=== PATIENT | female | born 1960 | race Caucasian/White ===

== ENCOUNTER → 2017-09-11 13:29 | Outpatient (CLI) | payer OTHER, SELFPAY ==
--- NOTE | 2017-09-11 13:34 | CT_ITS ---
STUDY: CT ABDOMEN AND PELVIS WITH CONTRAST REASON FOR EXAM: Female, 56 years old. Severe pain. Rectal prolapse repair. RADIATION DOSAGE (If Supplied By Facility): CTDIvol = ( 16.75 ) mGy, DLP = ( 1289.47 ) mGycm TECHNIQUE: Transaxial images were obtained from the dome of the diaphragm to the symphysis pubis with oral contrast. 100 ml of Isovue 300 contrast was administered. Sagittal and coronal images were reconstructed. Individualized dose optimization techniques were used for this CT. COMPARISON: None. FINDINGS: Mild degree of increased markings at the lung bases slightly worse on the right side suggest overt bibasilar atelectasis. The visualized portions of the heart are within normal limits. Normal liver. The gallbladder is contracted. Normal spleen. Normal pancreas. Normal bilateral adrenal glands. Normal right kidney. Normal left kidney. Moderate sized hiatal hernia. Normal small intestine. There are multiple colonic diverticula consistent with diverticulosis. The patient is status post appendectomy. There is scattered atherosclerotic calcification of the abdominal aorta, without a demonstrated aneurysm. Normal inferior vena cava. Normal retroperitoneum. Normal urinary bladder. There is absence of the uterus consistent with a prior hysterectomy. There is a small umbilical hernia containing fat. Small bilateral benign-appearing inguinal lymph. Disc space narrowing in the degeneration at the L4-L5 level. CT/Abdomen/Pelvis WITH Contrast IMPRESSION: Mild increased markings at the lung bases suggestive of atelectasis. Small umbilical hernia. Electronically Signed: Yasamni Basurto MD at 15:32 EST Tel [phone], Service support ,
== END ==
PROVIDERS: Family Provider Family Medicine; PCP Family Medicine; Visit Provider Family Medicine
DX: K62.89 Other specified diseases of anus and rectum (principal); K42.9 Umbilical hernia without obstruction or gangrene; K44.9 Diaphragmatic hernia without obstruction or gangrene; K57.30 Diverticulosis of large intestine without perforation or abscess without bleeding; Z90.49 Acquired absence of other specified parts of digestive tract; Z90.710 Acquired absence of both cervix and uterus
CPT/HCPCS: 74177; Q9967

== ENCOUNTER → 2017-09-30 14:59 | Outpatient (CLI) | payer OTHER, SELFPAY ==
--- NOTE | 2017-09-30 15:03 | RAD_ITS ---
STUDY: X-RAY - SACRUM/COCCYX REASON FOR EXAM: Female, 56 years old. Pain TECHNIQUE: 4 view(s) of the sacrum and coccyx were obtained. COMPARISON: None. FINDINGS: Normal bilateral sacroiliac joints. Normal visualized sacral ala and fused sacral bodies. Normal sacrococcygeal junction with a normal angulation. Normal coccygeal segments. The presacral soft tissue structures are unremarkable. Lower lumbar facet disease. RAD/Sacrum-Coccyx min 2 Views IMPRESSION: No sacrococcygeal abnormalities are identified. Electronically Signed: Darryl Riggs MD at 7:42 EST Tel , Service support ,
--- NOTE | 2017-09-30 15:03 | RAD_ITS ---
STUDY: X-RAY - LUMBAR SPINE REASON FOR EXAM: Female, 56 years old. Pain TECHNIQUE: 3 view(s) of the lumbar spine were obtained. COMPARISON: None FINDINGS: Diffuse spondylosis with normal alignment. Lower lumbar facet disease. No compression deformities. Heights of disc spaces are maintained. Aortic calcifications. RAD/Lumbar Spine 2 or 3 Views IMPRESSION: Spondylosis and lower lumbar facet disease without evidence of disc space narrowing or compression deformity. Electronically Signed: Darryl Riggs MD at 7:30 EST Tel , Service support ,
== END ==
PROVIDERS: Family Provider Family Medicine; PCP Family Medicine; Visit Provider Anesthesiology Pain Medicine
DX: M47.896 Other spondylosis, lumbar region (principal)
CPT/HCPCS: 72100; 72220

== ENCOUNTER → 2018-02-26 09:55 | Outpatient (CLI) | payer OTHER, SELFPAY ==
[2018-02-26 12:07] LABS: Absolute Lymphocyte Count 1.67 X10^3/ul (0.83-4.51); Absolute Neutrophil Count 3.9 X10^3/uL (2.0-7.7); Basophil# 0.02 X10^3/uL; Basophil% 0.3 % (0-1); Eosinophil# 0.18 X10^3/uL; Eosinophils% 2.9 % (0-5); Lymphocyte # 1.67 X10^3/ul (4.0); Lymphocyte % 27.2 % (19-41); Mean Corp Hgb Conc 33.3 g/gl (32-36); Mean Corpuscular Volume 90.1 fL (81-99); Mean Platelet Vol. 10.4 fl (6.2-12.0); Monocyte# 0.37 X10^3/uL; Neutrophil % 63.4 % (47-70); POSITIVE COUNT NO; POSITIVE DIFFERENTIAL NO; POSITIVE MORPHOLOGY NO; Platelet Count 266 K/mm3 (150-450); RBC Distribution Width CV 12.9 % (11.6-14.6); RBC Distribution Width SD 42.4 fl (35.1-43.9); Red Blood Count 4.66 M/mm3 (4.2-5.4); White Blood Count 6.2 K/mm3 (4.4-11.0)
[2018-02-26 12:38] LABS: ALB/GLOB Ratio 1.2 RATIO (0.9-2.4); AST(SGOT) 19 U/L (15-37); Alanine Aminotransfer ALT/SGPT 30 U/L (13-56); Albumin, Serum 3.7 g/dL (3.2-5.0); Alkaline Phosphatase 91 U/L (45-117); Anion Gap 10 (5-15); BUN 16 mg/dL (7-18); BUN/Creat Ratio 14.5 RATIO (10-20); Calcium,Total 8.9 mg/dL (8.5-10.1); Chloride 109 mmol/L (98-107); Cholesterol 194 mg/dL (200); EST Glomerular Filtration Rate 54 mL/min (>60); Est Glom Filt Rate - Afr Amer 65 mL/min (>60); Globulin 3.2 g/dL (2.2-4.2); Glucose 104 mg/dL (74-106); High Density Lipoprotein 55 mg/dL; Potassium 4.2 mmol/L (3.5-5.1); Protein, Total 6.9 g/dL (6.4-8.2); Sodium Level 145 mmol/L (136-145); T4 Free Direct 0.95 ng/dL (0.76-1.46); Thyroid Stim Hormone (TSH) 1.99 uIU/mL (0.358-3.74); Triglycerides 136 mg/dL; Very Low Density Lipoprotein 27 mg/dL (5-40)
== END ==
PROVIDERS: Family Provider Family Medicine; PCP Family Medicine; Visit Provider Family Medicine
DX: E78.00 Pure hypercholesterolemia, unspecified (principal); F41.9 Anxiety disorder, unspecified; R79.89 Other specified abnormal findings of blood chemistry
CPT/HCPCS: 36415; 80053; 80061; 84439; 84443; 85025

== ENCOUNTER → 2018-10-03 11:37 | Outpatient (CLI) | payer OTHER, SELFPAY ==
--- NOTE | 2018-10-03 11:50 | RAD_ITS ---
STUDY: X-RAY - LUMBAR SPINE REASON FOR EXAM: Female, 58 years old. Low back pain. TECHNIQUE: 5 view(s) of the lumbar spine were obtained. COMPARISON: None FINDINGS: Normal lumbar lordosis. There is no substantial scoliosis. There is minimal retrolisthesis of L3 over L4. There is multilevel endplate spondylosis of the lumbar vertebrae. There is severe disc space narrowing of L3-L4 and to a lesser extent L4-L5. There is no demonstrated acute fracture. There is no demonstrated spondylolysis of the pars interarticulares. There is atherosclerotic calcification of the abdominal aorta without a demonstrated aneurysm. RAD/L/S Spine Min 4 Views IMPRESSION: Degenerative changes of the spine, as detailed above. Electronically Signed: Alonzo Pradhan MD at 11:49 EST Tel , Service support ,
== END ==
PROVIDERS: Family Provider Family Medicine; PCP Family Medicine
DX: M99.03 Segmental and somatic dysfunction of lumbar region (principal); M99.04 Segmental and somatic dysfunction of sacral region
CPT/HCPCS: 72110

== ENCOUNTER → 2019-03-18 11:23 | Outpatient (CLI) | payer OTHER, SELFPAY ==
[2017-02-07 20:54] VITALS: BMI 29.4
[2019-03-18 16:05] LABS: ALB/GLOB Ratio 1.1 RATIO (0.9-2.4); AST(SGOT) 17 U/L (15-37); Alanine Aminotransfer ALT/SGPT 25 U/L (13-56); Albumin, Serum 3.8 g/dL (3.2-5.0); Alkaline Phosphatase 108 U/L (45-117); Anion Gap 3 (5-15); BUN 19 mg/dL (7-18); BUN/Creat Ratio 19.7 RATIO (10-20); Calcium,Total 8.8 mg/dL (8.5-10.1); Chloride 110 mmol/L (98-107); Creatinine, Serum 0.96 mg/dL (0.55-1.02); EST Glomerular Filtration Rate 63 mL/min (>60); Est Glom Filt Rate - Afr Amer 76 mL/min (>60); Globulin 3.4 g/dL (2.2-4.2); Glucose 97 mg/dL (74-106); Potassium 4.3 mmol/L (3.5-5.1); Protein, Total 7.2 g/dL (6.4-8.2); Sodium Level 141 mmol/L (136-145); Thyroid Stim Hormone (TSH) 1.29 uIU/mL (0.358-3.74)
== END ==
PROVIDERS: Family Provider Family Medicine; PCP Family Medicine; Visit Provider Family Medicine
DX: E78.00 Pure hypercholesterolemia, unspecified (principal); F41.9 Anxiety disorder, unspecified
CPT/HCPCS: 36415; 80053; 84439; 84443

== ENCOUNTER → 2019-05-06 13:27 | Outpatient (CLI) | payer OTHER, SELFPAY ==
[2017-02-07 20:54] VITALS: BMI 29.4
--- NOTE | 2019-05-06 13:29 | RAD_ITS ---
STUDY: X-RAY - LUMBAR SPINE REASON FOR EXAM: Female, 58 years old. Chronic low back pain TECHNIQUE: 4 view(s) of the lumbar spine were obtained. COMPARISON: None FINDINGS: Normal lumbar lordosis. There is no substantial scoliosis. There is a normal alignment of the vertebrae. There is mild multilevel endplate spondylosis of the lumbar vertebrae. There is mild multi-level degenerative disc disease with multi-level disc space narrowing. There is no demonstrated fracture. There is atherosclerotic calcification of the abdominal aorta without a demonstrated aneurysm. RAD/L/S Spine Min 4 Views IMPRESSION: Degenerative changes of the spine, as detailed above. No acute or focal abnormality. Electronically Signed: Albert Gaytan MD at 18:54 EDT , Service support ,
== END ==
PROVIDERS: Family Provider Family Medicine; PCP Family Medicine; Referring Provider Family Medicine; Visit Provider Family Medicine
DX: M54.5 Low back pain (principal); M51.16 Intervertebral disc disorders with radiculopathy, lumbar region
CPT/HCPCS: 72110

== ENCOUNTER → 2019-08-07 10:31 | Outpatient (CLI) | payer SELFPAY ==
--- NOTE | 2019-08-07 10:39 | RAD_ITS ---
STUDY: X-RAY - LUMBAR SPINE REASON FOR EXAM: Female, 58 years old. LOW BACK PAIN TECHNIQUE: 4 view(s) of the lumbar spine were obtained. COMPARISON: 06 May 2019, 03 October 2018, 30 September 2014, 11 September 2017 FINDINGS: Normal lumbar lordosis. There is no substantial scoliosis. There is a normal alignment of the vertebrae. Normal vertebral bodies and endplates. Normal disc space heights. The spine is radiographically stable between flexion and extension. There are minor age appropriate changes. The soft tissue structures are unremarkable. Appearance is stable since prior RAD/Lumbar Spine 2 or 3 Views IMPRESSION: Unremarkable x-ray examination of the lumbar spine. Electronically Signed: Sher Fernandez, at 18:20 EST Tel , Service support ,
== END ==
PROVIDERS: Family Provider Family Medicine; PCP Family Medicine
DX: M48.02 Spinal stenosis, cervical region (principal)
CPT/HCPCS: 72100

== ENCOUNTER 2019-11-10 13:39 | Emergency (ER) | payer MEDICARE, SELFPAY ==
[2019-11-10 13:39] VITALS: BP 142/86; PULSE 70; RESP 16; TEMP 36.8; O2SAT 98; BMI 32.4
--- NOTE | 2019-11-10 14:13 | RAD_ITS ---
STUDY: X-RAY - RIGHT FOOT CLINICAL: Female, 59 years old. Lateral foot pain today after walking -- NKI TECHNIQUE: 3 view(s) of the foot. COMPARISON: None. FINDINGS: There is a small plantar calcaneal spur. Normal visualized subtalar, talonavicular, calcaneocuboid, tarsal and tarsometatarsal articulations. There is a nondisplaced spiral fracture of the shaft of the fifth metatarsal. Normal metatarsophalangeal joint of the great toe. Normal tibial and fibular sesamoid bones. Normal interphalangeal joint of the great toe. Normal phalanges of the great toe. Normal second through fifth metatarsophalangeal joints. Normal interphalangeal joints and phalanges of the lesser toes. Soft tissue swelling. RAD/Foot min 3 Views IMPRESSION: Nondisplaced spiral fracture of the fifth metatarsal with overlying soft tissue swelling. Electronically Signed: Yasmani Basurto, at 14:39 EDT , Service support ,
--- NOTE | 2019-11-10 14:14 | ED.VISSUMM ---
- ER Visit Summary Date of Service: 11/10/19 Chief Complaint: Right foot injury History of Present Illness: The patient is a 59 F who presents with a right foot injury that occurred today while she was walking up steps. Patient states she was walking with her grandson when she felt a pop in her right foot. Patient states this caused her to fall. Patient denies any head injury or loss of consciousness. Patient states the pain is worse over the right midfoot. Patient describes her pain as throbbing. Patient states the pain is worse with weightbearing and with dorsiflexion. Patient denies any paresthesias or weakness. Patient denies any other injuries. Patient states when she fell she developed an abrasion over her left lower leg. Patient is unsure of her last tetanus but thinks it is probably more than 10 years ago. Physical Examination: Vital signs are stable. Patient is afebrile. Patient is in no acute distress. Musculoskeletal exam reveals tenderness over the right midfoot and fifth metatarsal area. There is some mild edema. There is no ecchymosis. There is no bony crepitance or step-off. There is no obvious deformity noted. Range of motion was limited in all motions of the right ankle and foot secondary to pain. Pedal pulses are equal bilaterally. Sensation was intact to light touch in all digits bilaterally. Capillary refill was less than 2 seconds in all digits. There is no tenderness over the proximal fibula or medial or lateral malleoli. Test Results: X-rays of the right foot were obtained. There is a spiral oblique fracture of the right fifth metatarsal. This is nondisplaced. This was interpreted by the radiologist and myself. Emergency Department Course and Treatment: Patient was given an ice pack. Patient was given a dose of [place]. Case was discussed with Dr. Smith. He recommended placing the patient in a posterior splint and crutches. He recommended maintaining the patient is nonweightbearing. He will follow-up with the patient. Patient was given a prescription for [place]. Patient was instructed to continue ice and elevation. Patient understood and was agreeable with the plan. All questions were answered. Disposition: Discharge home Impression: 1. Acute fracture right fifth metatarsal This note was generated with [employer] software. It may contain incorrect words, spelling, and punctuation that were not noted in review of the chart prior to signing ED Disposition - Plan for ED Patient: Disposition: Home or Assisted Living Diagnosis: Fracture of fifth metatarsal bone of right foot Instructions: ED FOOT FRACTURE Prescriptions: Hydrocodone Bitart/Apap 5-325 [[place] 5MG-325MG] 1 tab PO Q6H PRN PRN 3 Days #10 tab PRN Reason: Pain Prescription Printed Referrals: Denis Colindres MD [Primary Care Provider] - Matias Smith DPM [STAFF PHYSICIAN] - 5-7 Days
[2019-11-10] MEDS: Diphth,Pertuss(Acell),Tet Vac 0.5 ML Vial IM (14:34)
[2019-11-10 15:21] VITALS: BP 135/95; PULSE 69; RESP 16; TEMP 36.8; O2SAT 98
[2019-11-10] MEDS: HYDROcodone Bitartrate/Apap 5/325 Tablet PO (16:40)
[2019-11-10 16:52] VITALS: PULSE 70; RESP 16; O2SAT 97
== END 2019-11-10 17:11 | disposition home or self-care (01) ==
PROVIDERS: Emergency Provider Emergency Medicine; PCP Family Medicine
DX: S92.354A Nondisplaced fracture of fifth metatarsal bone, right foot, initial encounter for closed fracture (principal); X58.XXXA Exposure to other specified factors, initial encounter; Y93.01 Activity, walking, marching and hiking; Y92.9 Unspecified place or not applicable; F41.9 Anxiety disorder, unspecified; Z87.891 Personal history of nicotine dependence
CPT/HCPCS: 29515; 73630; 90471; 90715; 99283

== ENCOUNTER → 2020-10-21 11:14 | Outpatient (CLI) | payer MEDICARE, SELFPAY ==
[2020-10-21 15:11] LABS: Basophil# 0.03 X10^3/uL; Basophil% 0.5 % (0-1); Eosinophil# 0.13 X10^3/uL; Eosinophils% 2.2 % (0-5); Hematocrit 41.5 % (37-47); Hemoglobin 13.2 g/dL (12.0-15.0); Lymphocyte % 24.1 % (19-41); Mean Corp Hgb Conc 31.8 g/dL (32-36); Mean Corpuscular Hgb 29.4 pg (27.0-32.0); Mean Corpuscular Volume 92.4 fL (81-99); Mean Platelet Vol. 10.5 fl (6.2-12.0); Monocyte# 0.28 X10^3/uL; Monocyte% 4.8 % (0-10); NRBC Flagged by Analyzer 0 % (0-5); Neutrophil # 3.96 X10^3/uL (2.7-7.7); Neutrophil % 68.2 % (47-70); Platelet Count 319 K/mm3 (150-450); RBC Distribution Width CV 12.5 % (11.6-14.6); RBC Distribution Width SD 42.9 fl (35.1-43.9); Red Blood Count 4.49 M/mm3 (4.2-5.4); White Blood Count 5.8 K/mm3 (4.4-11.0)
[2020-10-21 15:30] LABS: ALB/GLOB Ratio 1.2 RATIO (0.9-2.4); AST(SGOT) 18 U/L (15-37); Alanine Aminotransfer ALT/SGPT 30 U/L (13-56); Albumin, Serum 3.8 g/dL (3.2-5.0); Alkaline Phosphatase 102 U/L (45-117); Anion Gap 9 (5-15); BUN 21 mg/dL (7-18); Calcium,Total 9.1 mg/dL (8.5-10.1); Chloride 104 mmol/L (98-107); Creatinine, Serum 0.95 mg/dL (0.55-1.02); EST Glomerular Filtration Rate 63 mL/min (>60); Est Glom Filt Rate - Afr Amer 76 mL/min (>60); Globulin 3.3 g/dL (2.2-4.2); Glucose 112 mg/dL (74-106); Protein, Total 7.1 g/dL (6.4-8.2); Sodium Level 142 mmol/L (136-145); Thyroid Stim Hormone (TSH) 0.65 uIU/mL (0.358-3.74)
== END ==
PROVIDERS: PCP Family Medicine; Referring Provider Family Medicine; Visit Provider Family Medicine
DX: E78.00 Pure hypercholesterolemia, unspecified (principal); F41.9 Anxiety disorder, unspecified
CPT/HCPCS: 36415; 80053; 84443; 85025

== ENCOUNTER → 2020-11-15 11:35 | Outpatient (CLI) | payer MEDICARE, SELFPAY ==
--- NOTE | 2020-11-15 12:41 | CT_ITS ---
STUDY: CT CHEST WITHOUT CONTRAST- LOW DOSE SCREENING PROTOCOL REASON FOR EXAM: Female, 60 years old. Former smoker. 66 pack per year history. No current symptoms of lung cancer or pulmonary infection. Shared decision-making with referring PCP documented in patient''s record. RADIATION DOSAGE (If Supplied By Facility): CTDIvol = ( 3.02 ) mGy, DLP = ( 101.96 ) mGycm TECHNIQUE: Low dose screening CT examination performed from the base of the neck to the upper abdomen. Sagittal and coronal reformatted images performed. Sagittal and coronal MIP images provided. The measurements provided are average, rounded measurements per ACR guidelines. COMPARISON: None. FINDINGS: Mild emphysematous changes. Lingular linear scarring. 4 mm noncalcified nodule peripherally left lower lobe the lungs on image 166 and follow-up CT is recommended in 12 months document stability. No other noncalcified nodule or mass. There is no demonstrated pleural abnormality. Normal heart and pericardium. There are calcifications of the coronary arteries. Moderate sized hiatal hernia. Normal hilar regions. Normal unenhanced pulmonary arteries. Normal aorta arch and descending thoracic aorta. Normal osseous structures. There is no demonstrated abnormality of the visualized upper abdomen. CT/Low Dose CT Lung Screening IMPRESSION: 1. 4 mm noncalcified left lower lobe nodule and follow-up CT is recommended in 12 months document stability.. 2. Incidental findings include moderate hiatal hernia.. ASSESSMENT CATEGORY: LungRADS 2 - Benign Appearance or Behavior. Continue annual screening with LDCT in 12 months, per established ACR guidelines. Electronically Signed: Moshe Gray MD at 13:11 EDT Tel , Service support ,
== END ==
PROVIDERS: PCP Family Medicine; Referring Provider Nurse Practitioner Family; Visit Provider Nurse Practitioner Family
DX: Z12.2 Encounter for screening for malignant neoplasm of respiratory organs (principal); Z87.891 Personal history of nicotine dependence
CPT/HCPCS: 71271

== ENCOUNTER 2021-08-01 12:13 | Outpatient (CLI) | payer MEDICARE, SELFPAY ==
--- NOTE | 2021-08-01 12:17 | RAD_ITS ---
STUDY: X-RAY - LUMBAR SPINE REASON FOR EXAM: Female, 60 years old. PAIN TECHNIQUE: 5 view(s) of the lumbar spine were obtained. COMPARISON: 08/07/2019 FINDINGS: Normal lumbar lordosis. There is no substantial scoliosis. There is a normal alignment of the vertebrae. There is multilevel endplate spondylosis of the lumbar vertebrae. There is multi-level degenerative disc disease with multi-level disc space narrowing. Facet hypertrophy in the lower lumbar spine. The soft tissue structures are unremarkable. RAD/L/S Spine Min 4 Views IMPRESSION: Degenerative changes of the spine, as detailed above. MRI would be useful. Electronically Signed: Moshe Gray MD at 12:37 EST Tel , Service support ,
--- NOTE | 2021-08-01 12:18 | RAD_ITS ---
History: PAIN AP pelvis and right hip, 3 views: Findings: No fracture or subluxation. Joint spaces and soft tissues are normal. IMPRESSION: No acute abnormality. at 0947 Reported and signed by: Alvarez Coto MD Electronically Signed: Alvarez Coto MD at 9:46 EST Tel , Service support , RAD/HIP, UNI W/ Pelvis 2-3 Views
== END 2021-08-01 23:59 | disposition short-term general hospital (02) ==
PROVIDERS: PCP Family Medicine; Referring Provider Family Medicine; Visit Provider Family Medicine
DX: M47.816 Spondylosis without myelopathy or radiculopathy, lumbar region (principal); M51.36 Other intervertebral disc degeneration, lumbar region; M48.061 Spinal stenosis, lumbar region without neurogenic claudication; M25.551 Pain in right hip; R10.31 Right lower quadrant pain
CPT/HCPCS: 72110; 73502

== ENCOUNTER → 2021-11-28 | Outpatient (CLI) | payer MEDICARE, SELFPAY ==
--- NOTE | 2021-11-28 12:22 | CT_ITS ---
STUDY: LOW DOSE CT LUNG CANCER SCREENING REASON FOR EXAM: Female, 61 years old. Lung cancer screening -- 88 pk yr hx; former smoker; asymptomatic RADIATION DOSAGE (If Supplied By Facility): CTDIvol = ( 3.02 ) mGy, DLP = ( 91.76 ) mGycm TECHNIQUE: No contrast was administered. Low dose technique was utilized (average mAS-38 and kVp 120). 1.25 mm axial source images with a slice interval of 1.25-mm were reconstructed in lung windows. 2.5 mm axial source images with a slice interval of 2.5-mm were reconstructed in lung windows. 5.0 mm axial source images with a slice interval of 5.0-mm were reconstructed in soft tissue windows. COMPARISON: Comparison is made with prior study dated 11/15/2020. NODULES: Stable 4 mm noncalcified nodule in the peripheral lateral aspect of left lower lobe as seen on axial image #160. Emphysema: Hyperinflation. Emphysematous changes. Stable linear scarring in both upper lobes. Stable linear scarring in the lingular segment of the left upper Endobronchial lesion: None Aorta: Atherosclerotic plaque formation of the aortic arch. CORONARY ARTERIES: Coronary artery calcification Heart: Unremarkable Pulmonary artery: Unremarkable Mediastinal nodes: Small mediastinal lymph nodes. Other chest and abdominal findings: Moderate sized hiatal hernia. CT/Low Dose CT Lung Screening IMPRESSION: Lung-RADS category 2 - Continue annual screening with LDCT in 12 months. IMPORTANT NOTES FOR USE: ACR Lung-RADS Version 1.1 Assessment Categories Release Date: 2018 Category: Coded 0-4 bases on nodule(s) with highest degree of suspicion. Negative screen is defined as categories 1 and 2; a positive screen is defined as categories 3 and 4. Category 3 and 4A nodules that are unchanged on interval CT should be coded as category 2, and individuals returned to screening in 12 months. Category 4X: Category 3 or 4 nodules with additional imaging findings that increase the suspicion of lung cancer, such as spiculation, GGN that doubles in size in 1 year, enlarged lymph notes, etc. Category Modifiers: S (significant finding unrelated to lung cancer) Electronically Signed: Yasmani Basurto MD at 13:08 EDT ,
== END | disposition home or self-care (01) ==
LOC: CT 12:21
PROVIDERS: PCP Family Medicine; Referring Provider Nurse Practitioner Family; Visit Provider Nurse Practitioner Family
DX: Z12.2 Encounter for screening for malignant neoplasm of respiratory organs (principal); Z87.891 Personal history of nicotine dependence
CPT/HCPCS: 71271

== ENCOUNTER 2022-06-13 18:09 | Emergency (ER) | payer MEDICARE, SELFPAY ==
[2022-06-13 18:10] VITALS: BP 174/92; PULSE 85; RESP 16; TEMP 36.2; O2SAT 99; BMI 30.4
--- NOTE | 2022-06-13 19:07 | ED.VIS.LOWEX ---
HPI History of Present Illness Chief Complaint: Lower Extremity Injury Informant: patient Narrative Narrative: Patient states that she was walking. She stepped down and she got sudden pain along the medial aspect of her right foot. It started in the right great toe and radiated up the foot. After that it was sore to bear weight. She had the same thing happen once on her right foot and had 1/5 metatarsal fracture there. She does not have a history of gout. She felt perfectly fine until this happened. She is not getting any swelling. No chest pain no trouble breathing. This just happened within the last couple hours. Rest makes it better and weightbearing makes it worse PFSH PFS Medical History Anxiety Climacteric syndrome Encounter for screening for malignant neoplasm of lung in former smoker who quit in past 15 years with 30 pack year history or greater Former smoker History of tobacco use Hypercholesteremia IBS (irritable bowel syndrome) Insomnia Rectal prolapse Umbilical hernia Home Medications calcium carbonate 600 mg calcium (1,500 mg) tablet 1,200 mg PO DAILY 10/16/16 [History Last Taken Unknown] paroxetine HCl 40 mg tablet 40 mg PO DAILY 10/16/16 [History Last Taken Unknown] promethazine 25 mg tablet 50 mg PO Q8H PRN PRN Nausea 10/16/16 [History Last Taken Unknown] simvastatin 10 mg tablet 10 mg PO QHS 10/16/16 [History Last Taken Unknown] trazodone 50 mg tablet 50 mg PO QHS 10/16/16 [History Last Taken Unknown] Allergy/AdvReac Type Severity Reaction Status Date / Time No Known Allergies Allergy Verified 06/13/22 18:11 Family History Father Hypertension Mother Hypertension Surgical History H/O section H/O laminectomy H/O thumb surgery H/O total hysterectomy History of appendectomy History of carpal tunnel surgery History of tonsillectomy Social History Smoking Status: Former smoker quit date: 12/27/16 pack-years: 64 Tobacco: How many years used: 44 Electronic Cigarette Use: not used how long ago did patient quit smokin years second hand exposure: Yes quit status: quit date established ROS ROS ED Cardiovascular Cardiovascular: Denies chest pain or palpitations Respiratory/Chest Respiratory/Chest: Denies cough or dyspnea Gastrointestinal Gastrointestinal: Denies nausea or vomiting Musculoskeletal Musculoskeletal: Reports arthralgias and other Details: History of present illness peer ; Denies back pain Integumentary Denies abscess, Abrasions or rash Neurologic Neurologic: Denies paresthesias or weakness Endocrine Endocrinology: Denies polydipsia or polyuria Hematologic/Lymphatic Hematologic/Lymphatic: Denies easy bleeding or easy bruising Allergic/Immunologic Allergic/Immunologic ED: Denies urticaria EXAM Physical Exam Const Vital Signs: 06/13/22 18:10 Temperature 97.2 F L Temperature Source Temporal Pulse Rate 85 Respiratory Rate 16 Blood Pressure 174/92 H Blood Pressure Mean 119 Pulse Ox 99 Oxygen Delivery Method Room Air Positive well nourished and well developed General Appearance ED: well developed and NAD Resp normal respiratory effort Extremity normal to inspection Extremity Narrative: No visible swelling redness or rash. There is tenderness on the left foot involving the proximal aspect of the left great toe and up the midfoot and even slightly into the forefoot. No tenderness at the ankle or calcaneus. Achilles is intact by palpation and Dudley test. There is no edema. No cords. No distended veins. No calf pain. No asymmetry. Neuro no sensory deficits noted Motor Exam: strength 5/5 throughout Psych mental status grossly normal Skin no wounds MDM MDM MDM Narrative Medical decision making narrative: X-rays show no acute fracture. Ice rest elevation is appropriate. This may be a strain. If it still hurting in a couple weeks it may need repeat x-ray. Radiography Diagnostic Testing: Clinical Impression(s) from Imaging Studies Foot X-Ray 06/13/22 19:10 IMPRESSION: Negative left foot x-rays. Electronically Signed: Anselmo Estevez MD at 19:19 EST Reading Location ID and State: [facility] / [place] Tel , Service support , Three-view x-ray of the left foot looked at by me and read by radiology shows no acute fracture. Discharge Plan Triage Chief Complaint: Lower Extremity Injury ED Provider: Tahir Villanueva Dx/Rx/DC Orders Clinical Impression: Left foot pain Instructions: ED Foot Sprain Prescriptions: No Action trazodone 50 MG tablet 50 mg PO QHS simvastatin 10 MG tablet 10 mg PO QHS calcium carbonate 600 MG tablet 1,200 mg PO DAILY promethazine 25 MG tablet 50 mg PO Q8H PRN PRN (Reason: Nausea) paroxetine HCl 40 MG tablet 40 mg PO DAILY Label Comments: for 4 days Primary Care Provider: Denis Colindres Referrals: Denis Colindres MD [Primary Care Provider] - 1 Week if not improving Disposition Disposition: Home, Self Care
--- NOTE | 2022-06-13 19:10 | RAD_ITS ---
EXAM: XR LEFT FOOT COMPLETE, 3 OR MORE VIEWS CLINICAL INDICATION: pain TECHNIQUE: Frontal, lateral and oblique views of the left foot. This report was created using [employer] report generation technology. COMPARISON: None. FINDINGS: BONES/JOINTS: Unremarkable. No acute fracture. No subluxation. Normal alignment. Preservation of the joint space. No sclerotic or destructive changes observed. SOFT TISSUES: Unremarkable. No soft tissue swelling or gas. No radiopaque foreign body. RAD/Foot min 3 Views IMPRESSION: Negative left foot x-rays. Electronically Signed: Anselmo Estevez MD at 19:19 EST ,
== END 2022-06-13 20:24 | disposition home or self-care (01) ==
PROVIDERS: Emergency Provider Emergency Medicine; PCP Family Medicine; Visit Provider Emergency Medicine
DX: M79.672 Pain in left foot (principal); E78.00 Pure hypercholesterolemia, unspecified; M79.671 Pain in right foot; Z87.891 Personal history of nicotine dependence
CPT/HCPCS: 73630; 99282

== ENCOUNTER 2022-11-30 13:11 | Emergency (ER) | payer MEDICARE, SELFPAY ==
[2022-11-30 13:12] VITALS: BP 141/104; PULSE 115; RESP 18; TEMP 37.1; O2SAT 96; BMI 29.3
--- NOTE | 2022-11-30 13:56 | CT_ITS ---
STUDY: CT ABDOMEN AND PELVIS WITH CONTRAST REASON FOR EXAM: Female, 62 years old. Abdominal pain RADIATION DOSAGE (If Supplied By Facility): CTDIvol = ( 16.75 ) mGy, DLP = ( 995.99 ) mGycm TECHNIQUE: Transaxial images were obtained from the dome of the diaphragm to the symphysis pubis without oral contrast. IV 100mL Isovue-300 was administered. Sagittal and coronal images were reconstructed. Individualized dose optimization techniques were used for this CT. COMPARISON: Comparison is made with prior study of September 11, 2017. FINDINGS: Mild degree of increased markings at the lung bases. Coronary artery calcification. There is decreased attenuation of the liver consistent with steatosis. Normal gallbladder and extrahepatic biliary system. Normal spleen. Normal pancreas. Normal bilateral adrenal glands. 1.2 cm cyst in the right kidney. Normal left kidney. Moderate sized hiatal hernia. There is evidence of a dilated small bowel loops with air-fluid levels. There is thickening of the small bowel loops in the distal ileum. Increased markings are seen in the omental fat. Omental metastasis should be ruled out. Follow-up is recommended. There are multiple colonic diverticula consistent with diverticulosis. The patient is status post appendectomy. There is scattered atherosclerotic calcification of the abdominal aorta, without a demonstrated aneurysm. Normal inferior vena cava. Normal retroperitoneum. Normal urinary bladder. There is absence of the uterus consistent with a prior hysterectomy. There is a small umbilical hernia containing fat. There are degenerative changes of the visualized lumbar spine. CT/Abdomen/Pelvis W IV Cont ONLY IMPRESSION: Dilated small bowel loops down to the distal ileum where several ileal loops are thickened. There is also evidence of soft tissue density in the omental fat suggestive of possible omental metastasis. Follow-up is recommended. Sigmoid diverticulosis. Diffuse fatty infiltration of the liver. The patient is status post hysterectomy. Electronically Signed: Yasmani Basurto MD at 15:13 EDT ,
[2022-11-30] MEDS: Morphine 4 MG/ML Syringe IV (14:12)
[2022-11-30] MEDS: Ondansetron 4 MG/2 ML Vial IV (14:12)
[2022-11-30] MEDS: 0.9% Normal Saline 1,000 ML 1000 ML IV (14:12)
[2022-11-30 14:22] LABS: Absolute Lymphocyte Count 1.08 X10^3/uL (0.83-4.51); Absolute Neutrophil Count 7.5 X10^3/uL (2.0-7.7); Basophil# 0.03 X10^3/uL; Basophil% 0.3 % (0-1); Hematocrit 45.5 % (37-47); Hemoglobin 15.2 g/dL (12.0-15.0); Lymphocyte # 1.08 X10^3/ul (0.83-4.51); Lymphocyte % 12.1 % (19-41); Mean Corp Hgb Conc 33.4 g/dL (32-36); Mean Corpuscular Hgb 29.9 pg (27.0-32.0); Mean Corpuscular Volume 89.6 fL (81-99); Monocyte# 0.29 X10^3/uL; Monocyte% 3.3 % (0-10); NRBC Flagged by Analyzer 0 % (0-5); Neutrophil # 7.49 X10^3/uL (2.7-7.7); Platelet Count 364 K/mm3 (150-450); RBC Distribution Width CV 12.2 % (11.6-14.6); RBC Distribution Width SD 40.2 fl (35.1-43.9); Red Blood Count 5.08 M/mm3 (4.2-5.4); White Blood Count 8.9 K/mm3 (4.4-11.0)
--- NOTE | 2022-11-30 14:35 | EDS_ITS ---
HPI <CESAR Dennis - Last Filed: 11/30/22 16:00> History of Present Illness Chief Complaint: Abd Pain Narrative Narrative: Patient is a 62-year-old female with history of cholesterol, anxiety who presents to the emergency department with 1 month of worsening abdominal pain. 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 Patient does get regular colonoscopies. Patient states that for the last month she has increased pain every time that she eats, and sometimes at nighttime. Patient states the pain is diffuse throughout her entire abdomen. She states that she gets full quickly. She states that she has decreased bowel movement, decreased urinalysis secondary not eating and drinking. She denies any specific fevers or chills. PFSH <CESAR Dennis - Last Filed: 11/30/22 16:00> PFSH Medical History Anxiety Climacteric syndrome Encounter for screening for malignant neoplasm of lung in former smoker who quit in past 15 years with 30 pack year history or greater Former smoker History of tobacco use Hypercholesteremia IBS (irritable bowel syndrome) Insomnia Rectal prolapse Umbilical hernia Home Medications calcium carbonate 600 mg calcium (1,500 mg) tablet 1,200 mg PO DAILY 10/16/16 [History Last Taken Unknown] paroxetine HCl 40 mg tablet 40 mg PO DAILY 10/16/16 [History Last Taken Unknown] promethazine 25 mg tablet 50 mg PO Q8H PRN PRN Nausea 10/16/16 [History Last Taken Unknown] simvastatin 10 mg tablet 10 mg PO QHS 10/16/16 [History Last Taken Unknown] trazodone 50 mg tablet 50 mg PO QHS 10/16/16 [History Last Taken Unknown] Allergy/AdvReac Type Severity Reaction Status Date / Time No Known Allergies Allergy Verified 11/30/22 13:13 Family History Father Hypertension Mother Hypertension Surgical History H/O section H/O laminectomy H/O thumb surgery H/O total hysterectomy History of appendectomy History of carpal tunnel surgery History of tonsillectomy Social History Smoking Status: Former smoker quit date: 12/27/16 pack-years: 64 Tobacco: How many years used: 44 Electronic Cigarette Use: not used how long ago did patient quit smokin years second hand exposure: Yes quit status: quit date established ROS <CESAR Dennis - Last Filed: 11/30/22 16:00> ROS ED ROS Narrative Constitutional: Negative for fever, chills, weight loss, weakness Eyes: Negative for vision loss, vision change, double vision ENT: Negative for any sore throat, ear pain, congestion Cardiovascular: Negative for any chest pain, tightness, palpitations Respiratory: Negative for any cough, sputum production, hemoptysis, dyspnea, dyspnea on exertion, orthopnea Gastrointestinal: Negative for any vomiting, diarrhea, constipation, blood in stool, blood in vomit. Positive for vomiting, nausea : Negative for any urinary frequency, dysuria, retention, blood in urine Muscle skeletal: Negative for any muscle joint pain, stiffness, myalgias, arthralgias, neck pain, back pain Neurological: Negative for any headache, syncope, numbness or tingling, dizziness Skin: Negative for any rashes, lumps, itching, abrasions, lacerations Psychiatric: Negative for any depression, anxiety, stress, suicidal ideation, homicidal ideation Hematologic: Negative for any easy bruising, excessive bruising, easy bleeding Allergies: Negative for any eczema, hives, rash EXAM <CESAR Dennis - Last Filed: 11/30/22 16:00> Physical Exam Narrative Exam Narrative: Vital signs reviewed. HEET: Head normocephalic atraumatic, TMs clear bilaterally. Posterior pharynx is clear, moist mucous membranes. Nares clear bilaterally. Neck: Supple with no lymphadenopathy or tenderness. No signs of meningismus, negative jolt sign. Cardiac: Regular rate and rhythm no murmurs gallops or rubs, equal peripheral pulses bilaterally. Respiratory: Lungs clear to auscultation bilaterally. No chest tenderness. Abdomen: Soft, diffuse tenderness, pain throughout exam. Active bowel sounds in all quadrants, nondistended. No abdominal bruit or pulsatile masses. No hepatosplenomegaly Extremities: No peripheral edema, no signs of gross trauma or deformity. Active full range of motion of all extremities. Neuro: Cranial nerves II through XII intact, no focal neurological deficits. Skin: Clean dry and intact with no rash, purpura, petechiae, vesicles or pustules. Backs/flank: No CVA tenderness, no midline spinal tenderness, no deformity. Psych: Normal mood and affect. No SI, HI or acute psychosis. Const Vital Signs: 11/30/22 13:12 11/30/22 15:18 Temperature 98.7 F Temperature Source Temporal Pulse Rate 115 H Respiratory Rate 18 16 Blood Pressure 141/104 H Blood Pressure Mean 116 Pulse Ox 96 Oxygen Delivery Method Room Air Positive well nourished and well developed General Appearance ED: well developed <Dr. Ute Khan DO - Last Filed: 11/30/22 16:30> Physical Exam Const Vital Signs: 11/30/22 13:12 11/30/22 15:18 Temperature 98.7 F Temperature Source Temporal Pulse Rate 115 H Respiratory Rate 18 16 Blood Pressure 141/104 H Blood Pressure Mean 116 Pulse Ox 96 Oxygen Delivery Method Room Air MDM <CESAR Dennis - Last Filed: 11/30/22 16:00> MDM Lab Data Labs: Laboratory Results - last 24 hr 11/30/22 11/30/22 13:42 13:42 WBC 8.9 RBC 5.08 Hgb 15.2 H Hct 45.5 MCV 89.6 MCH 29.9 MCHC 33.4 RDW Std Deviation 40.2 RDW Coeff of Julian 12.2 Plt Count 364 MPV 10.0 Immature Gran % (Auto) 0.300 Neut % (Auto) 84.0 H Lymph % (Auto) 12.1 L [place] % (Auto) 3.3 Eos % (Auto) 0.0 Baso % (Auto) 0.3 Absolute Neuts (auto) 7.5 Absolute Lymphs (auto) 1.08 Nucleated RBC % 0 Sodium 139 Potassium 3.6 Chloride 107 Carbon Dioxide 24.0 Anion Gap 8 BUN 18 Creatinine 0.76 Estim Creat Clear Calc 64.58 Est GFR (MDRD) Af Amer 98 Est GFR (MDRD) Non-Af 81 BUN/Creatinine Ratio 23.6 H Glucose 124 H Calcium 9.2 Total Bilirubin 0.30 AST 14 L ALT 20 Alkaline Phosphatase 93 Total Protein 7.3 Albumin 3.7 Globulin 3.6 Albumin/Globulin Ratio 1.0 Lipase 29 Radiography Diagnostic Testing: Clinical Impression(s) from Imaging Studies Abdomen/Pelvis CT 11/30/22 13:56 IMPRESSION: Dilated small bowel loops down to the distal ileum where several ileal loops are thickened. There is also evidence of soft tissue density in the omental fat suggestive of possible omental metastasis. Follow-up is recommended. Sigmoid diverticulosis. Diffuse fatty infiltration of the liver. The patient is status post hysterectomy. Electronically Signed: Yasmani Basurto MD at 15:13 EDT , Treatment and Re-Evaluation :: All radiologic examinations were read, reviewed by the emergency department attending. From these reads, a plan of care will be put in place. Patient appears generally well, patient appears nontoxic, vital signs are stable. Patient presents to the emergency department for 1 month of generalized abdominal pain. Patient does have a history of IBS however she states the pain has been getting worse. Patient did receive basic laboratory values, patient CBC was unremarkable, chemistries were unremarkable. Patient did receive IV fluids, IV Zofran, IV morphine. On reassessment, the patient was feeling much more relaxed, felt decreased pain. Patient did receive a CT scan of the abdomen pelvis that showed dilated small bowel loops down in the distal ileum where several ileal loops are thickened. There is also evidence of soft tissue density in the omental fat suggesting a possible omental metastasis. Follow-up is recommended. Sigmoid diverticulosis, fatty liver. At this time, patient is still eating and drink, and having bowel movements, I do not believe the patient is obstructed. I did reach out to surgery, Dr. Miller, he states the patient does need to be followed up by GI. The patient last GI specialist was in [place] however her insurance changed. She will follow-up with Dr. Delcid, she is aware that she needs to follow-up for a endoscopy as well as a colonoscopy. She verbally understands this. We spoke that pain medicine at home will further complicate her constipation. We did recommend her use MiraLAX. I spoke with the patient the patient's , all questions were answered. Return precautions were given. Patient stable for discharge <Dr. Ute Khan, DO - Last Filed: 11/30/22 16:30> [facility] Narrative Medical decision making narrative: I have personally performed a face to face assessment of the patient and have reviewed the MANUEL Note. I performed a substantive portion of the visit including all aspects of the following. My gallegos findings include: History is patient is a 62-year-old female with history of IBS and tobacco use presenting with 1 month of worsening abdominal pain. She has no significant vomiting. She has had regular bowel movements but they have been hard and small. She is concerned about taking any type of laxative because she is worried that she might have a bowel movement and an opportune moment when she is out of the house. She previously seen GI and actually does not currently follow with GI as her insurance changed. On my exam patient seen in bed in no acute distress. Abdomen is soft and nontender. She previously been medicated with morphine and Zofran and states she was feeling better. Abdomen is nontender. She has hypoactive bowel sounds. No rebound tenderness or guarding. Heart regular rate and rhythm. No respiratory distress. Medical Decision Making Patient work-up included CBC, CMP and lipase is all largely normal. She does not have any urinary symptoms I do not think urinalysis is indicated at this time. CT of abdomen pelvis is obtained given her increased pain and it shows dilated small bowel loops down to the distal ileum most of her ileal loops are thickened. There is also evidence of soft tissue density in the omental fat suggestive of possible omental metastasis. CT is reviewed with surgery on- call, Dr. Daley, who feels that patient would benefit from outpatient GI follow-up and endoscopy. Does not think she would need to be admitted to the hospital. Given that she is tolerating p.o. and does not intractable pain I am in agreement. She has no signs of active infection. Patient is given referral to Dr. Delcid. She is informed of these findings and the importance of close outpatient follow-up. Patient has a prescription for Bentyl as well as nausea medicine at home for further symptom control. Patient encouraged to use [id number] MiraLAX or other laxative to help with her constipation. Given return precautions. Patient discharged home in stable condition. Other additions or changes: [None] Lab Data Attestation: I reviewed the patient's lab results. Labs: Laboratory Results - last 24 hr 11/30/22 11/30/22 13:42 13:42 WBC 8.9 RBC 5.08 Hgb 15.2 H Hct 45.5 MCV 89.6 MCH 29.9 MCHC 33.4 RDW Std Deviation 40.2 RDW Coeff of [place] 12.2 Plt Count 364 MPV 10.0 Immature Gran % (Auto) 0.300 Neut % (Auto) 84.0 H Lymph % (Auto) 12.1 L [place] % (Auto) 3.3 Eos % (Auto) 0.0 Baso % (Auto) 0.3 Absolute Neuts (auto) 7.5 Absolute Lymphs (auto) 1.08 Nucleated RBC % 0 Sodium 139 Potassium 3.6 Chloride 107 Carbon Dioxide 24.0 Anion Gap 8 BUN 18 Creatinine 0.76 Estim Creat Clear Calc 64.58 Est GFR (MDRD) Af Amer 98 Est GFR (MDRD) Non-Af 81 BUN/Creatinine Ratio 23.6 H Glucose 124 H Calcium 9.2 Total Bilirubin 0.30 AST 14 L ALT 20 Alkaline Phosphatase 93 Total Protein 7.3 Albumin 3.7 Globulin 3.6 Albumin/Globulin Ratio 1.0 Lipase 29 Radiography Diagnostic Testing: Clinical Impression(s) from Imaging Studies Abdomen/Pelvis CT 11/30/22 13:56 IMPRESSION: Dilated small bowel loops down to the distal ileum where several ileal loops are thickened. There is also evidence of soft tissue density in the omental fat suggestive of possible omental metastasis. Follow-up is recommended. Sigmoid diverticulosis. Diffuse fatty infiltration of the liver. The patient is status post hysterectomy. Electronically Signed: Yasmani Basurto MD at 15:13 EDT , Discharge Plan Triage Chief Complaint: Abd Pain ED Midlevel Provider: Mason Figueroa ED Provider: Ute Khan Dx/Rx/DC Orders Clinical Impression: History of IBS, Constipation, Abdominal pain Instructions: Abdominal Pain, Eating a High-Fiber Diet, ED Irritable Bowel Syndrome Prescriptions: No Action trazodone 50 MG tablet 50 mg PO QHS simvastatin 10 MG tablet 10 mg PO QHS calcium carbonate 600 MG tablet 1,200 mg PO DAILY promethazine 25 MG tablet 50 mg PO Q8H PRN PRN (Reason: Nausea) paroxetine HCl 40 MG tablet 40 mg PO DAILY Label Comments: for 4 days Primary Care Provider: Denis Colindres Referrals: Friend,DO Sulaiman [Med Staff - Active Staff] - Denis Colindres MD [Primary Care Provider] - Activity Restrictions/Additional Instructions: You need to follow-up specialist, he needed a endoscopy as well as a colonoscopy. He did have some abnormal findings on your abdominal CT. Please return here for worsening abdominal pain, fever, chills. Disposition Disposition: Home, Self Care Discharge Date/Time: 11/30/22 16:10
[2022-11-30 14:42] LABS: AST(SGOT) 14 U/L (15-37); Alanine Aminotransfer ALT/SGPT 20 U/L (13-56); Albumin, Serum 3.7 g/dL (3.2-5.0); Alkaline Phosphatase 93 U/L (45-117); Anion Gap 8 (5-15); BUN 18 mg/dL (7-18); BUN/Creat Ratio 23.6 RATIO (10-20); Calcium,Total 9.2 mg/dL (8.5-10.1); Chloride 107 mmol/L (98-107); Creatinine, Serum 0.76 mg/dL (0.55-1.02); EST Glomerular Filtration Rate 81 mL/min (>60); Est Glom Filt Rate - Afr Amer 98 mL/min (>60); Estimated Creatinine Clearance 64.58 ml/min; Globulin 3.6 g/dL (2.2-4.2); Glucose 124 mg/dL (74-106); Lipase 29 U/L (13-75); Potassium 3.6 mmol/L (3.5-5.1); Protein, Total 7.3 g/dL (6.4-8.2); Sodium Level 139 mmol/L (136-145)
[2022-11-30 15:18] VITALS: RESP 16
[2022-11-30 16:11] LABS: Bacteria 0 SEEN /hpf (None Seen); Mucous, Urine 0 SEEN /hpf (<or=2+); Red Blood Cells-Urine 0 SEEN /hpf (0-5); Squamous Epithelial Cells - UA 0 SEEN /hpf (5-10); White Blood Cells 0 SEEN /hpf (0-5)
[2022-11-30 16:29] LABS: Color, Urine Yellow (Yellow); Glucose, Dipstick Normal (Normal); Ketone-Dipstick 15 mg/dl (Negative); Leukocyte Esterase-Dipstick Negative /ul (Negative); Nitrite-Dipstick Negative (Negative); Occult Blood-Urine 25 /ul (Negative); Protein-Dipstick Negative (Negative); Urine Bilirubin Dipstick Negative (Negative); Urine Clarity Clear (Clear); Urine Urobilinogen Normal (Normal); Urine pH 6.5 (5.0 - 8.0)
== END 2022-11-30 16:10 | disposition home or self-care (01) ==
PROVIDERS: Nurse Practitioner; Emergency Provider Emergency Medicine; PCP Family Medicine; Visit Provider Emergency Medicine
DX: K59.00 Constipation, unspecified (principal); R10.9 Unspecified abdominal pain; Z87.891 Personal history of nicotine dependence
CPT/HCPCS: 74177; 80053; 81001; 83690; 85025; 96361; 96374; 96375; 99282; Q9967; J2405

== ENCOUNTER → 2022-12-04 | Outpatient (CLI) | payer MEDICARE, SELFPAY ==
[2022-12-04 11:31] LABS: Erythrocyte Sedimentation Rate 13 mm/hr (0-30)
[2022-12-04 11:35] LABS: Absolute Lymphocyte Count 1.56 X10^3/uL (0.83-4.51); Absolute Neutrophil Count 7.7 X10^3/uL (2.0-7.7); Basophil# 0.03 X10^3/uL; Basophil% 0.3 % (0-1); Eosinophil# 0.06 X10^3/uL; Eosinophils% 0.6 % (0-5); Hematocrit 46.4 % (37-47); Hemoglobin 15.1 g/dL (12.0-15.0); Lymphocyte # 1.56 X10^3/ul (0.83-4.51); Mean Corp Hgb Conc 32.5 g/dL (32-36); Mean Corpuscular Hgb 29.7 pg (27.0-32.0); Mean Corpuscular Volume 91.3 fL (81-99); Mean Platelet Vol. 10.4 fl (6.2-12.0); Monocyte# 0.42 X10^3/uL; Monocyte% 4.3 % (0-10); NRBC Flagged by Analyzer 0 % (0-5); Neutrophil # 7.66 X10^3/uL (2.7-7.7); Neutrophil % 78.5 % (47-70); Platelet Count 346 K/mm3 (150-450); RBC Distribution Width CV 12.5 % (11.6-14.6); RBC Distribution Width SD 41.7 fl (35.1-43.9); Red Blood Count 5.08 M/mm3 (4.2-5.4); White Blood Count 9.8 K/mm3 (4.4-11.0)
[2022-12-04 11:49] LABS: ALB/GLOB Ratio 1.2 RATIO (0.9-2.4); AST(SGOT) 17 U/L (15-37); Alanine Aminotransfer ALT/SGPT 19 U/L (13-56); Albumin, Serum 4.1 g/dL (3.2-5.0); Alkaline Phosphatase 96 U/L (45-117); Anion Gap 6 (5-15); BUN 12 mg/dL (7-18); BUN/Creat Ratio 14.1 RATIO (10-20); CRP < 2.90 mg/L (0.0-3.0); Calcium,Total 9.4 mg/dL (8.5-10.1); Chloride 106 mmol/L (98-107); Creatinine, Serum 0.85 mg/dL (0.55-1.02); EST Glomerular Filtration Rate 72 mL/min (>60); Est Glom Filt Rate - Afr Amer 87 mL/min (>60); Globulin 3.4 g/dL (2.2-4.2); Glucose 110 mg/dL (74-106); LDH 219 U/L (84-246); Potassium 3.8 mmol/L (3.5-5.1); Protein, Total 7.5 g/dL (6.4-8.2); Sodium Level 139 mmol/L (136-145)
== END | disposition home or self-care (01) ==
LOC: LAB 10:33
PROVIDERS: PCP Family Medicine; Referring Provider Nurse Practitioner Adult Health; Visit Provider Nurse Practitioner Adult Health
DX: C78.6 Secondary malignant neoplasm of retroperitoneum and peritoneum (principal); C80.1 Malignant (primary) neoplasm, unspecified; R10.9 Unspecified abdominal pain; Z87.891 Personal history of nicotine dependence
CPT/HCPCS: 36415; 80053; 82378; 82784; 82785; 83615; 84165; 85025; 85652; 86140; 86301; 86304; 86334

== ENCOUNTER → 2022-12-06 | Outpatient (CLI) | payer MEDICARE, SELFPAY ==
--- NOTE | 2022-12-06 09:14 | US_ITS ---
STUDY: ABDOMINAL ULTRASOUND REASON FOR EXAM: Female, 62 years old. Omental metastases -- eval for ascites TECHNIQUE: Transabdominal ultrasound was performed with real-time and static de luna scale imaging. TECHNICAL QUALITY: Adequate. COMPARISON: None. FINDINGS: Liver: The liver is enlarged and measures 19.2 cm. There is increased echogenicity consistent with fatty infiltration. The bile ducts are within normal limits. There is hepatic color flow. The direction of portal flow is hepatopetal. There is no demonstrated mass lesion. Portal vein measurement: Gallbladder: Normal distended gallbladder. The gallbladder wall measures 2 mm. There is a negative sonographic Mcbride''s sign. There is no pericholecystic fluid. There are no gallstones. Common Bile Duct (C.B.D.): The common bile duct measures 7 mm. Pancreas: Normal size of the head, body and tail of the pancreas. There is normal echogenicity of the pancreas. There is no demonstrated pancreatic mass or cyst. Spleen: Normal size of the spleen. The spleen measures 11.5 cm x 3.2 cm x 2.6 cm. Right Kidney: Normal size of the right kidney. The right kidney measures 10.5 cm x 5.1 cm x 4 cm. Normal renal cortex. The right cortex measures 1.0 cm. There is no demonstrated renal mass or cyst. There is no right hydronephrosis. Left Kidney: Normal size of the left kidney. The left kidney measures 9.5 cm x 4.9 cm x 5.7 cm. Normal renal cortex. The left cortex measures 1.6 cm. There is no demonstrated renal mass or cyst. There is no left hydronephrosis. Aorta: Unremarkable I.V.C.: The IVC is patent. Trace amount of ascites is seen. US/Abdomen Complete IMPRESSION: Hepatomegaly and diffuse fatty infiltration of the liver. Trace amount of ascites. Electronically Signed: Yasmani Basurto MD at 10:39 EDT ,
== END | disposition home or self-care (01) ==
LOC: US 09:12
PROVIDERS: PCP Nurse Practitioner Family; Referring Provider Nurse Practitioner Adult Health; Visit Provider Nurse Practitioner Adult Health
DX: C78.6 Secondary malignant neoplasm of retroperitoneum and peritoneum (principal); C80.1 Malignant (primary) neoplasm, unspecified; K76.0 Fatty (change of) liver, not elsewhere classified; R16.0 Hepatomegaly, not elsewhere classified; R18.8 Other ascites
CPT/HCPCS: 76700

== ENCOUNTER 2022-12-13 10:43 | Inpatient (IN) | payer MEDICARE, SELFPAY ==
[2022-12-13] VITALS (14 sets, daily range): BP systolic 124–171; BP diastolic 72–109; PULSE 72–114; RESP 16–20; TEMP 36.4–37.2; O2SAT 94–100; BMI 28.3; BMI 27.6
--- NOTE | 2022-12-13 | IMM_PTH ---
PATIENT: ROYCE SHERMAN LOC: MS3 U#:[id number] AGE/SX: 62/F ROOM: [facility] [place]13/[address]: Dr. Clyde Daley MD : 1960 BED: 1 DIS: 12/18/2022 SPEC #: [id number] RECD: 12/18/22 12:13 STATUS: MARIN REZohreh #: [id number] ANDREW: 12/13/22 00:[address]: Clyde Daley DEPT: IMMUNOHISTOCHEMISTRY RECD BY: Madhuri Aguilar ENTERED: 12/18/22 12:16 SP TYPE: IMMUNO OTHR DR: Jasmyn Whitten, WILLOW MACHINE OPERATOR-C Tissues: Right colon Procedures: Synapto (add) MSH2 (add) MLH-1 (add) MSH6 (add) Anti-PMS2 (add) CD56 (add) CHROMO (add) CK20 (add) CK7 (add) MORENO-2 (add) HER2 [place] (add) P53 (add) CDX2 (add) NSE (add) KI-67 (initial) PHYSICIAN & [address] [address] SPECIMEN INFORMATION: Tissue Source: Terminal ileum and right colon, segmental resection Clinical Info: Small bowel obstruction Specimen Number: [id number] #[id number] CPT code: 02505, 03108 x14 METHODOLOGY: Deparaffinized sections of prefer/formalin-fixed tissue or PAP/DQ stained slides are incubated with monoclonal/polyclonal antibodies/oligonucleotide probes. Localization is made via biotin free immunoperoxidase method. Appropriate controls are performed and reacted as expected. Results on target cell population are indicated in the following table: RESULTS: ANTIBODY / CLONE RESULT Block 11 Her-2neu (CB11) negative MORENO-2 (SP21) positive MLH-1 (M1) positive MSH2 (25D12) positive MSH6 (44) positive PMS2 (EUE0980) positive Ki-67 (30-9) positive, 50% P53 (DO-7) positive, >95% CD56 (123C3.D5) negative Chromo (LK2H10) negative Synapto (polyclonal) positive NSE Neuron Specific Enolase negative CK7 (OV-TL12/30) positive, focal CK20 (KS20.8) positive, focal CDX2 ([id number]) positive These tests were developed and their performance characteristics determined by [facility]. They may not have been cleared or approved by the U.S. Food and Drug Administration. The FDA has determined that such clearance or approval is not necessary. The above immunohistochemical/dualISH markers are ordered and reviewed by the Pathologist. 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 Result of Microsatellite Instability Study: Negative (no loss of mismatch protein; no microsatellite instability detected). AM:feli 12/20/2022
--- NOTE | 2022-12-13 11:16 | CT_ITS ---
STUDY: CT ABDOMEN AND PELVIS WITHOUT CONTRAST REASON FOR EXAM: Female, 62 years old. Abdominal pain. Nausea. RADIATION DOSAGE (If Supplied By Facility): CTDIvol = ( 11.31 ) mGy, DLP = ( 548.21 ) mGycm TECHNIQUE: Transaxial images were obtained from the dome of the diaphragm to the symphysis pubis without oral contrast, and without intravenous contrast. Sagittal and coronal images were reconstructed. Individualized dose optimization techniques were used for this CT. COMPARISON: Comparison is made with prior examination dated November 30, 2022. FINDINGS: The visualized lung bases are unremarkable. The visualized portions of the heart are within normal limits. Normal liver. Sludge and possible tiny gallstones are seen within a mildly distended gallbladder. Normal spleen. Normal pancreas. Normal bilateral adrenal glands. Normal right kidney. Normal left kidney. There is a moderate-sized hiatal hernia. Once again, there is evidence of a dilated small bowel loops with gas and fluid down to the region of the terminal ileum. Mild narrowing of the distal small bowel loops. Moderate amount of fecal material is seen in the colon. There are multiple colonic diverticula consistent with diverticulosis. The patient is status post appendectomy. Once again, soft tissue densities are seen within the mesenteric fat more prominent on the right side. Omental metastasis should be ruled out. There is diffuse atherosclerotic calcification of the abdominal aorta and its major visceral branches, without a demonstrated aneurysm. Normal inferior vena cava. Normal retroperitoneum. Normal urinary bladder. There is absence of the uterus consistent with a prior hysterectomy. There is a small umbilical hernia containing fat. There are diffuse degenerative changes of the visualized lumbar spine. CT/Abdomen/Pel W ORAL Cont Only IMPRESSION: Dilated small bowel loops down to the region of the terminal ileum with a focal thickening. Soft tissue densities are seen within the mesenteric fat suggestive of possible omental metastasis. Sigmoid diverticulosis. There has been essentially no change as compared to prior study. Electronically Signed: Yasmani Basurto MD at 13:49 EDT ,
--- NOTE | 2022-12-13 11:38 | EDS_ITS ---
HPI HPI - GI History of Present Illness Chief Complaint: Abd Pain Narrative Narrative: 62-year-old female presenting with abdominal pain. She was referred to the ER by Dr. Delcid who is about to do a colonoscopy on her today. Patient reporting increased pain. She states she did a bowel prep last night as well as a couple of Dulcolax and did not have any bowel movements. Dr. Delcid states that she has a history of peritoneal carcinomatosis which was diagnosed 12 to 13 days ago. He was going to do a colonoscopy to try to find a primary lesion as this looks to be a secondary lesion. Patient concerning that her pain is increasing over time and she is not having any bowel movements. No fevers or chills. She has nausea without vomiting PFSH PFSH Medical History Anxiety Back pain Bloated abdomen Climacteric syndrome Depression Distended abdomen Encounter for screening for malignant neoplasm of lung in former smoker who quit in past 15 years with 30 pack year history or greater Former smoker Heartburn History of hiatal hernia History of stress test History of tobacco use Hoarseness Hypercholesteremia IBS (irritable bowel syndrome) Insomnia Leg cramps Rectal prolapse Shortness of breath on exertion Umbilical hernia Wears dentures Home Medications calcium carbonate 600 mg calcium (1,500 mg) tablet 1,200 mg PO DAILY 10/16/16 [History Last Taken Unknown] paroxetine HCl 40 mg tablet 40 mg PO DAILY 10/16/16 [History Last Taken Unknown] promethazine 25 mg tablet 50 mg PO Q8H PRN PRN Nausea 10/16/16 [History Last Taken Unknown] simvastatin 10 mg tablet 10 mg PO QHS 10/16/16 [History Last Taken Unknown] trazodone 50 mg tablet 50 mg PO QHS 10/16/16 [History Last Taken Unknown] oxycodone-acetaminophen 5 mg-325 mg tablet (Percocet) 1 tab PO Q4H 12/10/22 [History Last Taken Unknown] Allergy/AdvReac Type Severity Reaction Status Date / Time No Known Allergies Allergy Verified 12/13/22 10:43 Family History Father Hypertension Mother Hypertension Surgical History H/O section H/O laminectomy H/O thumb surgery H/O total hysterectomy History of appendectomy History of carpal tunnel surgery History of esophagogastroduodenoscopy (EGD) History of tonsillectomy and adenoidectomy Hx of colonoscopy Social History Smoking Status: Former smoker quit date: 12/27/16 pack-years: 66 Tobacco: How many years used: 44 Electronic Cigarette Use: not used how long ago did patient quit smokin years second hand exposure: Yes quit status: quit date established ROS ROS ED Constitutional Constitutional ED: Denies chills, fever(s) or sweats Eyes Eyes: Denies blurry vision or change in vision ENT ENT ED: Denies ear pain or sore throat Cardiovascular Cardiovascular: Denies chest pain, palpitations or racing heartbeat Respiratory/Chest Respiratory/Chest: Denies cough, dyspnea or sputum Gastrointestinal Gastrointestinal: Reports abdominal pain, constipation and nausea; Denies diarrhea or vomiting Genitourinary Genitourinary ED: Denies dysuria, hematuria or urinary frequency Musculoskeletal Musculoskeletal: Denies arthralgias, myalgias or neck pain Integumentary Denies abscess, Abrasions or rash Neurologic Neurologic: Denies headache(s), paresthesias or weakness Psychiatric Psychiatric: Denies anxiety, depression, suicidal ideation or suicidal thoughts Endocrine Endocrinology: Denies polydipsia or polyuria EXAM Physical Exam Const Vital Signs: 12/13/22 10:44 12/13/22 12:43 Temperature 98.1 F Temperature Source Temporal Pulse Rate 73 Respiratory Rate 18 18 Blood Pressure 171/105 H Blood Pressure Mean 127 Pulse Ox 100 Positive well nourished General Appearance ED: Negative for pallor HEENT Reports moist mucous membranes Eyes PERRL and EOMs intact bilaterally General Eye ED: Negative for pale conjunctiva or scleral icterus Resp normal respiratory effort and clear to auscultation bilaterally Auscultation: Negative for rales, rhonchi or wheezes Cardio regular rate and regular rhythm GI Palpation: tender LLQ Neuro CN's II-XII intact bilaterally and moves all extremities Sensorium / Orientation: alert Motor Exam: strength 5/5 throughout Psych mental status grossly normal and thought process normal Skin no wounds General Skin Exam: Negative for jaundice or pallor MDM MDM MDM Narrative Medical decision making narrative: 62-year-old male with left lower quadrant abdominal pain. She has known diagnosis of malignancy which was presumed to be a secondary site. Colonoscopy was to be performed today however patient was unable to have a bowel movement after bowel prep and Dulcolax. She had an enema with Dr. Delcid and no bowel movement. Differential includes large bowel obstruction, small bowel obstruction, constipation, diverticulitis, bowel perforation, colitis. Patient given morphine 4 mg and Zofran 4 mg. Patient also given a liter of normal saline. CBC obtained to assess white blood cell count, hemoglobin, platelets, differential. BMP to assess renal function, electrolytes. LFTs to assess liver function, lipase to assess for pancreatitis, urinalysis to assess for UTI. We will obtain a CT of the abdomen pelvis with p.o. and IV contrast. CBC shows no leukocytosis. Hemoglobin monitor stable. Platelets are normal. Renal function electrolytes within normal limits. LFTs are also normal. Lipase negative. CT of the abdomen pelvis with p.o. and IV contrast interpreted by the radiologist as no significant interval change. Discussed with general surgery, and Dr. Daley regarding the patient. He reviewed the CT and felt she needed a diverting colostomy. Looks like she is obstructed. Patient is given another dose of morphine for pain. EKG will be obtained for medical clearance. Dr. Daley requested cefotetan 2 g preop. Impression: 1. Bowel obstruction 2. Omental neoplasm Lab Data Attestation: I reviewed the patient's lab results. Labs: Laboratory Results - last 24 hr 12/13/22 12/13/22 11:43 11:43 WBC 8.3 RBC 4.76 Hgb 14.1 Hct 43.5 MCV 91.4 MCH 29.6 MCHC 32.4 RDW Std Deviation 41.3 RDW Coeff of Julian 12.3 Plt Count 343 MPV 10.0 Immature Gran % (Auto) 0.400 Neut % (Auto) 79.5 H Lymph % (Auto) 12.8 L [place] % (Auto) 7.0 Eos % (Auto) 0.1 Baso % (Auto) 0.2 Absolute Neuts (auto) 6.6 Absolute Lymphs (auto) 1.06 Nucleated RBC % 0 Sodium 137 Potassium 4.0 Chloride 106 Carbon Dioxide 19.0 L Anion Gap 12 BUN 13 Creatinine 0.37 L Est GFR (MDRD) Af Amer 223 Est GFR (MDRD) Non-Af 185 BUN/Creatinine Ratio 34.8 H Glucose 76 Calcium 8.1 L Total Bilirubin 0.30 Direct Bilirubin 0.08 AST 8 L ALT 12 L Alkaline Phosphatase 61 Total Protein 4.6 L Albumin 2.3 L Globulin 2.3 Lipase 13 Radiography Diagnostic Testing: Clinical Impression(s) from Imaging Studies Abdomen CT 12/13/22 11:16 IMPRESSION: Dilated small bowel loops down to the region of the terminal ileum with a focal thickening. Soft tissue densities are seen within the mesenteric fat suggestive of possible omental metastasis. Sigmoid diverticulosis. There has been essentially no change as compared to prior study. Electronically Signed: Yasmani Basurto MD at 13:49 EDT , Discharge Plan Triage Chief Complaint: Abd Pain ED Provider: Fab Donis Dx/Rx/DC Orders Prescriptions: No Action trazodone 50 MG tablet 50 mg PO QHS simvastatin 10 MG tablet 10 mg PO QHS calcium carbonate 600 MG tablet 1,200 mg PO DAILY promethazine 25 MG tablet 50 mg PO Q8H PRN PRN (Reason: Nausea) paroxetine HCl 40 MG tablet 40 mg PO DAILY Label Comments: for 4 days oxycodone-acetaminophen [Percocet] 5-325 mg tablet 1 tab PO Q4H Primary Care Provider: Jasmyn Whitten Referrals: Jasmyn Whitten, SWAGING MACHINE OPERATOR-C [Primary Care Provider] -
[2022-12-13] MEDS: Ondansetron 4 MG/2 ML Vial IV ×2 (11:44→19:55)
[2022-12-13] MEDS: 0.9% Normal Saline 1,000 ML 999 ML IV (11:44)
[2022-12-13] MEDS: Morphine 4 MG/ML Syringe IV (11:44)
[2022-12-13 12:02] LABS: Absolute Lymphocyte Count 1.06 X10^3/uL (0.83-4.51); Absolute Neutrophil Count 6.6 X10^3/uL (2.0-7.7); Basophil# 0.02 X10^3/uL; Basophil% 0.2 % (0-1); Eosinophil# 0.01 X10^3/uL; Eosinophils% 0.1 % (0-5); Hematocrit 43.5 % (37-47); Hemoglobin 14.1 g/dL (12.0-15.0); Lymphocyte # 1.06 X10^3/ul (0.83-4.51); Lymphocyte % 12.8 % (19-41); Mean Corp Hgb Conc 32.4 g/dL (32-36); Mean Corpuscular Hgb 29.6 pg (27.0-32.0); Mean Corpuscular Volume 91.4 fL (81-99); Monocyte# 0.58 X10^3/uL; NRBC Flagged by Analyzer 0 % (0-5); Neutrophil # 6.55 X10^3/uL (2.7-7.7); Neutrophil % 79.5 % (47-70); Platelet Count 343 K/mm3 (150-450); RBC Distribution Width CV 12.3 % (11.6-14.6); RBC Distribution Width SD 41.3 fl (35.1-43.9); Red Blood Count 4.76 M/mm3 (4.2-5.4); White Blood Count 8.3 K/mm3 (4.4-11.0)
[2022-12-13 12:10] LABS: AST(SGOT) 8 U/L (15-37); Alanine Aminotransfer ALT/SGPT 12 U/L (13-56); Albumin, Serum 2.3 g/dL (3.2-5.0); Alkaline Phosphatase 61 U/L (45-117); Anion Gap 12 (5-15); BUN 13 mg/dL (7-18); BUN/Creat Ratio 34.8 RATIO (10-20); Bilirubin, Direct 0.08 mg/dL (0.00-0.30); Calcium,Total 8.1 mg/dL (8.5-10.1); Chloride 106 mmol/L (98-107); Creatinine, Serum 0.37 mg/dL (0.55-1.02); EST Glomerular Filtration Rate 185 mL/min (>60); Est Glom Filt Rate - Afr Amer 223 mL/min (>60); Globulin 2.3 g/dL (2.2-4.2); Glucose 76 mg/dL (74-106); Lipase 13 U/L (13-75); Protein, Total 4.6 g/dL (6.4-8.2); Sodium Level 137 mmol/L (136-145)
--- NOTE | 2022-12-13 14:22 | EKG12_ITS ---
Test Reason : POST OP Blood Pressure : / mmHG Vent. Rate : 101 BPM Atrial Rate : 101 BPM P-R Int : 136 ms QRS Dur : 070 ms QT Int : 326 ms P-R-T Axes : 057 015 047 degrees QTc Int : 422 ms Sinus tachycardia Otherwise normal ECG When compared with ECG of 13-DEC-2022 14:29, MANUAL COMPARISON REQUIRED, DATA IS UNCONFIRMED Confirmed by ANTHONY RAMIREZ, SHELIA ([id number]), writer editor BALJINDER LOWE ([id number]) on 12/17/2022 11:23:51 AM Referred By: RUMA Confirmed By:SHELIA CRUZ MD
--- NOTE | 2022-12-13 14:38 | HP.PCM.SX_ITS ---
HPI - General HPI Narrative ROYCE SHERMAN, is a 62 F who presents with abdominal pain and nausea. Patient has been having this for at least a month. She reports diffuse abdominal pain with no area that is worse than the others. She reports that she has had about a 30 pound weight loss over the last 2 months. She was post to have a colonoscopy today to evaluate for malignancy but she took her entire bowel prep and did not have any bowel movement. She came to the emergency room instead [facility] Medical History Anxiety Back pain Bloated abdomen Climacteric syndrome Depression Distended abdomen Encounter for screening for malignant neoplasm of lung in former smoker who quit in past 15 years with 30 pack year history or greater Former smoker Heartburn History of hiatal hernia History of stress test History of tobacco use Hoarseness Hypercholesteremia IBS (irritable bowel syndrome) Insomnia Leg cramps Rectal prolapse Shortness of breath on exertion Umbilical hernia Wears dentures Home Medications calcium carbonate 600 mg calcium (1,500 mg) tablet 1,200 mg PO DAILY 10/16/16 [History Last Taken Unknown] paroxetine HCl 40 mg tablet 40 mg PO DAILY 10/16/16 [History Last Taken Unknown] promethazine 25 mg tablet 50 mg PO Q8H PRN PRN Nausea 10/16/16 [History Last Taken Unknown] simvastatin 10 mg tablet 10 mg PO QHS 10/16/16 [History Last Taken Unknown] trazodone 50 mg tablet 50 mg PO QHS 10/16/16 [History Last Taken Unknown] oxycodone-acetaminophen 5 mg-325 mg tablet (Percocet) 1 tab PO Q4H 12/10/22 [History Last Taken Unknown] Allergy/AdvReac Type Severity Reaction Status Date / Time No Known Allergies Allergy Verified 12/13/22 10:43 Family History Father Hypertension Mother Hypertension Surgical History H/O section H/O laminectomy H/O thumb surgery H/O total hysterectomy History of appendectomy History of carpal tunnel surgery History of esophagogastroduodenoscopy (EGD) History of tonsillectomy and adenoidectomy Hx of colonoscopy Social History Smoking Status: Former smoker quit date: 12/27/16 pack-years: 66 Tobacco: How many years used: 44 Electronic Cigarette Use: not used how long ago did patient quit smokin years second hand exposure: Yes quit status: quit date established ROS Constitutional Constitutional: Reports anorexia; Denies chills, fatigue or fever(s) Eyes Eyes: Denies blurry vision ENT HEENT: Denies abnormal hearing Cardiovascular Cardiovascular: Denies chest pain Respiratory/Chest Respiratory/Chest: Denies cough or dyspnea Gastrointestinal Gastrointestinal: Reports abdominal pain and nausea; Denies diarrhea, dysphagia, hematemesis or melena Genitourinary Genitourinary: Denies change in urinary stream Musculoskeletal Musculoskeletal: Denies abnormal gait Integumentary Integumentary: Denies jaundice Neurologic Neurologic: Denies dizziness Psychiatric Psychiatric: Denies anxiety Endocrine Endocrinology: Denies flushing Vital Signs Vital Signs Vital Signs: 12/13/22 10:44 12/13/22 12:43 Temperature 98.1 F Temperature Source Temporal Pulse Rate 73 Respiratory Rate 18 18 Blood Pressure 171/105 H Blood Pressure Mean 127 Pulse Ox 100 Physical Exam Const alert and oriented x3 HEENT normocephalic Eyes PERRL Resp normal respiratory effort and normal air movement Cardio regular rate and regular rhythm GI soft to palpation Inspection: abdominal distention Palpation: tender Extremity normal to inspection Results Lab / Micro Data Result Diagrams: 12/13/22 11:43 12/13/22 11:43 Labs: Laboratory Results - last 24 hr 12/13/22 11:43: WBC 8.3, RBC 4.76, Hgb 14.1, Hct 43.5, MCV 91.4, MCH 29.6, MCHC 32.4, RDW Std Deviation 41.3, RDW Coeff of Julian 12.3, Plt Count 343, MPV 10.0, Immature Gran % (Auto) 0.400, Neut % (Auto) 79.5 H, Lymph % (Auto) 12.8 L, [place] % (Auto) 7.0, Eos % (Auto) 0.1, Baso % (Auto) 0.2, Absolute Neuts (auto) 6.6, Absolute Lymphs (auto) 1.06, Nucleated RBC % 0 12/13/22 11:43: Sodium 137, Potassium 4.0, Chloride 106, Carbon Dioxide 19.0 L, Anion Gap 12, BUN 13, Creatinine 0.37 L, Est GFR (MDRD) Af Amer 223, Est GFR (MDRD) Non-Af 185, BUN/Creatinine Ratio 34.8 H, Glucose 76, Calcium 8.1 L, Total Bilirubin 0.30, Direct Bilirubin 0.08, AST 8 L, ALT 12 L, Alkaline Phosphatase 61, Total Protein 4.6 L, Albumin 2.3 L, Globulin 2.3, Lipase [address] 12/13/22 11:16 IMPRESSION: Dilated small bowel loops down to the region of the terminal ileum with a focal thickening. Soft tissue densities are seen within the mesenteric fat suggestive of possible omental metastasis. Sigmoid diverticulosis. There has been essentially no change as compared to prior study. Electronically Signed: Yasmani Basurto MD at 13:49 EDT , Assessment & Plan Assessment/Plan (1) SBO (small bowel obstruction): PLAN: Patient presented with inability have a bowel movement after taking a bowel prep. She has been having issues for at least a month. She is been having early satiety and lack of p.o. intake due to nausea. She has CT scan which showed dilated small bowel with some thickening in the right lower quadrant. There is also questionable omental caking and carcinomatosis. Patient had her last colonoscopy about 7 years ago. She is never had an EGD. She does have chronic reflux and has a hiatal hernia. On the CT scan it appears that the patient has a partial small bowel obstruction with some things entering the colon. It appears identical to the CT scan that was done about 2 weeks ago. There is question of carcinomatosis. I also seem to see some thickening of the GE junction. I would like to take her surgery today. I explained that I would start by performing EGD to check the GE junction make sure there is not esophageal malignancy. Then I will transition to exploratory laparoscopy if possible to evaluate the small bowel. If this is not possible due to the dilation I will convert to open surgery. I discussed that if there is bowel was accessible I would try to biopsy versus resect but if it appears that there is carcinomatosis with omental caking and I am unable to resect this area I will perform a dive rting loop ileostomy. I discussed stoma placement with the patient in detail. Patient and her are in agreement. I discussed the risks of the procedure such as bleeding, infection, injury to other organs, inability to operate due to carcinomatosis, need for stoma. Patient understands all the risks and is willing to proceed. I discussed the case with Dr. Delcid as well who is supposed to do her colonoscopy today. Clyde Daley MD Pager: [facility] [address] [place] [address], [address] [place] [address] Office:
--- NOTE | 2022-12-13 15:00 | COL_PTH ---
PATIENT: ROYCE SHERMAN LOC: MS3 U#:[id number] AGE/SX: 62/F ROOM: [facility] [place] RE12/13/[address]: Dr. Clyde Daley MD : 1960 BED: 1 DIS: 12/18/2022 SPEC #: [id number] RECD: 12/13/22 17:00 STATUS: MARIN CHAMBERLAIN #: [id number] ANDREW: 12/13/22 15:[address]: Clyde Daley DEPT: SURGICAL PATHOLOGY RECD BY: Becca Cortez ENTERED: 12/14/22 07:12 SP TYPE: COLON OTHR DR: Jasmyn Whitten, GLUE MAKER-C Tissues: Colon, NOS Procedures: Surgery Specimen Level HEADER OPERATION: Exploratory laparoscopy PRE-OP DIAGNOSIS: Small bowel obstruction TISSUE SUBMITTED: Terminal ileum and right colon MICROSCOPIC DIAGNOSIS Terminal ileum and right colon, segmental resection: Invasive adenocarcinoma. See synoptic report below. AM:feli 12/18/2022 COMMENT COLON CANCER SUMMARY Procedure: Right hemicolectomy Tumor site: Right colon Tumor size: 4.0 x 2.0 x 1.0 cm Macroscopic tumor perforation: Not identified Histologic type: Adenocarcinoma with neuroendocrine features. Histologic grade: G2 (moderately differentiated) Tumor extension: Tumor invades subserosal fat and extends focally to serosal surface. Margins: Tumor extends to serosal surface, focally. Proximal and distal mucosal margins are free of carcinoma. Treatment effect: Unknown Lymphvascular invasion: Focally suspected Perineural invasion: Not identified Tumor deposits: Present (>15) Regional lymph nodes: 3 of 6 lymph nodes positive for metastatic carcinoma. Omentum: Multiple foci of metastatic carcinoma. Ancillary studies: See microsatellite instability study by IHC ([id number]) for complete details. Negative (no loss of mismatch protein; no microsatellite instability detected). Additional pathologic findings: None PATHOLOGIC STAGE: pT4 N1b M1a The above summary is in compliance with [employer] Path[employer] (CAP) Cancer Protocols Checklist and [place] [employer] Joint Committee on Cancer (AJCC), Staging Manual, 8th Ed. Case has been reviewed in consultation with Dr. Berry who concurs with the above diagnosis. IDC:[id number] MICROSCOPIC DESCRIPTION Slides are reviewed. GROSS DESCRIPTION Received in fixative is one container labeled with the patient's name and designated terminal ileum and right colon. The specimen consists of a 27.0 cm of bowel with attached fibrofatty tissue and attached omentum. The specimen consists of approximately 7.0 cm of small bowel and 50.0 cm of large bowel. An appendix is not identified. The attached omentum measures 20.0 x 7.0 cm. Serial sections reveal a firm, apple-core lesion in the cecum measuring 4.0 x 2.0 x 1.0 cm. The mass occupies 100% of the circumference of the bowel. The distal and mucosal margins are grossly unremarkable. The ileocecal valve is nondistinct and presumed to be occupied by the mass. An elongated fragment of welch mucosa measuring 5.0 x 2.0 x 1.0 cm is present free in the specimen container. The serosa in the area of the mass is inked. Serial sections of the mass reveal extension into bowel wall. The remainder of the small and large bowel mucosa is grossly unremarkable. Serial sections of the mass reveal extension into bowel wall. The omentum contains multiple firm, white-welch masses ranging in size from 0.6 to 7.0 cm. The attached pericolic fibrofatty tissue contains a number of firm, welch-white nodules. Target Worker sections are submitted in 15 cassettes as follows: 1 - mucosal margins of excision, 2 - fragments of?mucosal tissue free in container, 3 - uninvolved small and large bowel, 4-7 - mass, 8 - largest omental?mass, 9?&?10 - smaller omental masses, 11-14 - multiple lymph nodes in each cassette, 15??patient support representative section of one large lymph node. / AM:feli 12/17/2022 TC:0 CPT: 36428
[2022-12-13] MEDS: Lactated Ringers 1,000 ML 15 ML IV (15:08)
--- NOTE | 2022-12-13 17:19 | OP.PCM_ITS ---
Report of Operation Date of Procedure: 12/13/22 Pre-Operative Diagnosis: Small bowel obstruction Post-Operative Diagnosis: Metastatic right colon cancer with obstruction Surgery/Procedure Performed:: 1. EGD 2. Exploratory laparoscopy converted to open right palliative hemicolectomy Specimen's removed: Right colon and terminal ileum Description of Procedure: Patient was brought back to the operating room and general anesthesia was induced. Barbour catheter was placed. Next an EGD was performed. A well- lubricated endoscope was placed through the mouth and down into the esophagus and stomach. The distal esophagus appeared normal as did the stomach. There is no sign malignancy. Scope was removed. Next the abdomen was prepped and draped in usual sterile fashion. Midline incision was made superior to the umbilicus and deepened to the fascia which was elevated and incised and a port was placed in the abdomen was inflated to 15 mmHg. The abdomen is inspected. The small bowel was dilated. A suprapubic 5 mm port was placed as well as a right lower quadrant 5 mm port. Atraumatic grasper was used to grasp the bowel and followed to the distal ileum which was dilated all the way to the right colon. It appeared the patient had a very large mass in the right colon. Despite being very large it appeared to be not densely adherent to anything. Patient also had metastatic deposits in the peritoneum and other areas of the small bowel. The decision was made to perform a palliative right hemicolectomy for comfort instead of a loop ileostomy. The ports were removed and the midline incision was lengthened inferiorly. Wound protector was placed. The dilated small bowel was delivered through the incision and then the mass was encountered. Electrocautery was used to take it off the lateral abdominal sidewalls. Once it was mobilized was brought to the incision. The remainder of the right colon was mobilized. The distal small bowel was mobilized. Next using a KARLA stapler the ileum was divided just proximal to another metastatic deposit. Using the KARLA stapler the right colon was divided about 5 cm distal to the mass. LigaSure impact was used to take down the mesentery on both ends until the right colon pedicle was encountered. The right colon pedicle was clamped and then suture-ligated using 0 silk suture. There is good hemostasis. The specimen was sent. The abdomen was irrigated and suctioned dry and there was good hemostasis. Next the anastomosis was formed. A small corner of the staple line of the colon and small bowel were removed. Stapler was placed into the small bowel and into the colon and then the anastomosis was formed in a [id number] functional end-to-end fashion. The staple line was inspected and appeared to be hemostatic. The ends were grasped and a TX 60 stapler was used to close the enterostomy. There was good hemostasis. There is also good blood supply. 3-0 silk crotch suture was placed. The abdomen was once again irrigated and suctioned dry and the small bowel was run from the ligament of Treitz to the anastomosis. There were no further areas of obstruction but there were several deposits of cancer along the small bowel. These did not appear obstructing. Next gown and gloves were changed and wound protector was removed. The fascia was closed in a running fashion from the top and bottom using 0 PDS sutures meeting in the middle. Subcutaneous tissue was irrigated and dried and hemostasis was obtained using electrocautery. Local anesthetic was used on the skin. Incision was closed with skin elmer. The right lower quadrant incision was closed with a 4-0 Monocryl suture. Bandages were applied and the Barbour catheter was removed. Patient was awoken and taken to PACU in stable condition and will be admitted to the floor. Admit VTE Documentation VTE Mechan Device Prophylaxis: SCD's
[2022-12-13] MEDS: Ketorolac 15 MG/ML Vial IV (17:35)
[2022-12-13] MEDS: 0.9% Normal Saline 1,000 ML 100 ML IV (18:44)
[2022-12-13] MEDS: Morphine 2 MG/ML Syringe IV (19:55)
[2022-12-13] MEDS: Acetaminophen 325 MG Tablet 650 MG PO (19:56)
[2022-12-14 00:44] VITALS: BP 153/98; PULSE 114; RESP 22; TEMP 36.7; O2SAT 98
[2022-12-14] MEDS: Morphine 4 MG/ML Syringe IV ×4 (00:44→15:24)
[2022-12-14] MEDS: Ketorolac 15 MG/ML Vial IV ×3 (00:50→17:51)
[2022-12-14] MEDS: 0.9% Normal Saline 1,000 ML 100 ML IV ×2 (04:49→17:51)
[2022-12-14] MEDS: Acetaminophen 325 MG Tablet 650 MG PO (05:16)
[2022-12-14 05:21] VITALS: BP 151/99; PULSE 105; RESP 20; TEMP 36.8; O2SAT 94
[2022-12-14 06:17] LABS: Absolute Lymphocyte Count 1.01 X10^3/uL (0.83-4.51); Absolute Neutrophil Count 13.1 X10^3/uL (2.0-7.7); Basophil# 0.03 X10^3/uL; Basophil% 0.2 % (0-1); Hematocrit 47.8 % (37-47); Hemoglobin 15.7 g/dL (12.0-15.0); Lymphocyte # 1.01 X10^3/ul (0.83-4.51); Lymphocyte % 6.7 % (19-41); Mean Corp Hgb Conc 32.8 g/dL (32-36); Mean Corpuscular Hgb 29.8 pg (27.0-32.0); Mean Corpuscular Volume 90.9 fL (81-99); Mean Platelet Vol. 10.2 fl (6.2-12.0); Monocyte# 0.85 X10^3/uL; Monocyte% 5.7 % (0-10); NRBC Flagged by Analyzer 0 % (0-5); Neutrophil # 13.05 X10^3/uL (2.7-7.7); Neutrophil % 87.1 % (47-70); Platelet Count 411 K/mm3 (150-450); RBC Distribution Width CV 12.7 % (11.6-14.6); RBC Distribution Width SD 42.5 fl (35.1-43.9); Red Blood Count 5.26 M/mm3 (4.2-5.4)
[2022-12-14 06:46] LABS: Anion Gap 8 (5-15); BUN 23 mg/dL (7-18); BUN/Creat Ratio 23.5 RATIO (10-20); Calcium,Total 8.3 mg/dL (8.5-10.1); Chloride 110 mmol/L (98-107); Creatinine, Serum 0.98 mg/dL (0.55-1.02); EST Glomerular Filtration Rate 61 mL/min (>60); Est Glom Filt Rate - Afr Amer 74 mL/min (>60); Estimated Creatinine Clearance 52.19 ml/min; Glucose 112 mg/dL (74-106); Sodium Level 138 mmol/L (136-145)
--- NOTE | 2022-12-14 06:52 | EKG12_ITS ---
Test Reason : PRE OP Blood Pressure : / mmHG Vent. Rate : 089 BPM Atrial Rate : 089 BPM P-R Int : 148 ms QRS Dur : 072 ms QT Int : 364 ms P-R-T Axes : 047 000 015 degrees QTc Int : 442 ms Normal sinus rhythm Normal ECG Confirmed by ANTHONY RAMIREZ, SHELIA ([id number]), website/blog editor BALJINDER LOWE ([id number]) on 12/14/2022 8:49:00 AM Referred By: ALEXY Confirmed By:SHELIA CRUZ MD
--- NOTE | 2022-12-14 07:39 | PCM.PN.SRG ---
Subjective Subjective Patient seems to be doing well. She does not complain of any nausea. She has not passed anything from below. She is still having some lower abdominal pain. Objective Data Objective Data Vital Signs: Vital Signs Temp Pulse Resp BP Pulse Ox O2 Del Method O2 Flow Rate 98.2 F 105 H 20 H 151/99 H 94 Room Air 2 12/14/22 05:21 12/14/22 05:21 12/14/22 05:21 12/14/22 05:21 12/14/22 05:21 12/14/22 05:21 12/14/22 01:28 Oxygen Flow Rate (L/min) 2 Oxygen Delivery Method Room Air Weight: 166 lb Body Mass Index (BMI) 27.6 Intake & Output: Intake and Output for Last 24 Hours 12/12/22 12/13/22 12/14/22 23:59 23:59 23:59 Intake Total 5 / 2124 1025 / 1025 Output Total 130 / 130 Balance 1994 1025 / 1025 Lab / Micro Data Result Diagrams: 12/14/22 05:45 12/14/22 05:45 Labs: Laboratory Results - last 24 hr 12/13/22 11:43: WBC 8.3, RBC 4.76, Hgb 14.1, Hct 43.5, MCV 91.4, MCH 29.6, MCHC 32.4, RDW Std Deviation 41.3, RDW Coeff of Julian 12.3, Plt Count 343, MPV 10.0, Immature Gran % (Auto) 0.400, Neut % (Auto) 79.5 H, Lymph % (Auto) 12.8 L, [place] % (Auto) 7.0, Eos % (Auto) 0.1, Baso % (Auto) 0.2, Absolute Neuts (auto) 6.6, Absolute Lymphs (auto) 1.06, Nucleated RBC % 0 12/13/22 11:43: Sodium 137, Potassium 4.0, Chloride 106, Carbon Dioxide 19.0 L, Anion Gap 12, BUN 13, Creatinine 0.37 L, Est GFR (MDRD) Af Amer 223, Est GFR (MDRD) Non-Af 185, BUN/Creatinine Ratio 34.8 H, Glucose 76, Calcium 8.1 L, Total Bilirubin 0.30, Direct Bilirubin 0.08, AST 8 L, ALT 12 L, Alkaline Phosphatase 61, Total Protein 4.6 L, Albumin 2.3 L, Globulin 2.3, Lipase 13 12/14/22 05:45: WBC 15.0 H, RBC 5.26, Hgb 15.7 H, Hct 47.8 H, MCV 90.9, MCH 29.8, MCHC 32.8, RDW Std Deviation 42.5, RDW Coeff of Julian 12.7, Plt Count 411, MPV 10.2, Immature Gran % (Auto) 0.300, Neut % (Auto) 87.1 H, Lymph % (Auto) 6.7 L, [place] % (Auto) 5.7, Eos % (Auto) 0.0, Baso % (Auto) 0.2, Absolute Neuts (auto) 13.1 H, Absolute Lymphs (auto) 1.01, Nucleated RBC % 0 12/14/22 05:45: Sodium 138, Potassium 4.0, Chloride 110 H, Carbon Dioxide 20.0 L, Anion Gap 8, BUN 23 H, Creatinine 0.98, Estim Creat Clear Calc 52.19, Est GFR (MDRD) Af Amer 74, Est GFR (MDRD) Non-Af 61, BUN/Creatinine Ratio 23.5 H, Glucose 112 H, Calcium 8.3 L Radiography Diagnostic Testing: Radiology Impression Abdomen CT 12/13/22 11:16 IMPRESSION: Dilated small bowel loops down to the region of the terminal ileum with a focal thickening. Soft tissue densities are seen within the mesenteric fat suggestive of possible omental metastasis. Sigmoid diverticulosis. There has been essentially no change as compared to prior study. 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 Patient is not having bowel function yet. Encouraged walking and gum chewing. Patient is tachycardic this morning. Her hemoglobin and platelets also went up indicating that she is likely dehydrated. I am giving her fluid bolus and checking an EKG to make sure this is not A-fib. Clyde Daley MD Pager: [facility] [address] [place] [address], [address] [place] [address] Office:
[2022-12-14] MEDS: 0.9% Normal Saline 1,000 ML 999 ML IV (07:55)
[2022-12-14 08:00] VITALS: PULSE 110
[2022-12-14] MEDS: 0.9% Saline Lock 10 ML Syringe IV ×3 (08:04→13:10)
[2022-12-14 09:26] VITALS: BP 137/90; PULSE 101; RESP 17; TEMP 36.6; O2SAT 98
--- NOTE | 2022-12-14 10:45 | CASEMGMT ---
RN?CM?HELP DESK ANALYST?CM?to room to meet with patient for initial transition planning/care coordination?assessment.?RN?CM?introduced self and role at [facility].? Pt voices understanding and consents to?assessment?at this time.? Pt sitting up in chair in no distress at this time.? and dtr in room visiting and pt agreeable to them being present during assess. Pt is A/O at this time and answers all questions appropriately.?? Care providers, pharmacy, and demographics verified/updated at this time. PCP: Jasmyn Whitten Specialists: Dr Davis. Pt plans to see Dr Daniels/oncology soon. [facility] Insurance: [employer] Prescription Benefit:?yes Living Will/HPOA:? Pt does not currently have LW/HCPOA and interested in completing. SWBrionna, made aware. Pt made aware, if SW unavailable to meet w/her prior to d/c, that AD can be completed w/SW as an OP. LNOK: , [place]. Dtr Living Arrangements: Lives w/ and her mother lives w/them in ranch-style home w/3 steps to enter. Pt states does okay w/the stairs. Pt is indep w/ADL's and IADL's and manages her own medications. Transportation:?Pt states drives self and states no transportation concerns at this time.? also drives. DME: ?States has the following DME:?rails and shower chair (does not use) ?Pt states no need for further DME at this time.? HHC/SNF: No hx of either. No needs identified. Pt wishes to return home and states has no concerns with going home at time of discharge.? CM?to follow for any discharge planning/needs.? Pt and family voice no concerns/needs at this time.? Advised pt and family to ask for?CM?if any questions/concerns/needs arise.? They voice understanding. PLAN:??Home [place] BSN?RN?CM
--- NOTE | 2022-12-14 11:23 | NURSING ---
Went for a walk in the [place] this morning around 10am with Daughter. Sitting in the chair since then.
[2022-12-14] MEDS: Morphine 2 MG/ML Syringe IV ×2 (13:09→20:05)
--- NOTE | 2022-12-14 13:20 | CASEMGMT ---
Social Work Referral received for advance directives. SW met with pt and spouse. SW explained advance directives and assisted pt in completing documents. Pt completing both Living will and HCPOA naming her Colby. Copy placed on pt chart and original given to pt. SW spoke with pt regarding new cancer diagnosis. Emotional support provided. SW will remain available should further needs arise. ANIL Stanford
[2022-12-14 15:20] VITALS: BP 149/90; PULSE 111; RESP 16; TEMP 36.6; O2SAT 97
[2022-12-14 20:00] VITALS: BP 148/90; PULSE 98; RESP 16; TEMP 37.3; O2SAT 94
[2022-12-14] MEDS: Paroxetine 20 MG Tablet 40 MG PO (20:41)
[2022-12-15] MEDS: traZODone 50 MG Tablet PO (00:09)
[2022-12-15] MEDS: Morphine 2 MG/ML Syringe IV (00:09)
[2022-12-15 02:00] VITALS: BP 135/86; PULSE 101; RESP 16; TEMP 36.7; O2SAT 94
[2022-12-15] MEDS: 0.9% Normal Saline 1,000 ML 100 ML IV ×2 (03:43→16:14)
[2022-12-15] MEDS: Ketorolac 15 MG/ML Vial IV (03:45)
[2022-12-15 05:32] LABS: Absolute Lymphocyte Count 0.68 X10^3/uL (0.83-4.51); Absolute Neutrophil Count 10.1 X10^3/uL (2.0-7.7); Basophil# 0.02 X10^3/uL; Basophil% 0.2 % (0-1); Eosinophil# 0.02 X10^3/uL; Eosinophils% 0.2 % (0-5); Hematocrit 37.9 % (37-47); Hemoglobin 12.5 g/dL (12.0-15.0); Lymphocyte # 0.68 X10^3/ul (0.83-4.51); Lymphocyte % 5.8 % (19-41); Mean Corpuscular Volume 91.1 fL (81-99); Mean Platelet Vol. 10.5 fl (6.2-12.0); Monocyte# 0.88 X10^3/uL; Monocyte% 7.5 % (0-10); NRBC Flagged by Analyzer 0 % (0-5); Neutrophil # 10.12 X10^3/uL (2.7-7.7); Platelet Count 321 K/mm3 (150-450); RBC Distribution Width CV 12.7 % (11.6-14.6); RBC Distribution Width SD 42.7 fl (35.1-43.9); Red Blood Count 4.16 M/mm3 (4.2-5.4); White Blood Count 11.8 K/mm3 (4.4-11.0)
[2022-12-15 06:39] LABS: Anion Gap 7 (5-15); BUN 21 mg/dL (7-18); BUN/Creat Ratio 33.5 RATIO (10-20); Calcium,Total 8.5 mg/dL (8.5-10.1); Chloride 109 mmol/L (98-107); Creatinine, Serum 0.63 mg/dL (0.55-1.02); EST Glomerular Filtration Rate 102 mL/min (>60); Est Glom Filt Rate - Afr Amer 123 mL/min (>60); Estimated Creatinine Clearance 81.18 ml/min; Glucose 104 mg/dL (74-106); Potassium 3.7 mmol/L (3.5-5.1); Sodium Level 137 mmol/L (136-145)
[2022-12-15 08:00] VITALS: BP 148/91; PULSE 94; RESP 18; TEMP 37.1; O2SAT 94
[2022-12-15 08:03] VITALS: BP 148/91; PULSE 114; RESP 18; TEMP 37.1; O2SAT 97
[2022-12-15] MEDS: Morphine 4 MG/ML Syringe IV ×3 (08:11→19:49)
[2022-12-15] MEDS: 0.9% Saline Lock 10 ML Syringe IV ×2 (08:14→16:11)
--- NOTE | 2022-12-15 09:41 | PCM.PN.SRG ---
Subjective Subjective Patient seen and examined during AM rounds. Her only complaint this morning is for some mild postoperative discomfort which she rates as a 6 out of 10 and for the temperature in her room. She also regrets that she is unable to confirm return of bowel function, but is encouraged to report that she no longer has nausea and is experiencing a slight return of an appetite. She confirms that she walked 4 times in the hallways yesterday and sat out of bed in a chair. She also took a shower yesterday. Objective Data Objective Data Vital Signs: Vital Signs Temp Pulse Resp BP Pulse Ox O2 Del Method O2 Flow Rate 98.7 F 114 H 18 148/91 H 97 Room Air 2 12/15/22 08:03 12/15/22 08:03 12/15/22 08:03 12/15/22 08:03 12/15/22 08:03 12/15/22 08:03 12/14/22 01:28 Oxygen Flow Rate (L/min) 2 Oxygen Delivery Method Room Air Weight: 166 lb Body Mass Index (BMI) 27.6 Intake & Output: Intake and Output for Last 24 Hours 12/13/22 12/14/22 12/15/22 23:59 23:59 23:59 Intake Total 2125 / 2125 3175.00 / 3175.00 986.67 / 986.67 Output Total 130 / 130 Balance 1994 3175.00 / 3175.00 986.67 / 986.67 Medical Nutrition Assessment Dietitian: Malnutrition Criteria Met Start: 12/14/22 11:29 Freq: Status: Active Protocol: Document 12/14/22 11:29 DARION (Rec: 12/14/22 11:29 DARION [id number]) Nutrition Malnutrition Evidence of Malnutrition Exists Yes Malnutrition (severe): Acute Illness/Injury Evidenced By Suboptimal Energy Intake ( Severe),Weight Loss (Severe) Intake Problem Inadequate Oral Intake Etiology related altered GI dysfunction and inadequate energy intake Signs/Symptoms as evidenced by NPO status Status Active Problem Clinical Problem Acute Disease or Injury Related Malnutrition Etiology related to GI dysfunction and inadequate energy intake Signs/Symptoms as evidenced by pt with <50% po intake r/t abd pain/nausea and unintentional 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 Status Active Problem Recommendation Dietitian Recommendations/Changes As medically able, rec KATHY to Transitional diet w/ goal of liberal regular / decreased fiber diet Rec 120 ml ensure plus high protein tid w/ medpass for increased nutrition if consumed. Lab / Micro Data Result Diagrams: 12/15/22 04:20 12/15/22 04:20 Labs: Laboratory Results - last 24 hr 12/14/22 05:45: Carcinoembryonic Ag 17.0 H 12/15/22 04:20: WBC 11.8 H, RBC 4.16 L, Hgb 12.5, Hct 37.9, MCV 91.1, MCH 30.0, MCHC 33.0, RDW Std Deviation 42.7, RDW Coeff of Julian 12.7, Plt Count 321, MPV 10.5, Immature Gran % (Auto) 0.300, Neut % (Auto) 86.0 H, Lymph % (Auto) 5.8 L, [place] % (Auto) 7.5, Eos % (Auto) 0.2, Baso % (Auto) 0.2, Absolute Neuts (auto) 10.1 H, Absolute Lymphs (auto) 0.68 L, Nucleated RBC % 0 12/15/22 04:20: Sodium 137, Potassium 3.7, Chloride 109 H, Carbon Dioxide 21.0, Anion Gap 7, BUN 21 H, Creatinine 0.63, Estim Creat Clear Calc 81.18, Est GFR (MDRD) Af Amer 123, Est GFR (MDRD) Non-Af 102, BUN/Creatinine Ratio 33.5 H, Glucose 104, Calcium 8.5 Physical Exam Const oriented x3 and no apparent distress Resp normal respiratory effort GI GI Narrative: Distended, soft, appropriately tender to palpation. Dressing is taken down and patient has some mild, crusted serosanguineous drainage directly about the umbilicus, but nothing actively draining. There is no surrounding erythema to the wound. Assessment & Plan Assessment/Plan (1) SBO (small bowel obstruction): PLAN: Patient is postop day 2 from palliative right hemicolectomy for obstructing cecal mass. Patient is still not having bowel function yet. Patient has responded to encouragement for walking and gum chewing and appears motivated. Patient is remains mildly tachycardic this morning with low-grade temp reported yesterday. EKG checked yesterday found patient to be simply tachycardic with NSR. Her hemoglobin and platelets are both decreased today?as is her white blood cell count. This is likely reflecting expanded intravascular volume with IV fluids as she is rehydrated. ? Patient encouraged to continue frequent ambulation and gum chewing. Have to hold on a diet given no signs of bowel function return as yet and patient's persistent abdominal distention ? Continue IV fluid support ? Patient okay to shower again today ? AM labs already ordered ? We will plan to reassess this afternoon
[2022-12-15] MEDS: Paroxetine 20 MG Tablet 40 MG PO (10:09)
[2022-12-15] MEDS: Acetaminophen 325 MG Tablet 650 MG PO ×2 (13:27→22:00)
[2022-12-15 14:00] VITALS: BP 141/100; PULSE 100; RESP 18; TEMP 37.1; O2SAT 95
[2022-12-15 15:20] VITALS: BP 141/100; PULSE 100; RESP 18; TEMP 37.1; O2SAT 95
[2022-12-15 19:50] VITALS: BP 162/100; PULSE 102; RESP 16; TEMP 36.4; O2SAT 94
[2022-12-16] MEDS: traZODone 50 MG Tablet PO ×2 (00:19→21:01)
[2022-12-16 00:27] VITALS: BP 166/104; PULSE 103; RESP 16; TEMP 37; O2SAT 96
[2022-12-16] MEDS: 0.9% Normal Saline 1,000 ML 100 ML IV ×2 (01:54→11:55)
[2022-12-16] MEDS: Morphine 2 MG/ML Syringe IV ×7 (04:07→23:53)
[2022-12-16 04:41] VITALS: BP 152/90; PULSE 105; RESP 16; TEMP 36.4; O2SAT 92
[2022-12-16 06:17] LABS: Absolute Lymphocyte Count 0.49 X10^3/uL (0.83-4.51); Absolute Neutrophil Count 9.3 X10^3/uL (2.0-7.7); Basophil# 0.01 X10^3/uL; Basophil% 0.1 % (0-1); Hematocrit 35.5 % (37-47); Hemoglobin 11.5 g/dL (12.0-15.0); Lymphocyte # 0.49 X10^3/ul (0.83-4.51); Lymphocyte % 4.7 % (19-41); Mean Corp Hgb Conc 32.4 g/dL (32-36); Mean Corpuscular Volume 89.4 fL (81-99); Mean Platelet Vol. 10.3 fl (6.2-12.0); Monocyte# 0.55 X10^3/uL; Monocyte% 5.2 % (0-10); NRBC Flagged by Analyzer 0 % (0-5); Neutrophil # 9.29 X10^3/uL (2.7-7.7); Neutrophil % 88.6 % (47-70); POSITIVE DIFFERENTIAL YES; Platelet Count 300 K/mm3 (150-450); RBC Distribution Width CV 12.8 % (11.6-14.6); RBC Distribution Width SD 41.9 fl (35.1-43.9); Red Blood Count 3.97 M/mm3 (4.2-5.4); White Blood Count 10.5 K/mm3 (4.4-11.0)
[2022-12-16 06:20] LABS: Differential Indicated SCAN CRITERIA MET
[2022-12-16 06:44] LABS: Anion Gap 8 (5-15); BUN 12 mg/dL (7-18); Calcium,Total 8.3 mg/dL (8.5-10.1); Chloride 109 mmol/L (98-107); Creatinine, Serum 0.43 mg/dL (0.55-1.02); EST Glomerular Filtration Rate 158 mL/min (>60); Est Glom Filt Rate - Afr Amer 191 mL/min (>60); Estimated Creatinine Clearance 118.93 ml/min; Glucose 96 mg/dL (74-106); Potassium 3.3 mmol/L (3.5-5.1); Sodium Level 138 mmol/L (136-145)
[2022-12-16 09:01] VITALS: BP 148/95; PULSE 99; RESP 18; TEMP 36.8; O2SAT 93
[2022-12-16] MEDS: Paroxetine 20 MG Tablet 40 MG PO (09:06)
--- NOTE | 2022-12-16 09:27 | PN.SURG_ITS ---
Subjective Subjective Patient seen and examined during AM rounds. She reports an uneventful overnight course. She reports no further experience of nausea beyond her bout with it yesterday afternoon. She states that she feels gas moving within her abdomen and is therefore optimistic for return of bowel function, but unfortunately brandon es any flatus as of yet. She states she intends to begin walking once her arrives to the hospital this morning. Objective Data Objective Data Vital Signs: Vital Signs Temp Pulse Resp BP Pulse Ox O2 Del Method O2 Flow Rate 98.3 F 99 18 148/95 H 93 Room Air 2 12/16/22 09:01 12/16/22 09:01 12/16/22 09:01 12/16/22 09:01 12/16/22 09:01 12/16/22 09:13 12/14/22 01:28 Oxygen Flow Rate (L/min) 2 Oxygen Delivery Method Room Air Weight: 166 lb Body Mass Index (BMI) 27.6 Intake & Output: Intake and Output for Last 24 Hours 12/14/22 12/15/22 12/16/22 23:59 23:59 23:59 Intake Total 3175.00 / 3175.00 2210.00 / 2210.00 966.67 / 966.67 Balance 3175.00 / 3175.00 2210.00 / 2210.00 966.67 / 966.67 Medical Nutrition Assessment Dietitian: Malnutrition Criteria Met Start: 12/14/22 11:29 Freq: Status: Active Protocol: Document 12/14/22 11:29 DARION (Rec: 12/14/22 11:29 DARION [id number]) Nutrition Malnutrition Evidence of Malnutrition Exists Yes Malnutrition (severe): Acute Illness/Injury Evidenced By Suboptimal Energy Intake ( Severe),Weight Loss (Severe) Intake Problem Inadequate Oral Intake Etiology related altered GI dysfunction and inadequate energy intake Signs/Symptoms as evidenced by NPO status Status Active Problem Clinical Problem Acute Disease or Injury Related Malnutrition Etiology related to GI dysfunction and inadequate energy intake Signs/Symptoms as evidenced by pt with <50% po intake r/t abd pain/nausea and 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 Status Active Problem Recommendation Dietitian Recommendations/Changes As medically able, rec KATHY to Transitional diet w/ goal of liberal regular / decreased fiber diet Rec 120 ml ensure plus high protein tid w/ medpass for increased nutrition if consumed. Lab / Micro Data Result Diagrams: 12/16/22 05:20 12/16/22 05:20 Labs: Laboratory Results - last 24 hr 12/16/22 05:20: WBC 10.5, RBC 3.97 L, Hgb 11.5 L, Hct 35.5 L, MCV 89.4, MCH 29.0, MCHC 32.4, RDW Std Deviation 41.9, RDW Coeff of Julian 12.8, Plt Count 300, MPV 10.3, Immature Gran % (Auto) 0.400, Neut % (Auto) 88.6 H, Lymph % (Auto) 4.7 L, [place] % (Auto) 5.2, Eos % (Auto) 1.0, Baso % (Auto) 0.1, Absolute Neuts (auto) 9.3 H, Absolute Lymphs (auto) 0.49 L, Nucleated RBC % 0 12/16/22 05:20: Sodium 138, Potassium 3.3 L, Chloride 109 H, Carbon Dioxide 21.0, Anion Gap 8, BUN 12, Creatinine 0.43 L, Estim Creat Clear Calc 118.93, Est GFR (MDRD) Af Amer 191, Est GFR (MDRD) Non-Af 158, BUN/Creatinine Ratio 28.0 H, Glucose 96, Calcium 8.3 L Physical Exam Const oriented x3 and no apparent distress Resp normal respiratory effort GI GI Narrative: Mild to moderately distended, laparotomy wound well approximated without erythema or drainage. Patient with decreased tenderness to palpation x4 quadrants. 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 Patient is still not having bowel function yet. Patient has responded to encouragement for walking and gum chewing and appears motivated. Patient with improved tachycardia. Her hemoglobin and platelets are both modestly decreased today?as is her white blood cell count Brenzys which is now within normal limits). This is likely reflecting expanded intravascular volume with IV fluids as she is rehydrated. ? Patient once again encouraged to continue frequent ambulation and gum chewing. Have to hold on a diet given no signs of bowel function return as yet and patient's persistent abdominal distention ? Continue IV fluid support ? Potassium replacement ordered via intravenous route ? Labs ordered to reassess electrolytes next a.m. ? We will plan to reassess this afternoon Charges/Coding Visit Charges Inpatient E&M: 02404 Subs Hosp L2
[2022-12-16] MEDS: Potassium Chloride 10mEq/100mL 10 MEQ/100 ML IV.SOLN. 100 MEQ IV BOLUS ×3 (10:40→16:26)
[2022-12-16] MEDS: Acetaminophen 325 MG Tablet 650 MG PO (15:01)
[2022-12-16 15:03] VITALS: BP 136/92; PULSE 100; RESP 18; TEMP 36.9; O2SAT 93
[2022-12-16] MEDS: 0.9% Saline Lock 10 ML Syringe IV ×2 (16:26→19:23)
[2022-12-16 20:54] VITALS: BP 161/96; PULSE 99; RESP 18; TEMP 37.2; O2SAT 96
[2022-12-17] VITALS (9 sets, daily range): BP systolic 152–169; BP diastolic 94–102; PULSE 94–106; RESP 17–24; TEMP 36.6–37; O2SAT 88–94
[2022-12-17] MEDS: 0.9% Normal Saline 1,000 ML 100 ML IV (02:15)
[2022-12-17] MEDS: Morphine 2 MG/ML Syringe IV ×3 (02:23→17:07)
[2022-12-17 06:57] LABS: Anion Gap 10 (5-15); BUN 9 mg/dL (7-18); BUN/Creat Ratio 22.4 RATIO (10-20); Calcium,Total 8.4 mg/dL (8.5-10.1); Chloride 109 mmol/L (98-107); EST Glomerular Filtration Rate 170 mL/min (>60); Est Glom Filt Rate - Afr Amer 206 mL/min (>60); Estimated Creatinine Clearance 127.85 ml/min; Glucose 83 mg/dL (74-106); Magnesium 1.7 mg/dL (1.6-2.6); Phosphorus 2.5 mg/dL (2.5-4.9); Potassium 3.4 mmol/L (3.5-5.1); Sodium Level 138 mmol/L (136-145)
[2022-12-17] MEDS: Potassium Chloride 10mEq/100mL 10 MEQ/100 ML IV.SOLN. 100 MEQ IV BOLUS ×2 (08:17→10:44)
--- NOTE | 2022-12-17 08:46 | PCM.PN.SRG ---
Subjective Subjective Patient had bowel movement early this morning and reports it was quite large. She denies any nausea or abdominal pain. Objective Data Objective Data Vital Signs: Vital Signs Temp Pulse Resp BP Pulse Ox O2 Del Method O2 Flow Rate 98.3 F 94 19 H 154/96 H 92 Room Air 2 12/17/22 08:31 12/17/22 08:31 12/17/22 08:31 12/17/22 08:31 12/17/22 08:31 12/17/22 08:31 12/14/22 01:28 Oxygen Flow Rate (L/min) 2 Oxygen Delivery Method Room Air Weight: 166 lb Body Mass Index (BMI) 27.6 Intake & Output: Intake and Output for Last 24 Hours 12/15/22 12/16/22 12/17/22 23:59 23:59 23:59 Intake Total 2210.00 / 2210.00 2773.34 / 2873.34 932.5 / 932.5 Balance 2210.00 / 2210.00 2773.34 / 2873.34 932.5 / 932.5 Medical Nutrition Assessment Dietitian: Malnutrition Criteria Met Start: 12/14/22 11:29 Freq: Status: Active Protocol: Document 12/14/22 11:29 SLA (Rec: 12/14/22 11:29 [facility] [id number]) Nutrition Malnutrition Evidence of Malnutrition Exists Yes Malnutrition (severe): Acute Illness/Injury Evidenced By Suboptimal Energy Intake ( Severe),Weight Loss (Severe) Intake Problem Inadequate Oral Intake Etiology related altered GI dysfunction and inadequate energy intake Signs/Symptoms as evidenced by NPO status Status Active Problem Clinical Problem Acute Disease or Injury Related Malnutrition Etiology related to GI dysfunction and inadequate energy intake Signs/Symptoms as evidenced by pt with <50% po intake r/t abd pain/nausea and 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 Lab / Micro Data Result Diagrams: 12/16/22 05:20 12/17/22 05:28 Labs: Laboratory Results - last 24 hr 12/17/22 05:28: Sodium 138, Potassium 3.4 L, Chloride 109 H, Carbon Dioxide 19.0 L, Anion Gap 10, BUN 9, Creatinine 0.40 L, Estim Creat Clear Calc 127.85, Est GFR (MDRD) Af Amer 206, Est GFR (MDRD) Non-Af 170, BUN/Creatinine Ratio 22.4 H, Glucose 83, Calcium 8.4 L, Phosphorus 2.5, Magnesium 1.7 Physical Exam Const oriented x3 Resp normal respiratory effort GI soft to palpation and non-tender Inspection: abdominal distention Assessment & Plan Assessment/Plan (1) SBO (small bowel obstruction): PLAN: The patient had a bowel movement overnight. She still seems a little distended but she has normal active bowel sounds. I will start clear liquids today. If she is tolerating clears and doing well this afternoon I may advance her today but she is still having some distention. Her magnesium was lower limits of normal and her potassium was low and I replacing both. Continue observation and I stopped her IV fluids. Clyde Daley MD Pager: [facility] [place] [facility] [address] [place] [address], [address] [place] [address] Office:
[2022-12-17] MEDS: Enoxaparin 40 MG/0.4 ML Syringe SC (11:48)
[2022-12-17] MEDS: Paroxetine 20 MG Tablet 40 MG PO (11:55)
--- NOTE | 2022-12-17 14:28 | NURSING ---
Pt laying in bed. Vitals obtained. 02 at 88% on RA at rest but pt has not been oob yet today. spo2 2L NC and now spo2 is 95%. Pt is getting up and ambulating as she has not yet thus far today.
--- NOTE | 2022-12-17 15:09 | CASEMGMT ---
RN CM into pt room, pt sitting up in chair. Pt up indep in room. Pt currently denies any homegoing needs. RN CM to continue to follow.
[2022-12-17] MEDS: 0.9% Saline Lock 10 ML Syringe IV ×2 (17:07→18:21)
[2022-12-17] MEDS: hydrALAZINE 20 MG/ML Vial 10 MG IV (18:21)
[2022-12-17] MEDS: oxyCODONE 5 MG Tablet PO (21:50)
[2022-12-17] MEDS: traZODone 50 MG Tablet PO (23:32)
[2022-12-18 04:00] VITALS: O2SAT 92
[2022-12-18 06:37] VITALS: BP 147/86; PULSE 101; RESP 18; TEMP 36.8; O2SAT 92
[2022-12-18 08:30] VITALS: O2SAT 93
[2022-12-18] MEDS: oxyCODONE 5 MG Tablet PO (08:41)
[2022-12-18] MEDS: Paroxetine 20 MG Tablet 40 MG PO (08:41)
[2022-12-18] MEDS: Enoxaparin 40 MG/0.4 ML Syringe SC (08:41)
--- NOTE | 2022-12-18 09:23 | DS.PCM_ITS ---
Providers Date of Admission: 12/13/22 Primary Care Physician: Jasmyn Whitten NP-C Reason For Visit: BOWEL OBSTRUCTION Diagnosis Discharge Diagnosis (1) SBO (small bowel obstruction): Status: Acute Code(s): K56.609 - Unspecified intestinal obstruction, unspecified as to partial versus complete obstruction Plan: The patient had a bowel movement overnight. She still seems a little distended but she has normal active bowel sounds. I will start clear liquids today. If she is tolerating clears and doing well this afternoon I may advance her today but she is still having some distention. Her magnesium was lower limits of normal and her potassium was low and I replacing both. Continue observation and I stopped her IV fluids. Clyde Daley MD Pager: [facility] [address] [place] [address], [address] [place] [phone] Office: Medications at Discharge Home Medications calcium carbonate 600 mg calcium (1,500 mg) tablet 1,200 mg PO DAILY Check with primary doctor 10/16/16 paroxetine HCl 40 mg tablet 40 mg PO DAILY Check with primary doctor 10/16/16 promethazine 25 mg tablet 50 mg PO Q8H PRN PRN Nausea 10/16/16 simvastatin 10 mg tablet 10 mg PO QHS Check with primary doctor 10/16/16 trazodone 50 mg tablet 50 mg PO QHS Check with primary doctor 10/16/16 Elderberry 15 ml DAILY Check with primary doctor 12/14/22 ascorbic acid (vitamin C) 1,000 mg tablet (Vitamin C) 1,000 mg PO DAILY Check with primary doctor 12/14/22 calcium carbonate 333 mg-magnesium oxide 133 mg-zinc gluc 5 mg tablet 1 tab PO DAILY Check with primary doctor 12/14/22 cholecalciferol (vitamin D3) 125 mcg (5,000 unit) tablet (Vitamin D3) 20,000 unit PO DAILY Check with primary doctor 12/14/22 multivitamin 1 tab PO DAILY Check with primary doctor 12/14/22 omega-3 fatty acids-vitamin E 1,000 mg capsule 1 cap PO DAILY Check with primary doctor 12/14/22 acetaminophen 325 mg tablet 650 mg PO Q4H PRN PRN PAIN 1-10/FEVER #0 tabs 12/18/22 ibuprofen 600 mg tablet 600 mg PO Q6H PRN PRN Pain 1-10 Or Fever #0 tabs 12/18/22 oxycodone 5 mg tablet 5 - 10 mg PO Q4H PRN PRN Pain Score 4-10 5 days #20 tabs 12/18/22 Hospital Course Summary of Care Provided Hospital Course: Patient was admitted after having unsuccessful bowel prep. CT scan revealed a large mass in the right colon causing bowel obstruction. She was taken for palliative right hemicolectomy for resection of this and reanastomosis. Patient tolerated the procedure well and was admitted to the floor postoperatively. It took her a few days before she started to have bowel function but when she did she was slowly advanced and once tolerating a diet she was discharged home. Physical Exam Const oriented x3 Resp normal respiratory effort Cardio regular rate and regular rhythm GI soft to palpation and non-tender Medical Records Data Medical Nutrition Assessment Dietitian: Malnutrition Criteria Met Start: 12/14/22 11:29 Freq: Status: Active Protocol: Document 12/17/22 11:00 [facility] (Rec: 12/17/22 11:00 [facility] [id number]) Nutrition Malnutrition Evidence of Malnutrition Exists Yes Malnutrition (severe): Acute Illness/Injury Evidenced By Suboptimal Energy Intake ( Severe),Weight Loss (Severe) Intake Problem Inadequate Oral Intake Etiology related altered GI dysfunction and inadequate energy intake Signs/Symptoms as evidenced by NPO / clear liquids status since adm Status Active Problem Clinical Problem Acute Disease or Injury Related Malnutrition Etiology related to GI dysfunction and inadequate energy intake Signs/Symptoms as evidenced by pt with <50% po intake r/t abd pain/nausea and 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 When diet advanced to solids rec d/c ensure clear at meals and provide 120 ml ensure plus high protein tid w/ medpass for increased nutrition if consumed. Weight / BMI Weight Weight: 166 lb Body Mass Index (BMI) 27.6 ABG / Lab / Microbiology Data Result Diagrams: 12/16/22 05:20 12/17/22 05:28 D/C Instructions Discharge Diet: Light diet - advance as tolerated Discharge Activity: Return to Normal Activity, May Drive (after done taking narcotics) and May Shower Lifting Restrictions: 15 lbs for 4 weeks Call your doctor if your incision/area has: Continuous Slow Oozing, Sudden Increased Bleeding, Increased Pain/ Swelling, Increased Redness, Foul Smelling Discharge and Swelling at the incision site Call your doctor if you observe: Fever of 101 or Higher Cleanse incision/area with: Soap & Water Please Follow Up With: Clyde Daley MD When: Please call to schedule 1 week follow up appointment. [phone] Meaningful Use Info Meaningful Use Diagnoses (Choose all that apply): None applicable Discharge Plan Admission Admit Date/Time: 12/13/22 17:14 Attending Provider: Clyde Daley Primary Care Provider: Jasmyn Whitten Discharge Orders/Prescriptions Prescriptions: New acetaminophen 325 mg Tablet 650 mg PO Q4H PRN PRN (Reason: PAIN 1-10/FEVER) Qty: 0 0RF ibuprofen 600 mg Tablet 600 mg PO Q6H PRN PRN (Reason: Pain 1-10 Or Fever) Qty: 0 0RF oxycodone 5 mg Tablet 5 - 10 mg PO Q4H PRN PRN (Reason: Pain Score 4-10) 5 Days Qty: 20 0RF Continued trazodone 50 MG tablet 50 mg PO QHS simvastatin 10 MG tablet 10 mg PO QHS calcium carbonate 600 MG tablet 1,200 mg PO DAILY promethazine 25 MG tablet 50 mg PO Q8H PRN PRN (Reason: Nausea) paroxetine HCl 40 MG tablet 40 mg PO DAILY Label Comments: for 4 days omega-3 fatty acids-vitamin E 1,000 mg Capsule 1 cap PO DAILY multivitamin Tablet 1 tab PO DAILY ascorbic acid (vitamin C) [Vitamin C] 1,000 mg Tablet 1,000 mg PO DAILY Elderberry 4,250 mg 15 ml DAILY cholecalciferol (vitamin D3) [Vitamin D3] 125 mcg (5,000 unit) Tablet 20,000 unit PO DAILY calcium carb-mag ox-zinc gluc 333-133-5 mg Tablet 1 tab PO DAILY Discontinued oxycodone-acetaminophen [Percocet] 5-325 mg tablet 1 tab PO Q4H Referrals / Follow Up: Jasmyn Whitten, MELODYC [Primary Care Provider] - Disposition Disposition (needs filled in before D/C Order can be placed): Home, Self Care
--- NOTE | 2022-12-18 10:28 | PHA.DC.MC ---
Pharmacy Service has performed discharge medication reconciliation and counseling for this patient. 1. ACETAMINOPHEN 650MG PO Q6H PRN PAIN 2. IBUPROFEN 600MG PO Q6H PRN PAIN 3. OXYCODONE 5-10MG PO Q4H PRN PAIN The patient's discharge medication list was reviewed for discrepancies and discrepancies were resolved. Home Medications calcium carbonate 600 mg calcium (1,500 mg) tablet 1,200 mg PO DAILY Check with primary doctor 10/16/16 paroxetine HCl 40 mg tablet 40 mg PO DAILY Check with primary doctor 10/16/16 promethazine 25 mg tablet 50 mg PO Q8H PRN PRN Nausea 10/16/16 simvastatin 10 mg tablet 10 mg PO QHS Check with primary doctor 10/16/16 trazodone 50 mg tablet 50 mg PO QHS Check with primary doctor 10/16/16 Elderberry 15 ml DAILY Check with primary doctor 12/14/22 ascorbic acid (vitamin C) 1,000 mg tablet (Vitamin C) 1,000 mg PO DAILY Check with primary doctor 12/14/22 calcium carbonate 333 mg-magnesium oxide 133 mg-zinc gluc 5 mg tablet 1 tab PO DAILY Check with primary doctor 12/14/22 cholecalciferol (vitamin D3) 125 mcg (5,000 unit) tablet (Vitamin D3) 20,000 unit PO DAILY Check with primary doctor 12/14/22 multivitamin 1 tab PO DAILY Check with primary doctor 12/14/22 omega-3 fatty acids-vitamin E 1,000 mg capsule 1 cap PO DAILY Check with primary doctor 12/14/22 acetaminophen 325 mg tablet 650 mg PO Q4H PRN PRN PAIN 1-10/FEVER #0 tabs 12/18/22 ibuprofen 600 mg tablet 600 mg PO Q6H PRN PRN Pain 1-10 Or Fever #0 tabs 12/18/22 oxycodone 5 mg tablet 5 - 10 mg PO Q4H PRN PRN Pain Score 4-10 5 days #20 tabs 12/18/22 The patient was counseled on the following discharge medications and changes in medications for homegoing were reviewed. The Reason for Use, instructions for use, and potential side effects were reviewed for all new medications. The patient's questions regarding all of their medications were answered. The patient was able to verbally demonstrate an understanding of their discharge medications.
[2022-12-18 10:30] VITALS: BP 148/91; PULSE 107; RESP 18; TEMP 36.9; O2SAT 93
--- NOTE | 2022-12-27 15:23 | PN ---
Accompanied Dr. Johns into new patient consultation. Pt came with her and 3 daughters. Gave my card, [place], [facility] nutrition and [employer] [facility]
--- NOTE | 2022-12-31 11:24 | PN ---
Working on daughters' FMLAs. Will need to wait for physician to return from vacation to sign.
== END 2022-12-18 11:30 | disposition home or self-care (01) | DRG 329 ==
LOC: ED 14:36 → SDC 14:36 → AC 14:37 → MS3 18:14 → SDC 12-14 10:18 → MS3 12-14 10:18
PROVIDERS: Surgery; Admitting Provider Surgery; Emergency Provider Student in an Organized Health Care Education/Training Program; PCP Nurse Practitioner Family; Visit Provider Surgery
PROC: 0DTF0ZZ Resection of Right Large Intestine, Open Approach (ICD-10-PCS; CPT 49320; principal; 2022-12-13 14:45)
PROC: 0DJ08ZZ Inspection of Upper Intestinal Tract, Via Natural or Artificial Opening Endoscopic (ICD-10-PCS; CPT 43235; principal; 2022-12-13 14:50)
DX: C18.9 Malignant neoplasm of colon, unspecified (principal); E43 Unspecified severe protein-calorie malnutrition; C77.2 Secondary and unspecified malignant neoplasm of intra-abdominal lymph nodes; K44.9 Diaphragmatic hernia without obstruction or gangrene; E78.00 Pure hypercholesterolemia, unspecified; E83.42 Hypomagnesemia; E87.6 Hypokalemia; F41.9 Anxiety disorder, unspecified; Z51.5 Encounter for palliative care; F32.A Depression, unspecified; Z53.31 Laparoscopic surgical procedure converted to open procedure; Z90.49 Acquired absence of other specified parts of digestive tract; Z68.27 Body mass index [BMI] 27.0-27.9, adult; Z79.899 Other long term (current) drug therapy; Z87.891 Personal history of nicotine dependence
CPT/HCPCS: 36415; 74176; 80048; 80076; 82378; 83690; 83735; 84100; 85025; 88307; 88309; 88341; 88342; 93005; 94668; 97802; 99252; 99283; J7030; J7050; J7120; A4216; G0463; J2405

== ENCOUNTER 2022-12-23 11:35 | Emergency (ER) | payer MEDICARE, SELFPAY ==
[2022-12-23 11:36] VITALS: BP 143/98; PULSE 95; RESP 18; TEMP 36.7; O2SAT 96; BMI 28.1
--- NOTE | 2022-12-23 12:05 | CT_ITS ---
STUDY: CT ABDOMEN AND PELVIS WITH CONTRAST REASON FOR EXAM: Female, 62 years old. Postop diarrhea RADIATION DOSAGE (If Supplied By Facility): CTDIvol = ( 26.39 ) mGy, DLP = ( 1031.82 ) mGycm TECHNIQUE: Transaxial images were obtained from the dome of the diaphragm to the symphysis pubis without oral contrast. IV 100mL Isovue-300 was administered. Sagittal and coronal images were reconstructed. Individualized dose optimization techniques were used for this CT. COMPARISON: 12/13/2022 FINDINGS: Lung bases show bilateral pleural effusions with bibasilar atelectasis. There is also a prominent retrocardiac hiatal hernia. Heart size is normal. No coronary artery calcifications. Liver is unremarkable, no discrete lesion is identified but there is evidence of ascites around the periphery of the liver spleen, down both paracolic gutters and into the pelvis. Normal gallbladder and extrahepatic biliary system. Normal spleen. Normal pancreas. Normal bilateral adrenal glands. No obstructive uropathy, or suspicious solid renal lesion, there is a simple right renal cyst. No specific follow-up needed. Since the previous study, patient has undergone intra-abdominal surgery. There are abnormal appearing bowel loops throughout the abdomen and pelvis both small and large with submucosal thickening, as well as associated fluid and induration of the mesenteric fat. Findings consistent with postoperative ileus. Colonic diverticula noted without CT evidence of acute diverticulitis though with the postoperative fluid and induration of the mesenteric fat and acute diverticulitis could be present and overlooked. Evidence of previous appendectomy There is diffuse atherosclerotic calcification of the abdominal aorta, without a demonstrated aneurysm. Normal inferior vena cava. Normal retroperitoneum. Normal urinary bladder. There is absence of the uterus consistent with a prior hysterectomy. Normal abdominal wall. There are diffuse degenerative changes of the visualized lumbar spine, and pelvis. CT/Abdomen/Pelvis W IV Cont ONLY IMPRESSION: Multiple abnormal appearing bowel loops throughout the abdomen and pelvis after surgery. The bowel loops show diffuse submucosal thickening with associated free fluid and induration of the mesenteric fat. Findings consistent with postoperative ileus. No obstruction is identified. Colonic diverticulosis, particularly in the sigmoid colon, without leak free fluid and induration of the mesenteric fat and acute diverticulitis cannot be excluded. There is no demonstrated perforation or abscess. No suspicious solid organ abnormality Degenerative bony changes Electronically Signed: Richard Gandhi MD at 13:56 EDT ,
--- NOTE | 2022-12-23 12:06 | EDS_ITS ---
HPI <SY Winter - Last Filed: 12/23/22 15:24> History of Present Illness Chief Complaint: Wound Check Narrative Narrative: Patient had surgery on 12/13/[address] Daley for palliative right hemicolectomy for obstructing cecal mass. She has known malignancy. Since surgery she has had diarrhea but it is increasing in frequency to 9 times a day over the last couple days. Stool is brown and watery with some formed pieces. No foul odor. She has been eating with no nausea or vomiting and no fever or chills. The surgical incision became red over the last couple days but there is no drainage from the site. She talked to the on-call surgeon today who sent her here. PFS <SY Winter - Last Filed: 12/23/22 15:24> COUNT INCLUDES THE [facility] Medical History Anxiety Back pain Bloated abdomen Climacteric syndrome Depression Distended abdomen Encounter for screening for malignant neoplasm of lung in former smoker who quit in past 15 years with 30 pack year history or greater Former smoker Heartburn History of hiatal hernia History of stress test History of tobacco use Hoarseness Hypercholesteremia IBS (irritable bowel syndrome) Insomnia Leg cramps Rectal prolapse Shortness of breath on exertion Umbilical hernia Wears dentures Home Medications calcium carbonate 600 mg calcium (1,500 mg) tablet 1,200 mg PO DAILY Check with primary doctor 10/16/16 [History Last Taken 11/30/22] paroxetine HCl 40 mg tablet 40 mg PO DAILY Check with primary doctor 10/16/16 [History Last Taken 12/12/22] promethazine 25 mg tablet 50 mg PO Q8H PRN PRN Nausea 10/16/16 [History Last Taken 12/12/22] simvastatin 10 mg tablet 10 mg PO QHS Check with primary doctor 10/16/16 [History Last Taken 12/12/22] trazodone 50 mg tablet 50 mg PO QHS Check with primary doctor 10/16/16 [History Last Taken 12/12/22] Elderberry 15 ml DAILY Check with primary doctor 12/14/22 [History Last Taken 12/07/22] ascorbic acid (vitamin C) 1,000 mg tablet (Vitamin C) 1,000 mg PO DAILY Check with primary doctor 12/14/22 [History Last Taken 11/30/22] calcium carbonate 333 mg-magnesium oxide 133 mg-zinc gluc 5 mg tablet 1 tab PO DAILY Check with primary doctor 12/14/22 [History Last Taken Unknown] cholecalciferol (vitamin D3) 125 mcg (5,000 unit) tablet (Vitamin D3) 20,000 unit PO DAILY Check with primary doctor 12/14/22 [History Last Taken 11/30/22] multivitamin 1 tab PO DAILY Check with primary doctor 12/14/22 [History Last Taken 11/30/22] omega-3 fatty acids-vitamin E 1,000 mg capsule 1 cap PO DAILY Check with primary doctor 12/14/22 [History Last Taken 11/30/22] acetaminophen 325 mg tablet 650 mg PO Q4H PRN PRN PAIN 1-10/FEVER #0 tabs 12/18/22 [Rx Last Taken Unknown] ibuprofen 600 mg tablet 600 mg PO Q6H PRN PRN Pain 1-10 Or Fever #0 tabs 12/18/22 [Rx Last Taken Unknown] oxycodone 5 mg tablet 5 - 10 mg PO Q4H PRN PRN Pain Score 4-10 5 days #20 tabs 12/18/22 [Rx Last Taken Unknown] cephalexin 500 mg capsule 500 mg PO Q6 5 days #20 CAPSULES 12/23/22 [Rx Last Taken Unknown] potassium chloride 40 mEq/15 mL oral liquid 40 meq (15 mL) PO DAILY 2 days #30 mL 12/23/22 [Rx Last Taken Unknown] sulfamethoxazole 400 mg-trimethoprim 80 mg tablet (Bactrim) 1 tab PO BID 5 days #10 tabs 12/23/22 [Rx Last Taken Unknown] Allergy/AdvReac Type Severity Reaction Status Date / Time No Known Allergies Allergy Verified 12/13/22 10:43 Family History Father Hypertension Mother Hypertension Surgical History H/O section H/O laminectomy H/O thumb surgery H/O total hysterectomy History of appendectomy History of carpal tunnel surgery History of esophagogastroduodenoscopy (EGD) History of tonsillectomy and adenoidectomy Hx of colonoscopy Social History Smoking Status: Current some day smoker tobacco type: cigarettes Tobacco: How many years used: 44 Electronic Cigarette Use: not used how long ago did patient quit smokin years second hand exposure: Yes quit status: quit date established ROS <SY Winter - Last Filed: 12/23/22 15:24> ROS ED ROS Narrative Constitutional: Negative for fever, chills, malaise. CVS: Negative for palpitations, chest pain, syncope. Respiratory: Negative for shortness of breath. GI: Positive for abdominal pain, diarrhea. Negative for nausea, vomiting, constipation, melena, hematochezia. : Negative for dysuria, hematuria or frequency. EXAM <SY Winter - Last Filed: 12/23/22 15:24> Physical Exam Narrative Exam Narrative: CONST: Patient sitting in no acute distress. EYES: Normal inspection. NECK: Normal inspection. RESP: No respiratory distress, CTAB. CVS: Regular rate and rhythm, no murmur, no gallop. ABD: Soft with slight tenderness, no guarding or rebound. Normal bowel sounds x4. Large midline incision was stapled with erythema, induration and warmth especially at the inferior portion. No dehiscence, no drainage. SKIN: Color normal, no rash, warm, dry, intact. EXTREMITIES: Normal appearance, no pedal edema. NEURO: Oriented x4. PSYCH: Normal affect. Const Vital Signs: 12/23/22 11:36 12/23/22 12:43 12/23/22 13:47 Temperature 98.1 F 98 F Temperature Source Temporal Oral Pulse Rate 95 91 Respiratory Rate 18 25 H Blood Pressure 143/98 H 158/90 H Blood Pressure Mean 113 112 Pulse Ox 96 90 Oxygen Delivery Method Room Air Room Air Room Air 12/23/22 14:35 Temperature Temperature Source Pulse Rate 81 Respiratory Rate 18 Blood Pressure 146/87 H Blood Pressure Mean 106 Pulse Ox 93 Oxygen Delivery Method Room Air <Dr. Michael Caldwell MD - Last Filed: 12/23/22 15:26> Physical Exam Const Vital Signs: 12/23/22 11:36 12/23/22 12:43 12/23/22 13:47 Temperature 98.1 F 98 F Temperature Source Temporal Oral Pulse Rate 95 91 Respiratory Rate 18 25 H Blood Pressure 143/98 H 158/90 H Blood Pressure Mean 113 112 Pulse Ox 96 90 Oxygen Delivery Method Room Air Room Air Room Air 12/23/22 14:35 Temperature Temperature Source Pulse Rate 81 Respiratory Rate 18 Blood Pressure 146/87 H Blood Pressure Mean 106 Pulse Ox 93 Oxygen Delivery Method Room Air [facility] <SY Winter - Last Filed: 12/23/22 15:24> [facility] Narrative Medical decision making narrative: History gathered from: Patient and spouse Patient is about a week and a half postop from right hemicolectomy for obstructing cecal mass with known malignancy. She is having diarrhea and now some redness over the surgical incision site. She appears well and nontoxic and is afebrile with unremarkable vital signs. Blood work was obtained and shows white count of 12.5. She also has potassium of 2.8, normal magnesium. She was given IV and oral potassium replacement. CT shows multiple abnormal appearing bowel loops with diffuse submucosal thickening and induration of the mesenteric fat. Report thought this was postoperative ileus but patient's presentation is not consistent with this. I discussed these findings with Dr. Alli adame who said this diffuse thickening is likely diffuse metastatic cancer is that was seen in the operative photos. She saw a tiny fluid collection under the 2 st aples above her umbilicus so I remove this. There was less than 1 cc of serous drainage which I cultured. She was started on Bactrim and Keflex for the superficial cellulitis of the abdominal wall incision. I also prescribed 2 additional days of potassium and recommended Imodium for symptomatic treatment of her diarrhea. She is scheduled to see her surgeon in 2 days and was discharged in stable condition Consults: General surgery Differential: Surgical wound cellulitis, intra-abdominal abscess, diverticulitis, bowel obstruction I have personally performed a face to face assessment of the patient and have reviewed the MANUEL Note. I performed a substantive portion of the visit including all aspects of the following. My gallegso findings include: History is remarkable for recent surgery due to bowel obstruction. Was sent in because of wound infection and 9 watery slimy loose watery stools. 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 Does not smell like pseudomembranous enterocolitis, C. difficile. Patient denies fever or chills. She denies drainage from the wound. Exam is there is erythema, warmth and induration that is approximately 2 cm from the margins of the inferior portion of the incision site. There is no fluctuance. Unable to express any material. CT was obtained to assess the wound infection as well as her reported diarrhea. Also will obtain CBC to assess white count differential and H&H. BMP to assess for hypokalemia since she is reporting 9 loose stools a day as well as renal function. Stool was ordered for C. difficile and enteric pathogen's. Medical Decision Making appropriate labs and CT to evaluate patient's presentation and contact surgeon on-call, Dr. Whitaker. She did call prior to patient's presentation and requested CT to evaluate the wound infection. Other additions or changes: [None] Lab Data Labs: Laboratory Results - last 24 hr 12/23/22 12/23/22 12/23/22 12:23 12:23 12:23 WBC 12.5 H RBC 4.04 L Hgb 11.9 L Hct 36.0 L MCV 89.1 MCH 29.5 MCHC 33.1 RDW Std Deviation 44.4 H RDW Coeff of Julian 13.5 Plt Count 559 H MPV 9.2 Immature Gran % (Auto) 1.100 H Neut % (Auto) 86.9 H Lymph % (Auto) 7.5 L Sierra % (Auto) 4.2 Eos % (Auto) 0.1 Baso % (Auto) 0.2 Absolute Neuts (auto) 10.9 H Absolute Lymphs (auto) 0.94 Nucleated RBC % 0 PT 13.6 INR 1.0 APTT 32.4 Sodium 140 Potassium 2.8 L Chloride 104 Carbon Dioxide 30.0 Anion Gap 6 BUN 15 Creatinine 0.50 L Estim Creat Clear Calc 102.28 Est GFR (MDRD) Af Amer 159 Est GFR (MDRD) Non-Af 131 BUN/Creatinine Ratio 29.9 H Glucose 112 H Lactic Acid Calcium 8.6 Magnesium Total Bilirubin 0.30 AST 14 L ALT 24 Alkaline Phosphatase 100 Total Protein 5.7 L Albumin 2.1 L Globulin 3.6 Albumin/Globulin Ratio 0.6 L 12/23/22 12/23/22 12:23 12:23 WBC RBC Hgb Hct MCV MCH MCHC RDW Std Deviation RDW Coeff of Julian Plt Count MPV Immature Gran % (Auto) Neut % (Auto) Lymph % (Auto) Sierra % (Auto) Eos % (Auto) Baso % (Auto) Absolute Neuts (auto) Absolute Lymphs (auto) Nucleated RBC % PT INR APTT Sodium Potassium Chloride Carbon Dioxide Anion Gap BUN Creatinine Estim Creat Clear Calc Est GFR (MDRD) Af Amer Est GFR (MDRD) Non-Af BUN/Creatinine Ratio Glucose Lactic Acid 0.8 Calcium Magnesium 1.8 Total Bilirubin AST ALT Alkaline Phosphatase Total Protein Albumin Globulin Albumin/Globulin Ratio Radiography Diagnostic Testing: Clinical Impression(s) from Imaging Studies Abdomen/Pelvis CT 12/23/22 12:05 IMPRESSION: Multiple abnormal appearing bowel loops throughout the abdomen and pelvis after surgery. The bowel loops show diffuse submucosal thickening with associated free fluid and induration of the mesenteric fat. Findings consistent with postoperative ileus. No obstruction is identified. Colonic diverticulosis, particularly in the sigmoid colon, without leak free fluid and induration of the mesenteric fat and acute diverticulitis cannot be excluded. There is no demonstrated perforation or abscess. No suspicious solid organ abnormality Degenerative bony changes Electronically Signed: Richard Gandhi MD at 13:56 EDT , <Dr. Michael Caldwell MD - Last Filed: 12/23/22 15:26> MDM MDM Narrative Medical decision making narrative: I have personally performed a face to face assessment of the patient and have reviewed the MANUEL Note. I performed a substantive portion of the visit including all aspects of the following. My gallegos findings include: History is remarkable for recent surgery due to bowel obstruction. Was sent in because of wound infection and 9 watery slimy loose watery stools. 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 Does not smell like pseudomembranous enterocolitis, C. difficile. Patient denies fever or chills. She denies drainage from the wound. Exam is there is erythema, warmth and induration that is approximately 2 cm from the margins of the inferior portion of the incision site. There is no fluctuance. Unable to express any material. CT was obtained to assess the wound infection as well as her reported diarrhea. Also will obtain CBC to assess white count differential and H&H. BMP to assess for hypokalemia since she is reporting 9 loose stools a day as well as renal function. Stool was ordered for C. difficile and enteric pathogen's. Medical Decision Making appropriate labs and CT to evaluate patient's presentation and contact surgeon on-call, Dr. Whitaker. She did call prior to patient's presentation and requested CT to evaluate the wound infection. Other additions or changes: [None] Lab Data Attestation: I reviewed the patient's lab results. Lab results narrative: His right CBC is remarkable for an elevated white count with mild anemia. White count is elevated from prior CBC. Coags normal. Competence metabolic panel reveals hypokalemia due to the diarrhea. Renal function is normal with a GFR of 131. Labs: Laboratory Results - last 24 hr 12/23/22 12/23/22 12/23/22 12:23 12:23 12:23 WBC 12.5 H RBC 4.04 L Hgb 11.9 L Hct 36.0 L MCV 89.1 MCH 29.5 MCHC 33.1 RDW Std Deviation 44.4 H RDW Coeff of Julian 13.5 Plt Count 559 H MPV 9.2 Immature Gran % (Auto) 1.100 H Neut % (Auto) 86.9 H Lymph % (Auto) 7.5 L Sierra % (Auto) 4.2 Eos % (Auto) 0.1 Baso % (Auto) 0.2 Absolute Neuts (auto) 10.9 H Absolute Lymphs (auto) 0.94 Nucleated RBC % 0 PT 13.6 INR 1.0 APTT 32.4 Sodium 140 Potassium 2.8 L Chloride 104 Carbon Dioxide 30.0 Anion Gap 6 BUN 15 Creatinine 0.50 L Estim Creat Clear Calc 102.28 Est GFR (MDRD) Af Amer 159 Est GFR (MDRD) Non-Af 131 BUN/Creatinine Ratio 29.9 H Glucose 112 H Lactic Acid Calcium 8.6 Magnesium Total Bilirubin 0.30 AST 14 L ALT 24 Alkaline Phosphatase 100 Total Protein 5.7 L Albumin 2.1 L Globulin 3.6 Albumin/Globulin Ratio 0.6 L 12/23/22 12/23/22 12:23 12:23 WBC RBC Hgb Hct MCV MCH MCHC RDW Std Deviation RDW Coeff of Julian Plt Count MPV Immature Gran % (Auto) Neut % (Auto) Lymph % (Auto) Sierra % (Auto) Eos % (Auto) Baso % (Auto) Absolute Neuts (auto) Absolute Lymphs (auto) Nucleated RBC % PT INR APTT Sodium Potassium Chloride Carbon Dioxide Anion Gap BUN Creatinine Estim Creat Clear Calc Est GFR (MDRD) Af Amer Est GFR (MDRD) Non-Af BUN/Creatinine Ratio Glucose Lactic Acid 0.8 Calcium Magnesium 1.8 Total Bilirubin AST ALT Alkaline Phosphatase Total Protein Albumin Globulin Albumin/Globulin Ratio Radiography Diagnostic Testing: Clinical Impression(s) from Imaging Studies Abdomen/Pelvis CT 12/23/22 12:05 IMPRESSION: Multiple abnormal appearing bowel loops throughout the abdomen and pelvis after surgery. The bowel loops show diffuse submucosal thickening with associated free fluid and induration of the mesenteric fat. Findings consistent with postoperative ileus. No obstruction is identified. Colonic diverticulosis, particularly in the sigmoid colon, without leak free fluid and induration of the mesenteric fat and acute diverticulitis cannot be excluded. There is no demonstrated perforation or abscess. No suspicious solid organ abnormality Degenerative bony changes Electronically Signed: Richard Gandhi MD at 13:56 EDT Reading Location ID and State: [facility] / [place] , Service support , [place] report was read. There is confusion since he is reading postoperative ileus however patient is having diarrhea. There is multiple loops that appear abnormal with diffuse submucosal thickening associated with free fluid and induration of the mesenteric fat. Dr. Whitaker who is on-call for general surgery was paged to inform her of physical findings and CAT scan report. 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 Instructions: ED Hypokalemia, ED Wound Infection after surgery Prescriptions: New potassium chloride 40 mEq/15 mL liquid 40 meq PO DAILY 2 Days Qty: 30 0RF cephalexin 500 mg capsule 500 mg PO Q6 5 Days Qty: 20 0RF sulfamethoxazole-trimethoprim [Bactrim] 400-80 mg tablet 1 tab PO BID 5 Days Qty: 10 0RF No Action trazodone 50 MG tablet 50 mg PO QHS simvastatin 10 MG tablet 10 mg PO QHS calcium carbonate 600 MG tablet 1,200 mg PO DAILY promethazine 25 MG tablet 50 mg PO Q8H PRN PRN (Reason: Nausea) paroxetine HCl 40 MG tablet 40 mg PO DAILY Label Comments: for 4 days omega-3 fatty acids-vitamin E 1,000 mg Capsule 1 cap PO DAILY multivitamin Tablet 1 tab PO DAILY ascorbic acid (vitamin C) [Vitamin C] 1,000 mg Tablet 1,000 mg PO DAILY Elderberry 4,250 mg 15 ml DAILY cholecalciferol (vitamin D3) [Vitamin D3] 125 mcg (5,000 unit) Tablet 20,000 unit PO DAILY calcium carb-mag ox-zinc gluc 333-133-5 mg Tablet 1 tab PO DAILY acetaminophen 325 mg Tablet 650 mg PO Q4H PRN PRN (Reason: PAIN 1-10/FEVER) Qty: 0 0RF ibuprofen 600 mg Tablet 600 mg PO Q6H PRN PRN (Reason: Pain 1-10 Or Fever) Qty: 0 0RF oxycodone 5 mg Tablet 5 - 10 mg PO Q4H PRN PRN (Reason: Pain Score 4-10) 5 Days Qty: 20 0RF Primary Care Provider: Jasmyn Whitten Referrals: Clyde Daley MD [Med Staff - Active Staff] - Jasmyn Whitten, [employer] [Primary Care Provider] - Activity Restrictions/Additional Instructions: Take the antibiotics for cellulitis which is the skin infection around the surgical site. Also prescribed 2 more days of potassium. Make sure you drink plenty of fluids as you are losing fluids with diarrhea. Follow-up with the surgeon on Saturday. Disposition Disposition: Home, Self Care
[2022-12-23] MEDS: 0.9% Normal Saline 1,000 ML 999 ML IV (12:24)
[2022-12-23] MEDS: Morphine 4 MG/ML Syringe IV (12:25)
[2022-12-23] MEDS: Ondansetron 4 MG/2 ML Vial IV (12:25)
[2022-12-23 12:33] LABS: Absolute Lymphocyte Count 0.94 X10^3/uL (0.83-4.51); Absolute Neutrophil Count 10.9 X10^3/uL (2.0-7.7); Basophil# 0.03 X10^3/uL; Basophil% 0.2 % (0-1); Eosinophil# 0.01 X10^3/uL; Eosinophils% 0.1 % (0-5); Hemoglobin 11.9 g/dL (12.0-15.0); Lymphocyte # 0.94 X10^3/ul (0.83-4.51); Lymphocyte % 7.5 % (19-41); Mean Corp Hgb Conc 33.1 g/dL (32-36); Mean Corpuscular Hgb 29.5 pg (27.0-32.0); Mean Corpuscular Volume 89.1 fL (81-99); Mean Platelet Vol. 9.2 fl (6.2-12.0); Monocyte# 0.53 X10^3/uL; Monocyte% 4.2 % (0-10); NRBC Flagged by Analyzer 0 % (0-5); Neutrophil # 10.88 X10^3/uL (2.7-7.7); Neutrophil % 86.9 % (47-70); Platelet Count 559 K/mm3 (150-450); RBC Distribution Width CV 13.5 % (11.6-14.6); RBC Distribution Width SD 44.4 fl (35.1-43.9); Red Blood Count 4.04 M/mm3 (4.2-5.4); White Blood Count 12.5 K/mm3 (4.4-11.0)
[2022-12-23 12:40] LABS: Prothrombin Time (Protime)PT. 13.6 SECONDS (11.7-14.9)
[2022-12-23 12:41] LABS: Partial Thromboplast Time 32.4 Seconds (24.1-36.2)
[2022-12-23 12:48] LABS: ALB/GLOB Ratio 0.6 RATIO (0.9-2.4); AST(SGOT) 14 U/L (15-37); Alanine Aminotransfer ALT/SGPT 24 U/L (13-56); Albumin, Serum 2.1 g/dL (3.2-5.0); Alkaline Phosphatase 100 U/L (45-117); Anion Gap 6 (5-15); BUN 15 mg/dL (7-18); BUN/Creat Ratio 29.9 RATIO (10-20); Calcium,Total 8.6 mg/dL (8.5-10.1); Chloride 104 mmol/L (98-107); EST Glomerular Filtration Rate 131 mL/min (>60); Est Glom Filt Rate - Afr Amer 159 mL/min (>60); Estimated Creatinine Clearance 102.28 ml/min; Globulin 3.6 g/dL (2.2-4.2); Glucose 112 mg/dL (74-106); Potassium 2.8 mmol/L (3.5-5.1); Protein, Total 5.7 g/dL (6.4-8.2); Sodium Level 140 mmol/L (136-145)
[2022-12-23 12:57] LABS: Lactic Acid 0.8 mmol/L (0.4-1.9)
[2022-12-23 13:10] LABS: Magnesium 1.8 mg/dL (1.6-2.6)
[2022-12-23 13:47] VITALS: BP 158/90; PULSE 91; RESP 25; TEMP 36.6; O2SAT 90
[2022-12-23] MEDS: Potassium Chloride 10mEq/100mL 10 MEQ/100 ML IV.SOLN. 100 MEQ IV BOLUS ×2 (13:51→14:47)
[2022-12-23] MEDS: Potassium Chloride Oral Soln 20 MEQ/15 ML UDC 40 MEQ PO (14:31)
[2022-12-23 14:35] VITALS: BP 146/87; PULSE 81; RESP 18; O2SAT 93
[2022-12-23] MEDS: Smz/Tmp Ds Tablet 1 TABLET PO (14:50)
[2022-12-23] MEDS: Cephalexin 250 MG Capsule 500 MG PO (14:50)
== END 2022-12-23 15:56 | disposition home or self-care (01) ==
PROVIDERS: Physician Assistant; Emergency Provider Emergency Medicine; PCP Nurse Practitioner Family; Visit Provider Emergency Medicine
DX: T81.49XA Infection following a procedure, other surgical site, initial encounter (principal); C77.2 Secondary and unspecified malignant neoplasm of intra-abdominal lymph nodes; C18.9 Malignant neoplasm of colon, unspecified; L03.311 Cellulitis of abdominal wall; E87.6 Hypokalemia; R19.7 Diarrhea, unspecified; F17.210 Nicotine dependence, cigarettes, uncomplicated; R10.9 Unspecified abdominal pain; X58.XXXA Exposure to other specified factors, initial encounter
CPT/HCPCS: 74177; 80053; 83605; 83735; 85025; 85610; 85730; 87040; 87070; 87205; 96361; 96365; 96366; 96375; 99285; J7030; Q9967; A4216; J2405

== ENCOUNTER → 2022-12-25 | Outpatient (CLI) | payer MEDICARE, SELFPAY ==
--- NOTE | 2022-12-25 15:05 | CT_ITS ---
INDICATION: post op infection at suture site, packing in place. Removed colon cancer 12/13/22. adenocarcinoma. Prior appy, hyster EXAMINATION: CT ABDOMEN AND PELVIS WITH CONTRAST - CT Abdomen And Pelvis W/ Contrast Injection TECHNIQUE: Helically acquired images were obtained of the abdomen and pelvis following IV contrast. A radiation dose optimization technique was used for this scan. IV Contrast dosage and agent: 100 cc Isovue-300 Oral contrast: Yes. COMPARISON: 12/23/2022 FINDINGS: LOWER CHEST: Small bibasilar pleural effusions with adjacent atelectasis. Stable hiatal hernia. LIVER: Heterogenous enhancement right lobe posteriorly not previously identified. GALLBLADDER AND BILIARY TREE: No calcified gallstones. No gallbladder distension or wall edema. No intra- or extrahepatic biliary ductal dilation. PANCREAS: No focal cystic or solid mass. SPLEEN: Normal size without focal cystic or solid mass. ADRENAL GLANDS: No nodules. KIDNEYS AND URETERS: No hydronephrosis. PERITONEUM: Decreasing scattered ascites. No free air. BOWEL: Persistent postoperative ileus with contrast passing through small bowel into the large bowel. Stable surgical changes at the right colon. LYMPH NODES: No enlarged mesenteric or retroperitoneal lymph nodes. VESSELS: Aorta is non-dilated. URINARY BLADDER: Unremarkable. REPRODUCTIVE ORGANS: Uterus absent. ABDOMINAL WALL: Interval removal of skin elmer with dehiscence of the midline abdominal wound. No fluid collections identified. BONES: No acute or aggressive abnormality. CT/Abdomen/Pelvis WITH Contrast IMPRESSION: Postoperative abdomen status post opening of the midline incision, no wound collection is identified. Persistent postoperative ileus. Partial resolution of scattered ascites. Small bibasilar pleural effusions. Heterogenous enhancement right lobe liver not previously identified. Findings cannot be further characterized on single phase study. Short-term follow-up advised. Electronically Signed: Andreas Casey MD at 17:38 EDT ,
== END | disposition home or self-care (01) ==
PROVIDERS: PCP Nurse Practitioner Family; Referring Provider Surgery; Visit Provider Surgery
DX: T81.49XA Infection following a procedure, other surgical site, initial encounter (principal); X58.XXXA Exposure to other specified factors, initial encounter
CPT/HCPCS: 74177; 87070; 87075; 87077; 87186; 87205; Q9967

== ENCOUNTER 2022-12-31 13:54 | Outpatient (RCR) | payer MEDICARE, SELFPAY | END 2023-01-25 23:59 | LOC: NS 13:54 | PROVIDERS: PCP Nurse Practitioner Family; Visit Provider Internal Medicine Hematology & Oncology | DX: Z00.00 Encounter for general adult medical examination without abnormal findings ==

== ENCOUNTER 2023-01-22 09:09 | Day surgery (SDC) | payer MEDICARE, SELFPAY ==
[2023-01-22] VITALS (7 sets, daily range): BP systolic 124–175; BP diastolic 77–92; PULSE 67–84; RESP 15–16; TEMP 36.7–36.8; O2SAT 92–99; BMI 26.6
[2023-01-22] MEDS: Lactated Ringers 1,000 ML 15 ML IV (09:49)
--- NOTE | 2023-01-22 10:06 | PCM.HP.STD ---
HPI - General HPI Narrative ROYCE SHERMAN, is a 62 F who presents for port placement. Patient had right hemicolectomy for an obstructing mass in the hepatic flexure. She did have a subsequent wound infection treated with wound VAC. There is no sign of infection now. [facility] Medical History (Updated 01/22/23 @ 10:[address] Clyde Daley MD) Anxiety Back pain Bloated abdomen Cancer Climacteric syndrome Depression Distended abdomen Encounter for management of wound VAC Encounter for screening for malignant neoplasm of lung in former smoker who quit in past 15 years with 30 pack year history or greater Former smoker Heartburn History of hiatal hernia History of stress test History of tobacco use Hoarseness Hypercholesteremia IBS (irritable bowel syndrome) Insomnia Leg cramps Malignant neoplasm of colon metastatic to peritoneum Primary malignant neuroendocrine neoplasm of ascending colon Rectal prolapse Umbilical hernia Wears dentures Home Medications calcium carbonate 600 mg calcium (1,500 mg) tablet 1,200 mg PO DAILY Check with primary doctor 10/16/16 [History Last Taken 11/30/22] paroxetine HCl 40 mg tablet 40 mg PO DAILY Check with primary doctor 10/16/16 [History Last Taken 01/22/23 07:45] promethazine 25 mg tablet 50 mg PO Q8H PRN PRN Nausea 10/16/16 [History Last Taken 12/12/22] simvastatin 10 mg tablet 10 mg PO QHS Check with primary doctor 10/16/16 [History Last Taken 12/12/22] trazodone 50 mg tablet 50 mg PO QHS Check with primary doctor 10/16/16 [History Last Taken 12/12/22] ascorbic acid (vitamin C) 1,000 mg tablet (Vitamin C) 1,000 mg PO DAILY Check with primary doctor 12/14/22 [History Last Taken 11/30/22] cholecalciferol (vitamin D3) 125 mcg (5,000 unit) tablet (Vitamin D3) 20,000 unit PO DAILY Check with primary doctor 12/14/22 [History Last Taken 11/30/22] multivitamin 1 tab PO DAILY Check with primary doctor 12/14/22 [History Last Taken 11/30/22] omega-3 fatty acids-vitamin E 1,000 mg capsule 1 cap PO DAILY Check with primary doctor 12/14/22 [History Last Taken 11/30/22] acetaminophen 325 mg tablet 650 mg PO Q4H PRN PRN PAIN 1-10/FEVER #0 tabs 12/18/22 [Rx Last Taken Unknown] ibuprofen 600 mg tablet 600 mg PO Q6H PRN PRN Pain 1-10 Or Fever #0 tabs 12/18/22 [Rx Last Taken Unknown] oxycodone 5 mg tablet 5 - 10 mg PO Q4H PRN PRN Pain Score 4-10 5 days #20 tabs 12/18/22 [Rx Last Taken Unknown] omeprazole magnesium 20 mg tablet,delayed release (Prilosec OTC) 20 mg PO DAILY 01/15/23 [History Last Taken 01/22/23 07:45] Allergy/AdvReac Type Severity Reaction Status Date / Time No Known Allergies Allergy Verified 01/22/23 09:42 Family History Father Hypertension Mother Hypertension Grandfather Diabetes Surgical History (Updated 01/15/23 @ 11:36 by Lori Ervin) H/O section H/O laminectomy H/O thumb surgery H/O total hysterectomy History of appendectomy History of carpal tunnel surgery History of esophagogastroduodenoscopy (EGD) History of hemicolectomy (~11/2022) History of tonsillectomy and adenoidectomy Hx of colonoscopy Social History Smoking Status: Current some day smoker tobacco type: cigarettes Tobacco: How many years used: 44 Electronic Cigarette Use: not used how long ago did patient quit smokin years second hand exposure: Yes quit status: quit date established ROS Review of Systems ROS Unobtainable: Denies due to endotracheal tube Constitutional Constitutional: Denies anorexia or fatigue Eyes Eyes: Denies blurry vision ENT HEENT: Denies abnormal hearing Cardiovascular Cardiovascular: Denies chest pain Respiratory/Chest Respiratory/Chest: Denies cough Gastrointestinal Gastrointestinal: Denies abdominal pain Genitourinary Genitourinary: Denies change in urinary stream Musculoskeletal Musculoskeletal: Denies abnormal gait Integumentary Integumentary: Denies jaundice Vital Signs Vital Signs Vital Signs: 01/22/23 09:44 01/22/23 09:44 Temperature 98.2 F Temperature Source Temporal Pulse Rate 67 Respiratory Rate 16 Respiratory Pattern Normal Blood Pressure 175/92 H Blood Pressure Mean 119 Blood Pressure Source Monitor Blood Pressure Position Sitting Blood Pressure Location Right Arm Pulse Ox 99 Oxygen Delivery Method Room Air Weight Weight: 159 lb 13.362 oz Body Mass Index (BMI) 26.6 Physical Exam Const alert and oriented x3 HEENT normocephalic Eyes PERRL Resp normal respiratory effort and normal air movement Cardio regular rate and regular rhythm GI soft to palpation, non-tender and non-distended Extremity normal to inspection Assessment & Plan Assessment/Plan (1) Encounter for adjustment and management of vascular access device: PLAN: The patient is here for right chest port placement. I discussed port placement with the patient detail including the risks of bleeding, infection, pneumothorax. Patient understands the risks and is willing to proceed. Clyde Daley MD Pager: [facility] [address] [place] [address], [address] [place] [phone] Office:
[2023-01-22 10:36] LABS: Potassium 3.9 mmol/L (3.5-5.1)
[2023-01-22] MEDS: Cefazolin 2 GM in 0.9% Normal Saline 100 ML IV (11:18)
[2023-01-22] MEDS: Lidocaine 1% /Epi 1:100 (20ml) 20 ML Vial (11:33)
[2023-01-22] MEDS: Bupivacaine Mpf 0.5% 30 ML VIAL (11:33)
--- NOTE | 2023-01-22 11:56 | PCM.OPRPT ---
Report of Operation Date of Procedure: 01/22/23 Pre-Operative Diagnosis: Colon cancer, need for vascular access for chemotherapy Post-Operative Diagnosis: Same Surgery/Procedure Performed:: Ultrasound and fluoroscopy guided right chest port placement utilizing right IJ Description of Procedure: After obtaining informed consent patient was brought back to the operating room MAC anesthesia was induced and the right chest and neck were prepped in normal sterile fashion. Ultrasound was used to evaluate both IJs and the right IJ was selected. Next, using a needle, the right IJ was accessed and a guidewire was passed on into the superior vena cava under fluoroscopy guidance. A small incision was made over the puncture site and the dilator introducer was placed over the guidewire. Next this was capped and the pocket was made for the port. 1% lidocaine with epinephrine was injected in the proposed port site. An incision was made with scalpel. Electrocautery was used to make a pocket under the skin and subcutaneous tissue. Hemostasis was obtained. Next, the catheter was tunneled up to the neck incision site and placed through the introducer. The peel-away introducer was removed and the position of the catheter was confirmed on fluoroscopy. Next, the catheter was trimmed and attached to the port with the locking device. Interrupted 2-0 Vicryl sutures were used to anchor the port to the chest wall and then the port was placed inside the pocket. The pocket was then flushed with saline and the port irrigated with saline. There was good blood return and the port flushed easily. Next, heparin was injected into the port. The skin was closed with subcutaneous interrupted 3-0 Vicryl sutures. A single 3-0 Vicryl sutures placed under the skin at the neck incision site. Steri-Strips were placed as well as op sites. Patient tolerated procedure well, was taken to PACU in stable condition. Chest x-ray will be obtained. Grafts/Implants Used: 8 [place] PowerPort Admit VTE Documentation VTE Mechan Device Prophylaxis: SCD's
--- NOTE | 2023-01-22 11:59 | DCINST_ITS ---
Discharge Instructions Procedure Port-A-Cath Diet Discharge Diet: Light diet - advance as tolerated (Pain medication may cause nausea. You should typically eat light foods as you take your pain medication.) Activity Discharge Activity: Return to Normal Activity and May Shower (with your bandage in place in 1-2 days after surgery. DO NOT SHOWER WHEN YOUR PORT IS ACCESSED.) Dressing / Incision Call your doctor if your incision/area has: Continuous Slow Oozing, Sudden Increased Bleeding, Increased Pain/ Swelling, Increased Redness and Foul Smelling Discharge Call your doctor if you observe: Fever of 101 or Higher Remove Dressing in: 2 days Cleanse incision/area with: Soap & Water Follow Up Care Please Follow Up With: Clyde Daley MD When: as needed [phone] Test Results: Test results from this visit will be discussed in further detail at your follow- up appointment, if applicable. Discharge Plan Admission Attending Provider: Clyde Daley Primary Care Provider: Jasmyn Whitten Discharge Orders/Prescriptions Prescriptions: No Action trazodone 50 MG tablet 50 mg PO QHS simvastatin 10 MG tablet 10 mg PO QHS calcium carbonate 600 MG tablet 1,200 mg PO DAILY promethazine 25 MG tablet 50 mg PO Q8H PRN PRN (Reason: Nausea) paroxetine HCl 40 MG tablet 40 mg PO DAILY Label Comments: for 4 days omega-3 fatty acids-vitamin E 1,000 mg Capsule 1 cap PO DAILY multivitamin Tablet 1 tab PO DAILY ascorbic acid (vitamin C) [Vitamin C] 1,000 mg Tablet 1,000 mg PO DAILY cholecalciferol (vitamin D3) [Vitamin D3] 125 mcg (5,000 unit) Tablet 20,000 unit PO DAILY acetaminophen 325 mg Tablet 650 mg PO Q4H PRN PRN (Reason: PAIN 1-10/FEVER) Qty: 0 0RF ibuprofen 600 mg Tablet 600 mg PO Q6H PRN PRN (Reason: Pain 1-10 Or Fever) Qty: 0 0RF oxycodone 5 mg Tablet 5 - 10 mg PO Q4H PRN PRN (Reason: Pain Score 4-10) 5 Days Qty: 20 0RF omeprazole magnesium [Prilosec OTC] 20 mg Tablet,Delayed Release (Dr/Ec) 20 mg PO DAILY Referrals / Follow Up: Jasmyn Whitten NP-C [Primary Care Provider] - Disposition Disposition (needs filled in before D/C Order can be placed): Home, Self Care
--- NOTE | 2023-01-22 12:11 | RAD_ITS ---
INDICATION: line placement -- in pacu EXAMINATION/TECHNIQUE: X-RAY - XR Chest 1 View COMPARISON: 11/29/2016. FINDINGS: LINES/DEVICES: New right-sided Port-A-Cath with its tip in the distal superior vena cava. LUNGS: Normal markings in the left lower lung unchanged prior exam likely due to scarring. Retrocardiac opacity could reflect hiatal hernia. No evidence of pleural effusions. MEDIASTINUM AND CARDIOVASCULAR STRUCTURES: Cardiac silhouette not enlarged. Central airways and mediastinal contour are unremarkable. BONES AND SOFT TISSUES: No demonstrated acute osseous changes. RAD/CXR for Line Placement IMPRESSION: 1. Status post Port-A-Cath placement. 2. Otherwise no evidence of acute cardiopulmonary disease. 3. Probable hiatal hernia. Electronically Signed: Alonzo Pradhan MD at 12:32 EDT ,
== END 2023-01-22 12:47 | disposition home or self-care (01) ==
LOC: SDC 09:14 → AC 09:18
PROVIDERS: Anesthesiology; PCP Nurse Practitioner Family; Referring Provider Surgery; Visit Provider Surgery
PROC: (CPT 36561; principal; 2023-01-22 10:45)
DX: Z45.2 Encounter for adjustment and management of vascular access device (principal); C78.6 Secondary malignant neoplasm of retroperitoneum and peritoneum; C7A.8 Other malignant neuroendocrine tumors; E78.00 Pure hypercholesterolemia, unspecified; F32.A Depression, unspecified; F41.9 Anxiety disorder, unspecified; Z90.49 Acquired absence of other specified parts of digestive tract; Z79.899 Other long term (current) drug therapy; Z87.891 Personal history of nicotine dependence
CPT/HCPCS: 36561; 71045; 77001; 84132; J7120; C1788; J2405

== ENCOUNTER → 2023-02-05 | Outpatient (CLI) | payer MEDICARE, SELFPAY ==
--- NOTE | 2023-02-05 07:01 | CT_ITS ---
INDICATION: COLON CANCER, PRIOR COLON RESECTION COMPARISON: Abdominal CT 12/25/[address] 11/15/2020. A radiation dose optimization technique was used for this scan. FINDINGS: Contrast enhanced serial CT axial images through the chest, abdomen, and pelvis with coronal and sagittal reformatted series. IV Contrast dosage and agent: 100mL Isovue-370 IV. Radiation CTDIvol 16.28 Radiation DLP 1405.26 MEDIASTINUM: No pulmonary artery filling defects. New right epiphrenic 9 mm lymph node. Increased size of 8 mm thick epicardial lymph node. Mediastinum is otherwise unremarkable. AORTA/GREAT VESSELS: Right chest port catheter tip terminates within the superior vena cava. No acute thoracoabdominal aortic abnormality. Major abdominal ostia are patent. LUNG PARENCHYMA: No acute pulmonary parenchymal abnormality. 5 mm left lower lobe subpleural pulmonary nodule on axial image 177 of series 2, stable from 2020. PLEURA: No pleural effusion. No pneumothorax. PANCREAS: No peripancreatic fat stranding. BOWEL/MESENTERY: No dilated bowel loops. Multiple clustered anterior left abdominal mesenteric soft tissue nodules with scattered small pockets of ascites, consistent with peritoneal carcinomatosis, most notably on axial images 39, 47, 56, 59, and 70 of series 3. No free air. Colonic diverticulosis without definite focus of diverticulitis. Pericecal suture line. GALLBLADDER: No pericholecystic fat stranding. LIVER/STOMACH: Large hiatal hernia containing the entire proximal stomach without volvulus formation at this time. Anterior right hepatic lobe 10 mm superficial hypoattenuating lesion. URINARY COLLECTING SYSTEM/ KIDNEYS: No evidence of urinary collecting system obstruction. No significant renal parenchymal abnormality. BONES: Unremarkable for age. CT/CT Chest, Abd, Pel w/Contrast IMPRESSION: Peritoneal carcinomatosis which appears to have progressed from previous examination of 2 months prior. Large hiatal hernia containing the entire proximal stomach without volvulus formation at this time. Electronically Signed: Clyde Mota MD at 5:45 EDT ,
[2023-02-05] MEDS: 0.9% Saline Lock 10 ML Syringe IV (07:25)
== END | disposition home or self-care (01) ==
LOC: CT 07:00
PROVIDERS: PCP Nurse Practitioner Family; Referring Provider Internal Medicine Hematology & Oncology; Visit Provider Internal Medicine Hematology & Oncology
DX: C77.2 Secondary and unspecified malignant neoplasm of intra-abdominal lymph nodes (principal); C18.9 Malignant neoplasm of colon, unspecified
CPT/HCPCS: 71260; 74177; Q9967; A4216

== ENCOUNTER 2023-03-14 15:31 | Emergency (ER) | payer MEDICARE, SELFPAY ==
[2023-03-14 15:33] VITALS: BP 145/100; PULSE 98; RESP 20; TEMP 36.2; O2SAT 100; BMI 25.6
--- NOTE | 2023-03-14 15:52 | CT_ITS ---
STUDY: CT ABDOMEN AND PELVIS WITH CONTRAST REASON FOR EXAM: Female, 62 years old. bowel obstruction -- IV PO Contrast RADIATION DOSAGE (If Supplied By Facility): CTDIvol = ( 15.63 ) mGy, DLP = ( 967.34 ) mGycm TECHNIQUE: Transaxial images were obtained from the dome of the diaphragm to the symphysis pubis without oral contrast. Oral and amp;amp; IV Gastrografin and amp;amp; 100mL Isovue-300 was administered. Sagittal and coronal images were reconstructed. Individualized dose optimization techniques were used for this CT. COMPARISON: 02/05/2023. FINDINGS: The visualized lung bases are unremarkable. The visualized portions of the heart are within normal limits. In the liver, several subtle areas of low-attenuation are seen which could represent metastatic disease, as example, there is a 1.3 cm low-attenuation mass in the anterior segment of the right hepatic lobe and possible 2.3 cm low-attenuation mass cephalad to the fissure for the ligamentum mucosum. Normal gallbladder and extrahepatic biliary system. Normal spleen. Normal pancreas. Normal bilateral adrenal glands. Normal right kidney. Normal left kidney. Again seen is a moderately large hiatal hernia containing the fundus of the stomach. Marked distention of the entire large bowel and many loops of small bowel, filled with fecal material and fluid consistent with probable obstruction. There is marked narrowing of the rectosigmoid for length of approximately 5 cm. Colonoscopy is indicated. Probable mesenteric edema surrounding the distended bowel loops. Mild ascites in all quadrants. There is diffuse atherosclerotic calcification of the abdominal aorta, without a demonstrated aneurysm. Normal inferior vena cava. Normal retroperitoneum. Normal urinary bladder. There is absence of the uterus consistent with a prior hysterectomy. Normal abdominal wall. There are diffuse degenerative changes of the visualized lumbar spine. CT/Abdomen/Pelvis WITH Contrast IMPRESSION: Markedly abnormal appearance of the GI tract most consistent with obstruction likely from an area of narrowing in the rectosigmoid. Colonoscopy recommended. Mild ascites. Possible liver metastases. Electronically Signed: Albert Gaytan MD at 18:04 EDT ,
--- NOTE | 2023-03-14 15:53 | EX.ED.DYSGE1 ---
HPI History of Present Illness Chief Complaint: Constipation Informant: patient Onset/Context/Timing Onset: Days Narrative Narrative: Patient presents with 4 days of constipation. She has a history of colon cancer and had a hemicolectomy performed in November. She is on chemotherapy every 21 days and her last treatment was on Saturday the . Patient states she only passing very small if any gas. She states her abdominal pain has been increasing recently and had to increase her Percocet from 5 mg to 10 mg. Patient is concerned that she had progression of her cancer causing a bowel obstruction. She denies fever or chills. [facility] Medical History Anxiety Back pain Bloated abdomen Cancer Climacteric syndrome Depression Distended abdomen Encounter for chemotherapy management Encounter for education Encounter for management of wound VAC Encounter for screening for malignant neoplasm of lung in former smoker who quit in past 15 years with 30 pack year history or greater Former smoker Heartburn History of hiatal hernia History of stress test History of tobacco use Hoarseness Hypercholesteremia IBS (irritable bowel syndrome) Insomnia Leg cramps Malignant neoplasm of colon metastatic to peritoneum Port-A-Cath in place Primary malignant neuroendocrine neoplasm of ascending colon Rectal prolapse Umbilical hernia Wears dentures Home Medications calcium carbonate 600 mg calcium (1,500 mg) tablet 1,200 mg PO DAILY Check with primary doctor 10/16/16 [History Last Taken 11/30/22] paroxetine HCl 40 mg tablet 40 mg PO DAILY Check with primary doctor 10/16/16 [History Last Taken 01/22/23 07:45] promethazine 25 mg tablet 50 mg PO Q8H PRN PRN Nausea 10/16/16 [History Last Taken 12/12/22] simvastatin 10 mg tablet 10 mg PO QHS Check with primary doctor 10/16/16 [History Last Taken 12/12/22] trazodone 50 mg tablet 50 mg PO QHS Check with primary doctor 10/16/16 [History Last Taken 12/12/22] cholecalciferol (vitamin D3) 125 mcg (5,000 unit) tablet (Vitamin D3) 20,000 unit PO DAILY Check with primary doctor 12/14/22 [History Last Taken 11/30/22] multivitamin 1 tab PO DAILY Check with primary doctor 12/14/22 [History Last Taken 11/30/22] omega-3 fatty acids-vitamin E 1,000 mg capsule 1 cap PO DAILY Check with primary doctor 12/14/22 [History Last Taken 11/30/22] acetaminophen 325 mg tablet 650 mg (2 x 325 mg) PO Q4H PRN PRN PAIN 1-10/FEVER #0 tabs 12/18/22 [Rx Last Taken Unknown] ibuprofen 600 mg tablet 600 mg PO Q6H PRN PRN Pain 1-10 Or Fever #0 tabs 12/18/22 [Rx Last Taken Unknown] oxycodone 5 mg tablet 5 - 10 mg (1 - 2 x 5 mg) PO Q4H PRN PRN Pain Score 4-10 5 days #20 tabs 12/18/22 [Rx Last Taken Unknown] omeprazole magnesium 20 mg tablet,delayed release (Prilosec OTC) 20 mg PO DAILY 01/15/23 [History Last Taken 01/22/23 07:45] lidocaine-prilocaine 2.5 %-2.5 % topical cream 1 applic topical ONCE PRN port access 30 days #30 grams 01/31/23 [Rx Last Taken Unknown] ondansetron 8 mg disintegrating tablet 8 mg PO Q8H PRN nausea and vomiting #30 tabs 01/31/23 [Rx Last Taken Unknown] prochlorperazine maleate 10 mg tablet 10 mg PO Q6H PRN nausea and vomiting #30 tabs 01/31/23 [Rx Last Taken Unknown] Allergy/AdvReac Type Severity Reaction Status Date / Time No Known Allergies Allergy Verified 03/14/23 15:33 Family History Father Hypertension Mother Hypertension Grandfather Diabetes Surgical History H/O section H/O laminectomy H/O thumb surgery H/O total hysterectomy History of appendectomy History of carpal tunnel surgery History of esophagogastroduodenoscopy (EGD) History of hemicolectomy (~11/2022) History of tonsillectomy and adenoidectomy Hx of colonoscopy Social History Smoking Status: Former smoker quit date: 12/27/16 pack-years: 66 Tobacco: How many years used: 44 Electronic Cigarette Use: not used how long ago did patient quit smokin years second hand exposure: Yes quit status: quit date established ROS ROS ED Constitutional Constitutional ED: Denies chills or fever(s) Eyes Eyes: Denies change in vision or discharge from eye(s) ENT ENT ED: Denies discharge from eye(s), rhinorrhea or sore throat Cardiovascular Cardiovascular: Denies chest pain or palpitations Respiratory/Chest Respiratory/Chest: Denies cough or dyspnea Gastrointestinal Gastrointestinal: Reports abdominal pain, constipation and nausea Genitourinary Genitourinary ED: Denies dysuria Musculoskeletal Musculoskeletal: Denies back pain or extremity pain Integumentary Denies Abrasions or rash Neurologic Neurologic: Denies headache(s) or weakness Psychiatric Psychiatric: Denies anxiety or depression Allergic/Immunologic Allergic/Immunologic ED: Denies lip swelling or urticaria EXAM Physical Exam Const Vital Signs: 03/14/23 15:33 03/14/23 17:13 03/14/23 18:01 Temperature 97.2 F L Temperature Source Temporal Pulse Rate 98 89 93 Respiratory Rate 20 H 16 16 Blood Pressure 145/100 H 154/95 H 163/91 H Blood Pressure Mean 115 114 115 Pulse Ox 100 94 96 Oxygen Delivery Method Room Air Room Air Room Air Positive well nourished and well developed General Appearance ED: well developed HEENT Reports normocephalic and head/scalp atraumatic Eyes PERRL and EOMs intact bilaterally Neck supple Chest Wall inspection of chest normal and palpation of chest normal Resp normal respiratory effort and clear to auscultation bilaterally Cardio regular rate and regular rhythm GI GI Narrative: Abdomen is soft but distended with very rare bowel sounds. Palpation: soft Extremity normal to inspection Neuro oriented x3 and no sensory deficits noted Sensorium / Orientation: alert Motor Exam: strength 5/5 throughout Psych Mood & Affect: tearful Skin no rashes or lesions noted MDM MDM MDM Narrative Medical decision making narrative: Patient given morphine and Zofran for pain. Labwork obtained to evaluate for leukocytosis, anemia, and electrolyte derangement. CT scan of the abdomen and pelvis obtained to evaluate for bowel obstruction. Lab Data Attestation: I reviewed the patient's lab results. Labs: Laboratory Results - last 24 hr 03/14/23 16:12 WBC 10.9 RBC 3.70 L Hgb 10.6 L Hct 34.1 L MCV 92.2 MCH 28.6 MCHC 31.1 L RDW Std Deviation 44.2 H RDW Coeff of Julian 13.2 Plt Count 347 MPV 9.6 Immature Gran % (Auto) 0.700 Neut % (Auto) 77.2 H Lymph % (Auto) 9.2 L Sibley % (Auto) 12.7 H Eos % (Auto) 0.0 Baso % (Auto) 0.2 Absolute Neuts (auto) 8.4 H Absolute Lymphs (auto) 1.01 Nucleated RBC % 0 Toxic Granulation RARE Platelet Estimate ADEQUATE RBC Morphology N CHROM Anisocytosis RARE Macrocytosis RARE Sodium 140 Potassium 3.9 Chloride 104 Carbon Dioxide 30.0 Anion Gap 6 BUN 10 Creatinine 0.60 Estim Creat Clear Calc 85.24 Est GFR (MDRD) Af Amer 129 Est GFR (MDRD) Non-Af 107 BUN/Creatinine Ratio 16.6 Glucose 101 Calcium 9.2 Total Bilirubin 0.20 Direct Bilirubin 0.06 AST 15 ALT 34 Alkaline Phosphatase 237 H Total Protein 6.7 Albumin 3.2 Globulin 3.5 Radiography Diagnostic Testing: Clinical Impression(s) from Imaging Studies Abdomen/Pelvis CT 03/14/23 15:52 IMPRESSION: Markedly abnormal appearance of the GI tract most consistent with obstruction likely from an area of narrowing in the rectosigmoid. Colonoscopy recommended. Mild ascites. Possible liver metastases. Electronically Signed: Albert Gaytan MD at 18:04 EDT Reading Location ID and State: [address] [place] [address] , Service support , Treatment and Re-Evaluation :: Patient did require a small dose of Dilaudid for additional pain. CBC reveals normal white count at 10.9 with a hemoglobin of 10.6. Chemistry studies are unremarkable. LFTs significantly for an alk phos of 237. CT scan with p.o. and IV contrast revealed markedly abnormal appearance of the GI tract consistent with obstruction likely from an area of narrowing in the rectosigmoid. Colonoscopy is recommended. I spoke Dr. Thomas, covering call for the [facility]. She reviewed the images and spoke with him. Patient does have a large stool ball distal to this area of narrowing. In light of this initial plan was to admit the patient for enemas. When I went back to speak with the patient and , she states that she has been in the bathroom 4 times passing stool and has passed quite a bit of stool. She is feeling improved. I spoke with Dr. Daley again and he advises that as long as she is feeling improved he will be happy to see her in the office on Saturday and schedule an outpatient colonoscopy. Patient would prefer this MRI was going back to see her she actually was in the bathroom again passing more stool. Patient is given close return instructions and is comfortable with the plan. Discharge Plan Triage Chief Complaint: Constipation ED Provider: Mary Simons Dx/Rx/DC Orders Clinical Impression: Constipation Instructions: ED Constipation (Adult) Prescriptions: No Action prochlorperazine maleate 10 mg tablet 10 mg PO Q6H PRN (Reason: nausea and vomiting) Qty: 30 2RF ondansetron 8 mg tablet,disintegrating 8 mg PO Q8H PRN (Reason: nausea and vomiting) Qty: 30 2RF lidocaine-prilocaine 2.5-2.5 % cream 1 applic topical ONCE PRN (Reason: port access) 30 Days Qty: 30 2RF trazodone 50 MG tablet 50 mg PO QHS simvastatin 10 MG tablet 10 mg PO QHS calcium carbonate 600 MG tablet 1,200 mg PO DAILY promethazine 25 MG tablet 50 mg PO Q8H PRN PRN (Reason: Nausea) paroxetine HCl 40 MG tablet 40 mg PO DAILY Patient Comments: for 4 days omega-3 fatty acids-vitamin E 1,000 mg Capsule 1 cap PO DAILY multivitamin Tablet 1 tab PO DAILY cholecalciferol (vitamin D3) [Vitamin D3] 125 mcg (5,000 unit) Tablet 20,000 unit PO DAILY acetaminophen 325 mg Tablet 650 mg PO Q4H PRN PRN (Reason: PAIN 1-10/FEVER) Qty: 0 0RF ibuprofen 600 mg Tablet 600 mg PO Q6H PRN PRN (Reason: Pain 1-10 Or Fever) Qty: 0 0RF oxycodone 5 mg Tablet 5 - 10 mg PO Q4H PRN PRN (Reason: Pain Score 4-10) 5 Days Qty: 20 0RF omeprazole magnesium [Prilosec OTC] 20 mg Tablet,Delayed Release (Dr/Ec) 20 mg PO DAILY Primary Care Provider: Jasmyn Whitten Referrals: Clyde Daley MD [Med Staff - Active Staff] - 3-5 Days Jasmyn Whitten, LEOBARDO-C [Primary Care Provider] - Activity Restrictions/Additional Instructions: Please go Dr. Daley's office tomorrow. He would like to see you in the office on Saturday to schedule an outpatient colonoscopy.
[2023-03-14] MEDS: 0.9% Normal Saline 1,000 ML 150 ML IV (16:03)
[2023-03-14] MEDS: Ondansetron 4 MG/2 ML Vial IV (16:04)
[2023-03-14] MEDS: Morphine 4 MG/ML Syringe IV (16:04)
[2023-03-14 16:20] LABS: Absolute Lymphocyte Count 1.01 X10^3/uL (0.83-4.51); Absolute Neutrophil Count 8.4 X10^3/uL (2.0-7.7); Basophil# 0.02 X10^3/uL; Basophil% 0.2 % (0-1); Hematocrit 34.1 % (37-47); Hemoglobin 10.6 g/dL (12.0-15.0); Lymphocyte # 1.01 X10^3/ul (0.83-4.51); Lymphocyte % 9.2 % (19-41); Mean Corp Hgb Conc 31.1 g/dL (32-36); Mean Corpuscular Hgb 28.6 pg (27.0-32.0); Mean Corpuscular Volume 92.2 fL (81-99); Mean Platelet Vol. 9.6 fl (6.2-12.0); Monocyte# 1.39 X10^3/uL; Monocyte% 12.7 % (0-10); NRBC Flagged by Analyzer 0 % (0-5); Neutrophil # 8.43 X10^3/uL (2.7-7.7); Neutrophil % 77.2 % (47-70); POSITIVE MORPHOLOGY YES; Platelet Count 347 K/mm3 (150-450); RBC Distribution Width CV 13.2 % (11.6-14.6); RBC Distribution Width SD 44.2 fl (35.1-43.9); White Blood Count 10.9 K/mm3 (4.4-11.0)
[2023-03-14 16:36] LABS: AST(SGOT) 15 U/L (15-37); Alanine Aminotransfer ALT/SGPT 34 U/L (13-56); Albumin, Serum 3.2 g/dL (3.2-5.0); Alkaline Phosphatase 237 U/L (45-117); Anion Gap 6 (5-15); BUN 10 mg/dL (7-18); BUN/Creat Ratio 16.6 RATIO (10-20); Bilirubin, Direct 0.06 mg/dL (0.00-0.30); Calcium,Total 9.2 mg/dL (8.5-10.1); Chloride 104 mmol/L (98-107); EST Glomerular Filtration Rate 107 mL/min (>60); Est Glom Filt Rate - Afr Amer 129 mL/min (>60); Estimated Creatinine Clearance 85.24 ml/min; Globulin 3.5 g/dL (2.2-4.2); Glucose 101 mg/dL (74-106); Potassium 3.9 mmol/L (3.5-5.1); Protein, Total 6.7 g/dL (6.4-8.2); Sodium Level 140 mmol/L (136-145)
[2023-03-14 17:09] LABS: Differential Indicated SCAN CRITERIA MET
[2023-03-14 17:13] VITALS: BP 154/95; PULSE 89; RESP 16; O2SAT 94
[2023-03-14] MEDS: HYDROmorphone 0.5 MG/0.5 ML SYRINGE IV (17:16)
[2023-03-14 17:19] LABS: Anisocytosis RARE; Macrocytosis RARE; Platelet Estimate ADEQUATE (ADEQ); Red Cell Morphology N CHROM NORMAL (NORM C&C); Toxic Granulation RARE
[2023-03-14 18:01] VITALS: BP 163/91; PULSE 93; RESP 16; O2SAT 96
--- NOTE | 2023-03-14 18:44 | CM.ED ---
Social Work SW met with patient and introduced self and role as [facility] SW. Patient agreeable to speak with SW with her present. SW inquired about completion of advanced directives. Patient states they were done at [facility] in November. SW reviewed patient's chart and located copy of Living Will and HCPOA. Patient's identified HCPOAs are her , Colby, and alternates are her daughters Lizette Urbina, Anca Gleason and Emma FarmerTonya SANABRIA updated patient documents are on file. Alejandra Mckeon MSW, AMANDO
[2023-03-14 20:21] VITALS: BP 154/90; PULSE 87; RESP 18; O2SAT 95
== END 2023-03-14 20:37 | disposition home or self-care (01) ==
PROVIDERS: Emergency Provider Emergency Medicine; PCP Nurse Practitioner Family; Visit Provider Emergency Medicine
DX: K59.00 Constipation, unspecified (principal); C78.6 Secondary malignant neoplasm of retroperitoneum and peritoneum; C7A.022 Malignant carcinoid tumor of the ascending colon; E78.00 Pure hypercholesterolemia, unspecified; Z90.49 Acquired absence of other specified parts of digestive tract; Z79.899 Other long term (current) drug therapy; Z87.891 Personal history of nicotine dependence
CPT/HCPCS: 36591; 74177; 80048; 80076; 85025; 96374; 96375; 99282; J7030; Q9967; A4216; J2405

== ENCOUNTER 2023-04-10 09:41 | Inpatient (IN) | payer MEDICARE, SELFPAY ==
[2023-04-10] VITALS (9 sets, daily range): BP systolic 130–154; BP diastolic 86–108; PULSE 98–114; RESP 16–18; TEMP 36–36.7; O2SAT 93–99; BMI 25.9; BMI 24.7
--- NOTE | 2023-04-10 09:52 | EDS_ITS ---
HPI History of Present Illness Chief Complaint: Nausea/Vomiting Informant: patient, spouse/S.O. and family Narrative Narrative: Patient presents with nausea vomiting. This patient is diagnosed with metastatic colon cancer in November of this year. She then had a palliative right hemicolectomy by Dr. Daley. She has been getting chemotherapy since. No radiation. Her third chemotherapy was on 26 March. She has been having problems with nausea and vomiting ever since the third chemo but not with the others. She had IV fluids as an outpatient yesterday. But overnight she kept vomiting. She now feels as though she is vomiting stool because of the taste in the smell. She has never done this before. She also states that the abdomen has gotten distended since yesterday. She does have pain but that is not her biggest issue. Pain is more along the ri ght side of the abdomen. Not moving her bowels. Her urine seems overall normal to her. No fevers. [facility] Medical History (Updated 04/10/23 @ 12:[address] Tahir Villanueva MD) Anxiety Back pain Climacteric syndrome Dehydration Depression Encounter for chemotherapy management Encounter for management of wound VAC Former smoker Heartburn History of hiatal hernia History of stress test History of tobacco use Hoarseness Hypercholesteremia IBS (irritable bowel syndrome) Insomnia Leg cramps Malignant neoplasm of colon metastatic to peritoneum Oral candidiasis Port-A-Cath in place Primary malignant neuroendocrine neoplasm of ascending colon Rectal prolapse Umbilical hernia Wears dentures Home Medications calcium carbonate 600 mg calcium (1,500 mg) tablet 1,200 mg PO DAILY SUPPLEMENT 10/16/16 [History Last Taken 04/09/23] paroxetine HCl 40 mg tablet 40 mg PO DAILY DEPRESSION 10/16/16 [History Last Taken 04/09/23] promethazine 25 mg tablet 50 mg PO Q8H PRN NAUSEA 10/16/16 [History Last Taken 04/09/23] simvastatin 10 mg tablet 10 mg PO QHS CHOLESTEROL 10/16/16 [History Last Taken 04/09/23] trazodone 50 mg tablet 50 - 100 mg PO QHS INSOMNIA 10/16/16 [History Last Taken 04/09/23] cholecalciferol (vitamin D3) 125 mcg (5,000 unit) tablet (Vitamin D3) 10,000 unit PO DAILY SUPPLEMENT 12/14/22 [History Last Taken 04/09/23] multivitamin 1 tab PO DAILY HEALTH MAINTENANCE 12/14/22 [History Last Taken 04/09/23] omeprazole magnesium 20 mg tablet,delayed release (Prilosec OTC) 20 mg PO DAILY ACID REFLUX 01/15/23 [History Last Taken 04/09/23] lidocaine-prilocaine 2.5 %-2.5 % topical cream 1 applic topical ONCE PRN PORT ACCESS 30 days #30 grams 01/31/23 [Rx Last Taken Unknown] morphine 60 mg tablet,extended release 60 mg PO Q12H PAIN 04/09/23 [History Last Taken 04/09/23] naloxone 4 mg/actuation nasal spray 1 spray intranasal Q3M PRN OPIOID OVERDOSE 04/10/23 [History Last Taken Unknown] nystatin 100,000 unit/mL oral suspension 5 ml PO Q6H FUNGAL INFECTION 04/10/23 [History Last Taken 04/09/23] olanzapine 5 mg tablet 5 mg PO QHS NAUSEA 04/10/23 [History Last Taken 04/09/23] omega-3 fatty acids 1,000 mg capsule 1,000 mg PO DAILY SUPPLEMENT 04/10/23 [History Last Taken 04/09/23] oxycodone-acetaminophen 10 mg-325 mg tablet 1 tab PO Q4H PRN BREAKTROUGH PAIN 04/10/23 [History Last Taken 04/09/23] sennosides 8.6 mg tablet (Natural Senna Laxative) 8.6 mg PO BID CONSTIPATION 04/10/23 [History Last Taken 04/09/23] Allergy/AdvReac Type Severity Reaction Status Date / Time No Known Allergies Allergy Verified 04/09/23 11:14 Family History Father Hypertension Mother Hypertension Grandfather Diabetes Surgical History H/O section H/O laminectomy H/O thumb surgery H/O total hysterectomy History of appendectomy History of carpal tunnel surgery History of esophagogastroduodenoscopy (EGD) History of hemicolectomy (~11/2022) History of tonsillectomy and adenoidectomy Hx of colonoscopy Social History Smoking Status: Former smoker quit date: 12/27/16 pack-years: 66 Tobacco: How many years used: 44 Electronic Cigarette Use: not used how long ago did patient quit smokin years second hand exposure: Yes quit status: quit date established ROS ROS ED ROS Narrative A complete review of systems was performed and is negative except as documented in the history of present illness. Some specific details below. Constitutional: No recent fevers or chills. She has had progressive weight loss since November. EYE: No visual complaints or pain. ENT: No difficulty swallowing. No swelling. No pain. She is able to swallow but then food or liquid comes back up shortly afterwards. No blood. CV: No chest pain or palpitations. Respiratory: No dyspnea. No hemoptysis. No difficulty taking breaths. GI: Please see history of present illness. There have been notable changes over the last 24 hours. : No frequency dysuria or hematuria. Musculoskeletal: No recent trauma. No pains. Skin: No rash. Nondiaphoretic. Neuro: No weakness or numbness. Endocrine: No polyuria or polydipsia. EXAM Physical Exam Narrative Exam Narrative: CONSTITUTIONAL: Patient is nontoxic in appearance. The patient does look tired. She is a good informant. HEENT: No notable trauma. Mucous membranes do appear dry. EYES: No conjunctival injection. No proptosis. CARDIOVASCULAR: Mildly tachycardic rate. Regular rhythm. No notable murmur. No JVD. RESPIRATORY: No respiratory distress. Breathing is unlabored. No wheezes. No rhonchi. No rales. No pain with a deep breath. GASTROINTESTINAL: Her abdomen does clearly look distended. Bowel sounds are increased throughout. Mild tenderness mostly toward the right side and the little bit more at the lower abdomen. No guarding. No rebound. No palpable mass. No bruit. GENITOURINARY: No tenderness over the bladder. No CVA tenderness. MUSCULOSKELETAL: Atraumatic. No peripheral edema. No cord. No tenderness along the deep venous system. No asymmetry. NEUROLOGICAL: Patient is alert and appropriate. No focal deficit noted. SKIN: No noted rashes. No diaphoresis. PSYCHIATRIC: Patient is calm. Mood is appropriate. Const Vital Signs: 04/10/23 09:41 04/10/23 10:22 04/10/23 12:00 Temperature 96.8 F L 97.8 F 97.8 F Temperature Source Temporal Oral Oral Pulse Rate 114 H 108 H 101 H Respiratory Rate 16 18 16 Blood Pressure 145/97 H 151/96 H 134/90 H Blood Pressure Mean 113 114 104 Pulse Ox 94 93 99 Oxygen Delivery Method Room Air Room Air Room Air MDM MDM MDM Narrative Medical decision making narrative: Patient CBC is elevated at 24,000 but she has no fevers. Abdomen is not markedly tender and there is no rebound. Hemoglobin is minimally low. Platel ets are normal. Patient's electrolytes showed mild bicarb but she has chronic lung disease. Creatinine is preserved. Mildly high BUN to creatinine ratio though. She is given IV fluids here for this moderate dehydration. Liver function test show elevation of alkaline phos 56. Patient's lipase is normal. My independent her potation of her CT of the abdomen does look like an obstruction with significantly distended small bowel. No reading Quintero they do note involvement all the way up through stomach and esophagus with transition point near the anastomosis. I discussed the case with Dr. Thomas. She is familiar with the patient. NG had already been ordered. She also requested enema as this patient has had problems with significant chronic constipation that may be contributing to her symptoms quite a bit. I then discussed case with hospitalist and the patient will be admitted Lab Data Attestation: I reviewed the patient's lab results. Labs: Laboratory Results - last 24 hr 04/10/23 10:28 WBC 24.0 H RBC 3.88 L Hgb 11.6 L Hct 35.5 L MCV 91.5 MCH 29.9 MCHC 32.7 RDW Std Deviation 51.3 H RDW Coeff of Julian 17.0 H Plt Count 259 MPV 9.9 Immature Gran % (Auto) 0.800 Neut % (Auto) 92.9 H Lymph % (Auto) 2.8 L Billings % (Auto) 3.0 Eos % (Auto) 0.0 Baso % (Auto) 0.5 Absolute Neuts (auto) 22.3 H Absolute Lymphs (auto) 0.66 L Nucleated RBC % 0 Differential Comment COMMENT Sodium 133 L Potassium 3.7 Chloride 91 L Carbon Dioxide 35.0 H Anion Gap 7 BUN 27 H Creatinine 0.89 Estim Creat Clear Calc 55.14 Est GFR (MDRD) Af Amer 82 Est GFR (MDRD) Non-Af 68 BUN/Creatinine Ratio 30.3 H Glucose 120 H Calcium 9.3 Total Bilirubin 0.40 AST 10 L ALT 18 Alkaline Phosphatase 262 H Total Protein 6.6 Albumin 3.0 L Globulin 3.6 Albumin/Globulin Ratio 0.8 L Lipase < 10 L Radiography Diagnostic Testing: Clinical Impression(s) from Imaging Studies Abdomen/Pelvis CT 04/10/23 10:02 IMPRESSION: Marked degree of fluid distention of the esophagus, stomach and small bowel loops down to an anastomotic site in the right lower quadrant. Fecal material is seen throughout the colon. Electronically Signed: Yasmani Basurto MD at 11:21 EDT , Management Discussion w/another healthcare provider: Hospitalist and [employer] Discharge Plan Triage Chief Complaint: Nausea/Vomiting ED Provider: Tahir Villanueva Dx/Rx/DC Orders Clinical Impression: Colon cancer, Bowel obstruction, Nausea & vomiting, Dehydration Prescriptions: No Action lidocaine-prilocaine 2.5-2.5 % cream 1 applic topical ONCE PRN (Reason: PORT ACCESS) 30 Days Qty: 30 2RF morphine 60 mg tablet extended release 60 mg PO Q12H trazodone 50 MG tablet 50 - 100 mg PO QHS simvastatin 10 MG tablet 10 mg PO QHS calcium carbonate 600 MG tablet 1,200 mg PO DAILY promethazine 25 MG tablet 50 mg PO Q8H PRN (Reason: NAUSEA ) paroxetine HCl 40 MG tablet 40 mg PO DAILY multivitamin Tablet 1 tab PO DAILY cholecalciferol (vitamin D3) [Vitamin D3] 125 mcg (5,000 unit) Tablet 10,000 unit PO DAILY omeprazole magnesium [Prilosec OTC] 20 mg Tablet,Delayed Release (Dr/Ec) 20 mg PO DAILY nystatin 100,000 unit/mL suspension 5 ml PO Q6H oxycodone-acetaminophen 10-325 mg tablet 1 tab PO Q4H PRN (Reason: BREAKTROUGH PAIN ) naloxone 4 mg/actuation spray,non-aerosol 1 spray INTRANASAL Q3M PRN (Reason: OPIOID OVERDOSE ) olanzapine 5 mg tablet 5 mg PO QHS sennosides [Natural Senna Laxative] 8.6 mg tablet 8.6 mg PO BID omega-3 fatty acids 1,000 mg capsule 1,000 mg PO DAILY Primary Care Provider: Jasmyn Whitten Referrals: Jasmyn Whitten, [employer] STAND ATTENDANT-C [Primary Care Provider] - Disposition Disposition: Acute Care Hospital [facility]
--- NOTE | 2023-04-10 10:02 | CT_ITS ---
STUDY: CT ABDOMEN AND PELVIS WITH CONTRAST REASON FOR EXAM: Female, 62 years old. 16 day history of nausea and vomiting. Bowel obstruction. RADIATION DOSAGE (If Supplied By Facility): CTDIvol = ( 11.51 ) mGy, DLP = ( 873.20 ) mGycm TECHNIQUE: Transaxial images were obtained from the dome of the diaphragm to the symphysis pubis without oral contrast. IV 100mL Isovue-300 was administered. Sagittal and coronal images were reconstructed. Individualized dose optimization techniques were used for this CT. COMPARISON: Comparison is made with prior study dated March 14, 2023. FINDINGS: A Port-A-Cath is seen with the tip in the superior vena cava. The visualized lung bases are unremarkable. Fluid is seen within a distended esophagus. Marked degree of fluid distention of the stomach. Coronary artery calcification. Hepatomegaly. Subtle decreased attenuation in the inferior aspect of the right lobe of the liver. Normal gallbladder and extrahepatic biliary system. Normal spleen. Normal pancreas. Normal bilateral adrenal glands. Normal right kidney. Normal left kidney. Marked degree of fluid distended stomach. Marked degree of fluid distention of the small bowel loops. The transition point is in the region of the terminal ileum. Anastomotic site is seen at that level. Moderate amount of fecal material is seen in the left hemicolon and rectum. Normal colon. The appendix is visualized and appears normal. There is diffuse atherosclerotic calcification of the abdominal aorta, without a demonstrated aneurysm. Normal inferior vena cava. Normal retroperitoneum. Normal urinary bladder. There is absence of the uterus consistent with a prior hysterectomy. Normal abdominal wall. There are degenerative changes of the visualized lumbar spine. CT/Abdomen/Pelvis W IV Cont ONLY IMPRESSION: Marked degree of fluid distention of the esophagus, stomach and small bowel loops down to an anastomotic site in the right lower quadrant. Fecal material is seen throughout the colon. Electronically Signed: Yasmani Basurto MD at 11:21 EDT ,
[2023-04-10] MEDS: Morphine 4 MG/ML Syringe IV (10:26)
[2023-04-10] MEDS: Ondansetron 4 MG/2 ML Vial IV ×2 (10:26→15:59)
[2023-04-10] MEDS: 0.9% Normal Saline (1000mL) 1,000 ML 1000 ML IV (10:26)
[2023-04-10 10:37] LABS: Absolute Lymphocyte Count 0.66 X10^3/uL (0.83-4.51); Absolute Neutrophil Count 22.3 X10^3/uL (2.0-7.7); Basophil# 0.13 X10^3/uL; Basophil% 0.5 % (0-1); Hematocrit 35.5 % (37-47); Hemoglobin 11.6 g/dL (12.0-15.0); Lymphocyte # 0.66 X10^3/ul (0.83-4.51); Lymphocyte % 2.8 % (19-41); Mean Corp Hgb Conc 32.7 g/dL (32-36); Mean Corpuscular Hgb 29.9 pg (27.0-32.0); Mean Corpuscular Volume 91.5 fL (81-99); Mean Platelet Vol. 9.9 fl (6.2-12.0); Monocyte# 0.71 X10^3/uL; NRBC Flagged by Analyzer 0 % (0-5); Neutrophil % 92.9 % (47-70); POSITIVE DIFFERENTIAL YES; Platelet Count 259 K/mm3 (150-450); RBC Distribution Width SD 51.3 fl (35.1-43.9); Red Blood Count 3.88 M/mm3 (4.2-5.4)
[2023-04-10 10:38] LABS: Differential Indicated SCAN CRITERIA MET
[2023-04-10 10:48] LABS: ALB/GLOB Ratio 0.8 RATIO (0.9-2.4); AST(SGOT) 10 U/L (15-37); Alanine Aminotransfer ALT/SGPT 18 U/L (13-56); Alkaline Phosphatase 262 U/L (45-117); Anion Gap 7 (5-15); BUN 27 mg/dL (7-18); BUN/Creat Ratio 30.3 RATIO (10-20); Calcium,Total 9.3 mg/dL (8.5-10.1); Chloride 91 mmol/L (98-107); Creatinine, Serum 0.89 mg/dL (0.55-1.02); EST Glomerular Filtration Rate 68 mL/min (>60); Est Glom Filt Rate - Afr Amer 82 mL/min (>60); Estimated Creatinine Clearance 55.14 ml/min; Globulin 3.6 g/dL (2.2-4.2); Glucose 120 mg/dL (74-106); Lipase < 10 U/L (13-75); Potassium 3.7 mmol/L (3.5-5.1); Protein, Total 6.6 g/dL (6.4-8.2); Sodium Level 133 mmol/L (136-145)
--- NOTE | 2023-04-10 12:26 | CON.PCM.SX_ITS ---
Assessment & Plan Assessment/Plan (1) Nausea & vomiting: (2) Bowel obstruction: (3) Constipation: (4) Primary malignant neuroendocrine neoplasm of ascending colon: (5) Leukocytosis: PLAN: Plan Patient is seen NG placed in the ER. We will continue NG to low intermittent wall suction, n.p.o./IV fluids. Once patient has been decompressed well we will likely do small bowel follow-through to make sure there is no issue at the anastomotic site. We will also plan to give patient multiple enemas when she ge ts to the floor due to her constipation. Patient admitted to medicine. Continue to monitor white blood cell count unsure if could be related to chemotherapy as no obvious signs of infection on CT ab domen pelvis also check a UA. Amanda Thomas M.D. Pager: [phone] [facility] [address] [place] [address], Outpatient [facility], [address] [place] [id number] Office: [phone] HPI Consult Data Date of Consult: 04/10/23 HPI Narrative HPI Narrative: ROYCE SHERMAN, is a 62 F who presents to the ER due to an nausea vomiting abdominal pain/distention currently on chemotherapy for colon cancer. Patient states she has been having bowel movements daily even multiple times a day. However for over the last week she has not been eating much as she feels very full. Patient is also had nausea and vomiting 9 times overnight. Patient currently on chemotherapy on her fourth round which was started 03/26/2023. Patient is scheduled to have 6 rounds. Patient denies any dysuria currently or chest pain. CT abdomen pelvis does show a dilated stomach with air-fluid level in her hiatal hernia as well as dilated small bowel up to the anastomosis of the right colon and then stool throughout the colon. [facility] Medical History (Updated 04/10/23 @ 12:[address] 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 Oral candidiasis Port-A-Cath in place Primary malignant neuroendocrine neoplasm of ascending colon Rectal prolapse Umbilical hernia Wears dentures Home Medications calcium carbonate 600 mg calcium (1,500 mg) tablet 1,200 mg PO DAILY SUPPLEMENT 10/16/16 [History Last Taken 04/09/23] paroxetine HCl 40 mg tablet 40 mg PO DAILY DEPRESSION 10/16/16 [History Last Taken 04/09/23] promethazine 25 mg tablet 50 mg PO Q8H PRN NAUSEA 10/16/16 [History Last Taken 04/09/23] simvastatin 10 mg tablet 10 mg PO QHS CHOLESTEROL 10/16/16 [History Last Taken 04/09/23] trazodone 50 mg tablet 50 - 100 mg PO QHS INSOMNIA 10/16/16 [History Last Taken 04/09/23] cholecalciferol (vitamin D3) 125 mcg (5,000 unit) tablet (Vitamin D3) 10,000 unit PO DAILY SUPPLEMENT 12/14/22 [History Last Taken 04/09/23] multivitamin 1 tab PO DAILY HEALTH MAINTENANCE 12/14/22 [History Last Taken 04/09/23] omeprazole magnesium 20 mg tablet,delayed release (Prilosec OTC) 20 mg PO DAILY ACID REFLUX 01/15/23 [History Last Taken 04/09/23] lidocaine-prilocaine 2.5 %-2.5 % topical cream 1 applic topical ONCE PRN PORT ACCESS 30 days #30 grams 01/31/23 [Rx Last Taken Unknown] morphine 60 mg tablet,extended release 60 mg PO Q12H PAIN 04/09/23 [History Last Taken 04/09/23] naloxone 4 mg/actuation nasal spray 1 spray intranasal Q3M PRN OPIOID OVERDOSE 04/10/23 [History Last Taken Unknown] nystatin 100,000 unit/mL oral suspension 5 ml PO Q6H FUNGAL INFECTION 04/10/23 [History Last Taken 04/09/23] olanzapine 5 mg tablet 5 mg PO QHS NAUSEA 04/10/23 [History Last Taken 04/09/23] omega-3 fatty acids 1,000 mg capsule 1,000 mg PO DAILY SUPPLEMENT 04/10/23 [History Last Taken 04/09/23] oxycodone-acetaminophen 10 mg-325 mg tablet 1 tab PO Q4H PRN BREAKTROUGH PAIN 04/10/23 [History Last Taken 04/09/23] sennosides 8.6 mg tablet (Natural Senna Laxative) 8.6 mg PO BID CONSTIPATION 04/10/23 [History Last Taken 04/09/23] Allergy/AdvReac Type Severity Reaction Status Date / Time No Known Allergies Allergy Verified 04/09/23 11:14 Family History Father Hypertension Mother Hypertension Grandfather Diabetes Surgical History H/O section H/O laminectomy H/O thumb surgery H/O total hysterectomy History of appendectomy History of carpal tunnel surgery History of esophagogastroduodenoscopy (EGD) History of hemicolectomy (~11/2022) History of tonsillectomy and adenoidectomy Hx of colonoscopy Social History Smoking Status: Former smoker quit date: 12/27/16 pack-years: 66 Tobacco: How many years used: 44 Electronic Cigarette Use: not used how long ago did patient quit smokin years second hand exposure: Yes quit status: quit date established ROS Constitutional Constitutional: Denies anorexia or chills ENT HEENT: Denies dizziness Cardiovascular Cardiovascular: Denies chest pain Respiratory/Chest Respiratory/Chest: Denies shortness of breath at rest Gastrointestinal Gastrointestinal: Reports abdominal pain, bloating, nausea and vomiting; Denies constipation, diarrhea, heartburn, hematemesis or melena Genitourinary Genitourinary: Denies burning urination Musculoskeletal Musculoskeletal: Denies joint pain Integumentary Integumentary: Denies rash Neurologic Neurologic: Denies focal weakness Psychiatric Psychiatric: Reports anxiety Endocrine Endocrinology: Denies palpitations Hematologic/Lymphatic Hematologic/Lymphatic: Denies easy bleeding or easy bruising Physical Exam Const alert and oriented x3 General Appearance: ill appearing HEENT normocephalic Resp normal respiratory effort Cardio regular rate GI GI Narrative: Firm due to the distention Inspection: abdominal distention Palpation: tender other (Diffuse no peritoneal signs); Negative for guarding Extremity no clubbing, cyanosis or edema Neuro CN's II-XII intact bilaterally Psych mental status grossly normal Lab / Micro Data 04/10/23 10:28 04/10/23 10:28 Labs: Laboratory Results - last 24 hr 04/10/23 10:28: WBC 24.0 H, RBC 3.88 L, Hgb 11.6 L, Hct 35.5 L, MCV 91.5, MCH 29.9, MCHC 32.7, RDW Std Deviation 51.3 H, RDW Coeff of [place] 17.0 H, Plt Count 259, MPV 9.9, Immature Gran % (Auto) 0.800, Neut % (Auto) 92.9 H, Lymph % (Auto) 2.8 L, [place] % (Auto) 3.0, Eos % (Auto) 0.0, Baso % (Auto) 0.5, Absolute Neuts (auto) 22.3 H, Absolute Lymphs (auto) 0.66 L, Nucleated RBC % 0, Differential Comment COMMENT, Sodium 133 L, Potassium 3.7, Chloride 91 L, Carbon Dioxide 35.0 H, Anion Gap 7, BUN 27 H, Creatinine 0.89, Estim Creat Clear Calc 55.14, Est GFR (MDRD) Af Amer 82, Est GFR (MDRD) Non-Af 68, BUN/Creatinine Ratio 30.3 H, Glucose 120 H, Calcium 9.3, Total Bilirubin 0.40, AST 10 L, ALT 18, Alkaline Phosphatase 262 H, Total Protein 6.6, Albumin 3.0 L, Globulin 3.6, Albumin /Globulin Ratio 0.8 L, Lipase < 10 L Radiology Impression Abdomen/Pelvis CT 04/10/23 10:02 IMPRESSION: Marked degree of fluid distention of the esophagus, stomach and small bowel loops down to an anastomotic site in the right lower quadrant. Fecal material is seen throughout the colon. Electronically Signed: Yasmani Basurto MD at 11:21 EDT ,
--- NOTE | 2023-04-10 12:51 | ED.RN ---
Patient refusing straight cath urine. Up to bathroom to try voiding.
[2023-04-10 13:26] LABS: Bacteria 0 SEEN /hpf (None Seen); Mucous, Urine 0 SEEN /hpf (<or=2+); Red Blood Cells-Urine 0 SEEN /hpf (0-5); Squamous Epithelial Cells - UA 0 SEEN /hpf (5-10); White Blood Cells 0 SEEN /hpf (0-5)
--- NOTE | 2023-04-10 13:26 | RAD_ITS ---
STUDY: X-RAY - ABDOMEN/PELVIS REASON FOR EXAM: Female, 62 years old. NG Insertion TECHNIQUE: Single AP view of the abdomen / pelvis. COMPARISON: None. FINDINGS: The tip of the nasogastric tube is in the distal portion of the stomach. Hiatal hernia. RAD/Abdomen Single View (Portable) IMPRESSION: The tip of the nasogastric tube is in the distal portion of the stomach. Electronically Signed: Yasmani Basurto MD at 13:54 EDT ,
[2023-04-10 13:30] LABS: Color, Urine Yellow (Yellow); Glucose, Dipstick Normal (Normal); Ketone-Dipstick 50 mg/dl (Negative); Leukocyte Esterase-Dipstick Negative /ul (Negative); Nitrite-Dipstick Negative (Negative); Occult Blood-Urine 10 /ul (Negative); Protein-Dipstick 30 mg/dl (Negative); Specific Gravity, Urine 1.015 (1.002-1.030); Urine Bilirubin Dipstick 1 mg/dL (Negative); Urine Clarity Clear (Clear); Urine Urobilinogen Normal (Normal); Urine pH 6.5 (5.0 - 8.0)
--- NOTE | 2023-04-10 14:04 | HP.PCM.HOS_ITS ---
HPI - General General Date of Admission: 04/10/23 Date of Service: 04/10/23 Chief Complaint: Abdominal pain, N/V HPI Narrative ROYCE SHERMAN, is a 62 F who presentsWith a couple week history of abdominal pain, nausea vomiting and decreased appetite. Patient states that she has had a few small bowel movements but just progressively getting worse. Presented to the emergency room where she was found to have small bowel obstruction down to the anastomotic site in the right lower quadrant. General surgery was contacted to the emergency room and NG tube was placed. Surgery was concerned that this could be related with constipation and recommended aggressive bowel regimen. Since the NG tube was replaced, patient had 2 canisters of bilious fluid removed. 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 Oral candidiasis Port-A-Cath in place Primary malignant neuroendocrine neoplasm of ascending colon Rectal prolapse Umbilical hernia Wears dentures Home Medications calcium carbonate 600 mg calcium (1,500 mg) tablet 1,200 mg PO DAILY SUPPLEMENT 10/16/16 [History Last Taken 04/09/23] paroxetine HCl 40 mg tablet 40 mg PO DAILY DEPRESSION 10/16/16 [History Last Taken 04/09/23] promethazine 25 mg tablet 50 mg PO Q8H PRN NAUSEA 10/16/16 [History Last Taken 04/09/23] simvastatin 10 mg tablet 10 mg PO QHS CHOLESTEROL 10/16/16 [History Last Taken 04/09/23] trazodone 50 mg tablet 50 - 100 mg PO QHS INSOMNIA 10/16/16 [History Last Taken 04/09/23] cholecalciferol (vitamin D3) 125 mcg (5,000 unit) tablet (Vitamin D3) 10,000 unit PO DAILY SUPPLEMENT 12/14/22 [History Last Taken 04/09/23] multivitamin 1 tab PO DAILY HEALTH MAINTENANCE 12/14/22 [History Last Taken 04/09/23] omeprazole magnesium 20 mg tablet,delayed release (Prilosec OTC) 20 mg PO DAILY ACID REFLUX 01/15/23 [History Last Taken 04/09/23] lidocaine-prilocaine 2.5 %-2.5 % topical cream 1 applic topical ONCE PRN PORT ACCESS 30 days #30 grams 01/31/23 [Rx Last Taken Unknown] morphine 60 mg tablet,extended release 60 mg PO Q12H PAIN 04/09/23 [History Last Taken 04/09/23] naloxone 4 mg/actuation nasal spray 1 spray intranasal Q3M PRN OPIOID OVERDOSE 04/10/23 [History Last Taken Unknown] nystatin 100,000 unit/mL oral suspension 5 ml PO Q6H FUNGAL INFECTION 04/10/23 [History Last Taken 04/09/23] olanzapine 5 mg tablet 5 mg PO QHS NAUSEA 04/10/23 [History Last Taken 04/09/23] omega-3 fatty acids 1,000 mg capsule 1,000 mg PO DAILY SUPPLEMENT 04/10/23 [History Last Taken 04/09/23] oxycodone-acetaminophen 10 mg-325 mg tablet 1 tab PO Q4H PRN BREAKTROUGH PAIN 04/10/23 [History Last Taken 04/09/23] sennosides 8.6 mg tablet (Natural Senna Laxative) 8.6 mg PO BID CONSTIPATION 04/10/23 [History Last Taken 04/09/23] Allergy/AdvReac Type Severity Reaction Status Date / Time No Known Allergies Allergy Verified 04/09/23 11:14 Family History (Updated 04/10/23 @ 14:[address] Tino Alanis DO) Father Hypertension Mother Hypertension Grandfather Diabetes Surgical History H/O section H/O laminectomy H/O thumb surgery H/O total hysterectomy History of appendectomy History of carpal tunnel surgery History of esophagogastroduodenoscopy (EGD) History of hemicolectomy (~11/2022) History of tonsillectomy and adenoidectomy Hx of colonoscopy Social History Smoking Status: Former smoker quit date: 12/27/16 pack-years: 66 Tobacco: How many years used: 44 Electronic Cigarette Use: not used how long ago did patient quit smokin years second hand exposure: Yes quit status: quit date established ROS ROS Narrative No appetites. No fever or chills. All review of systems were negative except as mentioned above in the history of present illness and the other review of systems. Vital Signs Vital Signs Vital Signs: 04/10/23 09:41 04/10/23 10:22 04/10/23 12:00 Temperature 36.0 C L 36.6 C 36.6 C Temperature Source Temporal Oral Oral Pulse Rate 114 H 108 H 101 H Respiratory Rate 16 18 16 Blood Pressure 145/97 H 151/96 H 134/90 H Blood Pressure Mean 113 114 104 Pulse Ox 94 93 99 Oxygen Delivery Method Room Air Room Air Room Air 04/10/23 12:33 04/10/23 13:24 04/10/23 13:24 Temperature 36.6 C 36.6 C Temperature Source Oral Oral Pulse Rate 98 113 H 113 H Respiratory Rate 18 18 16 Blood Pressure 130/88 H 154/108 H 154/108 H Blood Pressure Mean 102 123 123 Pulse Ox 99 98 99 Oxygen Delivery Method Room Air Room Air Room Air Weight Weight: 68.6 kg Body Mass Index (BMI) 25.9 Physical Exam Const alert Constitutional Narrative: NG tube in place with copious green fluid aspirating. HEENT normocephalic and head/scalp atraumatic HEENT Narrative: Alopecia Eyes Eyes Narrative: No icterus Resp normal respiratory effort, no retractions, no use of accessory muscles and clear to auscultation bilaterally Cardio regular rate, regular rhythm, S1 normal heart sound and S2 normal heart sound GI GI Narrative: Hypoactive bowel sounds. Distended. Mildly tender diffusely. Extremity normal to inspection and no clubbing, cyanosis or edema Neuro oriented x3 Sensorium / Orientation: awake and alert Results Lab / Micro Data Attestation: I reviewed the patient's lab results. 04/10/23 10:28 04/10/23 10:28 Labs: Laboratory Results - last 24 hr 04/10/23 10:28: WBC 24.0 H, RBC 3.88 L, Hgb 11.6 L, Hct 35.5 L, MCV 91.5, MCH 29.9, MCHC 32.7, RDW Std Deviation 51.3 H, RDW Coeff of Julian 17.0 H, Plt Count 259, MPV 9.9, Immature Gran % (Auto) 0.800, Neut % (Auto) 92.9 H, Lymph % (Auto) 2.8 L, [place] % (Auto) 3.0, Eos % (Auto) 0.0, Baso % (Auto) 0.5, Absolute Neuts ( auto) 22.3 H, Absolute Lymphs (auto) 0.66 L, Nucleated RBC % 0, Differential Comment COMMENT, Sodium 133 L, Potassium 3.7, Chloride 91 L, Carbon Dioxide 35.0 H, Anion Gap 7, BUN 27 H, Creatinine 0.89, Estim Creat Clear Calc 55.14, Est GFR (MDRD) Af Amer 82, Est GFR (MDRD) Non-Af 68, BUN/Creatinine Ratio 30.3 H, Glucose 120 H, Calcium 9.3, Total Bilirubin 0.40, AST 10 L, ALT 18, Alkaline [place] sphatase 262 H, Total Protein 6.6, Albumin 3.0 L, Globulin 3.6, Albumin/Globulin Ratio 0.8 L, Lipase < 10 L 04/10/23 13:21: Urine Color Yellow, Urine Clarity Clear, Urine pH 6.5, Ur Specific [place] 1.015, Urine Protein 30 H, Urine Glucose (UA) Normal, Urine Ket ones 50 H, Urine Occult Blood 10 H, Urine Nitrite Negative, Urine Bilirubin 1 H, Urine Urobilinogen Normal, Ur Leukocyte Esterase Negative, Urine RBC 0 SEEN, Urine WBC 0 SEEN, Ur Squamous Epith Cells 0 SEEN, Urine Bacteria 0 SEEN, Urine Mucus 0 SEEN Radiology Impression Abdomen/Pelvis CT 04/10/23 10:02 IMPRESSION: Marked degree of fluid distention of the esophagus, stomach and small bowel loops down to an anastomotic site in the right lower quadrant. Fecal material is seen throughout the colon. Electronically Signed: Yasmani Basurto MD at 11:21 EDT , KUB X-Ray 04/10/23 13:26 IMPRESSION: The tip of the nasogastric tube is in the distal portion of the stomach. Electronically Signed: Yasmani Basurto MD at 13:54 EDT , Assessment & Plan Assessment/Plan (1) SBO (small bowel obstruction): PLAN: Noted marked distention of her abdomen down to the anastomotic site. Etiology is small bowel obstruction versus ileus versus constipation. NG tube has been placed and the patient is feeling much better since has been placed. General surgery on consultation and plan right now is to get the patient enemas and have the patient have a small bowel follow-through Supportive management with pain control and antiemetics. N.p.o. and patient will have IV fluids. If no resolution in the coming days, may need to consider starting TPN. Patient already has a port in place (2) Leukocytosis: QUALIFIERS: Leukocytosis type: unspecified Qualified Code(s): D72.829 - Elevated white blood cell count, unspecified PLAN: May be reactive with her bowel issues Monitor for now. 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 Patient has peritoneal and omental carcinomatosis and possible liver metastasis. Patient underwent a palliative colon resection on December 13. Patient received systemic chemotherapy with carboplatin, etoposide and atezolizumab in January. Patient had a follow-up CAT scan on the with oncology. * Hyperlipidemia: Hold statin * Depression: Currently NPO. Paroxetine currently on hold. VTE prophylaxis with SCDs. Holding off on chemical prophylaxis in case patient would require any surgery. Charges/Coding Visit Charges Inpatient E&M: 60455 Init Hosp L3
[2023-04-10] MEDS: 0.9% Normal Saline (1000mL) 1,000 ML 150 ML IV ×2 (15:57→23:35)
[2023-04-10] MEDS: 0.9% Saline Lock 10 ML Syringe IV ×2 (15:58→23:29)
[2023-04-10] MEDS: Ketorolac 30 MG/ML Syringe 15 MG IV ×2 (15:59→23:27)
[2023-04-11 02:09] VITALS: BP 138/86; PULSE 101; RESP 18; TEMP 36.7; O2SAT 96
[2023-04-11 03:00] VITALS: BP 132/86; PULSE 96; RESP 17; TEMP 36.7; O2SAT 95
--- NOTE | 2023-04-11 05:55 | RAD_ITS ---
STUDY: X-RAY - ABDOMEN/PELVIS REASON FOR EXAM: Female, 62 years old. sbo TECHNIQUE: Single AP view of the abdomen / pelvis. COMPARISON: Comparison is made with prior study dated April 10, 2023. FINDINGS: The tip of the nasogastric tube is in the second portion of the duodenum. Proximal small bowel dilatation. RAD/Abdomen Single View (Portable) IMPRESSION: The tip of the nasogastric tube is in the second portion of the duodenum. Electronically Signed: Yasmani Basurto MD at 9:42 EDT ,
[2023-04-11] MEDS: 0.9% Normal Saline (1000mL) 1,000 ML 150 ML IV ×3 (07:54→22:08)
--- NOTE | 2023-04-11 07:54 | NURSING ---
NG tube pulled back 15cm per Dr. Daley verbal order. Repeat KUB ordered also. Pt tolerated well.
[2023-04-11 08:10] LABS: Absolute Lymphocyte Count 1.28 X10^3/uL (0.83-4.51); Absolute Neutrophil Count 17.4 X10^3/uL (2.0-7.7); Basophil# 0.05 X10^3/uL; Basophil% 0.3 % (0-1); Hematocrit 31.5 % (37-47); Lymphocyte # 1.28 X10^3/ul (0.83-4.51); Lymphocyte % 6.5 % (19-41); Mean Corp Hgb Conc 31.7 g/dL (32-36); Mean Corpuscular Hgb 29.6 pg (27.0-32.0); Mean Corpuscular Volume 93.2 fL (81-99); Mean Platelet Vol. 9.9 fl (6.2-12.0); Monocyte# 0.69 X10^3/uL; Monocyte% 3.5 % (0-10); NRBC Flagged by Analyzer 0 % (0-5); Neutrophil # 17.39 X10^3/uL (2.7-7.7); Neutrophil % 88.3 % (47-70); Platelet Count 280 K/mm3 (150-450); Red Blood Count 3.38 M/mm3 (4.2-5.4); White Blood Count 19.7 K/mm3 (4.4-11.0)
--- NOTE | 2023-04-11 08:13 | PN.HOSP_ITS ---
Reason for Visit Reason for Visit: Diagnoses Other malignant neuroendocrine tumors (04/10/23) Elevated white blood cell count, unspecified (04/10/23) Unspecified intestinal obstruction, unspecified as to partial versus complete obstruction (04/10/23) Constipation, unspecified (04/10/23) Nausea with vomiting, unspecified (04/10/23) Subjective Subjective Abdomen feeling better. Some flatus. No BMs despite enemas. Feeling very anxious, requesting her Paxil and trazodone be restarted. Objective Data Objective Data Vital Signs: Vital Signs Temp Pulse Resp BP Pulse Ox O2 Del Method 36.7 C 96 17 132/86 H 95 Room Air 04/11/23 03:00 04/11/23 03:00 04/11/23 03:00 04/11/23 03:00 04/11/23 03:00 04/11/23 08:12 Oxygen Delivery Method Room Air Weight: 65.3 kg Body Mass Index (BMI) 24.7 Intake & Output: Intake and Output for Last 24 Hours 04/09/23 04/10/23 04/11/23 23:59 23:59 23:59 Intake Total 1999 / 1999 1000 / 1000 Output Total 3200 / 4200 1160 / 1160 Balance -1200 / -2200 -160 / -160 Lab / Micro Data 04/11/23 07:55 04/11/23 07:55 Labs: Laboratory Results - last 24 hr 04/10/23 10:28: WBC 24.0 H, RBC 3.88 L, Hgb 11.6 L, Hct 35.5 L, MCV 91.5, MCH 29.9, MCHC 32.7, RDW Std Deviation 51.3 H, RDW Coeff of Julian 17.0 H, Plt Count 259, MPV 9.9, Immature Gran % (Auto) 0.800, Neut % (Auto) 92.9 H, Lymph % (Auto) 2.8 L, [place] % (Auto) 3.0, Eos % (Auto) 0.0, Baso % (Auto) 0.5, Absolute Neuts (auto) 22.3 H, Absolute Lymphs (auto) 0.66 L, Nucleated RBC % 0, Differential Comment COMMENT, Sodium 133 L, Potassium 3.7, Chloride 91 L, Carbon Dioxide 35.0 H, Anion Gap 7, BUN 27 H, Creatinine 0.89, Estim Creat Clear Calc 55.14, Est GFR (MDRD) Af Amer 82, Est GFR (MDRD) Non-Af 68, BUN/Creatinine Ratio 30.3 H, Gluc ose 120 H, Calcium 9.3, Total Bilirubin 0.40, AST 10 L, ALT 18, Alkaline Phosphatase 262 H, Total Protein 6.6, Albumin 3.0 L, Globulin 3.6, Albumin/Globulin Ratio 0.8 L, Lipase < 10 L 04/10/23 13:21: Urine Color Yellow, Urine Clarity Clear, Urine pH 6.5, Ur Specific [place] 1.015, Urine Protein 30 H, Urine Glucose (UA) Normal, Urine Ketones 50 H, Urine Occult Blood 10 H, Urine Nitrite Negative, Urine Bilirubin 1 H, Urine Urobilinogen Normal, Ur Leukocyte Esterase Negative, Urine RBC 0 SEEN, Urine WBC 0 SEEN, Ur Squamous Epith Cells 0 SEEN, Urine Bacteria 0 SEEN, Urine Mucus 0 SEEN 04/11/23 07:55: WBC 19.7 H, RBC 3.38 L, Hgb 10.0 L, Hct 31.5 L, MCV 93.2, MCH 29.6, MCHC 31.7 L, RDW Std Deviation 53.0 H, RDW Coeff of Julian 17.0 H, Plt Count 280, MPV 9.9, Immature Gran % (Auto) 1.400 H, Neut % (Auto) 88.3 H, Lymph % (Auto) 6.5 L, [place] % (Auto) 3.5, Eos % (Auto) 0.0, Baso % (Auto) 0.3, Absolute Neuts (auto) 17.4 H, Absolute Lymphs (auto) 1.28, Nucleated RBC % 0 Radiography Diagnostic Testing: Radiology Impression Abdomen/Pelvis CT 04/10/23 10:02 IMPRESSION: Marked degree of fluid distention of the esophagus, stomach and small bowel loops down to an anastomotic site in the right lower quadrant. Fecal material is seen throughout the colon. Electronically Signed: Yasmani Basurto MD at 11:21 EDT , KUB X-Ray 04/10/23 13:26 IMPRESSION: The tip of the nasogastric tube is in the distal portion of the stomach. Electronically Signed: Yasmani Basurto MD at 13:54 EDT , Physical Exam Const alert and no apparent distress Resp normal respiratory effort, no retractions and no use of accessory muscles Cardio regular rate, regular rhythm and S1 normal heart sound GI GI Narrative: still distended, but softer. hypoactive BS. green bilious drainage in canister. Extremity normal to inspection Psych Mood & Affect: anxious Assessment & Plan Assessment/Plan (1) SBO (small bowel obstruction): PLAN: Noted marked distention of her abdomen down to the anastomotic site. Etiology is small bowel obstruction versus ileus versus constipation. NG tube has been placed and the patient is feeling much better since has been placed. Supportive management with pain control and antiemetics. N.p.o. and patient will have IV fluids. If no resolution in the coming days, may need to consider starting TPN. Patient already has a port in place Surgery following and feeling that this is an ileus. (2) Leukocytosis: QUALIFIERS: Leukocytosis type: unspecified Qualified Code(s): D72.829 - Elevated white blood cell count, unspecified PLAN: May be reactive with her bowel issues Monitor for now. 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 Patient has peritoneal and omental carcinomatosis and possible liver metastasis. Patient underwent a palliative colon resection on December 13. Patient received systemic chemotherapy with carboplatin, etoposide and atezolizumab in January. Patient had a follow-up CAT scan on the with oncology. * Hyperlipidemia: Hold statin * Depression: Currently NPO. Paroxetine and trazodone to be resumed, suction to be turned off during administration. VTE prophylaxis with SCDs. Holding off on chemical prophylaxis in case patient would require any surgery. Charges/Coding Visit Charges Inpatient E&M: 76519 Subs Hosp L2
[2023-04-11 08:42] LABS: Anion Gap 6 (5-15); BUN 26 mg/dL (7-18); BUN/Creat Ratio 41.1 RATIO (10-20); Calcium,Total 7.7 mg/dL (8.5-10.1); Chloride 104 mmol/L (98-107); Creatinine, Serum 0.63 mg/dL (0.55-1.02); EST Glomerular Filtration Rate 101 mL/min (>60); Est Glom Filt Rate - Afr Amer 122 mL/min (>60); Glucose 75 mg/dL (74-106); Potassium 3.6 mmol/L (3.5-5.1); Sodium Level 139 mmol/L (136-145)
--- NOTE | 2023-04-11 09:03 | RAD_ITS ---
STUDY: X-RAY - ABDOMEN/PELVIS REASON FOR EXAM: Female, 62 years old. NG tube placement after pulling out 15cm TECHNIQUE: Single AP view of the abdomen / pelvis. COMPARISON: Comparison is made with prior study dated April 11, 2023 at 5:11 AM. FINDINGS: The tip of the nasogastric tube is in the distal portion of the stomach RAD/Abdomen Single View (Portable) IMPRESSION: The tip of the nasogastric tube is in the distal portion of the stomach. Electronically Signed: Yasmani Basurto MD at 9:41 EDT ,
--- NOTE | 2023-04-11 09:41 | PN.SURG_ITS ---
Subjective Subjective Patient reports she is passing flatus but not having any bowel movements. She says she is less distended than yesterday. She is not having severe pain just her normal soreness in her abdomen Objective Data Objective Data Vital Signs: Vital Signs Temp Pulse Resp BP Pulse Ox O2 Del Method 98.1 F 96 17 132/86 H 95 Room Air 04/11/23 03:00 04/11/23 03:00 04/11/23 03:00 04/11/23 03:00 04/11/23 03:00 04/11/23 08:12 Oxygen Delivery Method Room Air Weight: 143 lb 15.39 oz Body Mass Index (BMI) 24.7 Intake & Output: Intake and Output for Last 24 Hours 04/09/23 04/10/23 04/11/23 23:59 23:59 23:59 Intake Total 1999 / 1999 1000 / 1000 Output Total 3200 / 4200 1160 / 1160 Balance -1200 / -2200 -160 / -160 Lab / Micro Data 04/11/23 07:55 04/11/23 07:55 Labs: Laboratory Results - last 24 hr 04/10/23 10:28: WBC 24.0 H, RBC 3.88 L, Hgb 11.6 L, Hct 35.5 L, MCV 91.5, MCH 29.9, MCHC 32.7, RDW Std Deviation 51.3 H, RDW Coeff of Julian 17.0 H, Plt Count 259, MPV 9.9, Immature Gran % (Auto) 0.800, Neut % (Auto) 92.9 H, Lymph % (Auto) 2.8 L, [place] % (Auto) 3.0, Eos % (Auto) 0.0, Baso % (Auto) 0.5, Absolute Neuts (auto) 22.3 H, Absolute Lymphs (auto) 0.66 L, Nucleated RBC % 0, Differential Comment COMMENT, Sodium 133 L, Potassium 3.7, Chloride 91 L, Carbon Dioxide 35.0 H, Anion Gap 7, BUN 27 H, Creatinine 0.89, Estim Creat Clear Calc 55.14, Est GFR (MDRD) Af Amer 82, Est GFR (MDRD) Non-Af 68, BUN/Creatinine Ratio 30.3 H, Glucose 120 H, Calcium 9.3, Total Bilirubin 0.40, AST 10 L, ALT 18, Alkaline Phosphatase 262 H, Total Protein 6.6, Albumin 3.0 L, Globulin 3.6, Albumin/Globulin Ratio 0.8 L, Lipase < 10 L 04/10/23 13:21: Urine Color Yellow, Urine Clarity Clear, Urine pH 6.5, Ur Specific [place] 1.015, Urine Protein 30 H, Urine Glucose (UA) Normal, Urine Ketones 50 H, Urine Occult Blood 10 H, Urine Nitrite Negative, Urine Bilirubin 1 H, Urine Urobilinogen Normal, Ur Leukocyte Esterase Negative, Urine RBC 0 SEEN, Urine WBC 0 SEEN, Ur Squamous Epith Cells 0 SEEN, Urine Bacteria 0 SEEN, Urine Mucus 0 SEEN 04/11/23 07:55: WBC 19.7 H, RBC 3.38 L, Hgb 10.0 L, Hct 31.5 L, MCV 93.2, MCH 29.6, MCHC 31.7 L, RDW Std Deviation 53.0 H, RDW Coeff of Julian 17.0 H, Plt Count 280, MPV 9.9, Immature Gran % (Auto) 1.400 H, Neut % (Auto) 88.3 H, Lymph % (Auto) 6.5 L, [place] % (Auto) 3.5, Eos % (Auto) 0.0, Baso % (Auto) 0.3, Absolute Neuts (auto) 17.4 H, Absolute Lymphs (auto) 1.28, Nucleated RBC % 0, Sodium 139, Potassium 3.6, Chloride 104, Carbon Dioxide 29.0, Anion Gap 6, BUN 26 H, Creatinine 0.63, Estim Creat Clear Calc 77.90, Est GFR (MDRD) Af Amer 122, Est GFR (MDRD) Non-Af 101, BUN/Creatinine Ratio 41.1 H, Glucose 75, Calcium 7.7 L Radiography Diagnostic Testing: Radiology Impression Abdomen/Pelvis CT 04/10/23 10:02 IMPRESSION: Marked degree of fluid distention of the esophagus, stomach and small bowel loops down to an anastomotic site in the right lower quadrant. Fecal material is seen throughout the colon. Electronically Signed: Yasmani Basurto MD at 11:21 EDT , KUB X-Ray 09/13/23 13:26 IMPRESSION: The tip of the nasogastric tube is in the distal portion of the stomach. Electronically Signed: Yasmani Basurto MD at 13:54 EDT , Physical Exam Const oriented x3 Resp normal respiratory effort GI Inspection: abdominal distention Palpation: tender Assessment & Plan Assessment/Plan (1) Ileus: PLAN: The patient is having what appears to be an ileus. She has had copious stool reaching her colon so I do not believe there is an obstruction at the anastomosis. She has dilated small bowel and colon. NG is putting out a lot but it is in her duodenum. I am having them pull the NG back into her stomach. Continue to monitor output amounts and color. Continue IV fluids. White count continues to be markedly elevated. Unsure if this is due to chemotherapy or infection. I am checking blood cultures. The patient reports no burning with urination and her UA was normal. The patient reports no coughing or shortness of breath. Clyde Daley MD Pager: [facility] [address] [place] [address], [address] [place] [address] Office:
[2023-04-11 09:50] VITALS: BP 123/81; PULSE 92; RESP 17; TEMP 36.4; O2SAT 95
[2023-04-11] MEDS: Ketorolac 30 MG/ML Syringe 15 MG IV ×2 (09:56→17:42)
--- NOTE | 2023-04-11 10:03 | NURSING ---
NG tube pulled back 10cm Per Dr. Thuy golden.
[2023-04-11] MEDS: 0.9% Saline Lock 10 ML Syringe IV (11:35)
[2023-04-11] MEDS: BENZOCAINE/MENTHOL 1 LOZENGE MUCOUS MEM ×4 (11:38→23:38)
--- NOTE | 2023-04-11 13:30 | CASEMGMT ---
AARON ABURTO Face to Face with patient for initial transition planning/care coordination assessment. RN CM introduced self and role at [facility]. Patient lying in bed, alert and oriented, family at bedside. Patient willing to participate in assessment and is able to answer all questions appropriately. Care providers, pharmacy, and demographics verified. Patient wishes to discharge home, denies need for home health at this time. Patient states she has no further needs or concerns at this time. CM to follow for discharge planning needs that may arise. PCP: [facility]: [facility] Preferred Pharmacy: [facility] Insurance: [facility] Prescription Benefit: yes Living Will/HPOA: yes, Colby Benson LNOK: Living Arrangements: Patient lives with in a single story home with 3 steps and railing to enter the home. Patient states she is independent at home. Transportation: DME/HHC: Patient has shower chair, raised toilet, cane, grab bars, walker at home. No previous HHC or SNF. [facility] Disposition Plan: Patient to discharge home with family support and follow-up plans in place. Meggan CASILLAS, RN, CM
--- NOTE | 2023-04-11 14:03 | CHAPLAIN ---
Type of Pastoral Visit _x__ Initial Visit ___ Follow-up Visit ___ On-call Visit ___ General Patient Visit ___ Spiritual Assessment ___ Family Conference ___ Bereavement ___ Rapid Response ___ Code Blue ___ Other (describe below) Pastoral Care Referral From _x__ Patient ___ Family ___ Nurse ___ Physician ___ Hospital Account Manager ___ Barrel Raiser ___ Other (describe below) Sacrament/Intervention _x__ Active listening ___ Anointing ___ Islam ___ Bereavement ___ Communion _x__ Kelsi exploration ___ _x__ Life review _x__ Prayer ___ Reconciliation ___ Sacrament of Sick _x__ Supportive presence ___ Wedding ___ Other (describe below) Pastoral Comments patient is alone stating that spouse just left to go get something to eat for now; pt is asked to describe her situation and she begins with the diagnosis and current situation; pt is tearful saying my family says I'm to be strong and I'm trying but sometimes I just can't be; from this discussion on how to respond to family, what helps in coping, and validation of feelings continues; pt addresses how she joslyn which includes her kelsi in God and turning it over to him; pt welcomes prayer and spiritual care; pt also highly values time with family and neighbors who are so helpful; pt concerns include a new lifestyle that prohibits much activity that she normally would enjoy; pt states I was so discouraged and praying for God's help when you came in and it was just the right time
[2023-04-11] MEDS: Paroxetine 20 MG Tablet 40 MG PO (14:42)
[2023-04-11 16:09] VITALS: BP 126/80; PULSE 92; RESP 16; TEMP 36.6; O2SAT 98
[2023-04-11 22:04] VITALS: BP 122/80; PULSE 97; RESP 15; TEMP 36.6; O2SAT 94
[2023-04-11] MEDS: traZODone 50 MG Tablet PO (22:23)
[2023-04-11 23:20] VITALS: BP 128/81
[2023-04-11] MEDS: Morphine 2 MG/ML Syringe IV (23:26)
[2023-04-12 04:30] VITALS: BP 126/83; PULSE 97; RESP 15; TEMP 36.8; O2SAT 94
[2023-04-12] MEDS: 0.9% Normal Saline (1000mL) 1,000 ML 150 ML IV ×3 (04:51→18:09)
[2023-04-12] MEDS: Ketorolac 30 MG/ML Syringe 15 MG IV ×3 (04:52→21:41)
[2023-04-12 05:36] LABS: Absolute Lymphocyte Count 1.48 X10^3/uL (0.83-4.51); Absolute Neutrophil Count 20.7 X10^3/uL (2.0-7.7); Basophil# 0.05 X10^3/uL; Basophil% 0.2 % (0-1); Differential Indicated SCAN CRITERIA MET; Hematocrit 31.6 % (37-47); Hemoglobin 10.1 g/dL (12.0-15.0); Lymphocyte # 1.48 X10^3/ul (0.83-4.51); Lymphocyte % 6.3 % (19-41); Mean Corpuscular Hgb 29.6 pg (27.0-32.0); Mean Corpuscular Volume 92.7 fL (81-99); Mean Platelet Vol. 9.4 fl (6.2-12.0); Monocyte# 0.81 X10^3/uL; Monocyte% 3.5 % (0-10); NRBC Flagged by Analyzer 0 % (0-5); Neutrophil # 20.72 X10^3/uL (2.7-7.7); Neutrophil % 88.5 % (47-70); POSITIVE DIFFERENTIAL YES; Platelet Count 357 K/mm3 (150-450); RBC Distribution Width CV 17.2 % (11.6-14.6); RBC Distribution Width SD 53.7 fl (35.1-43.9); Red Blood Count 3.41 M/mm3 (4.2-5.4); White Blood Count 23.4 K/mm3 (4.4-11.0)
[2023-04-12 05:50] LABS: Anion Gap 7 (5-15); BUN 20 mg/dL (7-18); BUN/Creat Ratio 35.8 RATIO (10-20); Calcium,Total 7.4 mg/dL (8.5-10.1); Chloride 105 mmol/L (98-107); Creatinine, Serum 0.56 mg/dL (0.55-1.02); EST Glomerular Filtration Rate 116 mL/min (>60); Est Glom Filt Rate - Afr Amer 140 mL/min (>60); Estimated Creatinine Clearance 87.64 ml/min; Glucose 84 mg/dL (74-106); Sodium Level 144 mmol/L (136-145)
[2023-04-12 06:22] LABS: Differential Comment SCANNED
[2023-04-12 06:36] VITALS: BP 119/78
[2023-04-12] MEDS: Morphine 2 MG/ML Syringe IV (06:37)
--- NOTE | 2023-04-12 08:28 | PN.HOSP_ITS ---
Reason for Visit Reason for Visit: Diagnoses Other malignant neuroendocrine tumors (04/10/23) Elevated white blood cell count, unspecified (04/10/23) Unspecified intestinal obstruction, unspecified as to partial versus complete obstruction (04/10/23) Ileus, unspecified (04/10/23) Constipation, unspecified (04/10/23) Nausea with vomiting, unspecified (04/10/23) Subjective Subjective NGT removed and thus far tolerating clear liquid diet. +BM. Objective Data Objective Data Vital Signs: Vital Signs Temp Pulse Resp BP Pulse Ox O2 Del Method 36.8 C 97 15 119/78 94 Room Air 04/12/23 04:30 04/12/23 04:30 04/12/23 04:30 04/12/23 06:36 04/12/23 04:30 04/12/23 04:30 Oxygen Delivery Method Room Air Weight: 65.3 kg Body Mass Index (BMI) 24.7 Intake & Output: Intake and Output for Last 24 Hours 04/10/23 04/11/23 04/12/23 23:59 23:59 23:59 Intake Total 1999 / 1999 3190 / 3190 1000 / 1000 Output Total 3200 / 4200 4061 / 4061 999 / 999 Balance -1200 / -2200 -871 / -871 Medical Nutrition Assessment Dietitian: Malnutrition Criteria Met Start: 04/11/23 10:26 Freq: Status: Active Protocol: Document 04/11/23 10:26 LO (Rec: 04/11/23 10:26 LO Desktop) Nutrition Malnutrition Evidence of Malnutrition Exists Yes Malnutrition (severe): Chronic Evidenced By Suboptimal Energy Intake ( Severe),Weight Loss (Severe) Clinical Problem Chronic Disease or Condition Related Malnutrition Etiology severe related to colon cancer Signs/Symptoms as evidenced by <75% intake of estimated energy needs for >1 month, 22lbs (13.2%) weight loss in 4 months, and moderate fat/muscle loss to temporal, orbital, and clavicle regions Status Active Problem Recommendation Dietitian Recommendations/Changes ADAT to Regular diet when medically able to optimize oral intakes. Recommend [place] Instant Breakfast TID with meals when diet advances. Lab / Micro Data 04/12/23 05:30 04/12/23 05:30 Labs: Laboratory Results - last 24 hr 04/11/23 07:55: Sodium 139, Potassium 3.6, Chloride 104, Carbon Dioxide 29.0, Anion Gap 6, BUN 26 H, Creatinine 0.63, Estim Creat Clear Calc 77.90, Est GFR (MDRD) Af Amer 122, Est GFR (MDRD) Non-Af 101, BUN/Creatinine Ratio 41.1 H, Glucose 75, Calcium 7.7 L 04/12/23 05:30: WBC 23.4 H, RBC 3.41 L, Hgb 10.1 L, Hct 31.6 L, MCV 92.7, MCH 29.6, MCHC 32.0, RDW Std Deviation 53.7 H, RDW Coeff of Julian 17.2 H, Plt Count 357, MPV 9.4, Immature Gran % (Auto) 1.500 H, Neut % (Auto) 88.5 H, Lymph % (Auto) 6.3 L, [place] % (Auto) 3.5, Eos % (Auto) 0.0, Baso % (Auto) 0.2, Absolute Neuts (auto) 20.7 H, Absolute Lymphs (auto) 1.48, Nucleated RBC % 0, Differential Comment SCANNED, Sodium 144, Potassium 3.0 L, Chloride 105, Carbon Dioxide 32.0, Anion Gap 7, BUN 20 H, Creatinine 0.56, Estim Creat Clear Calc 87.64, Est GFR (MDRD) Af Amer 140, Est GFR (MDRD) Non-Af 116, BUN/Creatinine Ratio 35.8 H, Glucose 84, Calcium 7.4 L Micro: Microbiology 04/10/23 13:27 Urine, Clean Catch Urine Culture - Preliminary Mixed Gram Pos & Gram Neg Org Radiography Diagnostic Testing: Radiology Impression KUB X-Ray 04/11/23 05:55 IMPRESSION: The tip of the nasogastric tube is in the second portion of the duodenum. Electronically Signed: Yasmani Basurto MD at 9:42 EDT , KUB X-Ray 04/11/23 09:03 IMPRESSION: The tip of the nasogastric tube is in the distal portion of the stomach. Electronically Signed: Yasmani Basurto MD at 9:41 EDT , Physical Exam Const alert and no apparent distress HEENT head/scalp atraumatic Resp normal respiratory effort, no retractions, no use of accessory muscles and clear to auscultation bilaterally Cardio regular rate, regular rhythm, S1 normal heart sound and S2 normal heart sound GI GI Narrative: distended. soft. Auscultation: hypoactive bowel sounds Assessment & Plan Assessment/Plan (1) SBO (small bowel obstruction): PLAN: Noted marked distention of her abdomen down to the anastomotic site. Etiology is small bowel obstruction versus ileus versus constipation. NG tube has been placed and the patient is feeling much better since has been placed. Supportive management with pain control and antiemetics. N.p.o. and patient will have IV fluids. If no resolution in the coming days, may need to consider starting TPN. Patient already has a port in place Surgery following and feeling that this is an ileus. (2) Bacteremia: PLAN: Prelim gram stain showing GPC in clusters from her port. Unclear if true infection. Follow up cultures. Explained to patient and family possibiliites could be contaminant to true line infection. If port infected, it may need to be removed. Vancomycin. (3) Hypokalemia: PLAN: Likely due to gastric losses. 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 Patient has peritoneal and omental carcinomatosis and possible liver metastasis. Patient underwent a palliative colon resection on December 13. Patient received systemic chemotherapy with carboplatin, etoposide and atezolizumab in January. Patient had a follow-up CAT scan on the with oncology. * Hyperlipidemia: Hold statin * Depression: Currently NPO. Paroxetine and trazodone to be resumed, suction to be turned off during administration. VTE prophylaxis with SCDs. Holding off on chemical prophylaxis in case patient would require any surgery. Charges/Coding Visit Charges Inpatient E&M: 26756 Subs Hosp L2
[2023-04-12 08:49] LABS: Magnesium 2.1 mg/dL (1.6-2.6)
--- NOTE | 2023-04-12 08:52 | PN.SURG_ITS ---
Subjective Subjective Patient had 3 large bowel movements overnight and is passing gas. She feels her abdomen is returned normal size and she is having her baseline normal low abdominal pain with no acute increase in pain. She denies any nausea. Objective Data Objective Data Vital Signs: Vital Signs Temp Pulse Resp BP Pulse Ox O2 Del Method 98.2 F 97 15 119/78 94 Room Air 04/12/23 04:30 04/12/23 04:30 04/12/23 04:30 04/12/23 06:36 04/12/23 04:30 04/12/23 04:30 Oxygen Delivery Method Room Air Weight: 143 lb 15.39 oz Body Mass Index (BMI) 24.7 Intake & Output: Intake and Output for Last 24 Hours 04/10/23 04/11/23 04/12/23 23:59 23:59 23:59 Intake Total 1999 / 1999 3190 / 3190 1000 / 1000 Output Total 3200 / 4200 4061 / 4061 999 / 999 Balance -1200 / -2200 -871 / -871 Medical Nutrition Assessment Dietitian: Malnutrition Criteria Met Start: 04/11/23 10:26 Freq: Status: Active Protocol: Document 04/11/23 10:26 LO (Rec: 04/11/23 10:26 LO Desktop) Nutrition Malnutrition Evidence of Malnutrition Exists Yes Malnutrition (severe): Chronic Evidenced By Suboptimal Energy Intake ( Severe),Weight Loss (Severe) Clinical Problem Chronic Disease or Condition Related Malnutrition Etiology severe related to colon cancer Signs/Symptoms as evidenced by <75% intake of estimated energy needs for >1 month, 22lbs (13.2%) weight loss in 4 months, and moderate fat/muscle loss to temporal, orbital, and clavicle regions Status Active Problem Recommendation Dietitian Recommendations/Changes ADAT to Regular diet when medically able to optimize oral intakes. Recommend [place] Instant Breakfast TID with meals when diet advances. Lab / Micro Data 04/12/23 05:30 04/12/23 05:30 Labs: Laboratory Results - last 24 hr 04/12/23 05:30: WBC 23.4 H, RBC 3.41 L, Hgb 10.1 L, Hct 31.6 L, MCV 92.7, MCH 29.6, MCHC 32.0, RDW Std Deviation 53.7 H, RDW Coeff of Julian 17.2 H, Plt Count 357, MPV 9.4, Immature Gran % (Auto) 1.500 H, Neut % (Auto) 88.5 H, Lymph % (Auto) 6.3 L, [place] % (Auto) 3.5, Eos % (Auto) 0.0, Baso % (Auto) 0.2, Absolute Neuts (auto) 20.7 H, Absolute Lymphs (auto) 1.48, Nucleated RBC % 0, Differential Comment SCANNED, Sodium 144, Potassium 3.0 L, Chloride 105, Carbon Dioxide 32.0, Anion Gap 7, BUN 20 H, Creatinine 0.56, Estim Creat Clear Calc 87.64, Est GFR (MDRD) Af Amer 140, Est GFR (MDRD) Non-Af 116, BUN/Creatinine Ratio 35.8 H, Glucose 84, Calcium 7.4 L, Magnesium 2.1 Micro: Microbiology 04/10/23 13:27 Urine, Clean Catch Urine Culture - Preliminary Mixed Gram Pos & Gram Neg Org Radiography Diagnostic Testing: Radiology Impression KUB X-Ray 04/11/23 05:55 IMPRESSION: The tip of the nasogastric tube is in the second portion of the duodenum. Electronically Signed: Yasmani Basurto MD at 9:42 EDT , KUB X-Ray 04/11/23 09:03 IMPRESSION: The tip of the nasogastric tube is in the distal portion of the stomach. Electronically Signed: Yasmani Basurto MD at 9:41 EDT , Physical Exam Const oriented x3 and no apparent distress GI soft to palpation and non-tender Assessment & Plan Assessment/Plan (1) Ileus: PLAN: Unsure as to why the patient has ileus but I think this was likely an ileus and not mechanical obstruction. Patient had 3 bowel movements overnight. Her NG did put out a lot but it is all clear and it was in the duodenum yesterday. It is likely all bile. It appears clear green in the tubing. I will remove her NG and start clear liquid diet and see if she tolerates this. If she does not tolerate I will order a small bowel follow-through. If she tolerates a diet I will advance as tolerated and likely discharge this weekend. Unsure what as to why her white count is still so high with left shift. UA was negative. Blood cultures are pending. Clyde Daley MD Pager: [facility] [address] [place] [address], [address] [place] [address] Office:
--- NOTE | 2023-04-12 09:15 | RAD_ITS ---
STUDY: X-RAY CHEST REASON FOR EXAM: Female, 62 years old. Leukocytosis TECHNIQUE: Single AP portable view of the chest. COMPARISON: Comparison is made with prior study dated January 22, 2003. FINDINGS: A right-sided Port-A-Cath are seen with the tip at the junction of the superior vena cava and right atrium. The lungs are clear and expanded. There is no demonstrated pleural abnormality. Normal size heart. Normal mediastinum and jessica. Normal visualized pulmonary arteries. There is atherosclerotic calcification of the aortic arch with tortuosity. There are diffuse degenerative changes of the visualized thoracic spine. Normal visualized ribs, clavicles, and shoulders. Hiatal hernia. RAD/Chest 1 View (Portable) IMPRESSION: Lungs are clear. Hiatal hernia. Electronically Signed: Yasmani Basurto MD at 12:19 EDT ,
[2023-04-12] MEDS: Potassium Chloride 20mEq/100mL 20 MEQ/100 ML IV.SOLN. 100 MEQ IV ×2 (09:28→10:35)
[2023-04-12 10:30] VITALS: BP 123/82; PULSE 96; RESP 16; TEMP 36.4; O2SAT 99
[2023-04-12] MEDS: Paroxetine 20 MG Tablet 40 MG PO (10:36)
[2023-04-12] MEDS: 0.9% Normal Saline (250mL Bag) 250 ML 15 ML IV (11:50)
[2023-04-12] MEDS: Vancomycin HCl 1,750 MG in 0.9% Normal Saline (500mL Bag) 500 ML 250 MG IV (13:09)
[2023-04-12] MEDS: 0.9% Saline Lock 10 ML Syringe IV ×3 (13:17→21:41)
--- NOTE | 2023-04-12 13:33 | PHA.PHARE_ITS ---
Consult Antibiotic Management Pharmacy has been consulted to manage selected antiobiotic: Vancomycin Type of Intervention Type of Consult: New start Suspected Infection Suspected Infection: Bacteremia Labs Labs: Sodium 144 mmol/L (136-145) 04/12/23 05:30 Potassium 3.0 mmol/L (3.5-5.1) L 04/12/23 05:30 Chloride 105 mmol/L (98-107) 04/12/23 05:30 Carbon Dioxide 32.0 mmol/L (21.0-32.0) 04/12/23 05:30 Anion Gap 7 (5-15) 04/12/23 05:30 BUN 20 mg/dL (7-18) H 04/12/23 05:30 Creatinine 0.56 mg/dL (0.55-1.02) 04/12/23 05:30 Est GFR (MDRD) Af Amer 140 mL/min (>60) 04/12/23 05:30 Est GFR (MDRD) Non-Af 116 mL/min (>60) 04/12/23 05:30 BUN/Creatinine Ratio 35.8 RATIO (10-20) H 04/12/23 05:30 Glucose 84 mg/dL (74-106) 04/12/23 05:30 Microbiology Microbiology: Microbiology 04/10/23 13:27 Urine, Clean Catch Urine Culture - Final Mixed Gram Pos & Gram Neg Org 04/11/23 11:25 Blood Culture (Wb) - Venous Blood Culture - Preliminary Dosing Weight Weight used for dosin.3 kg Estimated Creatinine Clearance Estimated Creatinine Clearance: 82 ML/MIN Goal Trough Goal Trough: 15-20 mcg/mL Pharmacy Plan for Drug Dosing Pharmacy Plan for Drug Dosing: Give vanc 1750mg IV x1 loading dose, then continue with 1250mg IV q12h per [facility] dosing protocol. Will check a trough before the 4th total dose. Pharmacy Service will continue to monitor and adjust dosing as required. Follow-Up Labs Follow-Up Labs: Trough: Vancomycin Date/Time Labs Ordered Labs to be done on [date and time ordered]: 04/14/23 00:30
[2023-04-12] MEDS: Ondansetron 4 MG/2 ML Vial IV (15:38)
[2023-04-12 16:07] VITALS: BP 124/80; PULSE 84; RESP 17; TEMP 36.6; O2SAT 96
[2023-04-12] MEDS: proCHLORPERazine 10 MG/2 ML Vial 5 MG IV ×2 (18:12→22:52)
[2023-04-12 21:08] VITALS: BP 136/91; PULSE 92; RESP 16; TEMP 37.3; O2SAT 95
[2023-04-12] MEDS: traZODone 50 MG Tablet PO (22:49)
[2023-04-13 01:31] VITALS: BP 144/95; PULSE 106; RESP 18; TEMP 37.1; O2SAT 99
[2023-04-13] MEDS: 0.9% Normal Saline (1000mL) 1,000 ML 150 ML IV (01:33)
[2023-04-13] MEDS: Vancomycin HCl 1,250 MG in 0.9% Normal Saline (250mL Bag) 250 ML 167 MG IV ×2 (01:33→13:05)
[2023-04-13] MEDS: Morphine 2 MG/ML Syringe IV ×4 (03:12→20:56)
[2023-04-13] MEDS: 0.9% Saline Lock 10 ML Syringe IV ×3 (03:13→22:39)
[2023-04-13 06:27] VITALS: BP 126/84; PULSE 98; RESP 16; TEMP 37.2; O2SAT 96
[2023-04-13] MEDS: Ondansetron 4 MG/2 ML Vial IV ×2 (06:28→15:02)
[2023-04-13 07:59] LABS: Absolute Lymphocyte Count 1.26 X10^3/uL (0.83-4.51); Absolute Neutrophil Count 19.4 X10^3/uL (2.0-7.7); Basophil# 0.03 X10^3/uL; Basophil% 0.1 % (0-1); Hematocrit 30.1 % (37-47); Hemoglobin 9.7 g/dL (12.0-15.0); Lymphocyte # 1.26 X10^3/ul (0.83-4.51); Lymphocyte % 5.8 % (19-41); Mean Corp Hgb Conc 32.2 g/dL (32-36); Mean Corpuscular Hgb 29.6 pg (27.0-32.0); Mean Corpuscular Volume 91.8 fL (81-99); Mean Platelet Vol. 9.4 fl (6.2-12.0); Monocyte# 0.72 X10^3/uL; Monocyte% 3.3 % (0-10); NRBC Flagged by Analyzer 0 % (0-5); Neutrophil # 19.39 X10^3/uL (2.7-7.7); Neutrophil % 89.8 % (47-70); Platelet Count 410 K/mm3 (150-450); RBC Distribution Width CV 17.4 % (11.6-14.6); RBC Distribution Width SD 54.7 fl (35.1-43.9); Red Blood Count 3.28 M/mm3 (4.2-5.4); White Blood Count 21.6 K/mm3 (4.4-11.0)
--- NOTE | 2023-04-13 08:11 | PN.HOSP_ITS ---
Reason for Visit Reason for Visit: Diagnoses Other malignant neuroendocrine tumors (04/10/23) Elevated white blood cell count, unspecified (04/10/23) Hypokalemia (04/10/23) Unspecified intestinal obstruction, unspecified as to partial versus complete obstruction (04/10/23) Ileus, unspecified (04/10/23) Constipation, unspecified (04/10/23) Nausea with vomiting, unspecified (04/10/23) Bacteremia (04/10/23) Subjective Subjective Feels well. Tolerating regular diet. Still with some abdominal pain. Still with copious amounts of stool. Objective Data Objective Data Vital Signs: Vital Signs Temp Pulse Resp BP Pulse Ox O2 Del Method 37.2 C 98 16 126/84 H 96 Room Air 04/13/23 06:27 04/13/23 06:27 04/13/23 06:27 04/13/23 06:27 04/13/23 06:27 04/13/23 06:27 Oxygen Delivery Method Room Air Weight: 65.3 kg Body Mass Index (BMI) 24.7 Intake & Output: Intake and Output for Last 24 Hours 04/11/23 04/12/23 04/13/23 23:59 23:59 23:59 Intake Total 3190 / 3190 4732.25 / 4972.25 1575 / 1575 Output Total 4061 / 4061 999 / 999 Balance -871 / -871 3733.25 / 3973.25 1575 / 1575 Medical Nutrition Assessment Dietitian: Malnutrition Criteria Met Start: 04/11/23 10:26 Freq: Status: Active Protocol: Document 04/11/23 10:26 LO (Rec: 04/11/23 10:26 LO Desktop) Nutrition Malnutrition Evidence of Malnutrition Exists Yes Malnutrition (severe): Chronic Evidenced By Suboptimal Energy Intake ( Severe),Weight Loss (Severe) Clinical Problem Chronic Disease or Condition Related Malnutrition Etiology severe related to colon cancer Signs/Symptoms as evidenced by <75% intake of estimated energy needs for >1 month, 22lbs (13.2%) weight loss in 4 months, and moderate fat/muscle loss to temporal, orbital, and clavicle regions Status Active Problem Recommendation Dietitian Recommendations/Changes ADAT to Regular diet when medically able to optimize oral intakes. Recommend [place] Instant Breakfast TID with meals when diet advances. Lab / Micro Data 04/13/23 07:29 04/13/23 07:29 Labs: Laboratory Results - last 24 hr 04/12/23 05:30: Magnesium 2.1 04/13/23 07:29: WBC 21.6 H, RBC 3.28 L, Hgb 9.7 L, Hct 30.1 L, MCV 91.8, MCH 29.6, MCHC 32.2, RDW Std Deviation 54.7 H, RDW Coeff of Julian 17.4 H, Plt Count 410, MPV 9.4, Immature Gran % (Auto) 1.000 H, Neut % (Auto) 89.8 H, Lymph % (Auto) 5.8 L, [place] % (Auto) 3.3, Eos % (Auto) 0.0, Baso % (Auto) 0.1, Absolute Neuts (auto) 19.4 H, Absolute Lymphs (auto) 1.26, Nucleated RBC % 0 Micro: Microbiology 04/11/23 09:53 Blood Culture (Wb) - Anticubital Right Blood Culture - Preliminary No growth in 48 hours. 04/10/23 13:27 Urine, Clean Catch Urine Culture - Final Mixed Gram Pos & Gram Neg Org 04/11/23 11:25 Blood Culture (Wb) - Venous Blood Culture - Preliminary Radiography Diagnostic Testing: Radiology Impression Chest X-Ray 04/12/23 09:15 IMPRESSION: Lungs are clear. Hiatal hernia. Electronically Signed: Yasmani Basurto MD at 12:19 EDT , Physical Exam Const alert and no apparent distress Resp normal respiratory effort, no retractions, no use of accessory muscles and clear to auscultation bilaterally Cardio regular rate, regular rhythm, S1 normal heart sound and S2 normal heart sound GI normal to inspection, nondistended, normoactive bowel sounds, soft to palpation and non-tender GI Narrative: distended. Assessment & Plan Assessment/Plan (1) SBO (small bowel obstruction): PLAN: Noted marked distention of her abdomen down to the anastomotic site. Etiology is small bowel obstruction versus ileus versus constipation. NG tube has been placed and the patient is feeling much better since has been placed. Supportive management with pain control and antiemetics. N.p.o. and patient will have IV fluids. If no resolution in the coming days, may need to consider starting TPN. Patient already has a port in place Surgery following and feeling that this is an ileus. (2) Bacteremia: PLAN: Prelim gram stain showing GPC in clusters from her port. Unclear if true infection. Follow up cultures. Explained to patient and family possibiliites could be contaminant to true line infection. If port infected, it may need to be removed. Vancomycin. Consult ID for further input. (3) Hypokalemia: PLAN: Likely due to gastric losses. Replace Check magnesium PLAN: Plan Chronic conditions * Stage IV colon cancer: Per oncology notes from the it was a mixed amada nocarcinoma and neuroendocrine Cran carcinoma. Patient has peritoneal and omental carcinomatosis and possible liver metastasis. Patient underwent a palliative colon resection on December 13. Patient received systemic chemotherapy with carboplatin, etoposide and atezolizumab in January. Patient had a follow-up CAT scan on the with oncology. * Hyperlipidemia: Hold statin * Depression: Currently NPO. Paroxetine and trazodone to be resumed, suction to be turned off during administration. VTE prophylaxis with SCDs. Holding off on chemical prophylaxis in case patient would require any surgery. Charges/Coding Visit Charges Inpatient E&M: 45499 Subs Hosp L2
[2023-04-13 08:17] LABS: Anion Gap 6 (5-15); BUN 17 mg/dL (7-18); BUN/Creat Ratio 27.5 RATIO (10-20); Calcium,Total 7.4 mg/dL (8.5-10.1); Chloride 106 mmol/L (98-107); Creatinine, Serum 0.62 mg/dL (0.55-1.02); EST Glomerular Filtration Rate 103 mL/min (>60); Est Glom Filt Rate - Afr Amer 125 mL/min (>60); Estimated Creatinine Clearance 79.16 ml/min; Glucose 107 mg/dL (74-106); Potassium 2.9 mmol/L (3.5-5.1); Sodium Level 140 mmol/L (136-145)
--- NOTE | 2023-04-13 08:28 | PCM.PN.SRG ---
Subjective Subjective Patient reports she is feeling improved. She is having her normal baseline pain in her upper abdomen. She denies any nausea or vomiting. She says she is having several large liquid bowel movements. Objective Data Objective Data Vital Signs: Vital Signs Temp Pulse Resp BP Pulse Ox O2 Del Method 98.9 F 98 16 126/84 H 96 Room Air 04/13/23 06:27 04/13/23 06:27 04/13/23 06:27 04/13/23 06:27 04/13/23 06:27 04/13/23 06:27 Oxygen Delivery Method Room Air Weight: 143 lb 15.39 oz Body Mass Index (BMI) 24.7 Intake & Output: Intake and Output for Last 24 Hours 04/11/23 04/12/23 04/13/23 23:59 23:59 23:59 Intake Total 3190 / 3190 4732.25 / 4972.25 1575 / 1575 Output Total 4061 / 4061 999 / 999 Balance -871 / -871 3733.25 / 3973.25 1575 / 1575 Medical Nutrition Assessment Dietitian: Malnutrition Criteria Met Start: 04/11/23 10:26 Freq: Status: Active Protocol: Document 04/11/23 10:26 LO (Rec: 04/11/23 10:26 LO Desktop) Nutrition Malnutrition Evidence of Malnutrition Exists Yes Malnutrition (severe): Chronic Evidenced By Suboptimal Energy Intake ( Severe),Weight Loss (Severe) Clinical Problem Chronic Disease or Condition Related Malnutrition Etiology severe related to colon cancer Signs/Symptoms as evidenced by <75% intake of estimated energy needs for >1 month, 22lbs (13.2%) weight loss in 4 months, and moderate fat/muscle loss to temporal, orbital, and clavicle regions Status Active Problem Recommendation Dietitian Recommendations/Changes ADAT to Regular diet when medically able to optimize oral intakes. Recommend [place] Instant Breakfast TID with meals when diet advances. Lab / Micro Data 04/13/23 07:29 04/13/23 07:29 Labs: Laboratory Results - last 24 hr 04/12/23 05:30: Magnesium 2.1 04/13/23 07:29: WBC 21.6 H, RBC 3.28 L, Hgb 9.7 L, Hct 30.1 L, MCV 91.8, MCH 29.6, MCHC 32.2, RDW Std Deviation 54.7 H, RDW Coeff of Julian 17.4 H, Plt Count 410, MPV 9.4, Immature Gran % (Auto) 1.000 H, Neut % (Auto) 89.8 H, Lymph % (Auto) 5.8 L, [place] % (Auto) 3.3, Eos % (Auto) 0.0, Baso % (Auto) 0.1, Absolute Neuts (auto) 19.4 H, Absolute Lymphs (auto) 1.26, Nucleated RBC % 0, Sodium 140, Potassium 2.9 L, Chloride 106, Carbon Dioxide 28.0, Anion Gap 6, BUN 17, Creatinine 0.62, Estim Creat Clear Calc 79.16, Est GFR (MDRD) Af Amer 125, Est GFR (MDRD) Non-Af 103, BUN/Creatinine Ratio 27.5 H, Glucose 107 H, Calcium 7.4 L Micro: Microbiology 04/11/23 09:53 Blood Culture (Wb) - Anticubital Right Blood Culture - Preliminary No growth in 48 hours. 04/10/23 13:27 Urine, Clean Catch Urine Culture - Final Mixed Gram Pos & Gram Neg Org 04/11/23 11:25 Blood Culture (Wb) - Venous Blood Culture - Preliminary Radiography Diagnostic Testing: Radiology Impression Chest X-Ray 04/12/23 09:15 IMPRESSION: Lungs are clear. Hiatal hernia. Electronically Signed: Yasmani Basurto MD at 12:19 EDT Reading Location ID and State: [facility] / [place] , Service support , Physical Exam Const oriented x3 Resp normal respiratory effort GI soft to palpation and non-tender Assessment & Plan Assessment/Plan (1) Ileus: PLAN: Patient is having several bowel movements and tolerated full liquids well yesterday. I will advance her to regular diet. (2) Bacteremia: PLAN: Patient still has a white count of 21 today. The patient had blood culture drawn from the port that did grow gram-positive cocci. Patient also had peripheral culture yesterday evening that has shown no growth. I am waiting for the cultures to speciate but the patient may have bacteremia when that is the cause of her white count and may need her port removed. Continue antibiotics at this point and await speciation. There is also a chance that this could be contamination but this would explain her white count source. Clyde Daley MD Pager: [facility] [address] [place] [address], [address] [place] [address] Office:
[2023-04-13 10:07] VITALS: BP 125/91; PULSE 97; RESP 16; TEMP 36.4; O2SAT 98
[2023-04-13] MEDS: Paroxetine 20 MG Tablet 40 MG PO (10:10)
[2023-04-13] MEDS: proCHLORPERazine 10 MG/2 ML Vial 5 MG IV ×2 (10:20→20:59)
[2023-04-13] MEDS: Ketorolac 30 MG/ML Syringe 15 MG IV ×2 (13:03→22:39)
[2023-04-13 15:00] VITALS: BP 142/93; PULSE 94; RESP 16; TEMP 36.9; O2SAT 96
[2023-04-13] MEDS: Potassium Chloride Oral Tablet 20 MEQ 40 MEQ PO ×2 (15:11→17:07)
[2023-04-13 21:00] VITALS: BP 134/90; PULSE 99; RESP 16; TEMP 36.6; O2SAT 95
[2023-04-13] MEDS: traZODone 50 MG Tablet PO (22:38)
[2023-04-14 01:09] LABS: Vancomycin, Trough Level 20.6 ug/mL (5.0-15.0)
[2023-04-14] MEDS: 0.9% Saline Lock 10 ML Syringe IV ×4 (01:20→21:37)
[2023-04-14] MEDS: Vancomycin HCl 1,250 MG in 0.9% Normal Saline (250mL Bag) 250 ML 167 MG IV (01:20)
[2023-04-14] MEDS: Morphine 2 MG/ML Syringe IV ×4 (01:20→21:37)
--- NOTE | 2023-04-14 01:45 | PCM.RX.CS ---
Consult Antibiotic Management Pharmacy has been consulted to manage selected antiobiotic: Vancomycin Type of Intervention Type of Consult: Follow-up Suspected Infection Suspected Infection: Bacteremia Labs Labs: Sodium 140 mmol/L (136-145) 04/13/23 07:29 Potassium 2.9 mmol/L (3.5-5.1) L 04/13/23 07:29 Chloride 106 mmol/L (98-107) 04/13/23 07:29 Carbon Dioxide 28.0 mmol/L (21.0-32.0) 04/13/23 07:29 Anion Gap 6 (5-15) 04/13/23 07:29 BUN 17 mg/dL (7-18) 04/13/23 07:29 Creatinine 0.62 mg/dL (0.55-1.02) 04/13/23 07:29 Est GFR (MDRD) Af Amer 125 mL/min (>60) 04/13/23 07:29 Est GFR (MDRD) Non-Af 103 mL/min (>60) 04/13/23 07:29 BUN/Creatinine Ratio 27.5 RATIO (10-20) H 04/13/23 07:29 Glucose 107 mg/dL (74-106) H 04/13/23 07:29 Vancomycin Trough 20.6 ug/mL (5.0-15.0) H 04/14/23 00:20 Microbiology Microbiology: Microbiology 04/11/23 11:25 Blood Culture (Wb) - Venous Blood Culture - Preliminary Staphylococcus species 04/11/23 09:53 Blood Culture (Wb) - Anticubital Right Blood Culture - Preliminary No growth in 48 hours. 04/10/23 13:27 Urine, Clean Catch Urine Culture - Final Mixed Gram Pos & Gram Neg Org Dosing Weight Weight used for dosin.3 kg Estimated Creatinine Clearance Estimated Creatinine Clearance: 79 Goal Trough Goal Trough: 15-20 mcg/mL Pharmacy Plan for Drug Dosing Pharmacy Plan for Drug Dosing: Vancomycin trough level of 20.6, drawn 11.25hours post-dose, was just above the target range of 15-20. With next dose will adjust down to 1000mg q12h. Will draw another trough level in four doses. Pharmacy Service will continue to monitor and adjust dosing as required. Follow-Up Labs Follow-Up Labs: Trough: Vancomycin Date/Time Labs Ordered Labs to be done on [date and time ordered]: 04/16/23 @0030
[2023-04-14 03:00] VITALS: BP 104/64; PULSE 94; RESP 16; TEMP 36.8; O2SAT 94
[2023-04-14 07:24] LABS: Absolute Lymphocyte Count 0.96 X10^3/uL (0.83-4.51); Absolute Neutrophil Count 13.7 X10^3/uL (2.0-7.7); Basophil# 0.03 X10^3/uL; Basophil% 0.2 % (0-1); Hematocrit 30.6 % (37-47); Lymphocyte # 0.96 X10^3/ul (0.83-4.51); Lymphocyte % 6.2 % (19-41); Mean Corp Hgb Conc 32.7 g/dL (32-36); Mean Corpuscular Volume 91.9 fL (81-99); Mean Platelet Vol. 9.1 fl (6.2-12.0); Monocyte# 0.66 X10^3/uL; Monocyte% 4.3 % (0-10); NRBC Flagged by Analyzer 0 % (0-5); Neutrophil # 13.67 X10^3/uL (2.7-7.7); Neutrophil % 88.3 % (47-70); Platelet Count 453 K/mm3 (150-450); RBC Distribution Width CV 17.5 % (11.6-14.6); Red Blood Count 3.33 M/mm3 (4.2-5.4); White Blood Count 15.5 K/mm3 (4.4-11.0)
[2023-04-14 07:52] LABS: Anion Gap 4 (5-15); BUN 17 mg/dL (7-18); Calcium,Total 7.6 mg/dL (8.5-10.1); Chloride 107 mmol/L (98-107); Creatinine, Serum 0.68 mg/dL (0.55-1.02); EST Glomerular Filtration Rate 92 mL/min (>60); Est Glom Filt Rate - Afr Amer 112 mL/min (>60); Estimated Creatinine Clearance 72.17 ml/min; Glucose 90 mg/dL (74-106); Potassium 3.8 mmol/L (3.5-5.1); Sodium Level 136 mmol/L (136-145)
--- NOTE | 2023-04-14 08:16 | PN.HOSP_ITS ---
Reason for Visit Reason for Visit: Diagnoses Other malignant neuroendocrine tumors (04/10/23) Elevated white blood cell count, unspecified (04/10/23) Hypokalemia (04/10/23) Unspecified intestinal obstruction, unspecified as to partial versus complete obstruction (04/10/23) Ileus, unspecified (04/10/23) Constipation, unspecified (04/10/23) Nausea with vomiting, unspecified (04/10/23) Bacteremia (04/10/23) Subjective Subjective Feels well. +BMs. Objective Data Objective Data Vital Signs: Vital Signs Temp Pulse Resp BP Pulse Ox O2 Del Method 36.8 C 94 16 104/64 94 Room Air 04/14/23 03:00 04/14/23 03:00 04/14/23 03:00 04/14/23 03:00 04/14/23 03:00 04/14/23 03:00 Oxygen Delivery Method Room Air Weight: 65.3 kg Body Mass Index (BMI) 24.7 Intake & Output: Intake and Output for Last 24 Hours 04/12/23 04/13/23 04/14/23 23:59 23:59 23:59 Intake Total 4732.25 / 4972.25 3710 / 3950 515 / 515 Output Total 999 / 999 Balance 3733.25 / 3973.25 3710 / 3950 515 / 515 Medical Nutrition Assessment Dietitian: Malnutrition Criteria Met Start: 04/11/23 10:26 Freq: Status: Active Protocol: Document 04/11/23 10:26 LO (Rec: 04/11/23 10:26 LO Desktop) Nutrition Malnutrition Evidence of Malnutrition Exists Yes Malnutrition (severe): Chronic Evidenced By Suboptimal Energy Intake ( Severe),Weight Loss (Severe) Clinical Problem Chronic Disease or Condition Related Malnutrition Etiology severe related to colon cancer Signs/Symptoms as evidenced by <75% intake of estimated energy needs for >1 month, 22lbs (13.2%) weight loss in 4 months, and moderate fat/muscle loss to temporal, orbital, and clavicle regions Status Active Problem Recommendation Dietitian Recommendations/Changes ADAT to Regular diet when medically able to optimize oral intakes. Recommend [place] Instant Breakfast TID with meals when diet advances. Lab / Micro Data 04/14/23 07:10 04/14/23 07:10 Labs: Laboratory Results - last 24 hr 04/13/23 07:29: Sodium 140, Potassium 2.9 L, Chloride 106, Carbon Dioxide 28.0, Anion Gap 6, BUN 17, Creatinine 0.62, Estim Creat Clear Calc 79.16, Est GFR (MDRD) Af Amer 125, Est GFR (MDRD) Non-Af 103, BUN/Creatinine Ratio 27.5 H, Gluc ose 107 H, Calcium 7.4 L 04/14/23 00:20: Vancomycin Trough 20.6 H 04/14/23 07:10: WBC 15.5 H, RBC 3.33 L, Hgb 10.0 L, Hct 30.6 L, MCV 91.9, MCH 30.0, MCHC 32.7, RDW Std Deviation 56.0 H, RDW Coeff of Julian 17.5 H, Plt Count 453 H, MPV 9.1, Immature Gran % (Auto) 1.000 H, Neut % (Auto) 88.3 H, Lymph % (Auto) 6.2 L, [place] % (Auto) 4.3, Eos % (Auto) 0.0, Baso % (Auto) 0.2, Absolute Neuts (auto) 13.7 H, Absolute Lymphs (auto) 0.96, Nucleated RBC % 0, Sodium 136, Potassium 3.8, Chloride 107, Carbon Dioxide 25.0, Anion Gap 4 L, BUN 17, Creatinine 0.68, Estim Creat Clear Calc 72.17, Est GFR (MDRD) Af Amer 112, Est GFR (MDRD) Non-Af 92, BUN/Creatinine Ratio 25.0 H, Glucose 90, Calcium 7.6 L Micro: Microbiology 04/11/23 11:25 Blood Culture (Wb) - Venous Blood Culture - Final Staphylococcus capitis 04/11/23 09:53 Blood Culture (Wb) - Anticubital Right Blood Culture - Prelim inary No growth in 48 hours. 04/10/23 13:27 Urine, Clean Catch Urine Culture - Final Mixed Gram Pos & Gram Neg Org Physical Exam Const alert and no apparent distress Resp normal respiratory effort, no retractions, no use of accessory muscles and clear to auscultation bilaterally Cardio regular rate, regular rhythm, S1 normal heart sound and S2 normal heart sound GI normal to inspection, nondistended, normoactive bowel sounds and soft to palpation GI Narrative: distended. non-tender. Psych affect normal Assessment & Plan Assessment/Plan (1) SBO (small bowel obstruction): PLAN: Noted marked distention of her abdomen down to the anastomotic site. Etiology is small bowel obstruction versus ileus versus constipation. NG tube has been placed and the patient is feeling much better since has been placed. Supportive management with pain control and antiemetics. N.p.o. and patient will have IV fluids. If no resolution in the coming days, may need to consider starting TPN. Patient already has a port in place Surgery following and feeling that this is an ileus. (2) Bacteremia: PLAN: Port culture on 04/11 showing Staph capitis. Other blood culture negative from the . Repeat Cx on pending. Unclear if true infection v contamination Patient aware that if the port is infected that it may have to removed. Explained to patient and family possibilities could be contaminant to true line infection. If port infected, it may need to be removed. Vancomycin. Consult ID for further input. (3) Hypokalemia: PLAN: Likely due to gastric losses. Improved after replacement Magnesium normal. 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 Patient has peritoneal and omental carcinomatosis and possible liver metastasis. Patient underwent a pa lliative colon resection on December 13. Patient received systemic chemotherapy with carboplatin, etoposide and atezolizumab in January. Patient had a follow-up CAT scan on the with oncology. * Hyperlipidemia: Hold statin * Depression: Paroxetine and trazodone to be resumed VTE prophylaxis with SCDs. Holding off on chemical prophylaxis in case patient would require any surgery. Charges/Coding Visit Charges Inpatient E&M: 31343 Subs Hosp L2
[2023-04-14 09:20] VITALS: BP 121/84; PULSE 101; RESP 16; TEMP 36.3; O2SAT 96
[2023-04-14] MEDS: Paroxetine 20 MG Tablet 40 MG PO (09:26)
--- NOTE | 2023-04-14 09:33 | PCM.PN.SRG ---
Subjective Subjective Patient reports she had some bloating yesterday but it went away after she had a bowel movement. She tolerated diet and is feeling well today. Objective Data Objective Data Vital Signs: Vital Signs Temp Pulse Resp BP Pulse Ox O2 Del Method 97.3 F L 101 H 16 121/84 H 96 Room Air 04/14/23 09:20 04/14/23 09:20 04/14/23 09:20 04/14/23 09:20 04/14/23 09:20 04/14/23 09:20 Oxygen Delivery Method Room Air Weight: 143 lb 15.39 oz Body Mass Index (BMI) 24.7 Intake & Output: Intake and Output for Last 24 Hours 04/12/23 04/13/23 04/14/23 23:59 23:59 23:59 Intake Total 4732.25 / 4972.25 3710 / 3950 515 / 515 Output Total 999 / 999 Balance 3733.25 / 3973.25 3710 / 3950 515 / 515 Medical Nutrition Assessment Dietitian: Malnutrition Criteria Met Start: 04/11/23 10:26 Freq: Status: Active Protocol: Document 04/11/23 10:26 LO (Rec: 04/11/23 10:26 LO Desktop) Nutrition Malnutrition Evidence of Malnutrition Exists Yes Malnutrition (severe): Chronic Evidenced By Suboptimal Energy Intake ( Severe),Weight Loss (Severe) Clinical Problem Chronic Disease or Condition Related Malnutrition Etiology severe related to colon cancer Signs/Symptoms as evidenced by <75% intake of estimated energy needs for >1 month, 22lbs (13.2%) weight loss in 4 months, and moderate fat/muscle loss to temporal, orbital, and clavicle regions Status Active Problem Recommendation Dietitian Recommendations/Changes ADAT to Regular diet when medically able to optimize oral intakes. Recommend [place] Instant Breakfast TID with meals when diet advances. Lab / Micro Data 04/14/23 07:10 04/14/23 07:10 Labs: Laboratory Results - last 24 hr 04/14/23 00:20: Vancomycin Trough 20.6 H 04/14/23 07:10: WBC 15.5 H, RBC 3.33 L, Hgb 10.0 L, Hct 30.6 L, MCV 91.9, MCH 30.0, MCHC 32.7, RDW Std Deviation 56.0 H, RDW Coeff of Julian 17.5 H, Plt Count 453 H, MPV 9.1, Immature Gran % (Auto) 1.000 H, Neut % (Auto) 88.3 H, Lymph % (Auto) 6.2 L, [place] % (Auto) 4.3, Eos % (Auto) 0.0, Baso % (Auto) 0.2, Absolute Neuts (auto) 13.7 H, Absolute Lymphs (auto) 0.96, Nucleated RBC % 0, Sodium 136, Potassium 3.8, Chloride 107, Carbon Dioxide 25.0, Anion Gap 4 L, BUN 17, Creatinine 0.68, Estim Creat Clear Calc 72.17, Est GFR (MDRD) Af Amer 112, Est GFR (MDRD) Non-Af 92, BUN/Creatinine Ratio 25.0 H, Glucose 90, Calcium 7.6 L Micro: Microbiology 04/11/23 11:25 Blood Culture (Wb) - Venous Blood Culture - Final Staphylococcus capitis 04/11/23 09:53 Blood Culture (Wb) - Anticubital Right Blood Culture - Preliminary No growth in 48 hours. 04/10/23 13:27 Urine, Clean Catch Urine Culture - Final Mixed Gram Pos & Gram Neg Org Physical Exam Const oriented x3 and no apparent distress Resp normal respiratory effort and clear to auscultation bilaterally GI soft to palpation and non-tender Assessment & Plan Assessment/Plan (1) Ileus: PLAN: Patient did have a little bit of bloating after her dinner last night but she said after having a bowel movement it went away and she feels great this morning. She did have some gram-positive clusters growing from the culture that came out of the port. I think the plan is to ask infectious disease if they think the port needs to be removed tomorrow. There is no sign of infection at the port site but it may be that the catheter has been colonized. The peripheral blood culture did not grow anything. Her white count is coming down on vancomycin. If the catheter needs to be removed I can remove it at the bedside tomorrow and then she can be discharged and follow-up with me for an outpatient replacement on the opposite side at a later date. Continue regular diet. Clyde Daley MD Pager: [facility] [address] [place] [address], [address] [place] [address] Office:
[2023-04-14] MEDS: Ondansetron 4 MG/2 ML Vial IV ×2 (09:35→16:47)
[2023-04-14] MEDS: Potassium Chloride Oral Tablet 20 MEQ 40 MEQ PO ×2 (09:35→17:20)
[2023-04-14] MEDS: Vancomycin IV 1,000 MG/200 ML BAG 200 MG IV (14:08)
[2023-04-14 14:12] VITALS: BP 127/89; PULSE 92; RESP 16; TEMP 36.7; O2SAT 99
[2023-04-14] MEDS: Ketorolac 30 MG/ML Syringe 15 MG IV (16:41)
[2023-04-14 20:10] VITALS: BP 140/85; PULSE 90; RESP 16; TEMP 36.4; O2SAT 96
[2023-04-14 21:26] VITALS: BP 145/95; PULSE 92; RESP 16; TEMP 36.4; O2SAT 96
[2023-04-14] MEDS: traZODone 50 MG Tablet PO (23:14)
[2023-04-15] VITALS (7 sets, daily range): BP systolic 127–150; BP diastolic 88–98; PULSE 84–100; RESP 16–18; TEMP 36.6–36.9; O2SAT 95–97
[2023-04-15] MEDS: Vancomycin IV 1,000 MG/200 ML BAG 200 MG IV ×2 (00:16→12:33)
[2023-04-15] MEDS: 0.9% Saline Lock 10 ML Syringe IV ×3 (00:16→19:10)
[2023-04-15] MEDS: Morphine 2 MG/ML Syringe IV ×3 (03:01→22:56)
[2023-04-15] MEDS: Ondansetron 4 MG/2 ML Vial IV ×2 (03:01→16:16)
[2023-04-15 06:50] LABS: Absolute Lymphocyte Count 0.99 X10^3/uL (0.83-4.51); Absolute Neutrophil Count 15.6 X10^3/uL (2.0-7.7); Basophil# 0.04 X10^3/uL; Basophil% 0.2 % (0-1); Hematocrit 32.4 % (37-47); Hemoglobin 10.4 g/dL (12.0-15.0); Lymphocyte # 0.99 X10^3/ul (0.83-4.51); Lymphocyte % 5.7 % (19-41); Mean Corp Hgb Conc 32.1 g/dL (32-36); Mean Corpuscular Hgb 29.6 pg (27.0-32.0); Mean Corpuscular Volume 92.3 fL (81-99); Mean Platelet Vol. 9.1 fl (6.2-12.0); Monocyte# 0.66 X10^3/uL; Monocyte% 3.8 % (0-10); NRBC Flagged by Analyzer 0 % (0-5); Neutrophil # 15.57 X10^3/uL (2.7-7.7); Neutrophil % 89.2 % (47-70); Platelet Count 549 K/mm3 (150-450); RBC Distribution Width CV 17.5 % (11.6-14.6); RBC Distribution Width SD 56.9 fl (35.1-43.9); Red Blood Count 3.51 M/mm3 (4.2-5.4); White Blood Count 17.5 K/mm3 (4.4-11.0)
[2023-04-15 07:31] LABS: Anion Gap 4 (5-15); BUN 17 mg/dL (7-18); BUN/Creat Ratio 26.7 RATIO (10-20); Calcium,Total 8.2 mg/dL (8.5-10.1); Chloride 105 mmol/L (98-107); Creatinine, Serum 0.64 mg/dL (0.55-1.02); EST Glomerular Filtration Rate 100 mL/min (>60); Est Glom Filt Rate - Afr Amer 121 mL/min (>60); Estimated Creatinine Clearance 76.68 ml/min; Glucose 96 mg/dL (74-106); Potassium 4.4 mmol/L (3.5-5.1); Sodium Level 136 mmol/L (136-145)
--- NOTE | 2023-04-15 08:44 | PCM.PN.SRG ---
Subjective Subjective Patient reports she had vomiting again last night but after she vomited she felt better. She also had a bowel movement after vomiting. This morning she feels hungry and does not have any nausea or increased pain. Objective Data Objective Data Vital Signs: Vital Signs Temp Pulse Resp BP Pulse Ox O2 Del Method 98.5 F 85 16 146/88 H 96 Room Air 04/15/23 03:00 04/15/23 03:00 04/15/23 03:00 04/15/23 03:00 04/15/23 03:00 04/15/23 03:00 Oxygen Delivery Method Room Air Weight: 143 lb 15.39 oz Body Mass Index (BMI) 24.7 Intake & Output: Intake and Output for Last 24 Hours 04/13/23 04/14/23 04/15/23 23:59 23:59 23:59 Intake Total 3710 / 3950 1775 / 1775 200 / 200 Balance 3710 / 3950 1775 / 1775 200 / 200 Medical Nutrition Assessment Dietitian: Malnutrition Criteria Met Start: 04/11/23 10:26 Freq: Status: Active Protocol: Document 04/11/23 10:26 LO (Rec: 04/11/23 10:26 LO Desktop) Nutrition Malnutrition Evidence of Malnutrition Exists Yes Malnutrition (severe): Chronic Evidenced By Suboptimal Energy Intake ( Severe),Weight Loss (Severe) Clinical Problem Chronic Disease or Condition Related Malnutrition Etiology severe related to colon cancer Signs/Symptoms as evidenced by <75% intake of estimated energy needs for >1 month, 22lbs (13.2%) weight loss in 4 months, and moderate fat/muscle loss to temporal, orbital, and clavicle regions Status Active Problem Recommendation Dietitian Recommendations/Changes ADAT to Regular diet when medically able to optimize oral intakes. Recommend [place] Instant Breakfast TID with meals when diet advances. Lab / Micro Data 04/15/23 06:20 04/15/23 06:20 Labs: Laboratory Results - last 24 hr 04/15/23 06:20: WBC 17.5 H, RBC 3.51 L, Hgb 10.4 L, Hct 32.4 L, MCV 92.3, MCH 29.6, MCHC 32.1, RDW Std Deviation 56.9 H, RDW Coeff of Julian 17.5 H, Plt Count 549 H, MPV 9.1, Immature Gran % (Auto) 1.100 H, Neut % (Auto) 89.2 H, Lymph % (Auto) 5.7 L, [place] % (Auto) 3.8, Eos % (Auto) 0.0, Baso % (Auto) 0.2, Absolute Neuts (auto) 15.6 H, Absolute Lymphs (auto) 0.99, Nucleated RBC % 0, Sodium 136, Potassium 4.4, Chloride 105, Carbon Dioxide 27.0, Anion Gap 4 L, BUN 17, Creatinine 0.64, Estim Creat Clear Calc 76.68, Est GFR (MDRD) Af Amer 121, Est GFR (MDRD) Non-Af 100, BUN/Creatinine Ratio 26.7 H, Glucose 96, Calcium 8.2 L Micro: Microbiology 04/12/23 12:03 Blood Culture (Wb) - Arm Left Blood Culture - Preliminary No growth in 48 hours. 04/12/23 13:15 Blood Culture (Wb) - Port Blood Culture - Preliminary No growth in 48 hours. 04/11/23 11:25 Blood Culture (Wb) - Venous Blood Culture - Final Staphylococcus capitis 04/11/23 09:53 Blood Culture (Wb) - Anticubital Right Blood Culture - Preliminary No growth in 48 hours. 04/10/23 13:27 Urine, Clean Catch Urine Culture - Final Mixed Gram Pos & Gram Neg Org Physical Exam Const oriented x3 and no apparent distress Resp normal respiratory effort GI soft to palpation Inspection: Negative for abdominal distention Palpation: tender Assessment & Plan Assessment/Plan (1) Ileus: PLAN: I am unsure if her nausea and vomiting is related to her infection, medications, or ileus. Patient is having bowel function and had a bowel movement yesterday evening. She is passing gas overnight. Her abdomen is soft and she is not having any nausea today. She will retry a regular diet today. Unsure if the port is infected or not as the culture grew contaminants. The second culture has not grown anything yet. Her white count continues to be elevated. Unsure if the nausea and vomiting may be a consequence of the chemotherapy. Clyde Daley MD Pager: [facility] [address] [place] [address], [address] [place] [phone] Office:
[2023-04-15] MEDS: Potassium Chloride Oral Tablet 20 MEQ 40 MEQ PO ×2 (09:40→16:16)
[2023-04-15] MEDS: Paroxetine 20 MG Tablet 40 MG PO (09:40)
--- NOTE | 2023-04-15 11:12 | CASEMGMT ---
Social Work LW/POA documents are both scanned into [employer]. Colby Benson is listed as pt's healthcare POA. RACQUEL Cantu
--- NOTE | 2023-04-15 14:14 | PN_ITS ---
Subjective Subjective Patient seen and examined. She says she did have some nausea and vomiting. It has also improved this morning and she was on a liquid diet and was tolerating some cereal. She had no other complaints and review of systems otherwise negative. Objective Data Objective Data Vital Signs: Vital Signs Temp Pulse Resp BP Pulse Ox O2 Del Method 98.1 F 91 18 143/93 H 97 Room Air 04/15/23 13:56 04/15/23 13:56 04/15/23 13:56 04/15/23 13:56 04/15/23 13:56 04/15/23 13:56 Oxygen Delivery Method Room Air Weight: 143 lb 15.39 oz Body Mass Index (BMI) 24.7 Intake & Output: Intake and Output for Last 24 Hours 04/13/23 04/14/23 04/15/23 23:59 23:59 23:59 Intake Total 3710 / 3950 1775 / 1775 400 / 400 Balance 3710 / 3950 1775 / 1775 400 / 400 Medical Nutrition Assessment Dietitian: Malnutrition Criteria Met Start: 04/11/23 10:26 Freq: Status: Active Protocol: Document 04/11/23 10:26 LO (Rec: 04/11/23 10:26 LO Desktop) Nutrition Malnutrition Evidence of Malnutrition Exists Yes Malnutrition (severe): Chronic Evidenced By Suboptimal Energy Intake ( Severe),Weight Loss (Severe) Clinical Problem Chronic Disease or Condition Related Malnutrition Etiology severe related to colon cancer Signs/Symptoms as evidenced by <75% intake of estimated energy needs for >1 month, 22lbs (13.2%) weight loss in 4 months, and moderate fat/muscle loss to temporal, orbital, and clavicle regions Status Active Problem Recommendation Dietitian Recommendations/Changes ADAT to Regular diet when medically able to optimize oral intakes. Recommend [place] Instant Breakfast TID with meals when diet advances. Lab / Micro Data 04/15/23 06:20 04/15/23 06:20 Labs: Laboratory Results - last 24 hr 04/15/23 06:20: WBC 17.5 H, RBC 3.51 L, Hgb 10.4 L, Hct 32.4 L, MCV 92.3, MCH 29.6, MCHC 32.1, RDW Std Deviation 56.9 H, RDW Coeff of [place] 17.5 H, Plt Count 5 49 H, MPV 9.1, Immature Gran % (Auto) 1.100 H, Neut % (Auto) 89.2 H, Lymph % (Auto) 5.7 L, [place] % (Auto) 3.8, Eos % (Auto) 0.0, Baso % (Auto) 0.2, Absolute Neuts (auto) 15.6 H, Absolute Lymphs (auto) 0.99, Nucleated RBC % 0, Sodium 136, Potassium 4.4, Chloride 105, Carbon Dioxide 27.0, Anion Gap 4 L, BUN 17, Creatinine 0.64, Estim Creat Clear Calc 76.68, Est GFR (MDRD) Af Amer 121, Est GFR (MDRD) Non-Af 100, BUN/Creatinine Ratio 26.7 H, Glucose 96, Calcium 8.2 L Micro: Microbiology 04/12/23 12:03 Blood Culture (Wb) - Arm Left Blood Culture - Preliminary No growth in 48 hours. 04/12/23 13:15 Blood Culture (Wb) - Port Blood Culture - Preliminary No growth in 48 hours. 04/11/23 11:25 Blood Culture (Wb) - Venous Blood Culture - Final Staphylococcus capitis 04/11/23 09:53 Blood Culture (Wb) - Anticubital Right Blood Culture - Preliminary No growth in 48 hours. 04/10/23 13:27 Urine, Clean Catch Urine Culture - Final Mixed Gram Pos & Gram Neg Org Physical Exam Const alert, oriented x3 and no apparent distress General Appearance: cooperative HEENT normocephalic, head/scalp atraumatic, moist oral mucous membranes and oropharynx normal Eyes PERRL and EOMs intact bilaterally Neck no lymphadenopathy and supple Lymph Lymphatic: no lymphadenopathy noted and no lymphedema noted Resp normal respiratory effort, normal air movement and clear to auscultation bi laterally Cardio regular rate, regular rhythm, S1 normal heart sound, S2 normal heart sound and no murmurs GI normal to inspection, nondistended, normoactive bowel sounds, soft to palpation, non-tender and non-distended Extremity normal capillary refill, no clubbing, cyanosis or edema and no calf tenderness General Extremity: no tenderness to palpation of joints or extremities Skin General Skin Exam: no breakdown and turgor normal Neuro CN's II-XII intact bilaterally, no focal motor deficits, no sensory deficits noted and deep tendon reflexes 2+ bilaterally Motor Exam: strength 5/5 throughout and general weakness Psych thought process normal, cooperative and affect normal Appearance: appropriate Assessment & Plan Assessment/Plan (1) Ileus: PLAN: Plan #Small bowel obstruction * did have an episode of nausea and vomiting this gaudencio bu it had resovled at ti me of review * NG tube is out * general surgery on board. * now started on liquid diet. Advance as tolerated. * * #Bacteremia * BLood culture from 04/11 with E. coli Staph capitis. Repeat blood cultures are negative. Currently on IV vancomycin. ID consulted. * #Hypokalemia: Resolved. 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 * Had palliative colon resection on December 13. Systemic chemotherapy. * Follow-up with oncology on outpatient basis. * #Thrombocytosis: likely due to malignancy. WIll monitor. Platelets today are 549. #Hyperlipidemia: On statin #Depression: On paroxetine and trazodone. * * DVT prophylaxis; SCDs Charges/Coding Visit Charges Inpatient E&M: 66368 Subs Hosp L2
--- NOTE | 2023-04-15 16:11 | PCM.CONS.GEN ---
Assessment & Plan Assessment/Plan (1) Positive blood culture: PLAN: Single (+) bcx for CoNS from port, paired cx remains neg. Repeat from periphery and port sent 04/12 prior to abx being started, and both of those are neg at 72h. Will stop vanc. Will follow as needed, thank you HPI Consult Data Date of Consult: 04/15/23 HPI Narrative Reason for Consultation: (+) bcx HPI Narrative: ROYCE SHERMAN, is a 62 F with h/o colon cancer, on chemo, presented 04/10/23 to ED with a few weeks worsening abd pain, nausea, distension, not feeling well. No fever, no issues with R chest port. Came to ED, seen by gen surg. Bcx from port (+), vanc started after repeat sets drawn 04/12. Full ROS performed and neg except as noted above. [facility] Medical History Anxiety Back pain Climacteric syndrome Dehydration Depression Encounter for chemotherapy management Encounter for management of wound VAC Former smoker Heartburn History of hiatal hernia History of stress test History of tobacco use Hoarseness Hypercholesteremia IBS (irritable bowel syndrome) Insomnia Leg cramps Malignant neoplasm of colon metastatic to peritoneum Oral candidiasis Port-A-Cath in place Primary malignant neuroendocrine neoplasm of ascending colon Rectal prolapse Umbilical hernia Wears dentures Home Medications calcium carbonate 600 mg calcium (1,500 mg) tablet 1,200 mg PO DAILY SUPPLEMENT 10/16/16 [History Last Taken 04/09/23] paroxetine HCl 40 mg tablet 40 mg PO DAILY DEPRESSION 10/16/16 [History Last Taken 04/09/23] promethazine 25 mg tablet 50 mg PO Q8H PRN NAUSEA 10/16/16 [History Last Taken 04/09/23] simvastatin 10 mg tablet 10 mg PO QHS CHOLESTEROL 10/16/16 [History Last Taken 04/09/23] trazodone 50 mg tablet 50 - 100 mg PO QHS INSOMNIA 10/16/16 [History Last Taken 04/09/23] cholecalciferol (vitamin D3) 125 mcg (5,000 unit) tablet (Vitamin D3) 10,000 unit PO DAILY SUPPLEMENT 12/14/22 [History Last Taken 04/09/23] multivitamin 1 tab PO DAILY HEALTH MAINTENANCE 12/14/22 [History Last Taken 04/09/23] omeprazole magnesium 20 mg tablet,delayed release (Prilosec OTC) 20 mg PO DAILY ACID REFLUX 01/15/23 [History Last Taken 04/09/23] lidocaine-prilocaine 2.5 %-2.5 % topical cream 1 applic topical ONCE PRN PORT ACCESS 30 days #30 grams 01/31/23 [Rx Last Taken Unknown] morphine 60 mg tablet,extended release 60 mg PO Q12H PAIN 04/09/23 [History Last Taken 04/09/23] naloxone 4 mg/actuation nasal spray 1 spray intranasal Q3M PRN OPIOID OVERDOSE 04/10/23 [History Last Taken Unknown] nystatin 100,000 unit/mL oral suspension 5 ml PO Q6H FUNGAL INFECTION 04/10/23 [History Last Taken 04/09/23] olanzapine 5 mg tablet 5 mg PO QHS NAUSEA 04/10/23 [History Last Taken 04/09/23] omega-3 fatty acids 1,000 mg capsule 1,000 mg PO DAILY SUPPLEMENT 04/10/23 [History Last Taken 04/09/23] oxycodone-acetaminophen 10 mg-325 mg tablet 1 tab PO Q4H PRN BREAKTROUGH PAIN 04/10/23 [History Last Taken 04/09/23] sennosides 8.6 mg tablet (Natural Senna Laxative) 8.6 mg PO BID CONSTIPATION 04/10/23 [History Last Taken 04/09/23] Allergy/AdvReac Type Severity Reaction Status Date / Time No Known Allergies Allergy Verified 04/09/23 11:14 Family History (Updated 04/10/23 @ 14:[address] Tino Alanis DO) Father Hypertension Mother Hypertension Grandfather Diabetes Surgical History H/O section H/O laminectomy H/O thumb surgery H/O total hysterectomy History of appendectomy History of carpal tunnel surgery History of esophagogastroduodenoscopy (EGD) History of hemicolectomy (~11/2022) History of tonsillectomy and adenoidectomy Hx of colonoscopy Social History Smoking Status: Former smoker quit date: 12/27/16 pack-years: 66 Tobacco: How many years used: 44 Electronic Cigarette Use: not used how long ago did patient quit smokin years second hand exposure: Yes quit status: quit date established Physical Exam Const alert, oriented x3 and no apparent distress General Appearance: cooperative HEENT normocephalic and head/scalp atraumatic Eyes PERRL and EOMs intact bilaterally Neck supple and No nodes Resp normal air movement and clear to auscultation bilaterally Cardio regular rate and regular rhythm GI GI Narrative: mild soreness, distended Extremity General Extremity: Negative for edema Skin no rashes or lesions noted Skin Narrative: no pain or redness over R chest port Neuro CN's II-XII intact bilaterally Medical Records Data Medical Nutrition Assessment Dietitian: Malnutrition Criteria Met Start: 04/11/23 10:26 Freq: Status: Active Protocol: Document 04/11/23 10:26 (Rec: 04/11/23 10:26 LO Desktop) Nutrition Malnutrition Evidence of Malnutrition Exists Yes Malnutrition (severe): Chronic Evidenced By Suboptimal Energy Intake ( Severe),Weight Loss (Severe) Clinical Problem Chronic Disease or Condition Related Malnutrition Etiology severe related to colon cancer Signs/Symptoms as evidenced by <75% intake of estimated energy needs for >1 month, 22lbs (13.2%) weight loss in 4 months, and moderate fat/muscle loss to temporal, orbital, and clavicle regions Status Active Problem Recommendation Dietitian Recommendations/Changes ADAT to Regular diet when medically able to optimize oral intakes. Recommend [place] Instant Breakfast TID with meals when diet advances. Lab / Micro Data Attestation: I reviewed the patient's lab results. 04/15/23 06:20 04/15/23 06:20 Labs: Laboratory Results - last 24 hr 04/15/23 06:20: WBC 17.5 H, RBC 3.51 L, Hgb 10.4 L, Hct 32.4 L, MCV 92.3, MCH 29.6, MCHC 32.1, RDW Std Deviation 56.9 H, RDW Coeff of [place] 17.5 H, Plt Count 549 H, MPV 9.1, Immature Gran % (Auto) 1.100 H, Neut % (Auto) 89.2 H, Lymph % (Auto) 5.7 L, [place] % (Auto) 3.8, Eos % (Auto) 0.0, Baso % (Auto) 0.2, Absolute Neuts (auto) 15.6 H, Absolute Lymphs (auto) 0.99, Nucleated RBC % 0, Sodium 136, Potassium 4.4, Chloride 105, Carbon Dioxide 27.0, Anion Gap 4 L, BUN 17, Creatinine 0.64, Estim Creat Clear Calc 76.68, Est GFR (MDRD) Af Amer 121, Est GFR (MDRD) Non-Af 100, BUN/Creatinine Ratio 26.7 H, Glucose 96, Calcium 8.2 L
--- NOTE | 2023-04-15 17:43 | RAD_ITS ---
STUDY: X-RAY - ABDOMEN/PELVIS REASON FOR EXAM: Female, 62 years old. distention TECHNIQUE: KUB COMPARISON: April 11, 2023. FINDINGS: Normal visualized lung bases. Multiple mildly distended loops of small bowel with little air visualized in the colon possibly representing evolving small bowel obstruction. There is no demonstrated free abdominal air. The visualized liver, spleen and kidneys are grossly normal in size and morphology. Normal soft tissue structures. Lumbar spine demonstrates degenerative changes The small bowel distention has increased since prior exam and the previously noted nasogastric tube has been removed RAD/Abdomen Single View (Portable) IMPRESSION: Findings which may be consistent with evolving small bowel obstruction. Recommend clinical correlation and follow-up studies. Electronically Signed: Matias Koch MD at 18:28 EDT ,
[2023-04-15] MEDS: Pantoprazole Sodium 40 MG in 0.9% Normal Saline (100mL MB+) 100 ML 330 MG IV (18:41)
[2023-04-15] MEDS: traZODone 50 MG Tablet PO (22:48)
[2023-04-15] MEDS: 0.9% Normal Saline (1000mL) 1,000 ML 100 ML IV (22:48)
[2023-04-16 05:10] VITALS: BP 129/77; PULSE 98; RESP 18; TEMP 36.9; O2SAT 95
[2023-04-16] MEDS: Morphine 2 MG/ML Syringe IV ×3 (05:18→15:17)
[2023-04-16] MEDS: 0.9% Saline Lock 10 ML Syringe IV (05:18)
[2023-04-16 06:40] LABS: Absolute Lymphocyte Count 0.79 X10^3/uL (0.83-4.51); Absolute Neutrophil Count 13.3 X10^3/uL (2.0-7.7); Basophil# 0.05 X10^3/uL; Basophil% 0.3 % (0-1); Eosinophil# 0.01 X10^3/uL; Eosinophils% 0.1 % (0-5); Hematocrit 32.7 % (37-47); Hemoglobin 10.5 g/dL (12.0-15.0); Lymphocyte # 0.79 X10^3/ul (0.83-4.51); Lymphocyte % 5.2 % (19-41); Mean Corp Hgb Conc 32.1 g/dL (32-36); Mean Corpuscular Hgb 29.7 pg (27.0-32.0); Mean Corpuscular Volume 92.4 fL (81-99); Mean Platelet Vol. 9.1 fl (6.2-12.0); Monocyte# 0.82 X10^3/uL; Monocyte% 5.4 % (0-10); NRBC Flagged by Analyzer 0 % (0-5); Neutrophil # 13.25 X10^3/uL (2.7-7.7); Neutrophil % 87.8 % (47-70); Platelet Count 577 K/mm3 (150-450); RBC Distribution Width CV 17.6 % (11.6-14.6); RBC Distribution Width SD 56.5 fl (35.1-43.9); Red Blood Count 3.54 M/mm3 (4.2-5.4); White Blood Count 15.1 K/mm3 (4.4-11.0)
[2023-04-16 07:22] LABS: Anion Gap 3 (5-15); BUN 13 mg/dL (7-18); BUN/Creat Ratio 21.6 RATIO (10-20); Calcium,Total 7.7 mg/dL (8.5-10.1); Chloride 107 mmol/L (98-107); EST Glomerular Filtration Rate 106 mL/min (>60); Est Glom Filt Rate - Afr Amer 129 mL/min (>60); Glucose 96 mg/dL (74-106); Potassium 4.6 mmol/L (3.5-5.1); Sodium Level 135 mmol/L (136-145)
[2023-04-16] MEDS: 0.9% Normal Saline (1000mL) 1,000 ML 100 ML IV ×2 (07:55→18:52)
--- NOTE | 2023-04-16 09:10 | PN.SURG_ITS ---
Subjective Subjective Patient had bloating once again after eating yesterday. A KUB was ordered which showed some dilated bowel. She was made n.p.o. and started on IV fluids. Objective Data Objective Data Vital Signs: Vital Signs Temp Pulse Resp BP Pulse Ox O2 Del Method 98.5 F 98 18 129/77 H 95 Room Air 04/16/23 05:10 04/16/23 05:10 04/16/23 05:10 04/16/23 05:10 04/16/23 05:10 04/16/23 05:26 Oxygen Delivery Method Room Air Weight: 143 lb 15.39 oz Body Mass Index (BMI) 24.7 Intake & Output: Intake and Output for Last 24 Hours 04/14/23 04/15/23 04/16/23 23:59 23:59 23:59 Intake Total 1775 / 1775 990 / 990 911.67 / 911.67 Output Total Balance 1775 / 1775 990 / 990 910.67 / 910.67 Medical Nutrition Assessment Dietitian: Malnutrition Criteria Met Start: 04/11/23 10:26 Freq: Status: Active Protocol: Document 04/11/23 10:26 LO (Rec: 04/11/23 10:26 LO Desktop) Nutrition Malnutrition Evidence of Malnutrition Exists Yes Malnutrition (severe): Chronic Evidenced By Suboptimal Energy Intake ( Severe),Weight Loss (Severe) Clinical Problem Chronic Disease or Condition Related Malnutrition Etiology severe related to colon cancer Signs/Symptoms as evidenced by <75% intake of estimated energy needs for >1 month, 22lbs (13.2%) weight loss in 4 months, and moderate fat/muscle loss to temporal, orbital, and clavicle regions Status Active Problem Recommendation Dietitian Recommendations/Changes ADAT to Regular diet when medically able to optimize oral intakes. Recommend [place] Instant Breakfast TID with meals when diet advances. Lab / Micro Data 04/16/23 06:03 04/16/23 06:03 Labs: Laboratory Results - last 24 hr 04/16/23 06:03: WBC 15.1 H, RBC 3.54 L, Hgb 10.5 L, Hct 32.7 L, MCV 92.4, MCH 29.7, MCHC 32.1, RDW Std Deviation 56.5 H, RDW Coeff of [place] 17.6 H, Plt Count 577 H, MPV 9.1, Immature Gran % (Auto) 1.200 H, Neut % (Auto) 87.8 H, Lymph % (Auto) 5.2 L, [place] % (Auto) 5.4, Eos % (Auto) 0.1, Baso % (Auto) 0.3, Absolute Neuts (auto) 13.3 H, Absolute Lymphs (auto) 0.79 L, Nucleated RBC % 0, Sodium 135 L, Potassium 4.6, Chloride 107, Carbon Dioxide 25.0, Anion Gap 3 L, BUN 13, Creatinine 0.60, Estim Creat Clear Calc 81.80, Est GFR (MDRD) Af Amer 129, Est GFR (MDRD) Non-Af 106, BUN/Creatinine Ratio 21.6 H, Glucose 96, Calcium 7.7 L Micro: Microbiology 04/12/23 12:03 Blood Culture (Wb) - Arm Left Blood Culture - Preliminary No growth in 48 hours. 04/12/23 13:15 Blood Culture (Wb) - Port Blood Culture - Preliminary No growth in 48 hours. 04/11/23 11:25 Blood Culture (Wb) - Venous Blood Culture - Final Staphylococcus capitis 04/11/23 09:53 Blood Culture (Wb) - Anticubital Right Blood Culture - Preliminary No growth in 48 hours. 04/10/23 13:27 Urine, Clean Catch Urine Culture - Final Mixed Gram Pos & Gram Neg Org Radiography Diagnostic Testing: Radiology Impression KUB X-Ray 04/15/23 17:43 IMPRESSION: Findings which may be consistent with evolving small bowel obstruction. Recommend clinical correlation and follow-up studies. Electronically Signed: Matias Koch MD at 18:28 EDT , Physical Exam Const oriented x3 and no apparent distress Resp normal respiratory effort GI soft to palpation Inspection: Negative for abdominal distention Assessment & Plan Assessment/Plan (1) Ileus: PLAN: The patient seems comfortable nondistended this morning. She is not having any abdominal pain. I am ordering a CT scan with oral contrast to evaluate. Clyde Daley MD Pager: [facility] [address] [place] [address] Office:
[2023-04-16 09:23] VITALS: BP 137/92; PULSE 99; RESP 16; TEMP 36.4; O2SAT 97
[2023-04-16] MEDS: Paroxetine 20 MG Tablet 40 MG PO (09:47)
[2023-04-16] MEDS: Ondansetron 4 MG/2 ML Vial IV ×2 (09:47→22:48)
--- NOTE | 2023-04-16 10:04 | CT_ITS ---
STUDY: CT ABDOMEN AND PELVIS WITH CONTRAST REASON FOR EXAM: Female, 62 years old. Bowel obstruction versus ileus. Nausea and vomiting. Decreased appetite. Increased white cell count. History of metastatic colon cancer. RADIATION DOSAGE (If Supplied By Facility): CTDIvol = ( 13.03 ) mGy, DLP = ( 907.96 ) mGycm TECHNIQUE: Transaxial images were obtained from the dome of the diaphragm to the symphysis pubis without oral contrast. Oral and amp; IV Gastrografin and amp; 100mL Isovue-300 was administered. Sagittal and coronal images were reconstructed. Individualized dose optimization techniques were used for this CT. COMPARISON: Comparison is made with prior study dated April 10, 2023. FINDINGS: Minimal bilateral pleural effusions with bibasilar atelectasis. Coronary artery calcification. Normal liver. Normal gallbladder and extrahepatic biliary system. Normal spleen. Normal pancreas. Small amount of fluid in the perisplenic region as well as in the lesser sac. Normal bilateral adrenal glands. Normal right kidney. Normal left kidney. Moderate-sized hiatal hernia. Mild distention of the stomach although this has improved as compared to prior study. Fluid distention of the distal esophagus. Persistent fluid filled distended small bowel loops down to the right lower quadrant at the anastomotic site. There is gaseous distention of the transverse colon as well as the descending colon. Gas is also seen in the rectum. Findings are suggestive of ileus pattern. The patient is status post appendectomy. Normal abdominal aorta. Normal inferior vena cava. Normal retroperitoneum. Normal urinary bladder. There is absence of the uterus consistent with a prior hysterectomy. Normal abdominal wall. There are diffuse degenerative changes of the visualized lumbar spine. CT/Abdomen/Pelvis WITH Contrast IMPRESSION: Persistent fluid-filled distended small bowel loops down to the right lower quadrant. Gas is seen throughout the colon down to the rectum. This is suggestive of an ileus pattern. Small amount of fluid is seen in the perisplenic region. Electronically Signed: Yasmani Basurto MD at 10:37 EDT ,
[2023-04-16] MEDS: Pantoprazole Sodium 40 MG in 0.9% Normal Saline (100mL MB+) 100 ML 330 MG IV (10:55)
--- NOTE | 2023-04-16 11:24 | PN_ITS ---
Subjective Subjective Patient seen and examined. She had abdominal pain and abdominal distension after she was started on a diet yesterday. She was therefore made NPO again. She had no active complaints today. Abdominal pain hasnt recurred. She denied any dizziness, lightheadedness, palpitations, dizziness, nausea or any other symptoms. Review of systems was otherwise negative. She has remained hemodynamically stable. Objective Data Objective Data Vital Signs: Vital Signs Temp Pulse Resp BP Pulse Ox O2 Del Method 97.5 F L 99 16 137/92 H 97 Room Air 04/16/23 09:23 04/16/23 09:23 04/16/23 09:23 04/16/23 09:23 04/16/23 09:23 04/16/23 09:23 Oxygen Delivery Method Room Air Weight: 143 lb 15.39 oz Body Mass Index (BMI) 24.7 Intake & Output: Intake and Output for Last 24 Hours 04/14/23 04/15/23 04/16/23 23:59 23:59 23:59 Intake Total 1775 / 1775 990 / 990 1121.67 / 1121.67 Output Total Balance 1775 / 1775 990 / 990 1120.67 / 1120.67 Medical Nutrition Assessment Dietitian: Malnutrition Criteria Met Start: 04/11/23 10:26 Freq: Status: Active Protocol: Document 04/11/23 10:26 LO (Rec: 04/11/23 10:26 LO Desktop) Nutrition Malnutrition Evidence of Malnutrition Exists Yes Malnutrition (severe): Chronic Evidenced By Suboptimal Energy Intake ( Severe),Weight Loss (Severe) Clinical Problem Chronic Disease or Condition Related Malnutrition Etiology severe related to colon cancer Signs/Symptoms as evidenced by <75% intake of estimated energy needs for >1 month, 22lbs (13.2%) weight loss in 4 months, and moderate fat/muscle loss to temporal, orbital, and clavicle regions Status Active Problem Recommendation Dietitian Recommendations/Changes ADAT to Regular diet when medically able to optimize oral intakes. Recommend [place] Instant Breakfast TID with meals when diet advances. Lab / Micro Data 04/16/23 06:03 04/16/23 06:03 Labs: Laboratory Results - last 24 hr 04/16/23 06:03: WBC 15.1 H, RBC 3.54 L, Hgb 10.5 L, Hct 32.7 L, MCV 92.4, MCH 29.7, MCHC 32.1, RDW Std Deviation 56.5 H, RDW Coeff of [place] 17.6 H, Plt Count 577 H, MPV 9.1, Immature Gran % (Auto) 1.200 H, Neut % (Auto) 87.8 H, Lymph % (Auto) 5.2 L, [place] % (Auto) 5.4, Eos % (Auto) 0.1, Baso % (Auto) 0.3, Absolute Neuts (auto) 13.3 H, Absolute Lymphs (auto) 0.79 L, Nucleated RBC % 0, Sodium 135 L, Potassium 4.6, Chloride 107, Carbon Dioxide 25.0, Anion Gap 3 L, BUN 13, Creatinine 0.60, Estim Creat Clear Calc 81.80, Est GFR (MDRD) Af Amer 129, Est GFR (MDRD) Non-Af 106, BUN/Creatinine Ratio 21.6 H, Glucose 96, Calcium 7.7 L Micro: Microbiology 04/11/23 09:53 Blood Culture (Wb) - Anticubital Right Blood Culture - Final No growth in 5 days. 04/12/23 12:03 Blood Culture (Wb) - Arm Left Blood Culture - Preliminary No growth in 48 hours. 04/12/23 13:15 Blood Culture (Wb) - Port Blood Culture - Preliminary No growth in 48 hours. 04/11/23 11:25 Blood Culture (Wb) - Venous Blood Culture - Final Staphylococcus capitis 04/10/23 13:27 Urine, Clean Catch Urine Culture - Final Mixed Gram Pos & Gram Neg Org Radiography Diagnostic Testing: Radiology Impression KUB X-Ray 04/15/23 17:43 IMPRESSION: Findings which may be consistent with evolving small bowel obstruction. Recommend clinical correlation and follow-up studies. Electronically Signed: Matias Koch MD at 18:28 EDT , Abdomen/Pelvis CT 04/16/23 10:04 IMPRESSION: Persistent fluid-filled distended small bowel loops down to the right lower quadrant. Gas is seen throughout the colon down to the rectum. This is suggestive of an ileus pattern. Small amount of fluid is seen in the perisplenic region. Electronically Signed: Yasmani Basurto MD at 10:37 EDT , Physical Exam Const alert, oriented x3 and no apparent distress General Appearance: cooperative HEENT normocephalic, head/scalp atraumatic, moist oral mucous membranes and oropharynx normal Eyes PERRL and EOMs intact bilaterally Eyes Narrative: No icterus Neck no lymphadenopathy and supple Lymph Lymphatic: no lymphadenopathy noted and no lymphedema noted Resp normal respiratory effort, normal air movement, no retractions, no use of accessory muscles and clear to auscultation bilaterally Cardio regular rate, regular rhythm, S1 normal heart sound, S2 normal heart sound and no murmurs GI normal to inspection, nondistended, normoactive bowel sounds, soft to palpation and non-tender GI Narrative: mildly distended,nontender, normal bowel sounds, no organomegaly. Auscultation: hypoactive bowel sounds Extremity normal to inspection, normal capillary refill, no clubbing, cyanosis or edema and no calf tenderness General Extremity: no tenderness to palpation of joints or extremities Skin General Skin Exam: no breakdown and turgor normal Neuro oriented x3, CN's II-XII intact bilaterally, no focal motor deficits, no sensory deficits noted and deep tendon reflexes 2+ bilaterally Sensorium / Orientation: awake and alert Motor Exam: strength 5/5 throughout and general weakness Psych thought process normal, cooperative and affect normal Appearance: appropriate Assessment & Plan Assessment/Plan (1) Ileus: PLAN: Plan #Small bowel obstruction * was started on a diet yesterday, but developed abdominal pain and distension. She was therefore made NPO again * general surgery on board. * for abdominal imaging with contrast today to evaluate. * * #Bacteremia * BLood culture from 04/11 with E. coli Staph capitis. * Repeat blood cultures are negative. * ID consulted yesterday and dc'd vancomycin. * #Hypokalemia: Resolved. 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 * Had palliative colon resection on December 13. Systemic chemotherapy. * Follow-up with oncology on outpatient basis. * #Thrombocytosis: likely due to malignancy. WIll monitor. Platelets today are further up to 577. Will monitor. #Hyperlipidemia: On statin #Depression: On paroxetine and trazodone. * * DVT prophylaxis; SCDs Charges/Coding Visit Charges Inpatient E&M: 24303 Subs Hosp L2
[2023-04-16 15:12] VITALS: BP 140/89; PULSE 84; RESP 16; TEMP 36.8; O2SAT 98
[2023-04-16] MEDS: Potassium Chloride Oral Tablet 20 MEQ 40 MEQ PO (16:24)
[2023-04-16 17:07] VITALS: BP 145/95; PULSE 105; RESP 16; TEMP 36.7; O2SAT 98
[2023-04-16 22:00] VITALS: BP 141/88; PULSE 88; RESP 17; TEMP 36.8; O2SAT 99
[2023-04-16] MEDS: traZODone 50 MG Tablet PO (22:48)
[2023-04-16] MEDS: Morphine 4 MG/ML Syringe IV (22:49)
[2023-04-17 03:50] VITALS: BP 136/81; PULSE 60; RESP 17; TEMP 36.9; O2SAT 93
[2023-04-17] MEDS: 0.9% Normal Saline (1000mL) 1,000 ML 100 ML IV (05:39)
[2023-04-17 08:01] VITALS: BP 124/95; PULSE 95; RESP 16; TEMP 36.5; O2SAT 98
--- NOTE | 2023-04-17 08:05 | PCM.PN.SRG ---
Subjective Subjective Patient is feeling well again and had flatus. She denies nausea or vomiting. She tolerated clears. Objective Data Objective Data Vital Signs: Vital Signs Temp Pulse Resp BP Pulse Ox O2 Del Method 97.7 F L 95 16 124/95 H 98 Room Air 04/17/23 08:01 04/17/23 08:01 04/17/23 08:01 04/17/23 08:01 04/17/23 08:01 04/17/23 08:01 Oxygen Delivery Method Room Air Weight: 143 lb 15.39 oz Body Mass Index (BMI) 24.7 Intake & Output: Intake and Output for Last 24 Hours 04/15/23 04/16/23 04/17/23 23:59 23:59 23:59 Intake Total 990 / 990 2690.00 / 2810.00 1240 / 1240 Output Total Balance 990 / 990 2689.00 / 2809.00 1240 / 1240 Medical Nutrition Assessment Dietitian: Malnutrition Criteria Met Start: 04/11/23 10:26 Freq: Status: Active Protocol: Document 04/11/23 10:26 LO (Rec: 04/11/23 10:26 LO Desktop) Nutrition Malnutrition Evidence of Malnutrition Exists Yes Malnutrition (severe): Chronic Evidenced By Suboptimal Energy Intake ( Severe),Weight Loss (Severe) Clinical Problem Chronic Disease or Condition Related Malnutrition Etiology severe related to colon cancer Signs/Symptoms as evidenced by <75% intake of estimated energy needs for >1 month, 22lbs (13.2%) weight loss in 4 months, and moderate fat/muscle loss to temporal, orbital, and clavicle regions Status Active Problem Recommendation Dietitian Recommendations/Changes ADAT to Regular diet when medically able to optimize oral intakes. Recommend [place] Instant Breakfast TID with meals when diet advances. Lab / Micro Data 04/16/23 06:03 04/16/23 06:03 Micro: Microbiology 04/11/23 09:53 Blood Culture (Wb) - Anticubital Right Blood Culture - Final No growth in 5 days. 04/12/23 12:03 Blood Culture (Wb) - Arm Left Blood Culture - Preliminary No growth in 48 hours. 04/12/23 13:15 Blood Culture (Wb) - Port Blood Culture - Preliminary No growth in 48 hours. 04/11/23 11:25 Blood Culture (Wb) - Venous Blood Culture - Final Staphylococcus capitis 04/10/23 13:27 Urine, Clean Catch Urine Culture - Final Mixed Gram Pos & Gram Neg Org Radiography Diagnostic Testing: Radiology Impression Abdomen/Pelvis CT 04/16/23 10:04 IMPRESSION: Persistent fluid-filled distended small bowel loops down to the right lower quadrant. Gas is seen throughout the colon down to the rectum. This is suggestive of an ileus pattern. Small amount of fluid is seen in the perisplenic region. Electronically Signed: Yasmani Basurto MD at 10:37 EDT , Physical Exam Const oriented x3 and no apparent distress Resp normal respiratory effort GI soft to palpation Inspection: Negative for abdominal distention Assessment & Plan Assessment/Plan (1) Ileus: PLAN: The patient keeps having difficulty when advance to a regular diet but I am unsure as to the etiology as she had a CT scan yesterday that showed dilated bowel throughout the abdomen consistent with ileus. There is no source for her to have an ileus. We have not been able to isolate a source of infection or cause of ileus. Patient would like to go home and slowly advance her diet from liquid. I will advance her to full liquid diet here in the hospital. I am okay with her going home and slowly advancing her diet and she will follow-up with me next week to discuss and reschedule her colonoscopy. I do not believe she has an obstruction but I did think that there is a high likelihood she might end up back in the emergency room with nausea and vomiting because I cannot find a reason for this ileus. Clyde Daley MD Pager: [facility] [address] [place] [address], [address] [place] [address] Office:
[2023-04-17] MEDS: Potassium Chloride Oral Tablet 20 MEQ 40 MEQ PO (10:15)
[2023-04-17] MEDS: Paroxetine 20 MG Tablet 40 MG PO (10:15)
[2023-04-17] MEDS: Pantoprazole Sodium 40 MG in 0.9% Normal Saline (100mL MB+) 100 ML 330 MG IV (10:49)
--- NOTE | 2023-04-17 11:04 | DS.PCM_ITS ---
Providers Date of Admission: 04/10/23 Date of Discharge: 04/17/23 Primary Care Physician: CESAR Marquez Consultations 04/10/23 15:31 Consult: General Surgery Routine Consulting Provider: Amanda Thomas Reason for Consult: SBO EMERGENT Consult: No Notified: Yes Date Notified: 04/10/23 Time Notified: 12:17 Method of Notification: ED Physician Initiated 04/13/23 13:17 Consult: Infectious Disease Routine Consulting Provider: Rick Pantoja Reason for Consult: possible bacteremia EMERGENT Consult: No Notified: Yes Date Notified: 04/15/23 Time Notified: 08:00 Method of Notification: Text Reason For Visit: SBO Diagnosis Discharge Diagnosis (1) Ileus: Status: Acute Code(s): K56.7 - Ileus, unspecified Plan #Small bowel obstruction * was started on a diet yesterday, but developed abdominal pain and distension. She was therefore made NPO again * general surgery on board. * for abdominal imaging with contrast today to evaluate. * * #Bacteremia * BLood culture from 04/11 with E. coli Staph capitis. * Repeat blood cultures are negative. * ID consulted yesterday and dc'd vancomycin. * #Hypokalemia: Resolved. 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 * Had palliative colon resection on December 13. Systemic chemotherapy. * Follow-up with oncology on outpatient basis. * #Thrombocytosis: likely due to malignancy. WIll monitor. Platelets today are further up to 577. Will monitor. #Hyperlipidemia: On statin #Depression: On paroxetine and trazodone. * * DVT prophylaxis; SCDs Medications at Discharge Home Medications calcium carbonate 600 mg calcium (1,500 mg) tablet 1,200 mg PO DAILY SUPPLEMENT 10/16/16 paroxetine HCl 40 mg tablet 40 mg PO DAILY DEPRESSION 10/16/16 promethazine 25 mg tablet 50 mg PO Q8H PRN NAUSEA 10/16/16 simvastatin 10 mg tablet 10 mg PO QHS CHOLESTEROL 10/16/16 trazodone 50 mg tablet 50 - 100 mg PO QHS INSOMNIA 10/16/16 cholecalciferol (vitamin D3) 125 mcg (5,000 unit) tablet (Vitamin D3) 10,000 unit PO DAILY SUPPLEMENT 12/14/22 multivitamin 1 tab PO DAILY HEALTH MAINTENANCE 12/14/22 omeprazole magnesium 20 mg tablet,delayed release (Prilosec OTC) 20 mg PO DAILY ACID REFLUX 01/15/23 lidocaine-prilocaine 2.5 %-2.5 % topical cream 1 applic topical ONCE PRN PORT ACCESS 30 days #30 grams 01/31/23 morphine 60 mg tablet,extended release 60 mg PO Q12H PAIN 04/09/23 naloxone 4 mg/actuation nasal spray 1 spray intranasal Q3M PRN OPIOID OVERDOSE 04/10/23 nystatin 100,000 unit/mL oral suspension 5 ml PO Q6H FUNGAL INFECTION 04/10/23 olanzapine 5 mg tablet 5 mg PO QHS NAUSEA 04/10/23 omega-3 fatty acids 1,000 mg capsule 1,000 mg PO DAILY SUPPLEMENT 04/10/23 oxycodone-acetaminophen 10 mg-325 mg tablet 1 tab PO Q4H PRN BREAKTROUGH PAIN 04/10/23 sennosides 8.6 mg tablet (Natural Senna Laxative) 8.6 mg PO BID CONSTIPATION 04/10/23 Hospital Course Operations None Procedures None Summary of Care Provided Minutes Spent on Discharge: 55 Hospital Course: Patient is a 62 y/o female with a PMH as outlined who was admitted via the ED on 04/10/2023 with a complaitn of abdominal pain, nasuea, vomiting and decreased appaetite. She had had a few small bowel movements but said his symptoms Gradually worsened. In the ED CAT scan showed small bowel obstruction down to the anastomotic site in the right lower quadrant. General surgery was consulted. Patient had a history of stage IV colon cancer which was thought to be a mixed adenocarcinoma and neuroendocrine carcinoma and had peritoneal and omental carcinomatosis as well as possible liver metastasis and had had a palliative colon resection on December 13. She had also had systemic chemotherapy with carboplatin, etoposide and at his resume in January 2023. She was admitted and managed for small bowel obstruction. General surgery was consulted. She was kept n.p.o. and hydrated with fluids. General surgery initially thought to may be due to severe constipation and recommended aggressive bowel regimen. She was eventually started on a diet. General surgery but subsequently developed abdominal pain and distention. She was made n.p.o. again. Of note, patient had had positive blood cultures which grew staph capitis. ID was consulted and she was initially started on vancomycin. She had repeat blood cultures which were negative and so vancomycin was stopped. She was started on a diet again by general surgery. She tolerated the clear liquid diet and abdominal pain did not with care. Consultation with general surgery, plan was for her to be discharged home on clear liquids and to advance very slowly to full liquids as tolerated. She is to follow-up with general surgery on outpatient basis within 1 to 2 weeks. She was also to follow-up with her primary care doctor oncology within 1 to 2 weeks. Patient seen and examined prior to discharge. She felt well and had no complaints. Review of systems otherwise negative. Labs and vitals reviewed and reconciled. She had been able to eat breakfast with no complaints. Physical Exam Const alert, oriented x3 and no apparent distress General Appearance: cooperative and comfortable HEENT normocephalic, head/scalp atraumatic, hearing grossly normal bilaterally, moist oral mucous membranes and oropharynx normal Mouth: oral and palatal mucosa normal Eyes PERRL, EOMs intact bilaterally and conjunctivae normal Eyes Narrative: No icterus Neck no lymphadenopathy and supple Lymph Lymphatic: no lymphadenopathy noted and no lymphedema noted Resp normal respiratory effort, normal air movement, no retractions, no use of accessory muscles and clear to auscultation bilaterally Cardio regular rate, regular rhythm, S1 normal heart sound, S2 normal heart sound and no murmurs GI normal to inspection, nondistended, normoactive bowel sounds, soft to palpation, non-tender and non-distended Auscultation: hypoactive bowel sounds Extremity normal to inspection, full ROM, normal capillary refill, no clubbing, cyanosis or edema and no calf tenderness General Extremity: no tenderness to palpation of joints or extremities Skin no rashes or lesions noted and no wounds General Skin Exam: no breakdown and turgor normal Neuro oriented x3, CN's II-XII intact bilaterally, moves all extremities, no focal motor deficits, no sensory deficits noted and deep tendon reflexes 2+ bilaterally Sensorium / Orientation: awake and alert Motor Exam: strength 5/5 throughout and general weakness Psych thought process normal, cooperative and affect normal Appearance: appropriate Medical Records Data Medical Nutrition Assessment Dietitian: Malnutrition Criteria Met Start: 04/11/23 10:26 Freq: Status: Active Protocol: Document 04/11/23 10:26 (Rec: 04/11/23 10:26 LO Desktop) Nutrition Malnutrition Evidence of Malnutrition Exists Yes Malnutrition (severe): Chronic Evidenced By Suboptimal Energy Intake ( Severe),Weight Loss (Severe) Clinical Problem Chronic Disease or Condition Related Malnutrition Etiology severe related to colon cancer Signs/Symptoms as evidenced by <75% intake of estimated energy needs for >1 month, 22lbs (13.2%) weight loss in 4 months, and moderate fat/muscle loss to temporal, orbital, and clavicle regions Status Active Problem Recommendation Dietitian Recommendations/Changes ADAT to Regular diet when medically able to optimize oral intakes. Recommend Emily Instant Breakfast TID with meals when diet advances. Weight / BMI Weight Weight: 143 lb 15.39 oz Body Mass Index (BMI) 24.7 ABG / Lab / Microbiology Data 04/16/23 06:03 04/16/23 06:03 Microbiology: Microbiology 04/11/23 09:53 Blood Culture (Wb) - Anticubital Right Blood Culture - Final No growth in 5 days. 04/12/23 12:03 Blood Culture (Wb) - Arm Left Blood Culture - Preliminary No growth in 48 hours. 04/12/23 13:15 Blood Culture (Wb) - Port Blood Culture - Preliminary No growth in 48 hours. 04/11/23 11:25 Blood Culture (Wb) - Venous Blood Culture - Final Staphylococcus capitis 04/10/23 13:27 Urine, Clean Catch Urine Culture - Final Mixed Gram Pos & Gram Neg Org D/C Instructions Discharge Diet: - (full liquid diet) Weight Bearing Status: Weight bearing as tolerated Call your doctor if you observe: Fever of 101 or Higher, Shortness of breath, Dizziness, Swelling in the ankles, Chest pain and Increased palpitations (irregular heartbeat) Meaningful Use Info Meaningful Use Diagnoses (Choose all that apply): None applicable Discharge Plan Admission Admit Date/Time: 04/10/23 12:15 Primary Reason for Your Visit: small bowel obstruction Attending Provider: Ludy Madison Primary Care Provider: Jasmyn Whitten Consulting Providers: Amanda Thomas; Tino Alanis; Rick Pantoja Instructions Patient Instructions: Small Bowel Obstruction Additional Instructions / Restrictions: advance diet onwards from full liquid diet very slowly as tolerated. To follow up with Dr Daley within one week for colonoscopy to be rescheduled. Discharge Orders/Prescriptions Prescriptions: Continued lidocaine-prilocaine 2.5-2.5 % cream 1 applic topical ONCE PRN (Reason: PORT ACCESS) 30 Days Qty: 30 2RF morphine 60 mg tablet extended release 60 mg PO Q12H trazodone 50 MG tablet 50 - 100 mg PO QHS simvastatin 10 MG tablet 10 mg PO QHS calcium carbonate 600 MG tablet 1,200 mg PO DAILY promethazine 25 MG tablet 50 mg PO Q8H PRN (Reason: NAUSEA ) paroxetine HCl 40 MG tablet 40 mg PO DAILY multivitamin Tablet 1 tab PO DAILY cholecalciferol (vitamin D3) [Vitamin D3] 125 mcg (5,000 unit) Tablet 10,000 unit PO DAILY omeprazole magnesium [Prilosec OTC] 20 mg Tablet,Delayed Release (Dr/Ec) 20 mg PO DAILY nystatin 100,000 unit/mL suspension 5 ml PO Q6H oxycodone-acetaminophen 10-325 mg tablet 1 tab PO Q4H PRN (Reason: BREAKTROUGH PAIN ) naloxone 4 mg/actuation spray,non-aerosol 1 spray INTRANASAL Q3M PRN (Reason: OPIOID OVERDOSE ) olanzapine 5 mg tablet 5 mg PO QHS sennosides [Natural Senna Laxative] 8.6 mg tablet 8.6 mg PO BID omega-3 fatty acids 1,000 mg capsule 1,000 mg PO DAILY Referrals / Follow Up: Clyde Daley MD [Med Staff - Active Staff] - Within 1 Week Jasmyn Whitten NP-C [Primary Care Provider] - Within 2 Weeks Disposition Disposition (needs filled in before D/C Order can be placed): Home, Self Care Charges/Coding Visit Charges Inpatient E&M: 43989 Disch Hosp >30min
--- NOTE | 2023-04-17 11:20 | CASEMGMT ---
RN CM into pt room, pt denies any homegoing needs. She states she is ready to go home and feels safe to do so.
[2023-04-17] MEDS: Ondansetron 4 MG/2 ML Vial IV (11:36)
[2023-04-17] MEDS: 0.9% Saline Lock 10 ML Syringe IV (11:52)
== END 2023-04-17 12:03 | disposition home or self-care (01) | DRG 388 ==
LOC: ED 12:24 → PCU 13:11 → MS3 04-16 16:57
PROVIDERS: Surgery; Emergency Provider Emergency Medicine; PCP Nurse Practitioner Family; Visit Provider Student in an Organized Health Care Education/Training Program
DX: K56.609 Unspecified intestinal obstruction, unspecified as to partial versus complete obstruction (principal); E43 Unspecified severe protein-calorie malnutrition; C78.6 Secondary malignant neoplasm of retroperitoneum and peritoneum; C7A.022 Malignant carcinoid tumor of the ascending colon; C78.7 Secondary malignant neoplasm of liver and intrahepatic bile duct; E78.00 Pure hypercholesterolemia, unspecified; B95.7 Other staphylococcus as the cause of diseases classified elsewhere; F32.A Depression, unspecified; E87.6 Hypokalemia; Z68.24 Body mass index [BMI] 24.0-24.9, adult; Z90.49 Acquired absence of other specified parts of digestive tract; Z98.0 Intestinal bypass and anastomosis status; Z79.899 Other long term (current) drug therapy; Z87.891 Personal history of nicotine dependence
CPT/HCPCS: 36415; 36591; 71045; 74018; 74177; 80048; 80053; 80202; 81001; 83690; 83735; 85025; 87040; 87077; 87086; 87088; 87186; 94668; 97802; 97803; 99285; J7030; J7040; J7050; Q9967; A4216; J2405

== ENCOUNTER 2023-04-20 19:35 | Inpatient (IN) | payer MEDICARE, SELFPAY ==
[2023-04-20 19:36] VITALS: BP 128/96; PULSE 117; RESP 18; TEMP 36.7; O2SAT 97; BMI 25.9
--- NOTE | 2023-04-20 19:50 | CT_ITS ---
We are attempting to reach an attending provider to discuss findings. An addendum with communication details will be sent when the communication is complete. INDICATION: Abdominal pain with nausea and vomiting, history colon cancer with peritoneal metastasis EXAMINATION: CT ABDOMEN AND PELVIS WITHOUT CONTRAST - CT Abdomen And Pelvis W/O Contrast Injection TECHNIQUE: Helically acquired images were obtained of the abdomen and pelvis without oral or IV contrast. A radiation dose optimization technique was used for this scan. IV Contrast dosage and agent: None. Oral contrast: None. COMPARISON: 04/16/2023 FINDINGS: LOWER CHEST: Lung bases are clear. Stable hiatal hernia. LIVER: Homogeneous. No focal mass. GALLBLADDER AND BILIARY TREE: No calcified gallstones. No gallbladder distension or wall edema. No intra- or extrahepatic biliary ductal dilation. PANCREAS: No focal cystic or solid mass. SPLEEN: Normal size without focal cystic or solid mass. ADRENAL GLANDS: No nodules. KIDNEYS AND URETERS: Normal renal size and position. No hydronephrosis. PERITONEUM: Scattered ascites. No free air. BOWEL: Post appendectomy. Increasing gastric and small bowel fluid distention with small bowel loops up to 6 cm. Transition to decompressed small bowel in the right lower quadrant. Large bowel decompressed. LYMPH NODES: No enlarged mesenteric or retroperitoneal lymph nodes. VESSELS: Aorta is non-dilated. URINARY BLADDER: Unremarkable. REPRODUCTIVE ORGANS: Uterus absent. ABDOMINAL WALL: Body wall anasarca. BONES: No lytic or blastic abnormality. CT/Abdomen/Pelvis without Cont IMPRESSION: Findings consistent with small bowel obstruction. Transition in the right lower quadrant. Electronically Signed: Andreas Casey MD at 21:52 EDT ,
--- NOTE | 2023-04-20 20:07 | EDS_ITS ---
HPI History of Present Illness Chief Complaint: General Illness Narrative Narrative: Patient has a history of colon cancer, she is status post resection of tumor, she had chemotherapy about 4 weeks ago, she was due about a week ago however she ended up in the hospital for an ileus. She has similar symptoms today she has nausea vomiting distended abdomen. No bowel movements recently. She is not passing gas. No fevers or chills. [facility] Medical History Anxiety Back pain Climacteric syndrome Dehydration Depression Encounter for chemotherapy management Encounter for management of wound VAC Former smoker Heartburn History of hiatal hernia History of stress test History of tobacco use Hoarseness Hypercholesteremia IBS (irritable bowel syndrome) Insomnia Leg cramps Malignant neoplasm of colon metastatic to peritoneum Oral candidiasis Port-A-Cath in place Primary malignant neuroendocrine neoplasm of ascending colon Rectal prolapse Umbilical hernia Wears dentures Home Medications calcium carbonate 600 mg calcium (1,500 mg) tablet 1,200 mg PO DAILY SUPPLEMENT 10/16/16 [History Last Taken 04/09/23] paroxetine HCl 40 mg tablet 40 mg PO DAILY DEPRESSION 10/16/16 [History Last Taken 04/09/23] promethazine 25 mg tablet 50 mg PO Q8H PRN NAUSEA 10/16/16 [History Last Taken 04/09/23] simvastatin 10 mg tablet 10 mg PO QHS CHOLESTEROL 10/16/16 [History Last Taken 04/09/23] trazodone 50 mg tablet 50 - 100 mg PO QHS INSOMNIA 10/16/16 [History Last Taken 04/09/23] cholecalciferol (vitamin D3) 125 mcg (5,000 unit) tablet (Vitamin D3) 10,000 unit PO DAILY SUPPLEMENT 12/14/22 [History Last Taken 04/09/23] multivitamin 1 tab PO DAILY HEALTH MAINTENANCE 12/14/22 [History Last Taken 04/09/23] omeprazole magnesium 20 mg tablet,delayed release (Prilosec OTC) 20 mg PO DAILY ACID REFLUX 01/15/23 [History Last Taken 04/09/23] lidocaine-prilocaine 2.5 %-2.5 % topical cream 1 applic topical ONCE PRN PORT ACCESS 30 days #30 grams 01/31/23 [Rx Last Taken Unknown] morphine 60 mg tablet,extended release 60 mg PO Q12H PAIN 04/09/23 [History Last Taken 04/09/23] naloxone 4 mg/actuation nasal spray 1 spray intranasal Q3M PRN OPIOID OVERDOSE 04/10/23 [History Last Taken Unknown] olanzapine 5 mg tablet 5 mg PO QHS NAUSEA 04/10/23 [History Last Taken 04/09/23] omega-3 fatty acids 1,000 mg capsule 1,000 mg PO DAILY SUPPLEMENT 04/10/23 [History Last Taken 04/09/23] oxycodone-acetaminophen 10 mg-325 mg tablet 1 tab PO Q4H PRN BREAKTROUGH PAIN 04/10/23 [History Last Taken 04/09/23] sennosides 8.6 mg tablet (Natural Senna Laxative) 8.6 mg PO BID CONSTIPATION 04/10/23 [History Last Taken 04/09/23] Allergy/AdvReac Type Severity Reaction Status Date / Time No Known Allergies Allergy Verified 04/20/23 19:36 Family History Father Hypertension Mother Hypertension Grandfather Diabetes Surgical History H/O section H/O laminectomy H/O thumb surgery H/O total hysterectomy History of appendectomy History of carpal tunnel surgery History of esophagogastroduodenoscopy (EGD) History of hemicolectomy (~11/2022) History of tonsillectomy and adenoidectomy Hx of colonoscopy Social History Smoking Status: Former smoker quit date: 12/27/16 pack-years: 66 Tobacco: How many years used: 44 Electronic Cigarette Use: not used how long ago did patient quit smokin years second hand exposure: Yes quit status: quit date established ROS ROS ED ROS Narrative Past medical history: Reviewed Medications: Reviewed Social history: Noncontributory Review of systems: All systems negative except as indicated General: No fever Eyes: No visual changes ENT: No upper airway congestion, normal voice Neck: No neck pain Cardiovascular: No chest pain Respiratory: No shortness of breath or cough Gastrointestinal: Abdominal pain as in HPI. Nausea and vomiting. Genitourinary: No dysuria Musculoskeletal: Denies myalgias no difficulty with ambulation Skin: No rash Neurological: No memory loss, confusion or any focal weakness EXAM Physical Exam Narrative Exam Narrative: Physical exam General: Appears chronically ill. She appears uncomfortable. Head: Normocephalic, Atraumatic, no here secondary to chemo Eyes: Conjunctiva not pale ENT: Moist mucous membranes Neck: Supple, Nontender, No lymphadenopathy Cardiovascular: Regular rate, Regular rhythm Chest wall: Right chest wall port without signs of infection Respiratory: No distress, CTA bilaterally Abdomen: Soft, distended, painful throughout the entire abdomen. I cannot appreciate any bowel sounds on auscultation. Back: Nontender, Normal Inspection. Negative for: CVA tenderness Extremities: Nontender, No edema Skin: Normal color, No rash Neurological: Alert, Normal Strength, Normal Sensation Const Vital Signs: 04/20/23 19:36 Temperature 98.1 F Temperature Source Oral Pulse Rate 117 H Respiratory Rate 18 Blood Pressure 128/96 H Blood Pressure Mean 106 Pulse Ox 97 Oxygen Delivery Method Room Air MDM MDM MDM Narrative Medical decision making narrative: Patient has leukocytosis, she is also found to have small bowel obstruction. I interpreted the CT of the abdomen myself. NG was ordered. Patient will be placed on antibiotics. She will need admission. I did give her analgesics and IV fluids. I talked to hospitalist. Lab Data Labs: Laboratory Results - last 24 hr 04/20/23 20:26 WBC 21.5 H RBC 3.84 L Hgb 11.8 L Hct 35.1 L MCV 91.4 MCH 30.7 MCHC 33.6 RDW Std Deviation 60.2 H RDW Coeff of Julian 18.6 H Plt Count 539 H MPV 9.0 Immature Gran % (Auto) 0.500 Neut % (Auto) 93.2 H Lymph % (Auto) 2.3 L [place] % (Auto) 3.6 Eos % (Auto) 0.1 Baso % (Auto) 0.3 Absolute Neuts (auto) 20.0 H Absolute Lymphs (auto) 0.50 L Nucleated RBC % 0 Differential Comment SEE COMMENT Platelet Estimate MOD INC RBC Morphology N CHROM Anisocytosis RARE Macrocytosis RARE PT 12.8 INR 1.0 Sodium 137 Potassium 3.6 Chloride 99 Carbon Dioxide 27.0 Anion Gap 11 BUN 12 Creatinine 0.62 Estim Creat Clear Calc 79.16 Est GFR (MDRD) Af Amer 126 Est GFR (MDRD) Non-Af 104 BUN/Creatinine Ratio 19.5 Glucose 100 Calcium 8.2 L Total Bilirubin 0.30 AST 13 L ALT 20 Alkaline Phosphatase 156 H Total Protein 5.6 L Albumin 2.4 L Globulin 3.2 Albumin/Globulin Ratio 0.8 L Lipase 79 H Discharge Plan Triage Chief Complaint: General Illness ED Provider: Mason Hernandez Dx/Rx/DC Orders Clinical Impression: History of colon cancer, Leukocytosis, Small bowel obstruction Prescriptions: No Action lidocaine-prilocaine 2.5-2.5 % cream 1 applic topical ONCE PRN (Reason: PORT ACCESS) 30 Days Qty: 30 2RF morphine 60 mg tablet extended release 60 mg PO Q12H trazodone 50 MG tablet 50 - 100 mg PO QHS simvastatin 10 MG tablet 10 mg PO QHS calcium carbonate 600 MG tablet 1,200 mg PO DAILY promethazine 25 MG tablet 50 mg PO Q8H PRN (Reason: NAUSEA ) paroxetine HCl 40 MG tablet 40 mg PO DAILY multivitamin Tablet 1 tab PO DAILY cholecalciferol (vitamin D3) [Vitamin D3] 125 mcg (5,000 unit) Tablet 10,000 unit PO DAILY omeprazole magnesium [Prilosec OTC] 20 mg Tablet,Delayed Release (Dr/Ec) 20 mg PO DAILY oxycodone-acetaminophen 10-325 mg tablet 1 tab PO Q4H PRN (Reason: BREAKTROUGH PAIN ) naloxone 4 mg/actuation spray,non-aerosol 1 spray INTRANASAL Q3M PRN (Reason: OPIOID OVERDOSE ) olanzapine 5 mg tablet 5 mg PO QHS sennosides [Natural Senna Laxative] 8.6 mg tablet 8.6 mg PO BID omega-3 fatty acids 1,000 mg capsule 1,000 mg PO DAILY Primary Care Provider: Jasmyn Whitten Referrals: Jasmyn Whitten, EARLY CHILDHOOD EDUCATOR AIDE-C [Primary Care Provider] - Disposition Disposition: Acute Care [facility]
[2023-04-20] MEDS: HYDROmorphone 1 MG/ML Syringe IV (20:19)
[2023-04-20] MEDS: 0.9% Normal Saline (500mL Bag) 500 ML 1000 ML IV (20:19)
[2023-04-20] MEDS: Ondansetron 4 MG/2 ML Vial IV (20:19)
[2023-04-20 20:33] LABS: Basophil# 0.06 X10^3/uL; Basophil% 0.3 % (0-1); Eosinophil# 0.02 X10^3/uL; Eosinophils% 0.1 % (0-5); Hematocrit 35.1 % (37-47); Hemoglobin 11.8 g/dL (12.0-15.0); Lymphocyte % 2.3 % (19-41); Mean Corp Hgb Conc 33.6 g/dL (32-36); Mean Corpuscular Hgb 30.7 pg (27.0-32.0); Mean Corpuscular Volume 91.4 fL (81-99); Monocyte# 0.77 X10^3/uL; Monocyte% 3.6 % (0-10); NRBC Flagged by Analyzer 0 % (0-5); Neutrophil % 93.2 % (47-70); POSITIVE DIFFERENTIAL YES; Platelet Count 539 K/mm3 (150-450); RBC Distribution Width CV 18.6 % (11.6-14.6); RBC Distribution Width SD 60.2 fl (35.1-43.9); Red Blood Count 3.84 M/mm3 (4.2-5.4); White Blood Count 21.5 K/mm3 (4.4-11.0)
[2023-04-20 20:37] LABS: Differential Indicated SCAN CRITERIA MET
[2023-04-20 20:40] LABS: Prothrombin Time (Protime)PT. 12.8 SECONDS (11.7-14.9)
[2023-04-20 20:55] LABS: ALB/GLOB Ratio 0.8 RATIO (0.9-2.4); AST(SGOT) 13 U/L (15-37); Alanine Aminotransfer ALT/SGPT 20 U/L (13-56); Albumin, Serum 2.4 g/dL (3.2-5.0); Alkaline Phosphatase 156 U/L (45-117); Anion Gap 11 (5-15); BUN 12 mg/dL (7-18); BUN/Creat Ratio 19.5 RATIO (10-20); Calcium,Total 8.2 mg/dL (8.5-10.1); Chloride 99 mmol/L (98-107); Creatinine, Serum 0.62 mg/dL (0.55-1.02); EST Glomerular Filtration Rate 104 mL/min (>60); Est Glom Filt Rate - Afr Amer 126 mL/min (>60); Estimated Creatinine Clearance 79.16 ml/min; Globulin 3.2 g/dL (2.2-4.2); Glucose 100 mg/dL (74-106); Lipase 79 U/L (13-75); Potassium 3.6 mmol/L (3.5-5.1); Protein, Total 5.6 g/dL (6.4-8.2); Sodium Level 137 mmol/L (136-145)
[2023-04-20 20:58] LABS: Anisocytosis RARE; Macrocytosis RARE; Platelet Estimate MOD INC (ADEQ); Red Cell Morphology N CHROM NORMAL (NORM C&C)
--- NOTE | 2023-04-20 21:21 | HP.PCM.HOS_ITS ---
HPI - General General Date of Admission: 04/20/23 Date of Service: 04/20/23 Chief Complaint: Small bowel obstruction HPI Narrative ROYCE SHERMAN, is a 62 F with history of stage IV colon cancer s/p right palliative hemicolectomy in 11/2022, cancer related pain, depression/anxiety and recent admission from 04/10 to 04/17 for small bowel obstruction who presented to [facility] ED on 04/20/2023 with concern for recurrent small bowel obstruction. Patient seen at bedside shortly after NG tube was placed. Has had almost 2 L of output from NG tube shortly after placement. She was also given doses of IV Zofran and IV Dilaudid for comfort prior to my interview. Patient sitting comfortably in bed and conversing normally. States she feels moderately better now in comparison to when she came in. States her symptoms oncoming and felt very similar to her symptoms prior to her previous admission on 04/10. She has not passed any gas or had any bowel movements for the last 1 to 2 days. She currently denies any fevers or chills. Has mild abdominal distention, no abdominal pain or tenderness to palpation. She denies any chest pain or shortness of breath. No other acute concerns. Vitals in ED notable for sinus tachycardia to heart rate 110-120, otherwise unremarkable. Labs notable for WBC count 21, hemoglobin 11.8, platelets 539, BMP normal, albumin 2.4, lipase 79. CT abdomen pelvis showed findings consistent with a small bowel obstruction with transition in the right lower quadrant. [facility] Medical History Anxiety Back pain Climacteric syndrome Dehydration Depression Encounter for chemotherapy management Encounter for management of wound VAC Former smoker Heartburn History of hiatal hernia History of stress test History of tobacco use Hoarseness Hypercholesteremia IBS (irritable bowel syndrome) Insomnia Leg cramps Malignant neoplasm of colon metastatic to peritoneum Oral candidiasis Port-A-Cath in place Primary malignant neuroendocrine neoplasm of ascending colon Rectal prolapse Umbilical hernia Wears dentures Home Medications calcium carbonate 600 mg calcium (1,500 mg) tablet 1,200 mg PO DAILY SUPPLEMENT 10/16/16 [History Last Taken 04/09/23] paroxetine HCl 40 mg tablet 40 mg PO DAILY DEPRESSION 10/16/16 [History Last Taken 04/09/23] promethazine 25 mg tablet 50 mg PO Q8H PRN NAUSEA 10/16/16 [History Last Taken 04/09/23] simvastatin 10 mg tablet 10 mg PO QHS CHOLESTEROL 10/16/16 [History Last Taken 04/09/23] trazodone 50 mg tablet 50 - 100 mg PO QHS INSOMNIA 10/16/16 [History Last Taken 04/09/23] cholecalciferol (vitamin D3) 125 mcg (5,000 unit) tablet (Vitamin D3) 10,000 unit PO DAILY SUPPLEMENT 12/14/22 [History Last Taken 04/09/23] multivitamin 1 tab PO DAILY HEALTH MAINTENANCE 12/14/22 [History Last Taken 04/09/23] omeprazole magnesium 20 mg tablet,delayed release (Prilosec OTC) 20 mg PO DAILY ACID REFLUX 01/15/23 [History Last Taken 04/09/23] lidocaine-prilocaine 2.5 %-2.5 % topical cream 1 applic topical ONCE PRN PORT ACCESS 30 days #30 grams 01/31/23 [Rx Last Taken Unknown] morphine 60 mg tablet,extended release 60 mg PO Q12H PAIN 04/09/23 [History Last Taken 04/09/23] naloxone 4 mg/actuation nasal spray 1 spray intranasal Q3M PRN OPIOID OVERDOSE 04/10/23 [History Last Taken Unknown] olanzapine 5 mg tablet 5 mg PO QHS NAUSEA 04/10/23 [History Last Taken 04/09/23] omega-3 fatty acids 1,000 mg capsule 1,000 mg PO DAILY SUPPLEMENT 04/10/23 [History Last Taken 04/09/23] oxycodone-acetaminophen 10 mg-325 mg tablet 1 tab PO Q4H PRN BREAKTROUGH PAIN 04/10/23 [History Last Taken 04/09/23] sennosides 8.6 mg tablet (Natural Senna Laxative) 8.6 mg PO BID CONSTIPATION 04/10/23 [History Last Taken 04/09/23] Allergy/AdvReac Type Severity Reaction Status Date / Time No Known Allergies Allergy Verified 04/20/23 19:36 Family History Father Hypertension Mother Hypertension Grandfather Diabetes Surgical History H/O section H/O laminectomy H/O thumb surgery H/O total hysterectomy History of appendectomy History of carpal tunnel surgery History of esophagogastroduodenoscopy (EGD) History of hemicolectomy (~11/2022) History of tonsillectomy and adenoidectomy Hx of colonoscopy Social History Smoking Status: Former smoker quit date: 12/27/16 pack-years: 66 Tobacco: How many years used: 44 Electronic Cigarette Use: not used how long ago did patient quit smokin years second hand exposure: Yes quit status: quit date established ROS Constitutional Constitutional: Reports fatigue; Denies change in weight, chills, fever(s) or we akness Eyes Eyes: Denies change in vision Cardiovascular Cardiovascular: Denies chest pain Respiratory/Chest Respiratory/Chest: Denies cough Gastrointestinal Gastrointestinal: Reports abdominal pain, nausea and vomiting; Denies constipation or diarrhea Vital Signs Vital Signs Vital Signs: 04/20/23 19:36 Temperature 98.1 F Temperature Source Oral Pulse Rate 117 H Respiratory Rate 18 Blood Pressure 128/96 H Blood Pressure Mean 106 Pulse Ox 97 Oxygen Delivery Method Room Air Weight Weight: 68.6 kg Body Mass Index (BMI) 25.9 Physical Exam Const alert and oriented x3 Constitutional Narrative: Pleasant female, chronically ill-appearing, sitting up in bed, conversing normally. NG tube in place, patient tolerating well, no acute distress. General Appearance: cooperative and comfortable HEENT normocephalic, head/scalp atraumatic, hearing grossly normal bilaterally, nasal mucous membranes and turbinates normal and moist oral mucous membranes Eyes PERRL, EOMs intact bilaterally and conjunctivae normal Neck full ROM, no lymphadenopathy and supple Lymph Lymphatic: no lymphadenopathy noted Chest inspection of chest normal Resp normal respiratory effort, normal air movement, no use of accessory muscles and clear to auscultation bilaterally Cardio regular rhythm, no murmurs and peripheral pulses 2+ throughout Cardio Narrative: Sinus tachycardia. GI GI Narrative: Mildly distended, soft to palpation after NG tube placement, nontender to palpation. Back/Spine normal ROM Extremity normal to inspection, full ROM and no pedal edema Skin no rashes or lesions noted Psych mental status grossly normal Results Lab / Micro Data 04/20/23 20:26 04/20/23 20:26 Labs: Laboratory Results - last 24 hr 04/20/23 20:26: WBC 21.5 H, RBC 3.84 L, Hgb 11.8 L, Hct 35.1 L, MCV 91.4, MCH 30 .7, MCHC 33.6, RDW Std Deviation 60.2 H, RDW Coeff of Julian 18.6 H, Plt Count 539 H, MPV 9.0, Immature Gran % (Auto) 0.500, Neut % (Auto) 93.2 H, Lymph % (Auto) 2.3 L, [place] % (Auto) 3.6, Eos % (Auto) 0.1, Baso % (Auto) 0.3, Absolute Neuts (auto) 20.0 H, Absolute Lymphs (auto) 0.50 L, Nucleated RBC % 0, Differential Comment SEE COMMENT, Platelet Estimate MOD INC, RBC Morphology N CHROM, Anisocytosis RARE, Macrocytosis RARE, PT 12.8, INR 1.0, Sodium 137, Potassium 3.6, Chloride 99, Carbon Dioxide 27.0, Anion Gap 11, BUN 12, Creatinine 0.62, Estim Creat Clear Calc 79.16, Est GFR (MDRD) Af Amer 126, Est GFR (MDRD) Non-Af 104, BUN/Creatinine Ratio 19.5, Glucose 100, Calcium 8.2 L, Total Bilirubin 0.30, AST 13 L, ALT 20, Alkaline Phosphatase 156 H, Total Protein 5.6 L, Albumin 2.4 L, Globulin 3.2, Albumin/Globulin Ratio 0.8 L, Lipase 79 H Assessment & Plan Assessment/Plan (1) Small bowel obstruction: PLAN: Plan Patient is a 62-year-old female with history of stage IV colon cancer s/p right palliative hemicolectomy in 11/2022, cancer related pain, depression/anxiety and recent admission from 04/10 to 04/17 for small bowel obstruction who presented to [facility] ED on 04/20/2023 with concern for recurrent small bowel obstruction. 1. Small bowel obstruction Presented with nausea, vomiting and worsening distention of her abdomen. No bowel movements recently and not passing gas. CT abdomen pelvis shows findings consistent with a small bowel obstruction with transition in the right lower quadrant. WBC count of 21. NG tube placed in the ED, with a significant amount of dark bilious output within the first few minutes. Given 1 dose of Zosyn in the ED. ? Admit under inpatient status to [facility]. General surgery consulted. NG tube to suction. NPO. IV Zofran as needed and IV Dilaudid as needed for symptom control. Maintenance IV fluids. Continue Zosyn for empiric treatment of intra- abdominal infection. Unable to give home p.o. meds at this time, will defer to surgery on timing of being able to give p.o. medications. 2. Stage IV colon cancer, cancer related pain Initially presented with small bowel obstruction in November 2022. S/p right palliative hemicolectomy at that time. 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 Follows with Dr. Johns with oncology, last office visit on 04/09/2023. Has completed 3 rounds of chemotherapy treatment to this point, last round on 03/26. Home pain medication regimen of morphine 60 mg every 12 hours scheduled, Percocet every 4 hours as needed for breakthrough pain, olanzapine 5 mg at night as needed for nausea and promethazine 50 mg every 8 hours as needed for nausea. ? Restart all home medications here as able once able to take p.o. medications. No specific oncology needs while inpatient. Continue outpatient follow-up. 3. History of constipation ? On home regimen of senna twice daily, Colace twice daily and MiraLAX as needed. Holding these in setting of small bowel obstruction. Will need to restart on discharge for bowel regulation going home. Chronic medical conditions: ? Depression/anxiety: Home meds of paroxetine 40 mg daily, trazodone 50 to 100 mg at night as needed. Restart as able. ? Hyperlipidemia: Restart home simvastatin as able. DVT prophylaxis: Lovenox CODE STATUS: DNR CCA, DO NOT INTUBATE Expected disposition: TBD Total clinical time spent by myself addressing the patient's medical issues, reviewing all the data, and collaborating with patient's care team: 55 minutes. Charges/Coding Visit Charges Inpatient E&M: 93937 Init Hosp L2
[2023-04-20] MEDS: Oxymetazoline 0.05% 1 SPRAY SPRAY.BTL 2 SPRAY NASAL (21:25)
--- NOTE | 2023-04-20 21:35 | RAD_ITS ---
STUDY: X-RAY - ABDOMEN/PELVIS REASON FOR EXAM: Female, 62 years old. NG Insertion TECHNIQUE: Single AP view of the low chest, abdomen abdomen COMPARISON: CT abdomen and pelvis April 20, 2023 FINDINGS: There is a right-sided Port-A-Cath tip is in the spur vena cava. An NG tube is present the tip is in the stomach. There is partially visualized gaseous distended loop of colon in the upper abdomen. There is no demonstrated free abdominal air. The liver spleen and kidneys are mostly obscured on this study.. Normal soft tissue structures. There are diffuse degenerative changes of the visualized lumbar spine. RAD/Abdomen Single View (Portable) IMPRESSION: NG tube in satisfactory position lower lobe atelectasis. Partially visualized right-sided Port-A-Cath tip in the superior vena cava. Electronically Signed: Leandra Holder MD at 22:16 EDT ,
[2023-04-20 21:45] VITALS: BP 142/102; PULSE 112; RESP 12; TEMP 36.4; O2SAT 94
[2023-04-20] MEDS: Piperacil/Tazobactam 4.5 GM in 0.9% Normal Saline (100mL MB+) 100 ML IV (21:57)
[2023-04-20 22:00] VITALS: BP 130/96; PULSE 109; RESP 14; O2SAT 94
[2023-04-20 23:00] VITALS: BP 137/90; PULSE 110; RESP 11; O2SAT 97
[2023-04-20 23:36] VITALS: BMI 24.2
[2023-04-21 00:44] VITALS: BP 130/85; PULSE 105; RESP 17; TEMP 36.4; O2SAT 96
[2023-04-21] MEDS: 0.9% Saline Lock 10 ML Syringe IV ×5 (01:34→22:55)
[2023-04-21] MEDS: HYDROmorphone 1 MG/ML Syringe IV ×4 (01:35→22:55)
[2023-04-21] MEDS: Ondansetron 4 MG/2 ML Vial IV ×2 (01:37→15:00)
[2023-04-21] MEDS: Lactated Ringers 1,000 ML 100 ML IV (01:38)
[2023-04-21] MEDS: 0.9% Normal Saline (250mL Bag) 250 ML 15 ML IV (05:15)
[2023-04-21] MEDS: Piperacil/Tazobactam 3.375 GM in 0.9% Normal Saline (50mL MB+) 50 ML IV ×3 (05:15→22:12)
[2023-04-21 05:45] VITALS: BP 128/83; PULSE 104; RESP 18; TEMP 36.5; O2SAT 95
[2023-04-21 07:39] VITALS: O2SAT 95
[2023-04-21 08:13] VITALS: BP 125/85; PULSE 100; RESP 16; TEMP 36.9; O2SAT 95
--- NOTE | 2023-04-21 09:05 | CON.PCM.SX_ITS ---
Assessment & Plan Assessment/Plan (1) Small bowel obstruction: PLAN: This is a 62-year-old female with a history of stage IV colon cancer who presents for her third admission in a month's time due to complaints of abdominal discomfort, distention, and inability to tolerate a diet. She was previously evaluated for an ileus and was discharged just 4 days prior to this admission on 04/16/2023. On exam today patient is more comfortable following aspiration of 3 L of fluid from her nasogastric tube but she and her both expressed frustration about the recurrent admissions and patient states she would just like to be fixed. I held a lengthy conversation with patient and her - reviewing her most recent CT imaging during the course of this conversation- regarding her current status. I shared with her radiology's in terpretation that she had evidence of a small bowel obstruction and that this does seem to be the more likely scenario that she would have a partial small bowel obstruction. She and her repeatedly mention that they are ready to just have a bag. I readily acknowledged that I could not be sure that her obstruction was not due to adhesions, but did relate that there is a strong suspicion this could be due to progression of her cancer despite the chemotherapy she has been administered. I shared with them that under such a scenario it would be impossible to guarantee that a similar obstruction would not recur in short order more proximally if an ileostomy were performed. I also related that surgery is well-established to lead to further cancer growth due to interruptions of chemotherapy and providing a pro-inflammatory environment. Based on these facts I suggested that surgical options could potentially include possible diverting ileostomy versus a decompressive gastrostomy. I tried to stress that these would be palliative in nature as a means of trying to improve her quality of life. When discussing these interventions, I shared that her severe distention would preclude any minimally invasive option to relieving her obstruction at this time and would recommend further nasogastric decompression. Along with this I suggested we perform a small bowel follow-through to to try to better define where and how her small bowel may narrow distally. Patient and her appeared appreciative for this information and I suggested they discuss things further before any decision was made. Given her receptiveness of study and the small bowel, I have initiated a small bowel follow-through today. ? Follow-up small bowel follow-through initiated today (maintain aspiration precautions and patient off nasogastric tube suction unless she becomes severely nauseous) ? Patient okay to receive hard candy but would discourage any red candies HPI Consult Data Date of Consult: 04/21/23 HPI Narrative Reason for Consultation: Recurrent small bowel obstruction versus ileus HPI Narrative: ROYCE BENSON, is a 62 F, well-known to this service for a history of metastatic colon cancer, who presents just 4 days after her last hospital admission with complaints of abdominal pain, bloating, and nausea/vomiting. She states that she left the hospital on 04/16/2023 feeling rather well and was having some bowel movements but these were loose in character. Then yesterday morning she states that she felt like she was starving so she took a [place] instant breakfast and thereafter began to feel poorly with abdominal pain, bloating, nausea, and vomiting. Upon her arrival to the emergency department evening CBC showed a leukocytosis of greater than 20,000. CT imaging of the abdomen pelvis was performed showing severe distention of the stomach and proximal small bowel. Emergency medicine had a nasogastric tube placed with immediate output of over 3 L of succus. This morning patient states that she does feel somewhat better but she also quickly states I just want to do what ever to be fixed and adds that she does not consider this good quality of life. Mrs. Benson has a history of a palliative right hemicolectomy with Dr. Daley on 12/13/2022. She reports that she is now through 3 rounds of chemotherapy prescribed by oncology and was due for her fourth round last week when she was admitted. She also confirms that these admissions have interfered with scheduling of a repeat colonoscopy planned by Dr. Daley. ON LICENSE OF [facility] Medical History Anxiety Back pain Climacteric syndrome Dehydration Depression Encounter for chemotherapy management Encounter for management of wound VAC Former smoker Heartburn History of hiatal hernia History of stress test History of tobacco use Hoarseness Hypercholesteremia IBS (irritable bowel syndrome) Insomnia Leg cramps Malignant neoplasm of colon metastatic to peritoneum Oral candidiasis Port-A-Cath in place Primary malignant neuroendocrine neoplasm of ascending colon Rectal prolapse Umbilical hernia Wears dentures Home Medications calcium carbonate 600 mg calcium (1,500 mg) tablet 1,200 mg PO DAILY SUPPLEMENT 10/16/16 [History Last Taken 04/09/23] paroxetine HCl 40 mg tablet 40 mg PO DAILY DEPRESSION 10/16/16 [History Last Taken 04/09/23] promethazine 25 mg tablet 50 mg PO Q8H PRN NAUSEA 10/16/16 [History Last Taken 04/09/23] simvastatin 10 mg tablet 10 mg PO QHS CHOLESTEROL 10/16/16 [History Last Taken 04/09/23] trazodone 50 mg tablet 50 - 100 mg PO QHS INSOMNIA 10/16/16 [History Last Taken 04/09/23] cholecalciferol (vitamin D3) 125 mcg (5,000 unit) tablet (Vitamin D3) 10,000 unit PO DAILY SUPPLEMENT 12/14/22 [History Last Taken 04/09/23] multivitamin 1 tab PO DAILY HEALTH MAINTENANCE 12/14/22 [History Last Taken 04/09/23] omeprazole magnesium 20 mg tablet,delayed release (Prilosec OTC) 20 mg PO DAILY ACID REFLUX 01/15/23 [History Last Taken 04/09/23] lidocaine-prilocaine 2.5 %-2.5 % topical cream 1 applic topical ONCE PRN PORT ACCESS 30 days #30 grams 01/31/23 [Rx Last Taken Unknown] morphine 60 mg tablet,extended release 60 mg PO Q12H PAIN 04/09/23 [History Last Taken 04/09/23] naloxone 4 mg/actuation nasal spray 1 spray intranasal Q3M PRN OPIOID OVERDOSE 04/10/23 [History Last Taken Unknown] olanzapine 5 mg tablet 5 mg PO QHS NAUSEA 04/10/23 [History Last Taken 04/09/23] omega-3 fatty acids 1,000 mg capsule 1,000 mg PO DAILY SUPPLEMENT 04/10/23 [His tory Last Taken 04/09/23] oxycodone-acetaminophen 10 mg-325 mg tablet 1 tab PO Q4H PRN BREAKTROUGH PAIN 04/10/23 [History Last Taken 04/09/23] sennosides 8.6 mg tablet (Natural Senna Laxative) 8.6 mg PO BID CONSTIPATION 04/10/23 [History Last Taken 04/09/23] Allergy/AdvReac Type Severity Reaction Status Date / Time No Known Allergies Allergy Verified 04/20/23 19:36 Family History Father Hypertension Mother Hypertension Grandfather Diabetes Surgical History H/O section H/O laminectomy H/O thumb surgery H/O total hysterectomy History of appendectomy History of carpal tunnel surgery History of esophagogastroduodenoscopy (EGD) History of hemicolectomy (~11/2022) History of tonsillectomy and adenoidectomy Hx of colonoscopy Social History Smoking Status: Former smoker quit date: 12/27/16 pack-years: 66 Tobacco: How many years used: 44 Electronic Cigarette Use: not used how long ago did patient quit smokin years second hand exposure: Yes quit status: quit date established Physical Exam Const alert and oriented x3 Constitutional Narrative: Appears irritated/frustrated General Appearance: cooperative Resp normal respiratory effort GI GI Narrative: Nasogastric tube in place draining bilious fluid. Scarring from prior laparotomy. Distended, soft, mildly tender to palpation across the epigastrium Lab / Micro Data 04/20/23 20:26 04/20/23 20:26 Labs: Laboratory Results - last 24 hr 04/20/23 20:26: WBC 21.5 H, RBC 3.84 L, Hgb 11.8 L, Hct 35.1 L, MCV 91.4, MCH 30.7, MCHC 33.6, RDW Std Deviation 60.2 H, RDW Coeff of Julian 18.6 H, Plt Count 539 H, MPV 9.0, Immature Gran % (Auto) 0.500, Neut % (Auto) 93.2 H, Lymph % (Auto) 2.3 L, [place] % (Auto) 3.6, Eos % (Auto) 0.1, Baso % (Auto) 0.3, Absolute Neuts (auto) 20.0 H, Absolute Lymphs (auto) 0.50 L, Nucleated RBC % 0, Di fferential Comment SEE COMMENT, Platelet Estimate MOD INC, RBC Morphology N CHROM, Anisocytosis RARE, Macrocytosis RARE, PT 12.8, INR 1.0, Sodium 137, Potassium 3.6, Chloride 99, Carbon Dioxide 27.0, Anion Gap 11, BUN 12, Creatinine 0.62, Estim Creat Clear Calc 79.16, Est GFR (MDRD) Af Amer 126, Est GFR (MDRD) Non-Af 104, BUN/Creatinine Ratio 19.5, Glucose 100, Calcium 8.2 L, Total Bilirubin 0.30, AST 13 L, ALT 20, Alkaline Phosphatase 156 H, Total Protein 5.6 L, Albumin 2.4 L, Globulin 3.2, Albumin/Globulin Ratio 0.8 L, Lipase 79 H Radiology Impression Abdomen/Pelvis CT 04/20/23 19:50 IMPRESSION: Findings consistent with small bowel obstruction. Transition in the right lower quadrant. Electronically Signed: Andreas Casey MD at 21:52 EDT , ADDENDUM: 04/20/232221 IMPRESSION: Findings consistent with small bowel obstruction. Transition in the right lower quadrant. N.B. : The above Results were Read Back by Andreas Casey MD to Lenard Messina MD, and understanding confirmed on 04/20/2023 22:15:35 (ET). Electronically Signed: Andreas Casey MD at 21:52 EDT , KUB X-Ray 04/20/23 21:35 IMPRESSION: NG tube in satisfactory position lower lobe atelectasis. Partially visualized right-sided Port-A-Cath tip in the superior vena cava. Electronically Signed: Leandra Holder MD at 22:16 EDT , Charges/Coding Visit Charges Inpatient E&M: 77504 Subs Hosp L2
--- NOTE | 2023-04-21 10:58 | PCM.PN.HOSP ---
Reason for Visit Reason for Visit: Diagnoses Unspecified intestinal obstruction, unspecified as to partial versus complete obstruction (04/20/23) Objective Data Objective Data Vital Signs: Vital Signs Temp Pulse Resp BP Pulse Ox O2 Del Method 98.4 F 100 16 125/85 H 95 Room Air 04/21/23 08:13 04/21/23 08:13 04/21/23 08:13 04/21/23 08:13 04/21/23 08:13 04/21/23 08:13 Oxygen Delivery Method Room Air Weight: 141 lb 1.533 oz Body Mass Index (BMI) 24.2 Intake & Output: Intake and Output for Last 24 Hours 04/19/23 04/20/23 04/21/23 23:59 23:59 23:59 Intake Total 600 / 600 40 / 40 Output Total 3100 / 3100 350 / 350 Balance -2500 / -2500 -310 / -310 Lab / Micro Data 04/20/23 20:26 04/20/23 20:26 Labs: Laboratory Results - last 24 hr 04/20/23 20:26: WBC 21.5 H, RBC 3.84 L, Hgb 11.8 L, Hct 35.1 L, MCV 91.4, MCH 30.7, MCHC 33.6, RDW Std Deviation 60.2 H, RDW Coeff of Julian 18.6 H, Plt Count 539 H, MPV 9.0, Immature Gran % (Auto) 0.500, Neut % (Auto) 93.2 H, Lymph % (Auto) 2.3 L, [place] % (Auto) 3.6, Eos % (Auto) 0.1, Baso % (Auto) 0.3, Absolute Neuts (auto) 20.0 H, Absolute Lymphs (auto) 0.50 L, Nucleated RBC % 0, Differential Comment SEE COMMENT, Platelet Estimate MOD INC, RBC Morphology N CHROM, Anisocytosis RARE, Macrocytosis RARE, PT 12.8, INR 1.0, Sodium 137, Potassium 3.6, Chloride 99, Carbon Dioxide 27.0, Anion Gap 11, BUN 12, Creatinine 0.62, Estim Creat Clear Calc 79.16, Est GFR (MDRD) Af Amer 126, Est GFR (MDRD) Non-Af 104, BUN/Creatinine Ratio 19.5, Glucose 100, Calcium 8.2 L, Total Bilirubin 0.30, AST 13 L, ALT 20, Alkaline Phosphatase 156 H, Total Protein 5.6 L, Albumin 2.4 L, Globulin 3.2, Albumin/Globulin Ratio 0.8 L, Lipase 79 H Radiography Diagnostic Testing: Radiology Impression Abdomen/Pelvis CT 04/20/23 19:50 IMPRESSION: Findings consistent with small bowel obstruction. Transition in the right lower quadrant. Electronically Signed: Andreas Casey MD at 21:52 EDT , ADDENDUM: 04/20/232221 IMPRESSION: Findings consistent with small bowel obstruction. Transition in the right lower quadrant. N.B. : The above Results were Read Back by Andreas Casey MD to Lenard Messina MD, and understanding confirmed on 04/20/2023 22:15:35 (ET). Electronically Signed: Andreas Casey MD at 21:52 EDT , KUB X-Ray 04/20/23 21:35 IMPRESSION: NG tube in satisfactory position lower lobe atelectasis. Partially visualized right-sided Port-A-Cath tip in the superior vena cava. Electronically Signed: Leandra Holder MD at 22:16 EDT , Physical Exam Narrative Presented with nausea, vomiting and worsening distention of her abdomen. No bowel movements recently and not passing gas. CT abdomen pelvis shows findings consistent with a small bowel obstruction with transition in the right lower quadrant. Physical exam General: Alert, Oriented x3, Cooperative, BMI 22 kg/m? HEENT: Atraumatic, PERRLA, EOMI, Normocephalic Oral: No Gingival or Mucosal Lesions/ Ulcerations Neck: Supple, No JVD, Negative Carotid Bruits Lungs: Air entry diminished in bilateral lung bases. No crepitation/rhonchi Cardiovascular: Regular rate, Regular Rhythm, Normal S1, Normal S2, No murmurs Abdomen: Multiple surgical scar. Bowel Sounds absent, Soft, tenderness and distention mainly in upper abdomen. Mild guarding but no rigidity. : No renal angle tenderness. No suprapubic tenderness. Extremities: No edema, Capillary Refill Less than 3 Seconds Skin: No rashes, No breakdown Musculoskeletal: No Tenderness to Palpation of Joints or Extremities. Mild to moderate chronic atrophy of muscles of extremities loss of subcutaneous fat. Neurological: Cranial nerves II-XII grossly intact, DTR 2+/4. No acute focal neurological deficit. Psych/Mental Status: Normal Affect, Appropriate. Assessment & Plan Assessment/Plan (1) Small bowel obstruction: PLAN: Plan Patient is a 62-year-old female with history of stage IV colon cancer s/p right palliative hemicolectomy in 11/2022, cancer related pain, depression/anxiety and recent admission from 04/10 to 04/17 for small bowel obstruction who presented to [facility] ED on 04/20/2023 with concern for recurrent small bowel obstruction. 1. Small bowel obstruction: [facility] General surgery consulted. NG tube to suction. NPO. IV Zofran as needed and IV Dilaudid as needed for symptom control. Maintenance IV fluids. Continue Zosyn for empiric treatment of intra-abdominal infection. Currently NPO. Discussed with the surgeon. CT shows severe distention of his stomach and proximal small bowel. Patient still has nausea bloating and abdominal distention. Probably will need operative intervention, some sort of decompression. 2. Stage IV colon cancer, cancer related pain Initially presented with small bowel obstruction in November 2022. S/p right palliative hemicolectomy at that time. 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 Follows with Dr. Johns with oncology, last office visit on 04/09/2023. Has completed 3 rounds of chemotherapy treatment to this point, last round on 03/26. Home pain medication regimen of morphine 60 mg every 12 hours scheduled, Percocet every 4 hours as needed for breakthrough pain, olanzapine 5 mg at night as needed for nausea and promethazine 50 mg every 8 hours as needed for nausea. ? Restart all home medications here as able once able to take p.o. medications. No specific oncology needs while inpatient. Continue outpatient follow-up. 3. History of constipation ? On home regimen of senna twice daily, Colace twice daily and MiraLAX as needed. Holding these in setting of small bowel obstruction. Chronic medical conditions: ? Depression/anxiety: Home meds of paroxetine 40 mg daily, trazodone 50 to 100 mg at night as needed. Restart as able. ? Hyperlipidemia: Restart home simvastatin as able. DVT prophylaxis: Lovenox CODE STATUS: DNR CCA, DO NOT INTUBATE . Charges/Coding Visit Charges Inpatient E&M: 95877 Subs Hosp L2
--- NOTE | 2023-04-21 11:04 | RAD_ITS ---
EXAM: FL SMALL BOWEL FOLLOW THROUGH CLINICAL INDICATION: f/u SBO -- Films:Immediately post GG, 6h, 12h, and 24h via NG TECHNIQUE: Fluoroscopy of the small bowel including multiple serial delayed images following oral contrast administration. Fluoroscopic guidance was provided by a physician. CONTRAST: 120 GASTRO 120 WATER COMPARISON: No relevant prior studies available. FINDINGS: SMALL BOWEL: Oral contrast is visualized in the duodenum at the zero minute suzanne. Contrast is visualized in the proximal jejunum. Contrast is visualized in the colon at 3 hour. Terminal ileum is poorly visualized. Oral contrast does not clear the colon at 6hrs. There is no small bowel obstruction. Small bowel transit time is within normal limits. The mucosal pattern is unremarkable. OTHER FINDINGS: There is a hiatal hernia. Oral contrast fills the proximal small bowel. The proximal small bowel is dilated. RAD/Small Bowel Series Only IMPRESSION: 1. There is a hiatal hernia. 2. There is delayed oral contrast transit time into the large bowel on this small bowel series suggesting an ileus or pSBO. Electronically Signed: Mohsen Chance MD at 18:14 EDT ,
[2023-04-21] MEDS: Enoxaparin 40 MG/0.4 ML Syringe SC (12:57)
[2023-04-21 14:19] VITALS: BP 128/86; PULSE 105; RESP 16; TEMP 36.6; O2SAT 95
[2023-04-21 16:37] LABS: Anion Gap 9 (5-15); BUN 13 mg/dL (7-18); Calcium,Total 8.3 mg/dL (8.5-10.1); Chloride 101 mmol/L (98-107); Creatinine, Serum 0.65 mg/dL (0.55-1.02); EST Glomerular Filtration Rate 97 mL/min (>60); Est Glom Filt Rate - Afr Amer 118 mL/min (>60); Glucose 99 mg/dL (74-106); Phosphorus 3.7 mg/dL (2.5-4.9); Potassium 3.5 mmol/L (3.5-5.1); Sodium Level 139 mmol/L (136-145)
[2023-04-21 20:26] VITALS: BP 138/93; PULSE 108; RESP 16; TEMP 36.2; O2SAT 97
[2023-04-21] MEDS: DiphenhydrAMINE 50 MG/ML Syringe 25 MG IV (20:33)
[2023-04-21] MEDS: proCHLORPERazine 10 MG/2 ML Vial 5 MG IV (23:06)
[2023-04-22] VITALS (13 sets, daily range): BP systolic 110–141; BP diastolic 68–87; PULSE 87–99; RESP 12–18; TEMP 36.5–37.5; O2SAT 94–99; BMI 24.2
[2023-04-22] MEDS: DiphenhydrAMINE 50 MG/ML Syringe 25 MG IV (02:53)
[2023-04-22] MEDS: 0.9% Saline Lock 10 ML Syringe IV ×7 (02:54→23:57)
[2023-04-22 06:30] LABS: Absolute Lymphocyte Count 0.78 X10^3/uL (0.83-4.51); Absolute Neutrophil Count 7.1 X10^3/uL (2.0-7.7); Basophil# 0.05 X10^3/uL; Basophil% 0.6 % (0-1); Eosinophil# 0.08 X10^3/uL; Eosinophils% 0.9 % (0-5); Hematocrit 30.1 % (37-47); Hemoglobin 9.7 g/dL (12.0-15.0); Lymphocyte # 0.78 X10^3/ul (0.83-4.51); Lymphocyte % 9.1 % (19-41); Mean Corp Hgb Conc 32.2 g/dL (32-36); Mean Corpuscular Hgb 29.9 pg (27.0-32.0); Mean Corpuscular Volume 92.9 fL (81-99); Mean Platelet Vol. 8.9 fl (6.2-12.0); Monocyte# 0.61 X10^3/uL; Monocyte% 7.1 % (0-10); NRBC Flagged by Analyzer 0 % (0-5); Neutrophil # 7.05 X10^3/uL (2.7-7.7); Neutrophil % 82.1 % (47-70); Platelet Count 387 K/mm3 (150-450); RBC Distribution Width CV 18.6 % (11.6-14.6); RBC Distribution Width SD 62.4 fl (35.1-43.9); Red Blood Count 3.24 M/mm3 (4.2-5.4); White Blood Count 8.6 K/mm3 (4.4-11.0)
[2023-04-22] MEDS: HYDROmorphone 1 MG/ML Syringe IV ×6 (06:32→23:57)
[2023-04-22] MEDS: Piperacil/Tazobactam 3.375 GM in 0.9% Normal Saline (50mL MB+) 50 ML IV ×3 (06:32→20:59)
[2023-04-22 06:53] LABS: Anion Gap 8 (5-15); BUN 12 mg/dL (7-18); BUN/Creat Ratio 18.2 RATIO (10-20); Calcium,Total 8.2 mg/dL (8.5-10.1); Chloride 103 mmol/L (98-107); Creatinine, Serum 0.66 mg/dL (0.55-1.02); EST Glomerular Filtration Rate 96 mL/min (>60); Est Glom Filt Rate - Afr Amer 116 mL/min (>60); Estimated Creatinine Clearance 74.36 ml/min; Glucose 78 mg/dL (74-106); Potassium 3.3 mmol/L (3.5-5.1); Sodium Level 142 mmol/L (136-145)
[2023-04-22] MEDS: Lactated Ringers 1,000 ML 15 ML IV (09:24)
[2023-04-22] MEDS: Potassium Chloride 10mEq/100mL 10 MEQ/100 ML IV.SOLN. 100 MEQ IV BOLUS ×2 (09:24→12:28)
--- NOTE | 2023-04-22 09:30 | NURSING ---
0900-off unit via bed for surgery. ng clamped
--- NOTE | 2023-04-22 09:51 | PN.SURG_ITS ---
Subjective Subjective Patient had several bowel movements overnight. Objective Data Objective Data Vital Signs: Vital Signs Temp Pulse Resp BP Pulse Ox O2 Del Method 97.8 F 99 15 125/82 H 95 Room Air 04/22/23 08:00 04/22/23 08:00 04/22/23 08:00 04/22/23 08:00 04/22/23 08:00 04/22/23 08:00 Oxygen Delivery Method Room Air Weight: 141 lb 1.533 oz Body Mass Index (BMI) 24.2 Intake & Output: Intake and Output for Last 24 Hours 04/20/23 04/21/23 04/22/23 23:59 23:59 23:59 Intake Total 600 / 600 1430 / 1550 310 / 310 Output Total 3100 / 3100 350 / 750 850 / 850 Balance -2500 / -2500 1080 / 800 -540 / -540 Medical Nutrition Assessment Dietitian: Malnutrition Criteria Met Start: 04/21/23 09:42 Freq: Status: Active Protocol: Document 04/21/23 14:43 RMA (Rec: 04/21/23 14:43 RMA [id number]) Nutrition Malnutrition Evidence of Malnutrition Exists Yes Malnutrition (severe): Chronic Evidenced By Suboptimal Energy Intake ( Severe),Weight Loss (Severe) Intake Problem Inadequate Oral Intake Etiology related to altered GI function /obstruction Signs/Symptoms as evidenced by NPO Status Active Problem Clinical Problem Chronic Disease or Condition Related Malnutrition Etiology Severe protein-calorie malnutrition in the context of chronic disease related to inadequate energy/oral intake Signs/Symptoms as evidenced by ~20% weight loss x 10 months, PO meeting less than 50% estimated nutrition needs x past 6 months and currently NPO Status Active Problem Recommendation Dietitian Recommendations/Changes Recommend advance diet as tolerated to Transitional with goal of liberalized Regular diet. Recommend Ensure Clear as diet advanced to clear liquids and then to more nutrient-dense ONS as diet advanced to solids and pt able to tolerate PO. To limit further pro/energy depletion, consider Parenteral Nutrition Support if unable to advance PO diet in 24-48 hours. Lab / Micro Data 04/22/23 06:05 04/22/23 06:05 Labs: Laboratory Results - last 24 hr 04/21/23 16:13: Sodium 139, Potassium 3.5, Chloride 101, Carbon Dioxide 29.0, Anion Gap 9, BUN 13, Creatinine 0.65, Estim Creat Clear Calc 75.50, Est GFR (MDRD) Af Amer 118, Est GFR (MDRD) Non-Af 97, BUN/Creatinine Ratio 20.0, Glucose 99, Calcium 8.3 L, Phosphorus 3.7, Magnesium 2.0 04/22/23 06:05: WBC 8.6, RBC 3.24 L, Hgb 9.7 L, Hct 30.1 L, MCV 92.9, MCH 29.9, MCHC 32.2, RDW Std Deviation 62.4 H, RDW Coeff of Julian 18.6 H, Plt Count 387, MPV 8.9, Immature Gran % (Auto) 0.200, Neut % (Auto) 82.1 H, Lymph % (Auto) 9.1 L, [place] % (Auto) 7.1, Eos % (Auto) 0.9, Baso % (Auto) 0.6, Absolute Neuts (auto) 7.1, Absolute Lymphs (auto) 0.78 L, Nucleated RBC % 0, Sodium 142, Potassium 3.3 L, Chloride 103, Carbon Dioxide 31.0, Anion Gap 8, BUN 12, Creatinine 0.66, Estim Creat Clear Calc 74.36, Est GFR (MDRD) Af Amer 116, Est GFR (MDRD) Non-Af 96, BUN/Creatinine Ratio 18.2, Glucose 78, Calcium 8.2 L Radiography Diagnostic Testing: Radiology Impression Small Bowel X-Ray 04/21/23 11:04 IMPRESSION: 1. There is a hiatal hernia. 2. There is delayed oral contrast transit time into the large bowel on this small bowel series suggesting an ileus or pSBO. Electronically Signed: Mohsen Chance MD at 18:14 EDT Reading Location ID and State: [facility] / [place] , Service support , Physical Exam Const oriented x3 and no apparent distress Resp normal respiratory effort GI soft to palpation Inspection: Negative for abdominal distention Assessment & Plan Assessment/Plan (1) Small bowel obstruction: PLAN: Patient went home and presented back with nausea and vomiting. CT scan revealed dilated proximal small bowel. There is suggestion of a possible part ial small bowel obstruction in the right lower quadrant. I discussed exploratory laparoscopy with the patient but I did warn her that if there was any need for bowel resection or if there is too much scar tissue from her last surgery may have to perform a laparotomy. The patient did have wound com plications from her last laparotomy. I discussed trying to free the bowel but if I had to redo anastomosis I would have to do open anastomosis. I also discussed the possibility of ileostomy if there is obstructing lesion. Clyde Daley MD Pager: [facility] [address] [place] [address] [address] [place] [address] Office:
[2023-04-22] MEDS: Bupivacaine 0.5% PF 10 ML VIAL (11:00)
--- NOTE | 2023-04-22 12:07 | PCM.OPRPT ---
Report of Operation Date of Procedure: 04/22/23 Pre-Operative Diagnosis: Small bowel obstruction Post-Operative Diagnosis: Small bowel obstruction due to carcinomatosis Surgery/Procedure Performed:: Exploratory laparoscopy with palliative loop small bowel stoma Type of Anesthesia: General/Regional Specimen's removed: None Estimated Blood Loss (mL): 10 Description of Procedure: Patient was brought back to the operating room and general anesthesia was induced. A Barbour catheter was placed into the bladder. The abdomen was prepped and draped in usual sterile fashion. A small midline incision was made superior to the umbilicus and prior incision in the epigastric area. The fascia was elevated and incised the port was placed into the abdomen and the abdomen was insufflated 15 mmHg. The patient appeared to develop carcinomatosis. She had studding of the peritoneum as well as small bowel. There was a segment of small bowel tightly adherent to the right lateral abdominal sidewall with cancer that was the site of obstruction. Proximal to this a loop of small bowel was chosen. I discussed with the patient's and he agreed to proceed with the ostomy as she wants the NG removed and would like to be comfortable. Next a small area of skin in the left lateral sidewall was removed. The subcutaneous tissue was divided and a cruciate incision was made in the anterior fascia. The muscle was and the posterior sheath was incised. The loop of small bowel was then brought through the incision. A bar was placed underneath the loop through the mesentery and sutured to the skin using 3-0 nylon suture. Next the ports were removed and the abdomen was allowed to desufflate. The upper midline incision fascia was closed with 0 Vicryl suture. All of the skin incisions were injected with local anesthetic and closed with interrupted 4-0 Monocryl sutures. Steri-Strips and bandages were applied. Next the stoma was matured and an incision was made in the small bowel and the edges of the small bowel was sutured to the skin using interrupted 3-0 Vicryl sutures. A stoma appliance was applied. Patient was awoken and Barbour was removed and patient was taken to PACU in stable condition. Admit VTE Documentation VTE Mechan Device Prophylaxis: SCD's
--- NOTE | 2023-04-22 14:11 | CASEMGMT ---
AARON ABURTO Readmission Note Previous Admission:?04/10/23-04/17/23 Diagnosis:?SBO DC Disposition: Home Current Admission Current Diagnosis: SBO ROYCE SHERMAN, is a 62 F with history of stage IV colon cancer s/p right palliative hemicolectomy in 11/2022, with recent admission from 04/10 to 04/17 for small bowel obstruction who presented to ED on 04/20/2023 with concern for recurrent small bowel obstruction. Pt had been dc'd home and was to advance diet from liquids. Surgeon noted high likelihood of readmission for N/V at that time. Pt did present with N/V. Pt had not passed any gas or had BM since hospitalization. AARON ABURTO into pt room, pt sitting up in bed with visitors at bedside. Pt just returned from exploratory laparoscopy with palliative loop small bowel stoma. Pt reports she had been taking her meds as ordered upon dc. She denies any homegoing needs currently. She declines SN for her stoma. AARON ABURTO will cont to follow. 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 DC Plan: Home, follow for any HHC needs ??
--- NOTE | 2023-04-22 14:24 | PCM.PN.HOSP ---
Reason for Visit Reason for Visit: Diagnoses Unspecified intestinal obstruction, unspecified as to partial versus complete obstruction (04/20/23) Objective Data Objective Data Vital Signs: Vital Signs Temp Pulse Resp BP Pulse Ox O2 Del Method 97.7 F L 93 12 127/83 H 97 Room Air 04/22/23 13:03 04/22/23 13:03 04/22/23 13:03 04/22/23 13:03 04/22/23 13:03 04/22/23 13:03 Oxygen Delivery Method Room Air Weight: 141 lb 1.533 oz Body Mass Index (BMI) 24.2 Intake & Output: Intake and Output for Last 24 Hours 04/20/23 04/21/23 04/22/23 23:59 23:59 23:59 Intake Total 600 / 600 1430 / 1550 510 / 510 Output Total 3100 / 3100 350 / 750 1250 / 1250 Balance -2500 / -2500 1080 / 800 -740 / -740 Medical Nutrition Assessment Dietitian: Malnutrition Criteria Met Start: 04/21/23 09:42 Freq: Status: Active Protocol: Document 04/21/23 14:43 RMA (Rec: 04/21/23 14:43 RMA [id number]) Nutrition Malnutrition Evidence of Malnutrition Exists Yes Malnutrition (severe): Chronic Evidenced By Suboptimal Energy Intake ( Severe),Weight Loss (Severe) Intake Problem Inadequate Oral Intake Etiology related to altered GI function /obstruction Signs/Symptoms as evidenced by NPO Status Active Problem Clinical Problem Chronic Disease or Condition Related Malnutrition Etiology Severe protein-calorie malnutrition in the context of chronic disease related to inadequate energy/oral intake Signs/Symptoms as evidenced by ~20% weight loss x 10 months, PO meeting less than 50% estimated nutrition needs x past 6 months and currently NPO Status Active Problem Recommendation Dietitian Recommendations/Changes Recommend advance diet as tolerated to Transitional with goal of liberalized Regular diet. Recommend Ensure Clear as diet advanced to clear liquids and then to more nutrient-dense ONS as diet advanced to solids and pt able to tolerate PO. To limit further pro/energy depletion, consider Parenteral Nutrition Support if unable to advance PO diet in 24-48 hours. Lab / Micro Data 04/22/23 06:05 04/22/23 06:05 Labs: Laboratory Results - last 24 hr 04/21/23 16:13: Sodium 139, Potassium 3.5, Chloride 101, Carbon Dioxide 29.0, Anion Gap 9, BUN 13, Creatinine 0.65, Estim Creat Clear Calc 75.50, Est GFR (MDRD) Af Amer 118, Est GFR (MDRD) Non-Af 97, BUN/Creatinine Ratio 20.0, Glucose 99, Calcium 8.3 L, Phosphorus 3.7, Magnesium 2.0 04/22/23 06:05: WBC 8.6, RBC 3.24 L, Hgb 9.7 L, Hct 30.1 L, MCV 92.9, MCH 29.9, MCHC 32.2, RDW Std Deviation 62.4 H, RDW Coeff of Julian 18.6 H, Plt Count 387, MPV 8.9, Immature Gran % (Auto) 0.200, Neut % (Auto) 82.1 H, Lymph % (Auto) 9.1 L, [place] % (Auto) 7.1, Eos % (Auto) 0.9, Baso % (Auto) 0.6, Absolute Neuts (auto) 7.1, Absolute Lymphs (auto) 0.78 L, Nucleated RBC % 0, Sodium 142, Potassium 3.3 L, Chloride 103, Carbon Dioxide 31.0, Anion Gap 8, BUN 12, Creatinine 0.66, Estim Creat Clear Calc 74.36, Est GFR (MDRD) Af Amer 116, Est GFR (MDRD) Non-Af 96, BUN/Creatinine Ratio 18.2, Glucose 78, Calcium 8.2 L Radiography Diagnostic Testing: Radiology Impression Small Bowel X-Ray 04/21/23 11:04 IMPRESSION: 1. There is a hiatal hernia. 2. There is delayed oral contrast transit time into the large bowel on this small bowel series suggesting an ileus or pSBO. Electronically Signed: Mohsen Chance MD at 18:14 EDT , Physical Exam Narrative Seen and examined Patient was taken for surgery today. CT scan shows dilated proximal small bowel. Patient was taken to the OR for exploratory laparoscopy for decompressive palliative surgery. Patient returned from the OR. Presented with nausea, vomiting and worsening distention of her abdomen. No bowel movements recently and not passing gas. CT abdomen pelvis shows findings consistent with a small bowel obstruction with transition in the right lower quadrant. Physical exam General: Alert, Oriented x3, Cooperative, BMI 22 kg/m? HEENT: Atraumatic, PERRLA, EOMI, Normocephalic Oral: Oral mucosa dry. No Gingival or Mucosal Lesions/ Ulcerations Neck: Supple, No JVD, Negative Carotid Bruits Lungs: Air entry diminished in bilateral lung bases. No crepitation/rhonchi Cardiovascular: Regular rate, Regular Rhythm, Normal S1, Normal S2, No murmurs Abdomen: Has a stoma in the abdomen with some bloody discharge. No active bleeding. Soft. : No renal angle tenderness. No suprapubic tenderness. Extremities: No edema, Capillary Refill Less than 3 Seconds Skin: No rashes, No breakdown Musculoskeletal: No Tenderness to Palpation of Joints or Extremities. Mild to moderate chronic atrophy of muscles of extremities loss of subcutaneous fat. Neurological: Cranial nerves II-XII grossly intact, DTR 2+/4. No acute focal neurological deficit. Psych/Mental Status: Flat affect. Assessment & Plan Assessment/Plan (1) Small bowel obstruction: PLAN: Plan Patient is a 62-year-old female with history of stage IV colon cancer s/p right palliative hemicolectomy in 11/2022, cancer related pain, depression/anxiety and recent admission from 04/10 to 04/17 for small bowel obstruction who presented to [facility] ED on 04/20/2023 with concern for recurrent small bowel obstruction. 1. Small bowel obstruction: [facility] General surgery consulted. NG tube to suction. NPO. IV Zofran as needed and IV Dilaudid as needed for symptom control. Maintenance IV fluids. Continue Zosyn for empiric treatment of intra-abdominal infection. Currently NPO. Discussed with the surgeon. CT shows severe distention of his stomach and proximal small bowel. Patient still has nausea bloating and abdominal distention. Probably will need operative intervention, some sort of decompression. 04/22: Patient was taken to the OR for exploratory laparoscopy found small bowel obstruction due to carcinomatosis. Palliative loop small bowel stoma was created. I discussed with the surgeon and we share the same opinion that patient is hospice care appropriate. Discussed with the patient, her daughter and sister present in the room about the poor prognosis. They all understand this small bowel stoma is for decompression for dilated small bowel. It is is high output fistula with high rate of loss of gastrointestinal fluid and complications. Surgeon said that the cancer has wrapped up the bowel. Patient had wound complication with poor healing from previous laparotomy and high risk of reanastomosis and complication therefore definitive approach was not attempted. We will proceed with hospice care. 2. Stage IV colon cancer, cancer related pain Initially presented with small bowel obstruction in November 2022. S/p right palliative hemicolectomy at that time. 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 Follows with Dr. Johns with oncology, last office visit on 04/09/2023. Has completed 3 rounds of chemotherapy treatment to this point, last round on 03/26. Home pain medication regimen of morphine 60 mg every 12 hours scheduled, Percocet every 4 hours as needed for breakthrough pain, olanzapine 5 mg at night as needed for nausea and promethazine 50 mg every 8 hours as needed for nausea. No specific oncology needs while inpatient. Continue outpatient follow-up. 3. History of constipation ? On home regimen of senna twice daily, Colace twice daily and MiraLAX as needed. Holding these in setting of small bowel obstruction. Chronic medical conditions: ? Depression/anxiety: Home meds of paroxetine 40 mg daily, trazodone 50 to 100 mg at night as needed. Restart as able. ? Hyperlipidemia: Restart home simvastatin as able. DVT prophylaxis: Lovenox CODE STATUS: DNR CCA, DO NOT INTUBATE . Charges/Coding Visit Charges Inpatient E&M: 59997 Subs Hosp L3
[2023-04-22] MEDS: Ondansetron 4 MG/2 ML Vial IV (15:49)
--- NOTE | 2023-04-22 16:36 | CASEMGMT ---
Social Work SW met with patient and patient's family and introduced self and role as [facility] SW. Patient agreeable to speak with SW. SW inquired about patient's knowledge of Hospice services and agency preference. Patient reports preference is referral to [facility] and explained she is aware of the services they can provide. Patient reports she wants her to be contacted to discuss services and would prefer her family be available, so preferably not today. SW explained referral process, explaining a referral would be sent via fax and SW would follow up tomorrow to further discuss referral, patient agreeable to plan. Plan: referral faxed to [facility] AMANDO Roa
[2023-04-23 02:49] VITALS: BP 116/76; PULSE 97; RESP 18; TEMP 36.6; O2SAT 95
[2023-04-23] MEDS: HYDROmorphone 1 MG/ML Syringe IV ×3 (02:51→08:13)
[2023-04-23] MEDS: 0.9% Saline Lock 10 ML Syringe IV ×4 (02:52→17:23)
[2023-04-23] MEDS: Ondansetron 4 MG/2 ML Vial IV ×2 (02:52→17:24)
[2023-04-23 06:07] VITALS: BP 127/81; PULSE 86; RESP 18; TEMP 36.5; O2SAT 97
[2023-04-23] MEDS: Piperacil/Tazobactam 3.375 GM in 0.9% Normal Saline (50mL MB+) 50 ML IV (06:09)
[2023-04-23 07:11] LABS: Absolute Lymphocyte Count 0.66 X10^3/uL (0.83-4.51); Absolute Neutrophil Count 8.9 X10^3/uL (2.0-7.7); Basophil# 0.07 X10^3/uL; Basophil% 0.7 % (0-1); Eosinophil# 0.08 X10^3/uL; Eosinophils% 0.8 % (0-5); Hematocrit 31.1 % (37-47); Hemoglobin 9.7 g/dL (12.0-15.0); Lymphocyte # 0.66 X10^3/ul (0.83-4.51); Lymphocyte % 6.3 % (19-41); Mean Corp Hgb Conc 31.2 g/dL (32-36); Mean Corpuscular Hgb 29.3 pg (27.0-32.0); Monocyte% 6.7 % (0-10); NRBC Flagged by Analyzer 0 % (0-5); Neutrophil # 8.88 X10^3/uL (2.7-7.7); Neutrophil % 84.8 % (47-70); Platelet Count 396 K/mm3 (150-450); RBC Distribution Width CV 18.6 % (11.6-14.6); RBC Distribution Width SD 62.3 fl (35.1-43.9); Red Blood Count 3.31 M/mm3 (4.2-5.4); White Blood Count 10.5 K/mm3 (4.4-11.0)
--- NOTE | 2023-04-23 07:50 | PN.SURG_ITS ---
Subjective Subjective Patient has output from her stoma Objective Data Objective Data Vital Signs: Vital Signs Temp Pulse Resp BP Pulse Ox O2 Del Method 97.7 F L 86 18 127/81 H 97 Room Air 04/23/23 06:07 04/23/23 06:07 04/23/23 06:07 04/23/23 06:07 04/23/23 06:07 04/23/23 06:07 Oxygen Delivery Method Room Air Weight: 141 lb 1.533 oz Body Mass Index (BMI) 24.2 Intake & Output: Intake and Output for Last 24 Hours 04/21/23 04/22/23 04/23/23 23:59 23:59 23:59 Intake Total 1430 / 1550 804 / 804 190 / 190 Output Total 350 / 750 1725 / 1725 600 / 600 Balance 1080 / 800 -921 / -921 -410 / -410 Medical Nutrition Assessment Dietitian: Malnutrition Criteria Met Start: 04/21/23 09:42 Freq: Status: Active Protocol: Document 04/21/23 14:43 RMA (Rec: 04/21/23 14:43 RMA [id number]) Nutrition Malnutrition Evidence of Malnutrition Exists Yes Malnutrition (severe): Chronic Evidenced By Suboptimal Energy Intake ( Severe),Weight Loss (Severe) Intake Problem Inadequate Oral Intake Etiology related to altered GI function /obstruction Signs/Symptoms as evidenced by NPO Status Active Problem Clinical Problem Chronic Disease or Condition Related Malnutrition Etiology Severe protein-calorie malnutrition in the context of chronic disease related to inadequate energy/oral intake Signs/Symptoms as evidenced by ~20% weight loss x 10 months, PO meeting less than 50% estimated nutrition needs x past 6 months and currently NPO Status Active Problem Recommendation Dietitian Recommendations/Changes Recommend advance diet as tolerated to Transitional with goal of liberalized Regular diet. Recommend Ensure Clear as diet advanced to clear liquids and then to more nutrient-dense ONS as diet advanced to solids and pt able to tolerate PO. To limit further pro/energy depletion, consider Parenteral Nutrition Support if unable to advance PO diet in 24-48 hours. Lab / Micro Data 04/23/23 06:54 04/22/23 06:05 Labs: Laboratory Results - last 24 hr 04/23/23 06:54: WBC 10.5, RBC 3.31 L, Hgb 9.7 L, Hct 31.1 L, MCV 94.0, MCH 29.3, MCHC 31.2 L, RDW Std Deviation 62.3 H, RDW Coeff of Julian 18.6 H, Plt Count 396, MPV 9.0, Immature Gran % (Auto) 0.700, Neut % (Auto) 84.8 H, Lymph % (Auto) 6.3 L, [place] % (Auto) 6.7, Eos % (Auto) 0.8, Baso % (Auto) 0.7, Absolute Neuts (auto) 8.9 H, Absolute Lymphs (auto) 0.66 L, Nucleated RBC % 0 Physical Exam Const oriented x3 Resp normal respiratory effort GI soft to palpation and non-tender Assessment & Plan Assessment/Plan (1) Small bowel obstruction: PLAN: 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 A palliative loop small bowel stoma was created proximal to the closest obstruction to relieve the obstruction. She now has very short bowel. Hospice is seeing her today. Clyde Daley MD Pager: [facility] [address] [place] [address], [address] [place] [address] Office:
[2023-04-23 07:59] LABS: Anion Gap 6 (5-15); BUN 9 mg/dL (7-18); BUN/Creat Ratio 12.8 RATIO (10-20); Calcium,Total 8.1 mg/dL (8.5-10.1); Chloride 102 mmol/L (98-107); EST Glomerular Filtration Rate 89 mL/min (>60); Est Glom Filt Rate - Afr Amer 108 mL/min (>60); Estimated Creatinine Clearance 70.11 ml/min; Glucose 95 mg/dL (74-106); Potassium 3.4 mmol/L (3.5-5.1); Sodium Level 139 mmol/L (136-145)
[2023-04-23 08:00] VITALS: BP 120/85; PULSE 93; RESP 14; TEMP 36.8; O2SAT 97
[2023-04-23] MEDS: Paroxetine 20 MG Tablet 40 MG PO (08:09)
--- NOTE | 2023-04-23 08:32 | WOUNDNOTE ---
Was asked to see patient for leaking ostomy appliance. patient states the leak started near the umbilicus. states a bunch of liquid came out all at once. there was a moderate amount of liquid green stool noted in the appliance. leakage noted to the medial and inferior flange. removed the appliance. stoma is edematous and red. stoma is well budded and moist. measures approx 2 1/2. peristomal skin is intact. abdomen is slightly distended but soft. patient denies much tenderness. washed the peristomal skin with warm water. pat dry. applied a new 2 piece flat Wolbach appliance with a paste ring and a small amount of stoma paste near the umbilical area. pt tolerated well. educated patient on emptying the appliance and patient observed this nurse change the appliance. discussed home health care for a short time at home as well to continue ostomy educated. Pt reluctantly agreed but states only for a short time. teaching packet given as well as a step by step appliance change cheat sheet. Pt very appreciative. will continue teaching with patient. pt denies further questions or concerns at this time.
[2023-04-23 09:02] VITALS: O2SAT 97
--- NOTE | 2023-04-23 09:20 | PCM.DC.SUM ---
Providers Date of Admission: 04/20/23 Primary Care Physician: CESAR Marquez Consultations 04/21/23 00:37 Consult: General Surgery Routine Consulting Provider: Clyde Daley Reason for Consult: SBO EMERGENT Consult: No MD Notified: Yes Date Notified: 04/21/23 Time Notified: 06:15 Method of Notification: Text 04/22/23 12:11 Consult: Onc/Wound/environmental compliance officer Routine Comment: Reason for Consult:: new stoma Reason For Visit: SMALL BOWEL OBSTRUCTION Diagnosis Discharge Diagnosis (1) Small bowel obstruction: Status: Acute Code(s): K56.609 - Unspecified intestinal obstruction, unspecified as to partial versus complete obstruction Plan: 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 A palliative loop small bowel stoma was created proximal to the closest obstruction to relieve the obstruction. She now has very short bowel. Hospice is seeing her today. Clyde Daley MD Pager: [facility] [address] [place] [address], [address] [place] [address] Office: Medications at Discharge Home Medications calcium carbonate 600 mg calcium (1,500 mg) tablet 1,200 mg PO DAILY SUPPLEMENT 10/16/16 paroxetine HCl 40 mg tablet 40 mg PO DAILY DEPRESSION 10/16/16 promethazine 25 mg tablet 50 mg PO Q8H PRN NAUSEA 10/16/16 simvastatin 10 mg tablet 10 mg PO QHS CHOLESTEROL 10/16/16 trazodone 50 mg tablet 50 - 100 mg PO QHS INSOMNIA 10/16/16 cholecalciferol (vitamin D3) 125 mcg (5,000 unit) tablet (Vitamin D3) 10,000 unit PO DAILY SUPPLEMENT 12/14/22 multivitamin 1 tab PO DAILY HEALTH MAINTENANCE 12/14/22 omeprazole magnesium 20 mg tablet,delayed release (Prilosec OTC) 20 mg PO DAILY ACID REFLUX 01/15/23 lidocaine-prilocaine 2.5 %-2.5 % topical cream 1 applic topical ONCE PRN PORT ACCESS 30 days #30 grams 01/31/23 morphine 60 mg tablet,extended release 60 mg PO Q12H PAIN 04/09/23 naloxone 4 mg/actuation nasal spray 1 spray intranasal Q3M PRN OPIOID OVERDOSE 04/10/23 olanzapine 5 mg tablet 5 mg PO QHS NAUSEA 04/10/23 omega-3 fatty acids 1,000 mg capsule 1,000 mg PO DAILY SUPPLEMENT 04/10/23 oxycodone-acetaminophen 10 mg-325 mg tablet 1 tab PO Q4H PRN BREAKTROUGH PAIN 04/10/23 sennosides 8.6 mg tablet (Natural Senna Laxative) 8.6 mg PO BID CONSTIPATION 04/10/23 Hospital Course Summary of Care Provided Hospital Course: Patient was admitted with a recurrent partial small bowel obstruction. She was taken for surgery the following day and found to have carcinomatosis with obstruction of the small bowel. Proximal to this an area of small bowel was brought out as a loop ostomy. Hospice was consulted and the patient was sent home with home hospice once tolerating some diet. Medical Records Data Medical Nutrition Assessment Dietitian: Malnutrition Criteria Met Start: 04/21/23 09:42 Freq: Status: Active Protocol: Document 04/21/23 14:43 RMA (Rec: 04/21/23 14:43 RMA [id number]) Nutrition Malnutrition Evidence of Malnutrition Exists Yes Malnutrition (severe): Chronic Evidenced By Suboptimal Energy Intake ( Severe),Weight Loss (Severe) Intake Problem Inadequate Oral Intake Etiology related to altered GI function /obstruction Signs/Symptoms as evidenced by NPO Status Active Problem Clinical Problem Chronic Disease or Condition Related Malnutrition Etiology Severe protein-calorie malnutrition in the context of chronic disease related to inadequate energy/oral intake Signs/Symptoms as evidenced by ~20% weight loss x 10 months, PO meeting less than 50% estimated nutrition needs x past 6 months and currently NPO Status Active Problem Recommendation Dietitian Recommendations/Changes Recommend advance diet as tolerated to Transitional with goal of liberalized Regular diet. Recommend Ensure Clear as diet advanced to clear liquids and then to more nutrient-dense ONS as diet advanced to solids and pt able to tolerate PO. To limit further pro/energy depletion, consider Parenteral Nutrition Support if unable to advance PO diet in 24-48 hours. Weight / BMI Weight Weight: 141 lb 1.533 oz Body Mass Index (BMI) 24.2 ABG / Lab / Microbiology Data 04/23/23 06:54 04/23/23 06:54 Laboratory: Laboratory Results - last 24 hr 04/23/23 06:54: WBC 10.5, RBC 3.31 L, Hgb 9.7 L, Hct 31.1 L, MCV 94.0, MCH 29.3, MCHC 31.2 L, RDW Std Deviation 62.3 H, RDW Coeff of Julian 18.6 H, Plt Count 396, MPV 9.0, Immature Gran % (Auto) 0.700, Neut % (Auto) 84.8 H, Lymph % (Auto) 6.3 L, [place] % (Auto) 6.7, Eos % (Auto) 0.8, Baso % (Auto) 0.7, Absolute Neuts (auto) 8.9 H, Absolute Lymphs (auto) 0.66 L, Nucleated RBC % 0, Sodium 139, Potassium 3.4 L, Chloride 102, Carbon Dioxide 31.0, Anion Gap 6, BUN 9, Creatinine 0.70, Estim Creat Clear Calc 70.11, Est GFR (MDRD) Af Amer 108, Est GFR (MDRD) Non-Af 89, BUN/Creatinine Ratio 12.8, Glucose 95, Calcium 8.1 L D/C Instructions Discharge Diet: No restrictions Discharge Activity: Return to Normal Activity Call your doctor if your incision/area has: Continuous Slow Oozing, Sudden Increased Bleeding, Increased Pain/ Swelling, Increased Redness, Foul Smelling Discharge and Swelling at the incision site Call your doctor if you observe: Fever of 101 or Higher Remove Dressing in: 1 day Cleanse incision/area with: Soap & Water Please Follow Up With: Clyde Daley MD When: Follow up with Dr Daley next week for stoma bar removal call [phone] Meaningful Use Info Meaningful Use Diagnoses (Choose all that apply): None applicable Discharge Plan Admission Admit Date/Time: 04/20/23 21:41 Attending Provider: Eyad Barajas Primary Care Provider: Jasmyn Whitten Consulting Providers: Clyde Daley; Real Tyler Discharge Orders/Prescriptions Prescriptions: Continued lidocaine-prilocaine 2.5-2.5 % cream 1 applic topical ONCE PRN (Reason: PORT ACCESS) 30 Days Qty: 30 2RF morphine 60 mg tablet extended release 60 mg PO Q12H trazodone 50 MG tablet 50 - 100 mg PO QHS simvastatin 10 MG tablet 10 mg PO QHS calcium carbonate 600 MG tablet 1,200 mg PO DAILY promethazine 25 MG tablet 50 mg PO Q8H PRN (Reason: NAUSEA ) paroxetine HCl 40 MG tablet 40 mg PO DAILY multivitamin Tablet 1 tab PO DAILY cholecalciferol (vitamin D3) [Vitamin D3] 125 mcg (5,000 unit) Tablet 10,000 unit PO DAILY omeprazole magnesium [Prilosec OTC] 20 mg Tablet,Delayed Release (Dr/Ec) 20 mg PO DAILY oxycodone-acetaminophen 10-325 mg tablet 1 tab PO Q4H PRN (Reason: BREAKTROUGH PAIN ) naloxone 4 mg/actuation spray,non-aerosol 1 spray INTRANASAL Q3M PRN (Reason: OPIOID OVERDOSE ) olanzapine 5 mg tablet 5 mg PO QHS sennosides [Natural Senna Laxative] 8.6 mg tablet 8.6 mg PO BID omega-3 fatty acids 1,000 mg capsule 1,000 mg PO DAILY Referrals / Follow Up: Jasmyn Whitten DIRECTOR OF ACCREDITATION-C [Primary Care Provider] - Disposition Disposition (needs filled in before D/C Order can be placed): Hospice in Home
--- NOTE | 2023-04-23 09:33 | PHA.DC.MR.R ---
Pharmacy [place] Med Reconciliation Pharmacy Service has performed discharge medication reconciliation for this patient. The patient's discharge medication list was reviewed for discrepancies and discrepancies were resolved. Medications at Discharge Home Medications calcium carbonate 600 mg calcium (1,500 mg) tablet 1,200 mg PO DAILY SUPPLEMENT 10/16/16 paroxetine HCl 40 mg tablet 40 mg PO DAILY DEPRESSION 10/16/16 promethazine 25 mg tablet 50 mg PO Q8H PRN NAUSEA 10/16/16 simvastatin 10 mg tablet 10 mg PO QHS CHOLESTEROL 10/16/16 trazodone 50 mg tablet 50 - 100 mg PO QHS INSOMNIA 10/16/16 cholecalciferol (vitamin D3) 125 mcg (5,000 unit) tablet (Vitamin D3) 10,000 unit PO DAILY SUPPLEMENT 12/14/22 multivitamin 1 tab PO DAILY HEALTH MAINTENANCE 12/14/22 omeprazole magnesium 20 mg tablet,delayed release (Prilosec OTC) 20 mg PO DAILY ACID REFLUX 01/15/23 lidocaine-prilocaine 2.5 %-2.5 % topical cream 1 applic topical ONCE PRN PORT ACCESS 30 days #30 grams 01/31/23 morphine 60 mg tablet,extended release 60 mg PO Q12H PAIN 04/09/23 naloxone 4 mg/actuation nasal spray 1 spray intranasal Q3M PRN OPIOID OVERDOSE 04/10/23 olanzapine 5 mg tablet 5 mg PO QHS NAUSEA 04/10/23 omega-3 fatty acids 1,000 mg capsule 1,000 mg PO DAILY SUPPLEMENT 04/10/23 oxycodone-acetaminophen 10 mg-325 mg tablet 1 tab PO Q4H PRN BREAKTROUGH PAIN 04/10/23 sennosides 8.6 mg tablet (Natural Senna Laxative) 8.6 mg PO BID CONSTIPATION 04/10/23
--- NOTE | 2023-04-23 09:49 | CASEMGMT ---
Addendum entered by Alejandra Mckeon 04/23/23 10:17: Patient updated SW, Hospice will be meeting with family at [facility] around 4:30p. SW updated [place]ta via Backline and patient's RN. Plan: Hospice meeting 4:30pm at [facility] AMANDO Roa Original Note: Social Work SW met with patient to inquire about progress towards Hospice referral. Patient explained Hospice had been in contact with her this morning and planned to discuss a meeting time with patient's daughters. SW to continue to follow along. AMANDO Roa
--- NOTE | 2023-04-23 10:14 | DCINST_ITS ---
Discharge Instructions Diet Discharge Diet: No restrictions Dressing / Incision Call your doctor if your incision/area has: Continuous Slow Oozing, Sudden Increased Bleeding, Increased Pain/ Swelling, Increased Redness, Foul Smelling Discharge and Swelling at the incision site Call your doctor if you observe: - (Home with home hospice care.) Cleanse incision/area with: Soap & Water Follow Up Care Please Follow Up With: Clyde Daley MD Test Results: Test results from this visit will be discussed in further detail at your follow- up appointment, if applicable. Discharge Plan Admission Admit Date/Time: 04/20/23 21:41 Primary Reason for Your Visit: Advanced colon cancer complicated to recurrent small bowel obstruction. Attending Provider: Eyad Barajas Primary Care Provider: Jasmyn Whitten Consulting Providers: Clyde Daley; Real Tyler Discharge Orders/Prescriptions Prescriptions: Continued lidocaine-prilocaine 2.5-2.5 % cream 1 applic topical ONCE PRN (Reason: PORT ACCESS) 30 Days Qty: 30 2RF morphine 60 mg tablet extended release 60 mg PO Q12H trazodone 50 MG tablet 50 - 100 mg PO QHS simvastatin 10 MG tablet 10 mg PO QHS calcium carbonate 600 MG tablet 1,200 mg PO DAILY promethazine 25 MG tablet 50 mg PO Q8H PRN (Reason: NAUSEA ) paroxetine HCl 40 MG tablet 40 mg PO DAILY multivitamin Tablet 1 tab PO DAILY cholecalciferol (vitamin D3) [Vitamin D3] 125 mcg (5,000 unit) Tablet 10,000 unit PO DAILY omeprazole magnesium [Prilosec OTC] 20 mg Tablet,Delayed Release (Dr/Ec) 20 mg PO DAILY oxycodone-acetaminophen 10-325 mg tablet 1 tab PO Q4H PRN (Reason: BREAKTROUGH PAIN ) naloxone 4 mg/actuation spray,non-aerosol 1 spray INTRANASAL Q3M PRN (Reason: OPIOID OVERDOSE ) olanzapine 5 mg tablet 5 mg PO QHS sennosides [Natural Senna Laxative] 8.6 mg tablet 8.6 mg PO BID omega-3 fatty acids 1,000 mg capsule 1,000 mg PO DAILY Referrals / Follow Up: Clyde Daley MD [Med Staff - Active Staff] - 05/01/23 3:15 pm Jasmyn Whitten, FORMATION FRACTURING OPERATOR-C [Primary Care Provider] - Disposition Disposition (needs filled in before D/C Order can be placed): Hospice in Home
[2023-04-23] MEDS: oxyCODONE 5 MG Tablet PO ×3 (11:02→17:24)
[2023-04-23 11:30] VITALS: BP 125/83; PULSE 82; RESP 14; TEMP 36.6; O2SAT 100
[2023-04-23 14:00] VITALS: BP 138/92; PULSE 99; RESP 14; TEMP 36.6; O2SAT 100
--- NOTE | 2023-04-23 14:42 | CHAPLAIN ---
Type of Pastoral Visit ___ Initial Visit _x__ Follow-up Visit ___ On-call Visit ___ General Patient Visit ___ Spiritual Assessment ___ Family Conference ___ Bereavement ___ Rapid Response ___ Code Blue ___ Other (describe below) Pastoral Care Referral From _x__ Patient ___ Family ___ Nurse ___ Physician ___ Kennel Staff Member ___ Solutions Engineer ___ Other (describe below) Sacrament/Intervention _x__ Active listening ___ Anointing ___ Episcopal ___ Bereavement ___ Communion ___ Kelsi exploration ___ ___ Life review _x__ Prayer ___ Reconciliation ___ Sacrament of Sick ___ Supportive presence ___ Wedding ___ Other (describe below) Pastoral Comments patient and spouse are in the room; pt remembers this rehabilitation engineer from last admission and expresses thanks again for support and prayer; pt expects daughters and side piece coverer to come for visit this afternoon; a meeting with hospice will take place today as well; pt reports feeling much better since procedure done yesterday; pt reaffirms her determination to wok hard toward health and healing; pt welcomes prayers
--- NOTE | 2023-04-23 15:41 | WOUNDNOTE ---
Ostomy teaching completed with patient, , and daughter. patient had another small leak near the umbilical area so the entire appliance was changed. added an extra bead of paste in the crease to see if that will help prevent the leaks. Pt and family very appreciative. 3 appliances sent home with patient until home health or hospice can get the supplies. pt and family deny further questions or concerns at this time.
--- NOTE | 2023-04-23 15:56 | PCM.DC.SUM ---
Providers Date of Admission: 04/20/23 Date of Discharge: 04/23/23 Primary Care Physician: CESAR Marquez Consultations 04/21/23 00:37 Consult: General Surgery Routine Consulting Provider: Clyde Daley Reason for Consult: SBO EMERGENT Consult: No MD Notified: Yes Date Notified: 04/21/23 Time Notified: 06:15 Method of Notification: Text 04/22/23 12:11 Consult: Onc/Wound/land title examiner Routine Comment: Reason for Consult:: new stoma Reason For Visit: SMALL BOWEL OBSTRUCTION Diagnosis Discharge Diagnosis (1) Small bowel obstruction: Status: Acute Code(s): K56.609 - Unspecified intestinal obstruction, unspecified as to partial versus complete obstruction Plan Patient is a 62-year-old female with history of stage IV colon cancer s/p right palliative hemicolectomy in 11/2022, cancer related pain, depression/anxiety and recent admission from 04/10 to 04/17 for small bowel obstruction who presented to [facility] ED on 04/20/2023 with concern for recurrent small bowel obstruction. 1. Small bowel obstruction: [facility] General surgery consulted. NG tube to suction. NPO. IV Zofran as needed and IV Dilaudid as needed for symptom control. Maintenance IV fluids. Continue Zosyn for empiric treatment of intra-abdominal infection. Currently NPO. Discussed with the surgeon. CT shows severe distention of his stomach and proximal small bowel. Patient still has nausea bloating and abdominal distention. Probably will need operative intervention, some sort of decompression. 04/22: Patient was taken to the OR for exploratory laparoscopy found small bowel obstruction due to carcinomatosis. Palliative loop small bowel stoma was created. I discussed with the surgeon and we share the same opinion that patient is hospice care appropriate. Discussed with the patient, her daughter and sister present in the room about the poor prognosis. They all understand this small bowel stoma is for decompression for dilated small bowel. It is is high output fistula with high rate of loss of gastrointestinal fluid and complications. Surgeon said that the cancer has wrapped up the bowel. Patient had wound complication with poor healing from previous laparotomy and high risk of reanastomosis and complication therefore definitive approach was not attempted. We will proceed with hospice care. 04/23: Small bowel stoma functioning with bilious fluid in the bag and tiny fecal matter. Patient and the family accepted home hospice care. Hospice meeting in afternoon. The expectation is that patient will go home after hospice meeting. Discharge instructions already completed and signed. Follow-up with Dr. Daley. Hospice order as per hospice nurse. 2. Stage IV colon cancer, cancer related pain Initially presented with small bowel obstruction in November 2022. S/p right palliative hemicolectomy at that time. 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 Follows with Dr. Johns with oncology, last office visit on 04/09/2023. Has completed 3 rounds of chemotherapy treatment to this point, last round on 03/26. Home pain medication regimen of morphine 60 mg every 12 hours scheduled, Percocet every 4 hours as needed for breakthrough pain, olanzapine 5 mg at night as needed for nausea and promethazine 50 mg every 8 hours as needed for nausea. 04/23: As mentioned above 3. History of constipation ? On home regimen of senna twice daily, Colace twice daily and MiraLAX as needed. Holding these in setting of small bowel obstruction. Chronic medical conditions: ? Depression/anxiety: Home meds of paroxetine 40 mg daily, trazodone 50 to 100 mg at night as needed. Restart as able. ? Hyperlipidemia: Restart home simvastatin as able. DVT prophylaxis: Lovenox CODE STATUS: DNR CCA, DO NOT INTUBATE . Medications at Discharge Home Medications calcium carbonate 600 mg calcium (1,500 mg) tablet 1,200 mg PO DAILY SUPPLEMENT 10/16/16 paroxetine HCl 40 mg tablet 40 mg PO DAILY DEPRESSION 10/16/16 promethazine 25 mg tablet 50 mg PO Q8H PRN NAUSEA 10/16/16 simvastatin 10 mg tablet 10 mg PO QHS CHOLESTEROL 10/16/16 trazodone 50 mg tablet 50 - 100 mg PO QHS INSOMNIA 10/16/16 cholecalciferol (vitamin D3) 125 mcg (5,000 unit) tablet (Vitamin D3) 10,000 unit PO DAILY SUPPLEMENT 12/14/22 multivitamin 1 tab PO DAILY HEALTH MAINTENANCE 12/14/22 omeprazole magnesium 20 mg tablet,delayed release (Prilosec OTC) 20 mg PO DAILY ACID REFLUX 01/15/23 lidocaine-prilocaine 2.5 %-2.5 % topical cream 1 applic topical ONCE PRN PORT ACCESS 30 days #30 grams 01/31/23 morphine 60 mg tablet,extended release 60 mg PO Q12H PAIN 04/09/23 naloxone 4 mg/actuation nasal spray 1 spray intranasal Q3M PRN OPIOID OVERDOSE 04/10/23 olanzapine 5 mg tablet 5 mg PO QHS NAUSEA 04/10/23 omega-3 fatty acids 1,000 mg capsule 1,000 mg PO DAILY SUPPLEMENT 04/10/23 oxycodone-acetaminophen 10 mg-325 mg tablet 1 tab PO Q4H PRN BREAKTROUGH PAIN 04/10/23 sennosides 8.6 mg tablet (Natural Senna Laxative) 8.6 mg PO BID CONSTIPATION 04/10/23 Physical Exam Narrative Seen and examined No acute issues. No abdominal pain. Hospice care discussed with the patient, her near the bedside. Her concern of kidney failure and NSAID rates of potential complication of high output fistula with loss of fluid therefore she needs to drink a lot of water and fluid to maintain intake and output balance.. Physical exam General: Alert, Oriented x3, Cooperative, BMI 22 kg/m? HEENT: Atraumatic, PERRLA, EOMI, Normocephalic Oral: Oral mucosa moist. No Gingival or Mucosal Lesions/ Ulcerations Neck: Supple, No JVD, Negative Carotid Bruits Lungs: Air entry diminished in bilateral lung bases. No crepitation/rhonchi Cardiovascular: Regular rate, Regular Rhythm, Normal S1, Normal S2, No murmurs Abdomen: Has a stoma in the abdomen with bilious fluid collection and tiny fecal matter. No active bleeding. Soft. Bowel sounds sluggish to absent. : No renal angle tenderness. No suprapubic tenderness. Extremities: No edema, Capillary Refill Less than 3 Seconds Skin: No rashes, No breakdown Musculoskeletal: No Tenderness to Palpation of Joints or Extremities. Mild to moderate chronic atrophy of muscles of extremities loss of subcutaneous fat. Neurological: Cranial nerves II-XII grossly intact, DTR 2+/4. No acute focal neurological deficit. Psych/Mental Status: Flat affect. Medical Records Data Medical Nutrition Assessment Dietitian: Malnutrition Criteria Met Start: 04/21/23 09:42 Freq: Status: Active Protocol: Document 04/21/23 14:43 RMA (Rec: 04/21/23 14:43 RMA [id number]) Nutrition Malnutrition Evidence of Malnutrition Exists Yes Malnutrition (severe): Chronic Evidenced By Suboptimal Energy Intake ( Severe),Weight Loss (Severe) Intake Problem Inadequate Oral Intake Etiology related to altered GI function /obstruction Signs/Symptoms as evidenced by NPO Status Active Problem Clinical Problem Chronic Disease or Condition Related Malnutrition Etiology Severe protein-calorie malnutrition in the context of chronic disease related to inadequate energy/oral intake Signs/Symptoms as evidenced by ~20% weight loss x 10 months, PO meeting less than 50% estimated nutrition needs x past 6 months and currently NPO Status Active Problem Recommendation Dietitian Recommendations/Changes Recommend advance diet as tolerated to Transitional with goal of liberalized Regular diet. Recommend Ensure Clear as diet advanced to clear liquids and then to more nutrient-dense ONS as diet advanced to solids and pt able to tolerate PO. To limit further pro/energy depletion, consider Parenteral Nutrition Support if unable to advance PO diet in 24-48 hours. Weight / BMI Weight Weight: 141 lb 1.533 oz Body Mass Index (BMI) 24.2 ABG / Lab / Microbiology Data 04/23/23 06:54 04/23/23 06:54 Laboratory: Laboratory Results - last 24 hr 04/23/23 06:54: WBC 10.5, RBC 3.31 L, Hgb 9.7 L, Hct 31.1 L, MCV 94.0, MCH 29.3, MCHC 31.2 L, RDW Std Deviation 62.3 H, RDW Coeff of Julian 18.6 H, Plt Count 396, MPV 9.0, Immature Gran % (Auto) 0.700, Neut % (Auto) 84.8 H, Lymph % (Auto) 6.3 L, Gentry % (Auto) 6.7, Eos % (Auto) 0.8, Baso % (Auto) 0.7, Absolute Neuts (auto) 8.9 H, Absolute Lymphs (auto) 0.66 L, Nucleated RBC % 0, Sodium 139, Potassium 3.4 L, Chloride 102, Carbon Dioxide 31.0, Anion Gap 6, BUN 9, Creatinine 0.70, Estim Creat Clear Calc 70.11, Est GFR (MDRD) Af Amer 108, Est GFR (MDRD) Non-Af 89, BUN/Creatinine Ratio 12.8, Glucose 95, Calcium 8.1 L D/C Instructions Discharge Diet: No restrictions Call your doctor if your incision/area has: Continuous Slow Oozing, Sudden Increased Bleeding, Increased Pain/ Swelling, Increased Redness, Foul Smelling Discharge and Swelling at the incision site Call your doctor if you observe: - (Home with home hospice care.) Cleanse incision/area with: Soap & Water Please Follow Up With: Clyde Daley MD When: Follow up with Dr Daley next week for stoma bar removal call [phone] Meaningful Use Info Meaningful Use Diagnoses (Choose all that apply): None applicable Discharge Plan Admission Admit Date/Time: 04/20/23 21:41 Primary Reason for Your Visit: Advanced colon cancer complicated to recurrent small bowel obstruction. Attending Provider: Eyad Barajas Primary Care Provider: Jasmyn Whitten Consulting Providers: Clyde Daley; Real Tyler Discharge Orders/Prescriptions Prescriptions: Continued lidocaine-prilocaine 2.5-2.5 % cream 1 applic topical ONCE PRN (Reason: PORT ACCESS) 30 Days Qty: 30 2RF morphine 60 mg tablet extended release 60 mg PO Q12H trazodone 50 MG tablet 50 - 100 mg PO QHS simvastatin 10 MG tablet 10 mg PO QHS calcium carbonate 600 MG tablet 1,200 mg PO DAILY promethazine 25 MG tablet 50 mg PO Q8H PRN (Reason: NAUSEA ) paroxetine HCl 40 MG tablet 40 mg PO DAILY multivitamin Tablet 1 tab PO DAILY cholecalciferol (vitamin D3) [Vitamin D3] 125 mcg (5,000 unit) Tablet 10,000 unit PO DAILY omeprazole magnesium [Prilosec OTC] 20 mg Tablet,Delayed Release (Dr/Ec) 20 mg PO DAILY oxycodone-acetaminophen 10-325 mg tablet 1 tab PO Q4H PRN (Reason: BREAKTROUGH PAIN ) naloxone 4 mg/actuation spray,non-aerosol 1 spray INTRANASAL Q3M PRN (Reason: OPIOID OVERDOSE ) olanzapine 5 mg tablet 5 mg PO QHS sennosides [Natural Senna Laxative] 8.6 mg tablet 8.6 mg PO BID omega-3 fatty acids 1,000 mg capsule 1,000 mg PO DAILY Referrals / Follow Up: Clyde Daley MD [Med Staff - Active Staff] - 05/01/23 3:15 pm Jasmyn Whitten, LEAD ACCOUNTANT-C [Primary Care Provider] - Disposition Disposition (needs filled in before D/C Order can be placed): Hospice in Home Charges/Coding Visit Charges Inpatient E&M: 06761 Disch Hosp >30min
== END 2023-04-23 17:44 | disposition hospice, home (50) | DRG 329 ==
LOC: ED 21:25 → MS3 23:04
PROVIDERS: Surgery; Admitting Provider Hospitalist; Emergency Provider Emergency Medicine; PCP Nurse Practitioner Family; Visit Provider Internal Medicine
PROC: 0D1B4Z4 Bypass Ileum to Cutaneous, Percutaneous Endoscopic Approach (ICD-10-PCS; CPT 49320; principal; 2023-04-22 09:50)
DX: C78.6 Secondary malignant neoplasm of retroperitoneum and peritoneum (principal); E43 Unspecified severe protein-calorie malnutrition; C78.7 Secondary malignant neoplasm of liver and intrahepatic bile duct; C7A.8 Other malignant neuroendocrine tumors; F32.A Depression, unspecified; K59.00 Constipation, unspecified; E78.00 Pure hypercholesterolemia, unspecified; F41.9 Anxiety disorder, unspecified; G89.3 Neoplasm related pain (acute) (chronic); Z66 Do not resuscitate; Z90.49 Acquired absence of other specified parts of digestive tract; Z68.22 Body mass index [BMI] 22.0-22.9, adult; Z79.891 Long term (current) use of opiate analgesic; Z79.899 Other long term (current) drug therapy; Z87.891 Personal history of nicotine dependence
CPT/HCPCS: 36415; 36591; 74018; 74176; 74250; 80048; 80053; 83690; 83735; 84100; 85025; 85610; 94668; 97161; 97166; 97802; 99285; J7040; J7050; J7120; A4216; J2405